=== PATIENT | male | born 1990 | race Caucasian/White ===

== ENCOUNTER 2020-10-14 08:51 | Outpatient (REF) | payer OTHER, SELFPAY ==
[2020-10-14 11:49] LABS: Alanine Aminotransferase 27 U/L (0-40); Albumin Level 4.7 g/dL (3.5-5.0); Alkaline Phosphatase 37 U/L (39-117); Aspartate Amino Transferase 39 U/L (5-37); Bilirubin Direct 0.2 mg/dL (0.0-0.5); Bilirubin Total 0.6 mg/dL (0.0-1.0); Cholesterol 249 mg/dL; HDL Cholesterol 57 mg/dL; LDL Cholesterol Calculated 175 mg/dl; Total Protein 7.8 g/dL (6.5-8.0); Triglycerides 88 mg/dL
== END 2020-10-14 08:52 | disposition home or self-care (01) ==
LOC: HO.HMGCLDS 08:51
PROVIDERS: PCP Internal Medicine; Visit Provider Internal Medicine
DX: E78.9 Disorder of lipoprotein metabolism, unspecified (principal)
CPT/HCPCS: 80061; 80076

== ENCOUNTER 2021-01-20 15:54 | Emergency (ER) | payer OTHER, SELFPAY ==
[2021-01-20 16:02] VITALS: BP 126/72; PULSE 108; RESP 18; TEMP 36.7; O2SAT 96; BMI 30.1
[2021-01-20 17:04] LABS: MANUAL DIFF FLAG NO
[2021-01-20 17:06] LABS: Basophils Percent Auto 0.4 % (0-2); Eosinophils Absolute Auto 0.1 X10*3/uL (0.0-0.4); Eosinophils Percent Auto 0.9 % (0-4); Hematocrit 39.2 % (42-52); Hemoglobin 13.7 g/dl (14.0-18.0); Imm Gran Abs Auto 0.01 X10*3/uL (0.00-0.03); Imm Gran Pct Auto 0.1 % (0.0-0.4); Lymphocytes Absolute Auto 2.2 X10*3/uL (1.2-4.9); Lymphocytes Percent Auto 31.8 % (20-40); Mean Corpuscular HGB Conc 34.9 g/dl (31.0-36.0); Mean Corpuscular Hemoglobin 28.8 pg (27.0-33.0); Mean Corpuscular Volume 82.4 fL (80-98); Mean Platelet Volume 9.1 fL (9.4-12.4); Monocytes Absolute Auto 0.5 X10*3/uL (0.1-1.2); Neutrophils Percent Auto 58.8 % (45-73); Platelet Count 266 X10*3/uL (160-400); Red Blood Count 4.76 X10*6/uL (4.60-5.80); Red Cell Distribution Width 12.2 % (11.0-16.0); White Blood Count 6.8 X10*3/uL (4.8-10.8)
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
[2021-01-20 17:33] LABS: Alanine Aminotransferase 23 U/L (0-40); Albumin Level 4.9 g/dL (3.5-5.0); Alkaline Phosphatase 41 U/L (39-117); Anion Gap 15 (12-20); Aspartate Amino Transferase 33 U/L (5-37); Bilirubin Direct < 0.2 mg/dL (0.0-0.5); Bilirubin Total 0.2 mg/dL (0.0-1.0); Blood Urea Nitrogen 24 mg/dL (9-16); Calcium 9.4 mg/dL (8.4-10.2); Carbon Dioxide 27 mmol/L (22-29); Chloride 101 mmol/L (96-108); Creatinine Clr Calc Pharmacy 96.9; Estimated Glomerular Filt Rate > 60; Glucose Random 94 mg/dL (60-115); Lipase 19 U/L (8-78); Sodium 139 mmol/L (135-145); Total Protein 7.9 g/dL (6.5-8.0)
[2021-01-20] MEDS: Post Exposure Medication Kit 1 KIT PO (17:39)
[2021-01-21 05:00] LABS: HBc Num1 0.05 S/CO (0.00-0.79); HIV AB/AG Nonreactive (Nonreactive); HIV Num 1 0.05 S/CO (0.00-0.99); Hepatitis B Core Antibody Nonreactive (Nonreactive)
[2021-01-21 05:07] LABS: HBS Num1 50.25 mIU/mL (0-7.99); ~Hepatitis B Surface Antibody REACTIVE (Nonreactive)
[2021-01-21 05:14] LABS: HBsAGNum1 0.13 S/CO (0.00-0.99); Hepatitis B Surface Antigen Negative (Negative); ~HepC Num1 0.11 S/CO (0.00-0.79); ~Hepatitis C Antibody Nonreactive (Nonreactive)
== END 2021-01-20 18:00 | disposition home or self-care (01) ==
PROVIDERS: Physician Assistant; Emergency Provider Emergency Medicine; PCP Internal Medicine
DX: Z04.2 Encounter for examination and observation following work accident (principal); Z77.21 Contact with and (suspected) exposure to potentially hazardous body fluids
CPT/HCPCS: 36415; 80048; 80076; 83690; 85025; 86704; 86706; 86803; 87340; 87389; 99283; 99284

== ENCOUNTER → 2021-01-21 08:09 | Outpatient (BNVA) | payer OTHER, SELFPAY | PROVIDERS: PCP Internal Medicine; Visit Provider Internal Medicine | DX: Z77.21 Contact with and (suspected) exposure to potentially hazardous body fluids (principal) | CPT/HCPCS: 99202 ==

== ENCOUNTER → 2021-03-04 13:26 | Outpatient (BNVA) | payer OTHER, SELFPAY | PROVIDERS: PCP Internal Medicine | DX: Z77.21 Contact with and (suspected) exposure to potentially hazardous body fluids (principal) | CPT/HCPCS: 36415; 84450; 84460; 87389; 99211 ==

== ENCOUNTER → 2021-04-30 08:19 | Outpatient (BNVA) | payer OTHER, SELFPAY | PROVIDERS: PCP Internal Medicine | DX: Z77.21 Contact with and (suspected) exposure to potentially hazardous body fluids (principal) | CPT/HCPCS: 36415; 84450; 84460; 86803; 87389; 99211 ==

== ENCOUNTER 2021-05-20 08:07 | Emergency (ER) | payer OTHER, SELFPAY ==
[2021-05-20 08:10] VITALS: BP 128/79; PULSE 71; RESP 16; TEMP 36.8; O2SAT 98; BMI 29.4
[2021-05-20 08:22] VITALS: BP 117/82; PULSE 71; RESP 13; TEMP 36.9; O2SAT 98
[2021-05-20] MEDS: methylPREDNISolone Sod Succ 125 MG/2 ML VIAL IVPUSH (08:28)
[2021-05-20] MEDS: diphenhydrAMINE HCL 50 MG/ML VIAL IVPUSH (08:28)
[2021-05-20] MEDS: Famotidine/PF 20 MG/2 ML VIAL IVPUSH (08:28)
[2021-05-20] MEDS: 0.9 % Sodium Chloride 1,000 ML 999 ML IVCONT (08:28)
--- NOTE | 2021-05-20 08:58 | PC.NURSE ---
pt upper lip swelling decreased, bottom lip remains the same. Hives on ILANA trunk improved. pt reports feeling drowsy. speech clear.
--- NOTE | 2021-05-20 09:21 | ED_ITS ---
HPI - Allergic Reaction General Chief complaint: Allergic Reaction Stated complaint: hives - allergic reaction Time Seen by Provider: 05/20/21 08:16 Source: patient Mode of arrival: ambulatory Limitations: no limitations History of Present Illness HPI narrative: 31-year-old male with a past medical history of hyperlipidemia presenting to the ED with complaints of rash, hives and upper and lower lip swelling that has been intermittent since yesterday. He reports mild throat tightness that started this morning. He was seen at an urgent care yesterday and was given Benadryl and IM steroids and reports his symptoms had resolved and then overnight day developed again and worsened this morning. He reports he has been taking Claritin around the clock and was providing some mild symptomatic relief. He reports he recently started a new medication call digestive enzymes in the past week and this could be contributing to his allergic reaction. He denies any other new medications / substances /inset bite/ plant contact or cleaning product exposures. He denies any other symptoms complaints or concerns at this time. MD complaint: allergic reaction, hives and other ( upper and lower lip swelling) Onset (ago): day(s) ( intermittent since yesterday) Exposure: medication ( possible digestive enzyme medications that he started approximately 1 week ago) Symptoms: rash, itching and lip swelling Severity: moderate Treatment prior to arrival: none ( cleared in prior to arrival) Previous Allergic Reaction History: other ( he reports he was seen at the urgent care yesterday and was given Benadryl, IM steroids) Related Data Previous Rx's Medication Instructions Recorded zolpidem 5 mg tablet 5 mg PO BEDTIME PRN 90 Days #45 tab 01/12/21 gemfibrozil 600 mg tablet 600 mg PO BID 90 Days #180 tab 05/19/21 diphenhydramine HCl [Benadryl 50 mg PO Q6H PRN #20 tab 05/20/21 Allergy] epinephrine 0.3 mg IM Q10M PRN #2 ea 05/20/21 famotidine [Pepcid] 20 mg PO BID #10 tab 05/20/21 prednisone 60 mg PO DAILY 5 Days #15 tab 05/20/21 Allergies Allergy/AdvReac Type Severity Reaction Status Date / Time acetaminophen [From Vicodin] Allergy Unknown nausea Verified 05/20/21 08:10 hydrocodone [From Vicodin] Allergy Unknown nausea Verified 05/20/21 08:10 Review of Systems Review of Systems: Constitutional : No Fever, No Chills , no body aches, no recent illness Head/Face: Positive upper and lower lip swelling, No other facial swelling, No facial redness ENT/Mouth : No oral/throat swelling, No Hoarseness, No Swallowing Difficulty Eyes: No Eye Pain, No Swelling, No Redness Cardiovascular : No Chest Pain, No SOB, No palpitations Respiratory : No Cough, No Sputum, No Wheezing, No Smoke Exposure, No Dyspnea Gastrointestinal : No Nausea, No Vomiting, No Diarrhea, No abdominal Pain Genitourinary : No Dysuria, No Urinary Frequency, No Hematuria Musculoskeletal : No joint pain, No Myalgias, No Joint Swelling Skin : Positive Rash, No Skin Lesions Neuro : No Weakness, No Numbness, No Headache, No dizziness, No tingling Psych : No Anxiety/Panic, No Depression Heme/Lymph: No Bruising, No Lymphadenopathy Endocrine : No Polyuria, No Polydipsia Denies changes in lotions or detergents. Denies new medications or any changes in medications. Denies drainage from rash. Denies any recent sick contacts or recent travel. Yes all other systems are reviewed and are negative [facility] Past Medical History Attestation statement: The following information was validated with the patient. Medical History Difficulty sleeping Lipid disorder Surgical History History of shoulder surgery Family History Family History Father No problems noted. Mother No problems noted. Social History Social History Alcohol intake: former Patient Tobacco Use Status: Never used Tobacco Use of substances other than those prescribed or required for medical reasons: No Advance Directives: Yes Advance Directives Information Provided: Yes Advance Directives on File: No Physical Exam Vital Signs: Vital Signs: Last Vital Signs Temp 98.5 F 05/20/21 08:22 Pulse 71 05/20/21 08:22 Resp 13 05/20/21 08:22 BP 117/82 05/20/21 08:22 Pulse Ox 98 05/20/21 08:22 Body Mass Index 29.4 vital signs have been reviewed as normal and appeared to be correct. Blood pressure normal. Heart rate normal. Respiration rate normal. Temperature normal. Oxygen saturation normal. Appearance: Alert. Oriented X3. No acute distress. Head: Normal external exam. Normocephalic. Atraumatic. No Jaramillo signs noted. No raccoon eyes noted Eyes: PERRLA. EOMI. Conjunctiva and sclera normal. Eyelids normal. ENT: patient has mild upper and lower lip swelling/angioedema. Pharynx normal. Uvula midline. Moist mucous membranes. No trismus noted. No drooling noted. No muffled voice noted. Neck: Normal inspection. Neck supple. FROM. No adenopathy. Thyroid Normal. No meningeal signs. No neck mass noted. CVS: Normal heart rate and rhythm. Heart sound normal. Pulses normal throughout. No murmurs/rales/gallops. Respiratory: No respiratory distress. Painless inspiration. Breath sounds normal. No wheezes/rales/rhonchi noted. Chest nontender. No accessory muscle usage noted or decreased air movement noted. Abdomen: Soft and nontender. Bowel sounds normal in all 4 quadrants. No distention noted. No organomegaly noted. No visible injury noted. Back: No CVA tenderness. Full range of motion noted. No rashes/lesion/induration/fluctuance or signs of infection noted. Skin: Throughout the patient's entire body he has raise pain -red and well- demarcated blanching lesions that are pruritic consistent with hives /Urticaria/allergic reaction. The rest of the Skin is warm and dry. Normal skin color. Normal skin turgor. No lesions/lacerations noted. Extremities: Extremities exhibit normal range of motion. Extremities no ntender. Neuro: Oriented X 3. No motor deficit. No sensory deficit. Reflexes normal. Normal steady gait. No focal neuro deficits noted. Vascular: + radial pulses/+ 2 distal pedal pulses/+2 dorsalis pedis b/l. Normal cap refill. No cyanosis noted to upper extremity nails and lower extremity toes nails. Course Course Course Narrative: 8:20am IMP/Plan: Allergic rxn with mild upper and lower lip angioedema. Not anaphylaxis. Not sepsis/ infectious etiology. Patient well appearing in no acute distress, breathing easily reports that he feels throat tightness although no tongue /uvula swelling noted on my exam. Speaking full sentences, and handling secretions without difficulty. There is no obvious threat to airway. Lungs are CTA in all connors. No signs of stridor, airway compromise, anaphylaxis or anaphylactic shock. Not c/w SSSS/ TEN/ Eryth multiforme/ Galeas Johnsons. Given HPI and PE - Will give 125 mg of Solu-Medrol, 50 mg of Benadryl, and 20 mg of IV Pepcid provide a L of IV fluids watch and observe. if symptoms improve will DC home with Benadryl / Pepcid and steroids along with an EpiPen if not patient will receive epi while here in the ER. Reevaluation(s) Reevaluation #1: - Patient's rash completely resolved. Mild residual lip swelling although moderately improved. Patient does not have any throat tightness sensation any longer. I offered an epi due to the lip swelling that is residual and he is refusing. We will DC home with Benadryl, Pepcid, steroids and an EpiPen and I instructed the patient if he utilizes the epi pen that he needs to come to the emergency department immediately for observation due to rebound effect and he understand this. Along with instructions follow-up with primary care provider for allergy testing. Patient understands agrees with this plan Time: 10:06 MDM - Allergic Reaction Medical Records Attestation: I reviewed the patient's medical records. Lab Data Attestation: I reviewed the patient's lab results. Critical Care Time Critical Care Time Critical Care Time: Yes Total Critical Care Time: 60 Attestation: I personally attest to this time spent taking care of the patient Discharge Plan Discharge Clinical Impression: Allergic reaction, Urticaria, Angioedema Patient Disposition: Home, Self-Care Instructions: Urticaria (ED), Anaphylaxis (ED), Allergies (ED), Angioedema (ED), Allergy Testing (ED) Additional Instructions: please do not take the digestive enzyme medications that you recently started this could be the cause of your allergic reaction. You need to follow-up with your primary care provider for allergy testing. I gave you an epi pen if you utilize this EpiPen you need to return to the emergency department immediately for observation for at least 2-4 hours. Return if any new or worsening symptoms follow-up with her primary care provider. Prescriptions: New famotidine [Pepcid] 20 mg tablet 20 mg PO BID Qty: 10 RF: 0 diphenhydramine HCl [Benadryl Allergy] 25 mg tablet 50 mg PO Q6H PRN (Reason: allergic reaction) Qty: 20 RF: 0 prednisone 20 mg tablet 60 mg PO DAILY 5 Days Qty: 15 RF: 0 epinephrine 0.3 mg/0.3 mL auto-injector 0.3 mg IM Q10M PRN (Reason: anaphylaxis) Qty: 2 RF: 0 No Action gemfibrozil 600 mg tablet 600 mg PO BID 90 Days Qty: 180 RF: 1 zolpidem [Ambien] 5 mg tablet 5 mg PO BEDTIME PRN (Reason: insomnia) 90 Days Qty: 45 RF: 0 Referrals: Zander Hugo MD [Primary Care Provider] - 1 day ( Patient needs allergy testing) Stand Alone Forms: Work/School Release Print Language: [place]ian
[2021-05-20 10:19] VITALS: BP 106/52; PULSE 72; RESP 18; O2SAT 99
== END 2021-05-20 10:22 | disposition home or self-care (01) ==
PROVIDERS: Emergency Provider Emergency Medicine; PCP Internal Medicine
DX: T78.3XXA Angioneurotic edema, initial encounter (principal)
CPT/HCPCS: 96361; 96374; 96375; 99284; 99291; J1200; J2930

== ENCOUNTER 2021-05-23 09:21 | Emergency (ER) | payer OTHER, SELFPAY ==
--- NOTE | ~2021-05-23 | XR_ITS ---
EXAMINATION: XR CHEST CLINICAL INFORMATION: Chest pain COMPARISON: None TECHNIQUE: 2 views of the chest were obtained. FINDINGS: No significant abnormality is noted involving the heart, lungs, mediastinum, bony thorax or soft tissues. XR/XR chest 2V IMPRESSION: Unremarkable examination.
[2021-05-23 09:26] VITALS: BP 139/68; PULSE 82; RESP 18; TEMP 36.7; O2SAT 96; BMI 29.4
--- NOTE | 2021-05-23 09:53 | ECG_ITS ---
Test Reason : ALLERGIC REACTION Blood Pressure : / mmHG Vent. Rate : 067 BPM Atrial Rate : 067 BPM P-R Int : 130 ms QRS Dur : 088 ms QT Int : 402 ms P-R-T Axes : 047 072 029 degrees QTc Int : 424 ms Normal sinus rhythm Normal ECG When compared with ECG of 21-JUN-2019 13:17, No significant change was found Referred By: David Roblero Electronically Signed By:KAYLI BAINS
--- NOTE | 2021-05-23 09:56 | ED_ITS ---
HPI - Allergic Reaction General Chief complaint: Allergic Reaction Stated complaint: ALLERGIC REACTION Time Seen by Provider: 05/23/21 09:32 Source: patient Mode of arrival: ambulatory Limitations: no limitations History of Present Illness HPI narrative: 31-year-old male came in for evaluation of rash and hives. Symptoms started 3-4 days ago patient was seen in the emergency department for same symptoms and was prescribed Benadryl, Pepcid, prednisone patient took his medication today, rashes and hives still persist and patient feels slight tightness in the throat and chest pressure since early this morning. Patient took digestive enzyme medication that the patient discontinued for the last 2-3 days also. Related Data Previous Rx's Medication Instructions Recorded gemfibrozil 600 mg tablet 600 mg PO BID 90 Days #180 tab 05/19/21 diphenhydramine HCl [Benadryl 50 mg PO Q6H PRN #20 tab 05/20/21 Allergy] epinephrine 0.3 mg IM Q10M PRN #2 ea 05/20/21 famotidine [Pepcid] 20 mg PO BID #10 tab 05/20/21 prednisone 60 mg PO DAILY 5 Days #15 tab 05/20/21 zolpidem 5 mg tablet 5 mg PO BEDTIME PRN 90 Days #45 tab 05/21/21 Allergies Allergy/AdvReac Type Severity Reaction Status Date / Time acetaminophen [From Vicodin] Allergy Unknown nausea Verified 05/21/21 09:31 hydrocodone [From Vicodin] Allergy Unknown nausea Verified 05/21/21 09:31 Review of Systems Review of Systems: All other systems are reviewed and are negative Constitutional: Reports as per HPI and Reports no additional constitutional complaints Eyes: Reports as per HPI and Reports no additional eye complaints Reports system reviewed and no additional complaints, except as documented Cardiovascular: Reports as per HPI and Reports no additional cardiovascular complaints Respiratory: Reports as per HPI and Reports no additional respiratory complaints Gastrointestinal: Reports as per HPI and Reports no additional gastrointestinal complaints Genitourinary: Reports no additional female genitourinary complaints Musculoskeletal: Reports no additional musculoskeletal complaints Skin/Breast: Reports system reviewed and no additional complaints, except as docu Psychiatric: Reports no additional psychiatric complaints Endocrine: Reports no additional endocrine complaints Hematologic/Lymphatic: Reports no additional hematologic/lymphatic complaints Allergic/Immunologic: Reports no additional allergic/immunologic complaints Reports system reviewed and no additional complaints, except as documented and Reports Abnormal speech present PMFSH Past Medical History Medical History Difficulty sleeping Lipid disorder Surgical History History of shoulder surgery Family History Family History Father No problems noted. Mother No problems noted. Social History Social History Housing: House Alcohol intake: former Patient Tobacco Use Status: Never used Tobacco Advance Directives: Yes Advance Directives Information Provided: Yes Advance Directives on File: No service: Yes Current occupational status: employed Physical Exam Vital Signs: Vital Signs: Last Vital Signs Temp 96.8 F 05/23/21 10:19 Pulse 73 05/23/21 10:19 Resp 18 05/23/21 10:19 BP 119/86 05/23/21 10:55 Pulse Ox 99 05/23/21 10:55 Body Mass Index 29.4 Vital signs have been reviewed as appeared to be correct. Blood pressure normal. Heart rate normal. Respiration rate normal. Temperature normal. Oxygen saturation normal. Appearance: Alert. Oriented X3. No acute distress. Head: Normal external exam. Normocephalic. Atraumatic. No Jaramillo signs noted. No raccoon eyes noted Eyes: PERRLA. EOMI. Conjunctiva and sclera normal. Eyelids normal. ENT: TM's Normal. Pharynx normal. Uvula midline. Moist mucous membranes. No trismus noted. No drooling noted. No muffled voice noted. Neck: Normal inspection. Neck supple. FROM. No adenopathy. Thyroid Normal. No meningeal signs. No neck mass noted. No stridor and patent airway CVS: Normal heart rate and rhythm. Heart sound normal. No murmurs noted. Pulses normal throughout. Respiratory: No respiratory distress. Painless inspiration. Breath sounds normal. No wheezes/rales/rhonchi noted. Chest nontender. No accessory muscle usage noted or decreased air movement noted. Abdomen: Soft and nontender. Bowel sounds normal in all 4 quadrants. No distention noted. No organomegaly noted. No visible injury noted. Back: No CVA tenderness. Full range of motion noted. Skin: Diffuse maculopapular rash on the face, torso, upper and lower extremities Extremities: No lower extremity edema. Extremities exhibit normal range of motion. Extremities nontender. Neuro: Oriented X 3. No motor deficit. No sensory deficit. Reflexes normal. Course Course Course Narrative: Assessment and plan. 31-year-old male came in with rash, hives, feeling throat swelling. Patient has been on Benadryl/Pepcid/prednisone several days at home with no improvement, patient in the emergency department received IV fluid/Solu-Medrol/Benadryl IV, physical exam show no acute respiratory distress or airway compromising, patient remained with unremarkable vital signs, normal labs, normal EKG, normal chest x- ray. Appeared anxious wasl given 1 dose of Ativan while he is here and continue hydration with close monitoring. MDM - Allergic Reaction Lab Data Attestation: I reviewed the patient's lab results. Result diagrams: 05/23/21 10:04 05/23/21 10:04 Labs: Lab Results 05/23/21 05/23/21 05/23/21 Range/Units 10:04 10:04 10:04 WBC 9.5 (4.8-10.8) X10*3/uL RBC 4.83 (4.60-5.80) X10*6/uL Hgb 13.7 L (14.0-18.0) g/dl Hct 40.9 L (42-52) % MCV 84.7 (80-98) fL MCH 28.4 (27.0-33.0) pg MCHC 33.5 (31.0-36.0) g/dl RDW 12.5 (11.0-16.0) % Plt Count 255 (160-400) X10*3/uL MPV 9.4 (9.4-12.4) fL Immature Gran % (Auto) 0.5 H (0.0-0.4) % Neut % (Auto) 77.2 H (45-73) % Lymph % (Auto) 16.7 L (20-40) % [place] % (Auto) 5.2 (2-11) % Eos % (Auto) 0.2 (0-4) % Baso % (Auto) 0.2 (0-2) % Lymph # (Auto) 1.6 (1.2-4.9) X10*3/uL [place] # (Auto) 0.5 (0.1-1.2) X10*3/uL Eos # (Auto) 0.0 (0.0-0.4) X10*3/uL Baso # (Auto) 0.0 (0.0-0.2) X10*3/uL Abs Immat Gran (auto) 0.05 H (0.00-0.03) X10*3/uL Absolute Neuts (auto) 7.3 (2.0-8.3) X10*3/uL Absolute Nucleated RBC 0.000 (0.0-0.012) X10*3/uL Nucleated RBC % (auto) 0.0 (0.0-0.2) /100WBC Sodium 139 (135-145) mmol/L Potassium 4.3 (3.3-5.1) mmol/L Chloride 102 (96-108) mmol/L Carbon Dioxide 29 (22-29) mmol/L Anion Gap 12 (12-20) BUN 18 H (9-16) mg/dL Creatinine 1.16 (0.5-1.4) mg/dL Estim Creat Clear Calc 105.7 Estimated GFR > 60 Random Glucose 96 (60-115) mg/dL Calcium 9.6 (8.4-10.2) mg/dL Troponin I High Sens 5.7 (<3.5-35.0) ng/L Imaging Data Chest x-ray: Radiologist's impression: Unremarkable examination ECG Data Interpretation: Normal sinus rhythm at 67 beats per minutes, normal axis deviation, normal intervals, no ST-T changes. Discharge Plan Discharge Clinical Impression: Allergic reaction Patient Disposition: Home, Self-Care Instructions: Anaphylaxis (ED) Prescriptions: No Action gemfibrozil 600 mg tablet 600 mg PO BID 90 Days Qty: 180 RF: 1 famotidine [Pepcid] 20 mg tablet 20 mg PO BID Qty: 10 RF: 0 diphenhydramine HCl [Benadryl Allergy] 25 mg tablet 50 mg PO Q6H PRN (Reason: allergic reaction) Qty: 20 RF: 0 prednisone 20 mg tablet 60 mg PO DAILY 5 Days Qty: 15 RF: 0 epinephrine 0.3 mg/0.3 mL auto-injector 0.3 mg IM Q10M PRN (Reason: anaphylaxis) Qty: 2 RF: 0 zolpidem [Ambien] 5 mg tablet 5 mg PO BEDTIME PRN (Reason: insomnia) 90 Days Qty: 45 RF: 0 Referrals: Zander Hugo MD [Primary Care Provider] - 2 days
[2021-05-23] MEDS: diphenhydrAMINE HCL 50 MG/ML VIAL 25 MG IVPUSH (10:12)
[2021-05-23] MEDS: Famotidine/PF 20 MG/2 ML VIAL IVPUSH (10:12)
[2021-05-23] MEDS: 0.9 % Sodium Chloride 1,000 ML 999 ML IVCONT ×2 (10:12→11:44)
[2021-05-23] MEDS: methylPREDNISolone Sod Succ 125 MG/2 ML VIAL IVPUSH (10:15)
[2021-05-23 10:19] VITALS: BP 117/73; PULSE 73; RESP 18; TEMP 36; O2SAT 97
[2021-05-23 10:22] LABS: MANUAL DIFF FLAG NO
[2021-05-23 10:26] LABS: Basophils Percent Auto 0.2 % (0-2); Eosinophils Percent Auto 0.2 % (0-4); Hematocrit 40.9 % (42-52); Hemoglobin 13.7 g/dl (14.0-18.0); Imm Gran Abs Auto 0.05 X10*3/uL (0.00-0.03); Imm Gran Pct Auto 0.5 % (0.0-0.4); Lymphocytes Absolute Auto 1.6 X10*3/uL (1.2-4.9); Lymphocytes Percent Auto 16.7 % (20-40); Mean Corpuscular HGB Conc 33.5 g/dl (31.0-36.0); Mean Corpuscular Hemoglobin 28.4 pg (27.0-33.0); Mean Corpuscular Volume 84.7 fL (80-98); Mean Platelet Volume 9.4 fL (9.4-12.4); Monocytes Absolute Auto 0.5 X10*3/uL (0.1-1.2); Monocytes Percent Auto 5.2 % (2-11); Neutrophils Absolute Auto 7.3 X10*3/uL (2.0-8.3); Neutrophils Percent Auto 77.2 % (45-73); Platelet Count 255 X10*3/uL (160-400); Red Blood Count 4.83 X10*6/uL (4.60-5.80); Red Cell Distribution Width 12.5 % (11.0-16.0); White Blood Count 9.5 X10*3/uL (4.8-10.8)
--- NOTE | 2021-05-23 10:47 | ECG_ITS ---
Test Reason : SHORTNESS OF BREATH Blood Pressure : / mmHG Vent. Rate : 066 BPM Atrial Rate : 066 BPM P-R Int : 128 ms QRS Dur : 092 ms QT Int : 410 ms P-R-T Axes : 047 071 027 degrees QTc Int : 429 ms Normal sinus rhythm Normal ECG When compared with ECG of 23-MAY-2021 10:12, No significant change was found Referred By: David Roblero Electronically Signed By:KAYLI BAINS
[2021-05-23 10:50] LABS: Anion Gap 12 (12-20); Blood Urea Nitrogen 18 mg/dL (9-16); Calcium 9.6 mg/dL (8.4-10.2); Carbon Dioxide 29 mmol/L (22-29); Chloride 102 mmol/L (96-108); Creatinine Clr Calc Pharmacy 105.7; Estimated Glomerular Filt Rate > 60; Glucose Random 96 mg/dL (60-115); Potassium 4.3 mmol/L (3.3-5.1); Sodium 139 mmol/L (135-145)
[2021-05-23 10:54] LABS: Troponin-I High Sensitivity 5.7 ng/L (<3.5-35.0)
--- NOTE | 2021-05-23 10:54 | PC.NURSE ---
patient started to complain of increased SOB and chest pain. new set of vital signs were obtained which were all wnl. ed provider made aware and repeat ekg and chest xray ordered. tech at bedside performing repeat ekg and patient informed of plan.
[2021-05-23 10:55] VITALS: BP 119/86; O2SAT 99
[2021-05-23] MEDS: LORazepam 1 MG TABLET PO (11:43)
== END 2021-05-23 12:55 | disposition home or self-care (01) ==
PROVIDERS: Emergency Provider Emergency Medicine; PCP Internal Medicine
DX: T78.40XA Allergy, unspecified, initial encounter (principal); X58.XXXA Exposure to other specified factors, initial encounter
CPT/HCPCS: 36415; 71046; 80048; 84484; 85025; 93005; 96361; 96374; 96375; 99284; J1200; J2930

== ENCOUNTER 2021-08-13 09:54 | Outpatient (REF) | payer OTHER, SELFPAY ==
[2021-08-13 12:27] LABS: MANUAL DIFF FLAG NO
[2021-08-13 12:36] LABS: Basophils Percent Auto 0.9 % (0-2); Eosinophils Absolute Auto 0.2 X10*3/uL (0.0-0.4); Eosinophils Percent Auto 4.1 % (0-4); Hemoglobin 13.9 g/dl (14.0-18.0); Imm Gran Abs Auto 0.01 X10*3/uL (0.00-0.03); Imm Gran Pct Auto 0.2 % (0.0-0.4); Lymphocytes Absolute Auto 2.4 X10*3/uL (1.2-4.9); Lymphocytes Percent Auto 51.5 % (20-40); Mean Corpuscular HGB Conc 33.1 g/dl (31.0-36.0); Mean Corpuscular Hemoglobin 28.2 pg (27.0-33.0); Mean Corpuscular Volume 85.2 fL (80-98); Mean Platelet Volume 9.7 fL (9.4-12.4); Monocytes Absolute Auto 0.4 X10*3/uL (0.1-1.2); Monocytes Percent Auto 8.4 % (2-11); Neutrophils Absolute Auto 1.6 X10*3/uL (2.0-8.3); Neutrophils Percent Auto 34.9 % (45-73); Platelet Count 236 X10*3/uL (160-400); Red Blood Count 4.93 X10*6/uL (4.60-5.80); White Blood Count 4.7 X10*3/uL (4.8-10.8)
[2021-08-13 13:20] LABS: Alanine Aminotransferase 22 U/L (0-40); Albumin Level 4.6 g/dL (3.5-5.0); Alkaline Phosphatase 43 U/L (39-117); Anion Gap 12 (12-20); Aspartate Amino Transferase 31 U/L (5-37); Bilirubin Direct < 0.2 mg/dL (0.0-0.5); Bilirubin Total 0.5 mg/dL (0.0-1.0); Blood Urea Nitrogen 15 mg/dL (9-16); Calcium 9.9 mg/dL (8.4-10.2); Carbon Dioxide 28 mmol/L (22-29); Chloride 105 mmol/L (96-108); Cholesterol 267 mg/dL; Estimated Glomerular Filt Rate > 60; Glucose Fasting 96 mg/dL (60-99); HDL Cholesterol 58 mg/dL; LDL Cholesterol Calculated 189 mg/dl; Potassium 4.9 mmol/L (3.3-5.1); Sodium 140 mmol/L (135-145); Total Protein 7.8 g/dL (6.5-8.0); Triglycerides 100 mg/dL
== END 2021-08-13 09:55 | disposition home or self-care (01) ==
LOC: HO.HMGCLDS 09:54
PROVIDERS: PCP Internal Medicine; Visit Provider Internal Medicine
DX: E78.9 Disorder of lipoprotein metabolism, unspecified (principal); G47.9 Sleep disorder, unspecified
CPT/HCPCS: 36415; 80048; 80061; 80076; 85025

== ENCOUNTER 2022-01-31 02:51 | Emergency (ER) | payer OTHER, SELFPAY ==
[2022-01-31 03:20] VITALS: BP 135/79; PULSE 89; RESP 16; TEMP 37; O2SAT 97; BMI 28.7
--- NOTE | 2022-01-31 04:28 | PC.NURSE ---
Pt is refusing blood work at this time.
[2022-01-31 06:06] VITALS: BP 117/67; PULSE 74; RESP 16; TEMP 36.7; O2SAT 97
--- NOTE | 2022-01-31 06:18 | PC.NURSE ---
Second attempt to collect labs. Pt is refusing at this time.
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
== END 2022-01-31 07:08 | disposition home or self-care (01) ==
PROVIDERS: Emergency Provider Emergency Medicine Emergency Medical Services
DX: Z04.1 Encounter for examination and observation following transport accident (principal)
CPT/HCPCS: 99282; 99283

== ENCOUNTER 2022-02-24 07:29 | Outpatient (REF) | payer OTHER, SELFPAY ==
[2022-02-24 11:44] LABS: Alanine Aminotransferase 20 U/L (0-40); Albumin Level 4.4 g/dL (3.5-5.0); Alkaline Phosphatase 39 U/L (39-117); Aspartate Amino Transferase 22 U/L (5-37); Bilirubin Direct < 0.2 mg/dL (0.0-0.5); Bilirubin Total 0.3 mg/dL (0.0-1.0); Cholesterol 174 mg/dL; HDL Cholesterol 37 mg/dL; LDL Cholesterol Calculated 120 mg/dl; Total Protein 7.2 g/dL (6.5-8.0); Triglycerides 86 mg/dL
== END 2022-02-24 07:30 | disposition home or self-care (01) ==
LOC: HO.HMGCLDS 07:29
PROVIDERS: Visit Provider Internal Medicine
DX: E78.9 Disorder of lipoprotein metabolism, unspecified (principal); G47.9 Sleep disorder, unspecified
CPT/HCPCS: 36415; 80061; 80076

== ENCOUNTER 2022-09-01 07:55 | Outpatient (REF) | payer OTHER, SELFPAY ==
[2022-09-01 12:01] LABS: Alanine Aminotransferase 32 U/L (0-40); Albumin Level 4.7 g/dL (3.5-5.0); Alkaline Phosphatase 45 U/L (39-117); Anion Gap 13 (12-20); Aspartate Amino Transferase 42 U/L (5-37); Bilirubin Total 0.4 mg/dL (0.0-1.0); Blood Urea Nitrogen 18 mg/dL (9-16); Calcium 9.7 mg/dL (8.4-10.2); Carbon Dioxide 30 mmol/L (22-29); Chloride 100 mmol/L (96-108); Cholesterol 261 mg/dL; Estimated Glomerular Filt Rate > 60; Glucose Fasting 87 mg/dL (60-99); HDL Cholesterol 43 mg/dL; LDL Cholesterol Calculated 195 mg/dl; Potassium 4.2 mmol/L (3.3-5.1); Sodium 139 mmol/L (135-145); Total Protein 7.9 g/dL (6.5-8.0); Triglycerides 116 mg/dL
== END 2022-09-01 07:56 | disposition home or self-care (01) ==
LOC: HO.HMGCLDS 07:55
PROVIDERS: PCP Internal Medicine; Visit Provider Internal Medicine
DX: E78.9 Disorder of lipoprotein metabolism, unspecified (principal)
CPT/HCPCS: 36415; 80053; 80061

== ENCOUNTER 2022-11-17 23:57 | Emergency (ER) | payer OTHER, SELFPAY ==
--- NOTE | ~2022-11-17 | XR_ITS ---
EXAMINATION: XR hand wrist RT CLINICAL INFORMATION: Reason for Exam injury COMPARISON: 07/14/2019 TECHNIQUE: PA, oblique and lateral views FINDINGS: No acute fracture or dislocation. Dorsal plate and screws is present this metacarpal diaphysis no evidence of hardware failure or complication. Soft tissues unremarkable XR/XR hand wrist RT IMPRESSION: No acute fracture or dislocation.
[2022-11-17 23:59] VITALS: BP 135/94; PULSE 92; RESP 18; TEMP 36.6; O2SAT 96; BMI 30.1
--- OUTSIDE RECORDS SUMMARY | 2022-11-18 02:03 | XMS_ITS | Encounter Summary ---
:1990 Author Organization Department [facility] rs Address [address] [place] [id number] Support Name Relationship Address Phone SRINIVAS WHEELER Unavailable [address] [facility] [place] [address] SRINIVAS WHEELER Unavailable Unavailable Insurance Providers: All historical and current Section Date Range: From patient's date of to the date document was created.This section includes the names of all active insurance providers for the patient. Insurance Type of Plan Start of End of Group Member Insurance Policy P atient's Provider Coverage Name Policy Policy Number ID Provider's Bello's Relationship Coverage Coverage Telephone Name to Policy Number Bello RESER Dec 11, [id number] [phone] ANVJOT WHEELER PATIENT [facility] 2019 IN [place] 2017 T Selected Encounter This section includes the information on record at [place] for the Encounter. Date/Time Encounter Type Encounter Description Reason Provider Source Sep 08, 2022 02:07 Outpatient Encounter PRIMARY CARE/MEDICINE PM [facility] Encounter Template Text not used by [place] Plan of Treatment: Future Appointments (+ 6 months) and Future Tests (+/- 45 days) The Plan of Treatment section includes future care activities for the [facility]. This section includes future appointments and future orders which are active, pending orscheduled.Active, Pending, and Scheduled Orders This section includes a listing of several types of active, pending, and scheduled orders, including clinic medications orders, diagnostic test orders, procedure orders and consult orders; where the start date of the order is 45 days before the date of the Encounter or 45 days after the date of the Encounter. The data comes from all [place] treatment facilities. Test Date/Time Test Type Test Details Facility Name Sep 01, 2022 12:00 AM Laboratory - Chemistry BASIC METABOLIC SIMON EL [facility] (fasting) BLOOD (SST-SERUM) Sep 01, 2022 12:00 AM Laboratory - Chemistry LIPID PANEL FASTING [facility] BLOOD (SST-SERUM) Sep 01, 2022 12:00 AM Laboratory - Chemistry LIVER FUNCTION BLOO D [place] Order (SST-SERUM) Sep 01, 2022 12:00 AM Laboratory - Chemistry CBC AND DIFF (AUTO) [facility] BLOOD (LAV-BLOOD) Sep 01, 2022 12:00 AM Laboratory - Chemistry HEMOGLOBIN A1C PANE L [facility] BLOOD (LAV-BLOOD) Sep 01, 2022 12:00 AM Laboratory - Chemistry TSH BLOOD (SST-SERU M) [facility] Sep 01, 2022 12:00 AM Laboratory - Chemistry URINALYSIS URINE [facility] Encounter Notes: All associated encounter notes This section contains the clinical notes associated to the Encounter. Date/Time Encounter Note(s) Provider Source Sep 08, 2022 02:07 PM ADMINISTRATIVE NOTE: GLADYS SIMS [facility] TITLE: ADMINISTRATIVE NOTE STANDARD TITLE: ADMINISTRATIVE NOTE DATE OF NOTE: SEP 08, 2022@14:07 ENTRY DATE: SEP 08, 2022@14:07:43 AUTHOR: GLADYS SIMS EXP COSIGNER: URGENCY: STATUS: COMPLETED TELEPHONE CALL Called PATIENT PHONE - PHONE NUMBER [CELLULAR] - Re: Electronics Technician Apprentice has called to remind them of thei r upcoming PCP appt with YOUNG HAMMOND and the need for bloodwork prior to upcoming belgica t. [ ] Spoke with [X] Left VM [ ] Unable to reach [X] Fasting blood work [ ] NON fasting blood work [ ] NO bloodwork needed Upcoming Appointments: 09/22/2022 09:30 CWM/SO/PACT 4 /es/ GLADYS SIMS CIVIL ENGINEERING PROJECT DESIGNER Signed: 09/08/2022 14:07
--- OUTSIDE RECORDS SUMMARY | 2022-11-18 02:03 | XMS_ITS | Continuity of Care Document ---
:1990 Author Organization [facility] Care Team Providers Name Role Phone [facility] Unavailable Unavailable Problems Combined list of problems from Department of Defense and Veterans Affairs facilities. It does not include entries that were removed or entered in error. Problem Status Onset Problem Date of Comments Source Date Type Resolution visit for: Inactive Condition DoD services physical 017 pre-deployment hemorrhoids external Inactive Condition DoD 017 unspecified muscle Inactive Condition D oD strain 016 ankle joint pain Inactive Condition DoD 016 joint pain, localized Active Condition DoD in the knee 016 Alcohol Abuse (SCT Active Condition Oct 06, [facility] [id number]) 2020 [facility] Entered [place] By: [facility] TREVOR TOMPKINS Comment: In binges GERD - Active Condition [place] Gastro-esophageal reflux disease Hypercholesterolemia Active Condition [facility] [facility] Pain of joint of knee Active Condition [place] PTSD - Post-traumatic Active Condition [place] stress disorder Diagnosis: ICD-10-CM Active Diagnosis [facility] M25.569 Pain in unspecified kneewith Provider Comments: Pain in unspecified Knee Diagnosis: ICD-10-CM Active Diagnosis [place] F43.10 Post-traumatic stress disorder, unspecifiedwith Provider Comments: PTSD - Post-traumatic stress disorder ([facility] [id number]) Diagnosis: ICD-10-CM Active Diagnosis [place] F43.10 Post-traumatic stress disorder, unspecifiedwith Provider Comments: Post-Traumatic Stress Disorder, unspecified Diagnosis: ICD-10-CM Active Diagnosis [place] M25.569 Pain in unspecified kneewith Provider Comments: Pain of joint of knee ([facility] [id number]) Diagnosis: ICD-10-CM Active Diagnosis [facility] Z02.89 Encounter for [facility]STRN other administrative [place] examinationswith [facility] Provider Comments: Encounter for other Administrative Examinations Diagnosis: ICD-10-CM Active Diagnosis [place] M25.569 Pain in unspecified kneewith Provider Comments: Pain of joint of knee ([facility] [id number]) Diagnosis: ICD-10-CM Active Diagnosis [facility] E78.00 Pure [facility]N hypercholesterolemia, [place] unspecifiedwith HCS Provider Comments: Hypercholesterolemia ([facility] [id number]) Diagnosis: ICD-10-CM Active Diagnosis [place] F10.20 Alcohol dependence, uncomplicatedwith Provider Comments: Alcohol Dependence, Uncomplicated Diagnosis: ICD-10-CM Active Diagnosis [facility] F43.12 Post-traumatic W[facility]N stress disorder, [place] chronicwith Provider HCS Comments: Post-Traumatic Stress Disorder, Chronic Diagnosis: ICD-10-CM Active Diagnosis [place] Z71.89 Other specified counselingwith Provider Comments: Other specified Counseling Medications Combined list of outpatient medications from Department of Defense and Veterans Affairs facilities. Medications provided include 1) outpatient medications from the last 15 months, and 2) patient-reported medications. Medication Details Route Status Patient Prescription Prescription Last Ordering Order Source Instructions Expires Number Dispense Provider Date Date busPIRone TAKE ONE Discont 09/23/2022 [id number] LEDA 10/17/ Cynthia (U/D) 5 MG TABLET inued 1 2020 pton ORAL TAB BY MOUTH [facility] TWICE DAILY NEEDED BUSPIRONE TAKE ONE ORAL DISCONT 09/23/2022 [id number] ZACK TOMPKINS DUDLEY HCL 5MG TAB TABLET INUED 2020 IELD BY MOUTH TWICE DAILY NEEDED COENZYME TAKE BY ORAL ACTIVE CAMILA HAMMOND 03/02/ SPR INGF Q10 CAP/TAB MOUTH [place] 2021 IELD ONCE DAILY Compounded TAKE ONE 08/06/2022 [id number] MANISH Cynthia Prilosec CAPSULE 1 2021 pton Capsule BY MOUTH [facility] Conventiona TWICE l 20 mg DAILY Oral DOXEPIN HCL TAKE ONE ORAL DISCONT 10/07/2022 [id number] ZACK BASILIO springF 10MG CAP CAPSULE INUED 1 2020 IELD BY MOUTH AT BEDTIME Doxepin TAKE ONE Discont 10/07/2022 [id number] LEDA Cynthia Hydrochlori CAPSULE inued 1 2021 pton de BY MOUTH [facility] ([place] AT Eq.) BEDTIME Capsule Conventiona l 10 mg Oral FLONASE-OTC INSTILL Active 03/03/2023 [id number] MANISH, Northam (BRAND) 50 2 SPRAYS 2 2021 pto n MCG RILEY INTO [facility] SPSN [9.9] EACH NOSTRIL ONCE DAILY FOR NASAL IRRITATI ON/INFLA MMATION FLUTICASONE INSTILL EACH ACTIVE 03/03/2023 [id number] MANISH,A NNM springF PROPIONATE 2 SPRAYS NOSTRI 2 2021 IELD 50MCG/SPRAY INTO L SOLN,NASAL, EACH 16GM NOSTRIL ONCE DAILY FOR NASAL IRRITATI ON/INFLA MMATION FLUVASTATIN TAKE 1 ORAL ACTIVE MANISH,ANNM 03/02/ S PRINGF NA 20MG CAP CAPSULE 2021 IELD BY MOUTH ONCE DAILY FLUVASTATIN TAKE 1 ORAL ACTIVE MANISH,ANNM S PRINGF NA 20MG CAP CAPSULE DAWOOD2021 IELD BY MOUTH ONCE DAILY FLUVASTATIN Active [id number] TONA, 11/18 / Pharmac SODIUM 2 2021 y Data (FLUVASTATI Transac N SODIUM), tion 20 MG, Service CAPSULE, Facilit ORAL, y MYLAN, 30 ea. BOTTLE FLUVASTATIN Active [id number] TONA, 06/07 / Pharmac SODIUM 2 2021 y Data (FLUVASTATI Transac N SODIUM), tion 20 MG, Service CAPSULE, Facilit ORAL, TEVA y [place], 30 ea. BOTTLE FLUVASTATIN Active [id number] TONA, 03/01 / Pharmac SODIUM 2 2021 y Data (FLUVASTATI Transac N SODIUM), tion 20 MG, Service CAPSULE, Facilit ORAL, TEVA y [place], 30 ea. BOTTLE hydrOXYzine TAKE ONE Discont 10/07/2022 [id number] RAULITO FELTON, Beckam pamoate CAPSULE inued 1 2021 pton (U/D) 25 MG BY MOUTH [facility] ORAL CAP TWICE DAILY NEEDED HYDROXYZINE TAKE ONE ORAL DISCONT 10/07/2022 [id number] S HARMA,NE springF PAMOATE CAPSULE INUED 1 ETA 2020 IELD 25MG CAP BY MOUTH TWICE DAILY NEEDED OMEPRAZOLE TAKE ONE ORAL 08/06/2022 [id number] CAMILA HAMMOND 20MG CAP,EC CAPSULE 1 DAWOOD 2020 IELD BY MOUTH TWICE DAILY ZOLPIDEM Active [id number] TONA, P harmac TARTRATE 2 2021 y Data (ZOLPIDEM Transac TARTRATE), tion 5MG, Service TABLET, Facilit ORAL, y [facility], 100 ea. BOTTLE ZOLPIDEM Active [id number] TONA, 02/28/ P harmac TARTRATE 2 2021 y Data (ZOLPIDEM Transac TARTRATE), tion 5MG, Service TABLET, Facilit ORAL, y [facility], 100 ea. BOTTLE ZOLPIDEM Active [id number] TONA, P harmac TARTRATE 2 2021 y Data (ZOLPIDEM Transac TARTRATE), tion 5MG, Service TABLET, Facilit ORAL, y [facility], 100 ea. BOTTLE Allergies, Adverse Reactions, Alerts Combined list of allergies from Department of Defense and Veterans Affairs facilities. It does not include entries that were removed or entered in error. Substance Category Reaction Severity Reaction Status Date Comments S ource type Reported BUSPIRONE Drug Drug active Randy mcclendon allergy allergy 1 [facility] (disorder) (disorder ) Immunizations Combined list of available immunizations from the Department of Defense and Veterans Affairs facilities. Immunization Series Date Administered Site Reaction Lot CVX Drug St atus Comments Source Given By Number Code Glass Cutter INFLUENZA, complet [facility] UNSPECIFIED 2020 ed CN TRL FORMULATION [place] [facility] COVID-19 2 complet [facility] (PFIZER), 2020 ed CNTR L MRNA, LNP-S, W STRN PF, 30 [place] MCG/0.3 ML SET S DOSE HCS COVID-19 1 complet [facility] (PFIZER), 2020 ed CNTR L MRNA, LNP-S, W STRN PF, 30 [place] MCG/0.3 ML SET S DOSE HCS influenza, 09/18/ DOMINIQUE, () Not i nfluenza DoD injectable, 2019 Given , quadrivalent, inject abl preservative e, free quadrival ent, preservat shanna free Results Combined list of recent chemistry, hematology and other laboratory results from Department of Defense and Veterans Affairs, ranging from 15 months to all on record, depending upon the facility. Order Results Value Reference Date Interpretation Specimen Commen ts Source Name Range COVID-19 SARS-COV-2 N 11/04 Specimen Typ e: NASOPHARYNX [place] (CEPHEID (COVID-19) /2020 Comment: Te st performed on [employer] at [facility]. This test is authorized for emergency use only. It is authorized for the duration of the declaration that circumstances exist just LD ) RNA ifying the autho rization for detection and/or diagnosis of COVID-19. Unless the authorization is terminated or revoked sooner. This test cannot rule out diseases caused by other bacterial or viral patho [PRESENCE] gens. False n egative results may occur if virus is present at levels below the analytical limit of detection. Negative results do not preclude SARS-CoV-2, influenza or RSV infection and should not be us IN ed as the sole b asis for treatment or other patient management decisions. Viral nucleic acid may persist in vivo, independent of virus viability. Detection of analyte target(s) does not imply that the c RESPIRATOR orresponding virus(es) are infectious or are the causative agents for clinical symptoms. Cepheid FLUVID: HCPs: https://www.fda.gov/media/950037/download Patients: https://www.fda.gov/media/253742/download Y SPECIMEN Ordering Pro vider: YOUNG HAMMOND BY ANEESH Report Released Date/Time: Nov 04, 2021 03:53 PM WITH PROBE Reporting La b: [facility] [facility] DETECTION [address] [facility] [address] Performing Lab: PR [employer] [employer]777TRN Study [employer] [facility] [address] [facility] [address] HEPATITI HEPATITIS NON-REAC 08/12 Specimen Typ e: SERUM [place] S C C VIRUS AB TIVE /2020 Comment: Hep C Ab: No HCV antibody detected. If recent infection is suspected or other evidence suggests HCV infection, consider HCV nucleic acid testing LD ANTIBODY [PRESENCE] Ordering Pr ovider: YOUNG HAMMOND (HCV)-AR IN SERUM Report Releas ed Date/Time: Aug 05, 2021 11:42 AM C Reporting Lab: [facility] [address] [facility] [address] Performing Lab: [facility] [address] [facility] [address] BASIC UREA 18 7 - 25 08/12 Specimen Type: S SARAH [place] METABOLI NITROGEN /2020 No comment ent ered. LD C PANEL [MASS/VOLU Ordering Pro vider: YOUNG HAMMOND (fasting ME] IN Report Release d Date/Time: Aug 05, 2021 11:42 AM ) SERUM OR Reporting Lab: [facility] PLASMA [address] [facility] [address] Performing Lab: [address] [address] BASIC GLUCOSE 94 65 - 100 08/12 Specimen Type: SERUM [place] METABOLI [MASS/VOLU /2020 No comment e ntered. LD C PANEL ME] IN Ordering Provid er: YOUNG HAMMOND (fasting SERUM OR Report Releas ed Date/Time: Aug 05, 2021 11:42 AM ) PLASMA Reporting Lab: [facility] [address] [facility] [address] Performing Lab: [facility] [address] [facility] [address] BASIC SODIUM 137 135 - 145 08/12 Specimen Type: SERUM [place] METABOLI [MOLES/VOL /2020 No comment e ntered. LD C PANEL UME] IN Ordering Provid er: YOUNG HAMMOND (fasting SERUM OR Report Releas ed Date/Time: Aug 05, 2021 11:42 AM ) PLASMA Reporting Lab: [facility] [address] [facility] [address] Performing Lab: [facility] [address] [facility] [address] BASIC POTASSIUM 4.5 3.5 - 5.0 08/12 Specimen Typ e: [facility] [place] METABOLI [MOLES/VOL /2020 No comment e ntered. LD C PANEL UME] IN Ordering Provid er: YOUNG HAMMOND (fasting SERUM OR Report Releas ed Date/Time: Aug 05, 2021 11:42 AM ) PLASMA Reporting Lab: [facility] [address] [facility] [address] Performing Lab: [facility] [address] [facility] [address] BASIC CHLORIDE 102 100 - 110 08/12 Specimen Type : SERUM [place] METABOLI [MOLES/VOL /2020 No comment e ntered. LD C PANEL UME] IN Ordering Provid er: YOUNG HAMMOND (fasting SERUM OR Report Releas ed Date/Time: Aug 05, 2021 11:42 AM ) PLASMA Reporting Lab: [address] [address] Performing Lab: [address] [address] BASIC CARBON 26 20 - 30 08/12 Specimen Type: S SARAH [place] METABOLI DIOXIDE, /2020 No comment ent ered. LD C PANEL TOTAL Ordering Provid er: YOUNG HAMMOND (fasting [MOLES/VOL Report Rele ased Date/Time: Aug 05, 2021 11:42 AM ) UME] IN Reporting Lab: [facility] SERUM OR [address] [facility] [address] PLASMA Performing Lab: [facility] [address] [facility] [address] BASIC CREATININE 1.00 0.50 - 08/12 Specimen Type : SERUM [place] METABOLI [MASS/VOLU 1.40 /2020 No comment e ntered. LD C PANEL ME] IN Ordering Provid er: YOUNG HAMMOND (fasting SERUM OR Report Releas ed Date/Time: Aug 05, 2021 11:42 AM ) PLASMA Reporting Lab: [address] [address] Performing Lab: [facility] [address] [facility] [address] BASIC GLOMERULAR 87 60 09/30 Specimen Type : SERUM [place] METABOLI FILTRATION /2020 No comment e ntered. LD C PANEL RATE/1.73 Ordering Prov ider: YOUNG HAMMOND (fasting SQ Report Release d Date/Time: Aug 05, 2021 11:42 AM ) AGUSTIN Reporting La b: [facility] [place] [facility] D [VOLUME [address] [facility] [address] RATE/AREA] Performing L ab: [facility] [place] [facility] IN SERUM [address] [facility] [address] OR PLASMA BY CREATININE -BASED FORMULA (MDRD) LIPID CHOLESTERO 278 0 - 199 09/30 H Specimen Type : SERUM [place] PANEL L /2020 No comment enter ed. LD FASTING [MASS/VOLU Ordering Pro vider: YOUNG HAMMOND ME] IN Report Released Date/Time: Aug 05, 2021 11:42 AM SERUM OR Reporting Lab: [facility] [place] [facility] PLASMA [address] [facility] [address] Performing Lab: [facility] [place] [facility] [address] [facility] [address] LIPID TRIGLYCERI 114 0 - 150 09/30 Specimen Type : SERUM [place] PANEL DE /2020 No comment enter ed. LD FASTING [MASS/VOLU Ordering Pro vider: YOUNG HAMMOND] IN Report Released Date/Time: Aug 05, 2021 11:42 AM SERUM OR Reporting Lab: [facility] [place] [facility] PLASMA [address] [facility] [address] Performing Lab: [facility] [place] [facility] [address] [facility] [address] LIPID CHOLESTERO 199 0 - 129 09/30 H Specimen Type : SERUM [place] PANEL L IN LDL /2020 No comment ente red. LD FASTING [MASS/VOLU Ordering Pro vider: YOUNG HAMMOND] IN Report Released Date/Time: Aug 05, 2021 11:42 AM SERUM OR Reporting Lab: [facility] [place] [facility] PLASMA BY [address] [facility] [address] CALCULATIO Performing L ab: [facility] [place] [facility] N [address] [facility] [address] LIPID CHOLESTERO 5.0 08/12 Specimen Type : [facility] [place] PANEL L.TOTAL/CH /2020 No comment en tered. LD FASTING OLESTEROL Ordering Prov ider: YOUNG HAMMOND IN HDL Report Released Date/Time: Aug 05, 2021 11:42 AM [MASS Reporting Lab: [facility] [place] [facility] RATIO] IN [address] [facility] [address] SERUM OR Performing Lab : PR [facility] [place] [place] [facility] PLASMA [address] [facility] [address] LIPID CHOLESTERO 56 40 - 60 08/12 Specimen Type : SERUM [place] PANEL L IN HDL /2020 No comment ente red. LD FASTING [MASS/VOLU Ordering Pro vider: YOUNG HAMMOND ME] IN Report Released Date/Time: Aug 05, 2021 11:42 AM SERUM OR Reporting Lab: [facility] [place] [place] [facility] PLASMA [address] [facility] [address] Performing Lab: PR [facility] [place] [facility] [address] [facility] [address] LIVER PROTEIN 7.6 6.0 - 8.3 08/12 Specimen Type: SERUM [place] FUNCTION [MASS/VOLU /2020 No comment e ntered. LD ME] IN Ordering Provid er: YOUNG HAMMOND SERUM OR Report Release d Date/Time: Aug 05, 2021 11:42 AM PLASMA Reporting Lab: [facility] [place] [facility] [address] [facility] [address] Performing Lab: [facility] [place] [facility] [address] [facility] [address] LIVER ALBUMIN 4.4 3.5 - 5.0 08/12 Specimen Type: SERUM [place] FUNCTION [MASS/VOLU /2020 No comment e ntered. LD ME] IN Ordering Provid er: YOUNG HAMMOND SERUM OR Report Release d Date/Time: Aug 05, 2021 11:42 AM PLASMA Reporting Lab: [facility] [place] [facility] [address] [facility] [address] Performing Lab: [facility] [place] [facility] [address] [facility] [address] LIVER ALKALINE 40 40 - 150 08/12 Specimen Type: [facility] [place] FUNCTION PHOSPHATAS /2020 No comment e ntered. LD E Ordering Provid er: YOUNG HAMMOND [ENZYMATIC Report Relea sed Date/Time: Aug 05, 2021 11:42 AM ACTIVITY/V Reporting La b: [facility] [place] [facility] OLUME] IN [address] [facility] [address] SERUM OR Performing Lab : [facility] [place] [facility] PLASMA [address] [facility] [address] LIVER ASPARTATE 30 5 - 34 08/12 Specimen Type: [facility] [place] FUNCTION AMINOTRANS /2020 No comment e ntered. LD FERASE Ordering Provid er: YOUNG HAMMOND [ENZYMATIC Report Relea sed Date/Time: Aug 05, 2021 11:42 AM ACTIVITY/V Reporting La b: [facility] [place] [facility] OLUME] [place] [address] [facility] [address] SERUM OR Performing Lab : [facility] [place] [facility] PLASMA [address] [facility] [address] LIVER ALANINE 24 0 - 55 08/12 Specimen Type: S SARAH [place] FUNCTION AMINOTRANS /2020 No comment e ntered. LD FERASE Ordering Provid er: YOUNG HAMMOND [ENZYMATIC Report Relea sed Date/Time: Aug 05, 2021 11:42 AM ACTIVITY/V Reporting La b: [facility] [place] [facility] OLUME] [place] [address] [facility] [address] SERUM OR Performing Lab : [facility] [place] [facility] PLASMA [address] [facility] [address] LIVER BILIRUBIN. 0.4 0.2 - 1.2 08/12 Specimen Ty pe: [facility] [place] FUNCTION TOTAL /2020 No comment ente red. LD [MASS/VOLU Ordering Pro vider: YOUNG HAMMOND ME] IN Report Released Date/Time: Aug 05, 2021 11:42 AM SERUM OR Reporting Lab: [facility] [place] [facility] PLASMA [address] [facility] [address] Performing Lab: [facility] [place] [facility] [address] [facility] [address] CBC AND LEUKOCYTES 4.85 4.50 - 08/12 Specimen Type : BLOOD [place] DIFF [#/VOLUME] 11.00 No comment en tered. LD (AUTO) IN BLOOD Ordering Provi yoandy: YOUNG HAMMOND BY Report Released Date/Time: Aug 05, 2021 11:42 AM AUTOMATED Reporting Lab : [facility] [place] [facility] COUNT [address] [facility] [address] Performing Lab: [facility] [place] [facility] [address] [facility] [address] CBC AND ERYTHROCYT 4.84 4.23 - 08/12 Specimen Type : BLOOD [place] DIFF ES 5.66 No comment enter ed. LD (AUTO) [#/VOLUME] Ordering Pro vider: YOUNG HAMMOND IN BLOOD Report Release d Date/Time: Aug 05, 2021 11:42 AM BY Reporting Lab: [facility] [place] [facility] AUTOMATED [address] [facility] [address] COUNT Performing Lab: [facility] [place] [facility] [address] [facility] [address] CBC AND HEMOGLOBIN 13.8 12.8 - 17 08/12 Specimen Ty pe: BLOOD [place] DIFF [MASS/VOLU /2020 No comment en tered. LD (AUTO) ME] IN Ordering Provid er: YOUNG HAMMOND BLOOD Report Released Date/Time: Aug 05, 2021 11:42 AM Reporting Lab: [facility] [place] [facility] [address] [facility] [address] Performing Lab: [facility] [place] [facility] [address] [facility] [address] CBC AND HEMATOCRIT 41.5 39.2 - 08/12 Specimen Type : BLOOD [place] DIFF [VOLUME 50.4 No comment enter ed. LD (AUTO) FRACTION] Ordering Prov ider: YOUNG HAMMOND OF BLOOD Report Release d Date/Time: Aug 05, 2021 11:42 AM BY Reporting Lab: [facility] [place] [facility] AUTOMATED [address] [facility] [address] COUNT Performing Lab: [facility] [place] [facility] [address] [facility] [address] CBC AND MCV 85.7 82 - 99 08/12 Specimen Type: B LOOD [place] DIFF [ENTITIC /2020 No comment ente red. LD (AUTO) VOLUME] BY Ordering Pro vider: YOUNG HAMMOND AUTOMATED Report Releas ed Date/Time: Aug 05, 2021 11:42 AM COUNT Reporting Lab: [facility] [place] [facility] [address] [facility] [address] Performing Lab: [facility] [place] [facility] [address] [facility] [address] CBC AND MCHC 33.3 30.8 - 08/12 Specimen Type: B LOOD [place] DIFF [MASS/VOLU 35.1 No comment en tered. LD (AUTO) ME] BY Ordering Provid er: YOUNG HAMMOND AUTOMATED Report Releas ed Date/Time: Aug 05, 2021 11:42 AM COUNT Reporting Lab: [facility] [place] [facility] [address] [facility] [address] Performing Lab: [facility] [place] [facility] [address] [facility] [address] CBC AND PLATELETS 228 140 - 360 08/12 Specimen Typ e: BLOOD [place] DIFF [#/VOLUME] /2020 No comment en tered. LD (AUTO) IN BLOOD Ordering Provi yoandy: YOUNG HAMMOND BY Report Released Date/Time: Aug 05, 2021 11:42 AM AUTOMATED Reporting Lab : [facility] [place] [facility] COUNT [address] [facility] [address] Performing Lab: [facility] [place] [facility] [address] [facility] [address] CBC AND ERYTHROCYT 13.0 12.0 - 08/12 Specimen Type : BLOOD [place] DIFF E 16.0 /2020 No comment enter ed. LD (AUTO) DISTRIBUTI Ordering Pro vider: YOUNG HAMMOND ON WIDTH Report Release d Date/Time: Aug 05, 2021 11:42 AM [RATIO] BY Reporting La b: [facility] [place] [facility] AUTOMATED [address] [facility] [address] COUNT Performing Lab: [facility] [place] [facility] [address] [facility] [address] CBC AND MONOCYTES 0.43 0.30 - 08/12 Specimen Type: BLOOD [place] DIFF [#/VOLUME] 1.10 No comment en tered. LD (AUTO) IN BLOOD Ordering Provi yoandy: YOUNG HAMMOND BY Report Released Date/Time: Aug 05, 2021 11:42 AM AUTOMATED Reporting Lab : [facility] [place] [facility] COUNT [address] [facility] [address] Performing Lab: [facility] [address] [facility] [address] CBC AND MCH 28.5 26.2 - 08/12 Specimen Type: B LOOD [place] DIFF [ENTITIC 32.6 No comment ente red. LD (AUTO) MASS] BY Ordering Provi yoandy: YOUNG HAMMOND AUTOMATED Report Releas ed Date/Time: Aug 05, 2021 11:42 AM COUNT Reporting Lab: [facility] [place] [facility] [address] [facility] [address] Performing Lab: [facility] [place] [facility] [address] [facility] [address] CBC AND NEUTROPHIL 36.3 08/12 Specimen Type : BLOOD [place] DIFF S/100 No comment enter ed. LD (AUTO) LEUKOCYTES Ordering Pro vider: YOUNG HAMMOND IN BLOOD Report Release d Date/Time: Aug 05, 2021 11:42 AM BY Reporting Lab: [facility] [place] [facility] AUTOMATED [address] [facility] [address] COUNT Performing Lab: [facility] [place] [facility] [address] [facility] [address] CBC AND LYMPHOCYTE 46.8 08/12 Specimen Type : BLOOD [place] DIFF S/ No comment enter ed. LD (AUTO) LEUKOCYTES Ordering Pro vider: YOUNG HAMMOND IN BLOOD Report Release d Date/Time: Aug 05, 2021 11:42 AM BY Reporting Lab: [facility] [place] [facility] AUTOMATED [address] [facility] [address] COUNT Performing Lab: [facility] [place] [facility] [address] [facility] [address] CBC AND MONOCYTES/ 8.9 08/12 Specimen Type : BLOOD [place] DIFF 100 No comment enter ed. LD (AUTO) LEUKOCYTES Ordering Pro vider: YOUNG HAMMOND IN BLOOD Report Release d Date/Time: Aug 05, 2021 11:42 AM BY Reporting Lab: [facility] [place] [facility] AUTOMATED [address] [facility] [address] COUNT Performing Lab: [facility] [place] [facility] [address] [facility] [address] CBC AND EOSINOPHIL 6.6 08/12 Specimen Type : BLOOD [place] DIFF S/100 No comment enter ed. LD (AUTO) LEUKOCYTES Ordering Pro vider: YOUNG HAMMOND IN BLOOD Report Release d Date/Time: Aug 05, 2021 11:42 AM BY Reporting Lab: [facility] [place] [facility] AUTOMATED [address] [facility] [address] COUNT [facility]forming [facility] [place] [facility] [address] [facility] [address] CBC AND BASOPHILS/ 1.2 08/12 Specimen Type : BLOOD [place] DIFF 100 No comment enter ed. LD (AUTO) LEUKOCYTES Ordering Pro vider: YOUNG HAMMOND IN BLOOD Report Release d Date/Time: Aug 05, 2021 11:42 AM BY Reporting Lab: [facility] [address] [facility] [address] COUNT Performing Lab: [facility] [place] [facility] [address] [facility] [address] CBC AND NEUTROPHIL 1.76 2.20 - 09 L Specimen Type : BLOOD [place] DIFF S 7.60 /2020 No comment enter ed. LD (AUTO) [#/VOLUME] Ordering Pro vider: YOUNG HAMMOND IN BLOOD Report Release d Date/Time: Aug 05, 2021 11:42 AM BY Reporting Lab: [facility] [place] [facility] AUTOMATED [address] [facility] [address] COUNT Performing Lab: [facility] [address] [facility] [address] CBC AND LYMPHOCYTE 2.27 1.00 - 08/12 Specimen Type : BLOOD [place] DIFF S 3.20 No comment enter ed. LD (AUTO) [#/VOLUME] Ordering Pro vider: YOUNG HAMMOND IN BLOOD Report Release d Date/Time: Aug 05, 2021 11:42 AM BY Reporting Lab: [facility] AUTOMATED [address] [facility] [address] COUNT Performing Lab: [facility] [address] [facility] [address] CBC AND EOSINOPHIL 0.32 0.03 - 08/12 Specimen Type : BLOOD [place] DIFF S 0.44 /2020 No comment enter ed. LD (AUTO) [#/VOLUME] Ordering Pro vider: YOUNG HAMMOND IN BLOOD Report Release d Date/Time: Aug 05, 2021 11:42 AM BY Reporting Lab: [facility] AUTOMATED [address] [facility] [address] COUNT Performing Lab: [facility] [address] [facility] [address] CBC AND BASOPHILS 0.06 0.01 - 08/12 Specimen Type: BLOOD [place] DIFF [#/VOLUME] 0.13 No comment en tered. LD (AUTO) IN BLOOD Ordering Provi yoandy: YOUNG HAMMOND BY Report Released Date/Time: Aug 05, 2021 11:42 AM AUTOMATED Reporting Lab : [facility] [place] [facility] COUNT [address] [facility] [address] Performing Lab: [facility] [address] [facility] [address] CBC AND IMMATURE 0.2 08/12 Specimen Type: BLOOD [place] DIFF GRANULOCYT /2020 No comment en tered. LD (AUTO) ES/100 Ordering Provid er: YOUNG HAMMOND LEUKOCYTES Report Relea sed Date/Time: Aug 05, 2021 11:42 AM IN BLOOD Reporting Lab: [facility] BY [address] [facility] [address] AUTOMATED Performing La b: [facility] COUNT [address] [facility] [address] CBC AND IMMATURE 0.01 0.00 - 08/12 Specimen Type: BLOOD [place] DIFF GRANULOCYT 0.06 No comment en tered. LD (AUTO) ES Ordering Provid er: YOUNG HAMMOND [#/VOLUME] Report Relea sed Date/Time: Aug 05, 2021 11:42 AM IN BLOOD Reporting Lab: [facility] [address] [facility] [address] Performing Lab: [facility] [address] [facility] [address] HEMOGLOB HEMOGLOBIN 5.1 4.0 - 5.6 08/12 Specimen T ype: BLOOD [place] IN A1C A1C/HEMOGL /2020 Comment: Barbara mccurdyg performed by NGSP certified Bowers Enzymatic with CV <2%. The Bowers HgA1C assay should not be used to diagnose or monitor diabetes in patients with altered red cell lifespan martinez LD PANEL OBIN.TOTAL ch as homozyg ous hemoglobin variants, Hb SC, HbF>5% and hemolytic anemia. Heterozygous variants do not affect this assay, HbAS, HbAC, HbAD, HbAE, AbA2 IN BLOOD Ordering Provi yoandy: YOUNG HAMMOND BY HPLC Report Released Date/Time: Aug 05, 2021 11:42 AM Reporting Lab: [facility] [address] [facility] [address] Performing Lab: [facility] [address] [facility] [address] TSH THYROTROPI 1.95 0.35 - 08/12 Specimen Type : SERUM [place] N 5.00 No comment enter ed. LD [UNITS/VOL Ordering Pro vider: YOUNG HAMMOND UME] IN Report Released Date/Time: Aug 05, 2021 11:42 AM SERUM OR Reporting Lab: [facility] PLASMA [address] [facility] [address] Performing Lab: [facility] [address] [facility] [address] URINALYS COLOR OF Yellow 08/12 Specimen Type: URINE [place] IS URINE No comment enter ed. LD Ordering Provid er: YOUNG HAMMOND Report Released Date/Time: Aug 05, 2021 11:42 AM Reporting Lab: [facility] [address] [facility] [address] Performing Lab: [facility]ENTERUSE[address] [address] URINALYS APPEARANCE Clear 08/12 Specimen Typ e: URINE [place] IS OF URINE No comment ente red. LD Ordering Provid er: YOUGN HAMMOND Report Released Date/Time: Aug 05, 2021 11:42 AM Reporting Lab: [facility] [address] [address] Performing Lab: [facility] [address] [address] URINALYS GLUCOSE Negative 08/12 Specimen Type: URINE [place] IS [MASS/VOLU No comment en tered. LD ME] IN Ordering Provid er: YOUNG HAMMOND URINE Report Released Date/Time: Aug 05, 2021 11:42 AM Reporting Lab: [facility]CIT[facility] BAPTISTTRN [facility] [address] [address] Performing Lab: [facility] [address] [address] URINALYS KETONES Negative 08/12 Specimen Type: URINE [place] IS [MASS/VOLU No comment en tered. LD ME] IN Ordering Provid er: YOUNG HAMMOND URINE BY Report Release d Date/Time: Aug 05, 2021 11:42 AM TEST STRIP Reporting La b: [facility] [address] [address] Performing Lab: [facility] [address] [address] URINALYS ERYTHROCYT Negative 08/12 Specimen Ty pe: URINE [place] IS ES No comment enter ed. LD [PRESENCE] Ordering Pro vider: YOUNG HAMMOND IN URINE Report Release d Date/Time: Aug 05, 2021 11:42 AM SEDIMENT Reporting Lab: [facility]ENTERUSEADIROND[facility] BY LIGHT [address] [place] [address] MICROSCOPY Performing L ab: [facility]ENTERN [address] [address] URINALYS PROTEIN Negative 08/12 Specimen Type: URINE [place] IS [MASS/VOLU /2020 No comment en tered. LD ME] IN Ordering Provid er: YOUNG HAMMOND URINE BY Report Release d Date/Time: Aug 05, 2021 11:42 AM TEST STRIP Reporting La b: [address] [address] Performing Lab: [address] [address] URINALYS NITRITE Negative 08/12 Specimen Type: URINE [place] IS [PRESENCE] /2020 No comment en tered. LD IN URINE Ordering Provi yoandy: YOUNG HAMMOND Report Released Date/Time: Aug 05, 2021 11:42 AM Reporting Lab: [address] [address] Performing Lab: [address] [address] URINALYS BILIRUBIN. Negative 08/12 Specimen Ty pe: URINE [place] IS TOTAL /2020 No comment enter ed. LD [PRESENCE] Ordering Pro vider: YOUNG HAMMOND IN URINE Report Release d Date/Time: Aug 05, 2021 11:42 AM Reporting Lab: [facility] [address] [address] Performing Lab: [facility] [address] [address] URINALYS SPECIFIC 1.014 1.016 - 08/12 L Specimen Type: URINE [place] IS GRAVITY OF 1.022 /2020 No comment en tered. LD URINE BY Ordering Provi yoandy: YOUNG HAMMOND REFRACTOME Report Relea sed Date/Time: Aug 05, 2021 11:42 AM TRY Reporting Lab: [facility] [place] [facility] [address] [facility] [address] Performing Lab: [facility]ENTERUSEADIRONDACK [facility] [address] [facility] [address] URINALYS PH OF 6.0 5.0 - 9.0 08/12 Specimen Type : URINE [place] IS URINE BY /2020 No comment ente red. LD TEST STRIP Ordering Pro vider: YOUNG HAMMOND Report Released Date/Time: Aug 05, 2021 11:42 AM Reporting Lab: [facility] [address] [facility] [address] Performing Lab: [facility] [address] [facility] [address] URINALYS UROBILINOG <2.0 <2.0 - 2.0 08/12 Specimen Type: URINE [place] IS EN /2020 No comment enter ed. LD [MASS/VOLU Ordering Pro vider: YOUNG HAMMOND] IN Report Released Date/Time: Aug 05, 2021 11:42 AM URINE BY Reporting Lab: [facility] TEST STRIP [address] [facility] [address] Performing Lab: [facility] BeatpackingUSEADIRONDACK REGIONAL HOSPITAL [address] [facility] [address] URINALYS LEUKOCYTE Negative 08/12 Specimen Typ e: URINE [place] IS ESTERASE No comment ente red. LD [PRESENCE] Ordering Pro vider: YOUNG HAMMOND IN URINE Report Release d Date/Time: Aug 05, 2021 11:42 AM BY TEST Reporting Lab: [facility] STRIP [address] [facility] [address] Performing Lab: [facility]ENTERUSEADIRONDACK [facility] [address] [facility] [address] VITAMIN 25-HYDROXY 28 20 - 50 08/12 Specimen Type : SERUM [place] D VITAMIN D3 /2020 No comment en tered. LD (25-[place]) [MASS/VOLU Ordering Pro vider: YOUNG HAMMOND] IN Report Released Date/Time: Aug 07, 2021 09:11 AM SERUM OR Reporting Lab: [facility] [place] [facility] PLASMA [address] [facility] [address] Performing Lab: [facility] [place] [facility] [address] [facility] [address] Encounters Combined list of: 1) Encounters from Department of Veterans Affairs facilities going back up to the last 18 months. 2) Encounters from the Department of Defense facilities going back up to 280 months. Location Location Encounter Encounter Reason Attending ADM DC Stat us Disposition Source Details Type Number For Provider Date Date Visit OUTPATIENT [id number] Theater 07/23 Released Theater Provider /2015 with Facilit Work/Duty y Limitations OUTPATIENT [id number] Theater 10/13 Released w/o Theater Provider /2015 Limitations Facil it y OUTPATIENT [id number] Theater 11/28 Released w/o Theater Provider /2016 Limitations Facil it y OUTPATIENT [id number] Theater 12/10 Released w/o Theater Provider /2016 Limitations Facil it y Outpatient 45872-1.63 05/27 [id number] [facility] [place] [place] [facility] Outpatient 95312-4.63 06/01 [facility] En[facility] [id number] /2021 [facility] [place] [facility] OFFICE O/P 10082-8.63 Diagnos CHANGCHAPMAN 06/21 [facility] EST [id number].[id number] is: GURU O IELD MINIMAL 31 ICD-10- PROB CM 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
[facility] Provide r Comment s: Post-Tr aumatic Stress Disorde r, Chronic Outpatient 54647-4.63 07/05 [facility] En[facility] [id number] /2021 [facility] [place] [facility] Outpatient 20783-4.63 07/14 [facility] En[facility] [id number] /2021 [facility] [place] [facility] PSYCH 81778-8.63 Diagnos KARYN JUAREZ 07/15 [facility] [id number].[id number] is: I IELD EVALUATION 59 ICD-10- CM F10.20 Alcohol depende nce, uncompl icated< br/>wit h Provide r Comment s: Alcohol Depende nce, Uncompl icated Outpatient 29675-3.63 Diagnos TRICEISHAAN 07/21 [facility] Encounter [id number] is: HENRIETTA MUELLER CN TRL ICD-10- WSTRN CM [place] 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
with Provide r Comment s: Hyperch olester olemia (SCT [id number] 9) OFFICE O/P Diagnos NYLA HAMMOND 08/05 [facility] NEW MOD [id number].[id number] is: LORAINE IELD 45-59 MIN 73 ICD-10- CM M25.569 Pain in unspeci fied knee
with Provide r Comment s: Pain of joint of knee (SNOMED CT 7106779 002) Outpatient 03323-908/05 [facility] [id number] [facility] [place] [facility] PSYTX W PT Diagnos VARSHA CHAPMAN 08/25 [facility] 45 MINUTES [id number].[id number] is: K IELD 83 ICD-10- CM F43.10 Post-tr aumatic stress disorde r, unspeci fied
with Provide r Comment s: PTSD - Post-tr aumatic stress disorde r (SCT [id number] 3) Outpatient Diagnos EM 09/08 [facility] Encounter [id number] is: DELTA RODRIGUEZ CNTRL ICD-10- A WSTRN CM [place] Z02.89 SETS Encount HCS er for other adminis trative examina tions<b r/>with Provide r Comment s: Encount er for other Adminis trative Examina tions OFFICE O/P Diagnos TREVOR TOMPKINS 09/22 [place] MOD 1BY.[id number] is: TA IELD 45-59 MIN 60 ICD-10- CM F43.10 Post-tr aumatic stress disorde r, unspeci fied
with Provide r Comment s: PTSD - Post-tr aumatic stress disorde r ([facility] [id number] 3) CASE Diagnos LILI,W 09/22 [facility] [id number].[id number] is: WALTER IELD 78 ICD-10- CM F43.10 Post-tr aumatic stress disorde r, unspeci fied
with Provide r Comment s: PTSD - Post-tr aumatic stress disorde r ([facility] [id number] 3) PSYTX W PT Diagnos JACQUI CHAPMANLEEN 09/22 [place] 45 MINUTES [id number].[id number] is: IELD 94 ICD-10- CM F43.10 Post-tr aumatic stress disorde r, unspeci fied
with Provide r Comment s: PTSD - Post-tr aumatic stress disorde r ([facility] [id number] 3) CASE Diagnos LILI,W 09/28 [facility] [id number].[id number] is: IELD 61 ICD-10- CM F43.10 Post-tr aumatic stress disorde r, unspeci fied
with Provide r Comment s: PTSD - Post-tr aumatic stress disorde r ([facility] [id number] 3) CASE Diagnos LILI,W 10/06 [facility] [id number].[id number] is: IELD 69 ICD-10- CM F43.10 Post-tr aumatic stress disorde r, unspeci fied
with Provide r Comment s: PTSD - Post-tr aumatic stress disorde r (SCT [id number] 3) OFFICE O/P Diagnos TOMPKINSTREVOR 10/06 [place] EST LOW [id number].[id number] is: IELD 20-29 MIN 07 ICD-10- CM F43.10 Post-tr aumatic stress disorde r, unspeci fied
with Provide r Comment s: PTSD - Post-tr aumatic stress disorde r ([facility] [id number] 3) [place] [address]-3. Diagnos JACQUI CHAPMANLEEN 10/20 [place] 45 MINUTES [id number].[id number] is: IELD 99 ICD-10- CM F43.10 Post-tr aumatic stress disorde r, unspeci fied
with Provide r Comment s: PTSD - Post-tr aumatic stress disorde r ([facility] [id number] 3) Outpatient 14239-2 FAITH CHAPMANEN 10/27 [place] Encounter [id number].[id number] I[place] 82 [place] [address]-3. Diagnos CHAPMAN,VARSHA 11/02 [place] 60 MINUTES [id number].[id number] is: IELD 23 ICD-10- CM F43.10 Post-tr aumatic stress disorde r, unspeci fied
with Provide r Comment s: PTSD - Post-tr aumatic stress disorde r ([facility] [id number] 3) Outpatient 42335-111/03 [facility] 1. [facility] [place] [facility] OFFICE O/P 41630-9 Diagnos NYLA HAMMOND 11/04 [place] EST LOW [id number].[id number] is: LORAINE IELD 20-29 MIN 10 ICD-10- CM M25.569 Pain in unspeci fied knee
with Provide r Comment s: Pain of joint of knee ([facility] [id number] 002) Outpatient 76955-011/04 [facility] En[place] 1. [place] [address]-9. Diagnos FAITH CHAPMANEN 11/18 [place] 60 MINUTES [id number].[id number] is: IELD 32 ICD-10- CM F43.10 Post-tr aumatic stress disorde r, unspeci fied
with Provide r Comment s: PTSD - Post-tr aumatic stress disorde r ([facility] [id number] 3) Outpatient 12165-411/22 [facility] Encounter [id number].[id number] /2022 [place] 28 [place] [address]-0 Diagnos CHAPMAN,VARSHA 11/25 [place] 60 MINUTES [id number].[id number] is: K IELD 55 ICD-10- CM F43.10 Post-tr aumatic stress disorde r, unspeci fied
with Provide r Comment s: Post-Tr aumatic Stress Disorde r, [place] [address]-8.63 Diagnos CHAPMAN,VARSHA 12/02 [place] 60 MINUTES [id number] is: K IELD 13 ICD-10- CM F43.10 Post-tr aumatic stress disorde r, unspeci fied
with Provide r Comment s: PTSD - Post-tr aumatic stress disorde r ([facility] [id number] 3) Outpatient 55668-4 CHAPMAN,VARSHA 12/09 [facility] En[facility] [id number] [facility] [place] [address]-8 Diagnos CHAPMAN,VARSHA 12/16 [place] 60 MINUTES [id number].[id number] is: K IELD 21 ICD-10- CM F43.10 Post-tr aumatic stress disorde r, unspeci fied
with Provide r Comment s: PTSD - Post-tr aumatic stress disorde r ([facility] [id number] 3) Outpatient 90322-1 CHAPMAN,VARSHA 12/23 [facility] Encounter [id number] [facility] [address]-8.63 Diagnos CHAPMAN,VARSHA 12/31 [place] 45 MINUTES [id number].[id number] is: IELD 84 ICD-10- CM F43.10 Post-tr aumatic stress disorde r, unspeci fied
with Provide r Comment s: PTSD - Post-tr aumatic stress disorde r ([facility] [id number] 3) Outpatient 36094-6 CHAPMAN,VARSHA 01/06 [facility] Encounter [id number] [facility] [place] [address]-4.63 Diagnos CHAPMAN,VARSHA 01/13 [place] 45 MINUTES [id number] is: IELD 16 ICD-10- CM F43.10 Post-tr aumatic stress disorde r, unspeci fied
with Provide r Comment s: PTSD - Post-tr aumatic stress disorde r (SCT [id number] 3) [place] [address]-4.63 Diagnos CHAPMAN,VARSHA 01/20 [place] 45 MINUTES [id number] is: IELD 00 ICD-10- CM F43.10 Post-tr aumatic stress disorde r, unspeci fied
with Provide r Comment s: PTSD - Post-tr aumatic stress disorde r (SCT [id number] 3) [place] [address]-3.63 Diagnos CHAPMAN,VARSHA 01/24 [place] 45 MINUTES [id number].[id number] is: IELD 66 ICD-10- CM F43.10 Post-tr aumatic stress disorde r, unspeci fied
with Provide r Comment s: PTSD - Post-tr aumatic stress disorde r (SCT [id number] 3) [place] [address]-8.63 Diagnos CHAPMAN,VARSHA 02/03 [place] 45 MINUTES [id number].[id number] is: IELD 79 ICD-10- CM F43.10 Post-tr aumatic stress disorde r, unspeci fied
with Provide r Comment s: PTSD - Post-tr aumatic stress disorde r (SCT [id number] 3) Outpatient CHAPMAN,VARSHA 02/08 [facility] En[facility] [id number] [facility] [address]-1.63 Diagnos CHAPMAN,VARSHA 02/08 [place] 45 MINUTES [id number] is: IELD 06 ICD-10- CM F43.10 Post-tr aumatic stress disorde r, unspeci fied
with Provide r Comment s: PTSD - Post-tr aumatic stress disorde r (SCT [id number] 3) Outpatient 99580-163 03/01 [facility] Encounter [id number] /2022 [facility] [place] [facility] OFFICE O/P 11284-6.63 Diagnos NYLA HAMMOND 03/02 [place] EST LOW [id number].[id number] is: LORAINE IELD 20-29 MIN 56 ICD-10- CM M25.569 Pain in unspeci fied knee
with Provide r Comment s: [place] [address]-3.63 Diagnos JACQUI CHAPMANLEEN 03/04 [place] 45 MINUTES [id number].[id number] is: IELD 81 ICD-10- CM F43.10 Post-tr aumatic stress disorde r, unspeci fied
with Provide r Comment s: PTSD - Post-tr aumatic stress disorde r ([facility] [id number] 3) Outpatient 71121-1.63 CHAPMANVARSHA 04/07 [facility] En[facility] [id number] [facility] [facility] SELF CARE 34588-0.63 Diagnos SENIA,OL 04/19 [facility] MNGMENT 1BY.[id number] is: IV IELD TRAINING 18 ICD-10- CM M25.569 Pain in unspeci fied knee
with Provide r Comment s: Pain in unspeci fied Knee THERAPEUTI 12772-1.63 Diagnos ADANJANINA,OL 04/26 [facility] C 1BY.[id number] is: IV IELD EXERCISES 25 ICD-10- CM M25.569 Pain in unspeci fied knee
with Provide r Comment s: Pain in unspeci fied Knee Outpatient 02147-6.63 VARSHA CHAPMAN 05/06 [facility] En[facility] [id number] [facility] [place] [facility] Outpatient 45325-9.63 CHAPMANVARSHA 06/02 [facility] Encounter [id number].[id number] IELD 42 Outpatient 17924-5.63 09/08 [facility] En[facility] [id number] [facility] [place] [facility] Outpatient 26782-9.63 09/19 [facility] Encounter [id number] /2022 [facility] [place] [facility] Procedures Combined list of: 1) Procedures from Department of Veterans Affairs facilities going back up to the last 18 months, not all VA non-surgical procedures are included; 2) All procedures from the Department of Defense facilities. Procedure Procedure Type Code Date Perfomer Comments Sourc e THERAPEUTIC, 08/12/2013 [facility] PROPHYLACTIC, OR DIAGNOSTIC INJECTION (SPECIFY SUBSTANCE OR DRUG); SUBCUTANEOUS OR INTRAMUSCULAR Social History Combined list of available smoking, tobacco, and other social history [facility]. Social History Type Response Date Comment Source Tobacco smoking status VA-TOBACCO FORMER USER 07/15/2021 [facility] History of tobacco use VA-TOBACCO QUIT < 1 YEAR 07/15/2021 [facility] This section is an empty [facility] social history section.
--- OUTSIDE RECORDS SUMMARY | 2022-11-18 02:03 | XMS_ITS | Encounter Summary ---
:1990 Author Organization [facility] Address [address] [place] [id number] Support Name Relationship Address Phone SRINIVAS WHEELER Unavailable [address] [place] [address] SRINIVAS WHEELER Unavailable Unavailable Insurance Providers: All [...] Coverage Telephone Name to Policy Number Bello [employer] RESER Dec 11, [id number] [phone] NAVJOT WHEELER PATIENT [facility] 2019 IN [facility] 2017 T Selected Encounter This section includes the information on record at [place] for the Encounter. Date/Time Encounter Type Encounter Reason Provider Source Description Jun 02, 2022 01:00 Outpatient [facility] YEISON CHAPMAN K PM Encounter - IND [facility] Encounter Template Text not used by VA Social History: Smoking Status (Most current) and Tobacco Use (All prior to encounter date) This section includes the most current, and the historical, smoking and tobacco-related health factors from the [place] facility where the Encounter took place.Current Smoking Status This section includes the most current smoking, or tobacco-related health factor, from the VA facility where the Encounter took place. Date/Time Current Smoking Status Comment Facility Jul 15, 2021 08:30 AM VA-TOBACCO FORMER USER [facility] Tobacco Use History This section includes a history of the smoking, or tobacco- related health factors, that were collected on or before the date of the Encounter. The data comes from the [place] facility where the Encounter took place. Date/Time Smoking Status/Tobacco Use Comment Lee adair Jul 15, 2021 08:30 AM VA-TOBACCO QUIT < 1 YEAR S [facility] Encounter Notes: All associated encounter notes This section contains the clinical notes associated to the Encounter. Date/Time Encounter Note(s) Provider Source Jun 02, 2022 01:25 PM CLERICAL NOTE: VARSHA CHAPMAN LOCAL TITLE: APPOINTMENT NO SHOW STANDARD TITLE: CLERICAL NOTE DATE OF NOTE: JUN 02, 2022@13:25 ENTRY DATE: JUN 02, 2022@13:25:48 AUTHOR: VARSHA CHAPMAN EXP COSIGNER: URGENCY: STATUS: COMPLETED APPOINTMENT NO SHOW Has ADDENDA Patient Name: MARY LOU WHEELER Patient SSN: [id number] Date and time of Appointment No show : 06/02/22 13:00 PATIENT PHONE - PHONE NUMBER [CELLULAR] - Patient's medical record was reviewed. Follow-up actions were determined and initiated: Please check/complete as applies: [X]Telephoned Directly [ ]Re-scheduled for next available appt [X]Sent a N0-show letter ( must call for appointment) [ ]Other (Emergent/Overbook, etc.): Additional Comments: Amorita did not attend the [facility] appointment. Camelia rsigned called and left a VM message for him. She provided her contact inform ation and requested a return call. Future Clinic Visits 09/22/2022 09:30 CWM/SO/PACT 4 /tasneem/ VARSHA CHAPMAN PSYD Clinical Psychologist Signed: 06/02/2022 13:26 07/12/2022 ADDENDUM STATUS: COMPLETED Undersigned called and left a VM message for him . She provided her contact information and requested a return call. /tasneem/ VARSHA CHAPMAN PSYD Clinical Psychologist Signed: 07/12/2022 11:43
--- OUTSIDE RECORDS SUMMARY | 2022-11-18 02:04 | XMS_ITS | Encounter Summary ---
:1990 Author Organization Department [facility] rs Address [address] [place] [address] Support Name Relationship Address Phone SRINIVAS WHEELER Unavailable [address] [facility] [place] [phone] SRINIVAS WHEELER Unavailable Unavailable Insurance Providers: All [...] to Policy Number Bello RESER Dec 11, [id number] NAVJOT WHEELER PATIENT [facility] 2019 IN [facility] 2017 T Selected Encounter This section includes the information on record at [facility] for the Encounter. Date/Time Encounter Type Encounter Reason Provider Source Description Feb 08, 2022 PSYTX W PT 45 MENTAL HEALTH ICD-10-CM F43.10 VARSHA CHAPMAN 02:00 PM MINUTES CLINIC - IND Post-traumatic stress disorder, unspecified with Provider Comments: PTSD - Post-traumatic stress disorder ([facility] [id number]) IHE Encounter Template Text not used by VA Assessments - Encounter Diagnoses This section includes the primary and secondary diagnoses documented for the Encounter. Date/Time Primary/Secondary Diagnosis Name Provider Source Diagnosis Feb 08, 2022 PRIMARY Post-traumatic VARSHA CHAPMAN JOANIE 02:50 PM stress disorder, unspecified Plan of Treatment: Future Appointments (+ 6 months) and Future Tests (+/- 45 days) The Plan of Treatment section includes future care activities for the patient from all VA treatmentfacilities. This section includes future appointments and future orders which are active, pending orscheduled.Future Appointments This section includes appointments that were scheduled to occur 6 months from the date of the Encounter, up to a maximum of 20 appointments. The data comes from all [place] treatment facilities. Appointment Date/Time Appointment Type Appointment Facili ty Name Mar 02, 2022 12:30 PM AMBULATORY - MEDICINE [place] Mar 04, 2022 11:00 AM AMBULATORY PSYCHIATRY [place] Apr 19, 2022 10:30 AM AMBULATORY REHAB MEDICINE [facility] Apr 26, 2022 09:30 AM AMBULATORY REH MEDICINE [facility] Jun 02, 2022 01:00 PM [facility] PSYCHIATRY [facility] Social History: Smoking Status (Most current) and Tobacco Use (All prior to encounter date) This section includes the most current, and the historical, smoking and tobacco-related health factors from the [place] facility where the Encounter took place.Current Smoking Status This section includes the most current smoking, or tobacco-related health factor, from the [place] facility where the Encounter took place. Date/Time Current Smoking Status Comment Facility Jul 15, 2021 08:30 AM VA-TOBACCO FORMER USER [facility] Tobacco Use History This section includes a history of the smoking, or tobacco- related health factors, that were collected on or before the date of the Encounter. The data comes from the [place] facility where the Encounter took place. Date/Time Smoking Status/Tobacco Use Comment [facility] Jul 15, 2021 08:30 AM [place]-TOBACCO QUIT < 1 YEAR S [facility] Encounter Notes: All associated encounter notes This section contains the clinical notes associated to the Encounter. Date/Time Encounter Note(s) Provider Source Feb 08, 2022 02:39 PM PSYCHOLOGY NOTE: VARSHA CHAPMAN LOCAL TITLE: PSYCHOLOGY NOTE STANDARD TITLE: PSYCHOLOGY NOTE DATE OF NOTE: FEB 08, 2022@14:39 ENTRY DATE: FEB 08, 2022@14:39:20 AUTHOR: VARSHA CHAPMAN EXP COSIGNER: URGENCY: STATUS: COMPLETED [facility] Connect (VVC) Standard Documentation VVC Clinician Resources Only: E911 (Emergency Call Relay Center): [phone] [facility] - ( [phone]-TALK) press #1. CW Suicide Coordinator [phone], Ext. [phone]; Back-up Ext. [phone] Prosthetic Lab Technician of the Day(AOD), Peterson BOND [phone], Ext. [phone] Introduction: Visit is being conducted by [place] Video Connect. [place] identified with 2 identifiers: [X] Full Name [X] Date of [ ] VA ID Card Emergency Plan: confirmed and/or provided the following information in case of emergency or technology failure. PATIENT PHONE - PHONE NUMBER [CELLULAR] - Is patient phone number correct, if not, enter b elow: 's phone number: MARY LOU DALE GOVE [address], [place], [address] [place]'s present location and address for appoi ntment: He stated that he was in his office at the [facility] 's emergency contact name and phone numbe r: see chart reported that location is private and sa fe: Yes Informed Consent: [place] informed of the risks and benefits of Te lehealth video care. has the right to refuse video services. If refuses video visit, a lfxt-hz-jcws visit will be scheduled. [place] verbalized consent for this video visit: Yes [place] provided consent for any other persons p resent for visit: N/A If yes, who and relationship to patient: Secure visit: Visit was locked for security and privacy:Yes Undersigned called him at the beginning of the a ppointment as he did not sign into the [facility] appointment. He then signed into [facility] appointment. She also called him towards the end of the appointment e to technology issues. Cognitive Processing Therapy: Final Session Time in session (in minutes): 40 SESSION NUMBER: 12 SESSION FORMAT Video Telehealth Session SESSION LOCATION Other location: was in his office at [facility]; Provider was in her office at [facility] DIAGNOSIS: Primary (focus of treatment): PTSD (ICD-10-CM F 43.10) ASSESSMENT: PCL-5 Weekly The score was 12. CHANGE IN SCORE (PCL or PHQ9) CHANGES IN ASSESSMENT SCORES FROM EARLIER ADMIN ISTRATIONS: PCL-5: 12; PCL-5 from last week: 16 RISK INFORMATION He is considered to be at low risk of harm to s elf/others at this time. He is aware of the availability of the Veterans Crisis Line if needed. He was encouraged to contact undersigned if needed. MENTAL STATUS/BEHAVIORAL OBSERVATIONS 1. Appearance (grooming, attire, apparent age) within normal limits: Yes 2. Thought content was organized and goal direc bhupinder: Yes 3. Speech was coherent and unimpaired: Yes 4. Affect was appropriate and unremarkable: Yes 5. Demeanor was calm, with no signs of agitatio n or restlessness: Yes 6. Sleep was largely unimpaired and restful: Yes 7. No evidence of psychosis (hallucinations or delusions): Yes; No evidence of psychosis 8. Mood was normal: Yes; Mood was euthymic Other Observations: He was oriented X3, alert, and cooperative. His short term memory and long-term memory appeared intact . Insight and judgment also appeared within normal limits. Attention and con centration were within normal limits. SESSION CONTENT: The completed the final session of Cogn itive Processing Therapy (CPT) for PTSD. The following therapy components were addressed: - stated that he did not complete any CB Ws but that he utilized the skills from the worksheets to challenge stuck po ints in his mind without writing them down. Therapist and reviewe d his stuck points and alternative beliefs. -Therapist and [place] discussed the Intimacy h andout. - read their new Impact Statement. -Therapist read the 's old Impact Statem ent. and therapist discussed the difference between the old and ne w Impact Statements, noting changes in the 's cognitions and feeling s. -[place] was encouraged to continue using newly -developed skills (e.g., what worked, how might use the skills in the future). MOTIVATIONAL ENHANCEMENT --Identified short-term goals in several areas of functioning. --Identified the consequences or impact of the target diagnosis/problem (or other symptoms). --Identified the benefits of reducing the sever ity of the target diagnosis/problem. --Assessed attitude toward therapy. COLLABORATION The degree of collaboration between the [place] and the therapist in the current session was high. Description of collaboration in this session: Allowing [place] to ask questions he may have REVIEW OF PROGRESS DURING TREATMENT The 's progress in relation to Cognitive Processing Therapy (CPT) treatment was: [place]'s PCL-5 score improved over time during CPT treatment. He also reported that he has noticed an improvement in his PTSD symptoms. He stated that he has been able to identify/challenge gracia ck points as well as notice an improvement in his mood. He also related that h is relationship with his has improved and that he plans to continue givi ng/receiving compliments. He indicated that he has been focusing on completi ng one nice thing for himself each day. The impact of therapy on patient's functioning was: [place]'s PCL-5 score improved over time during CPT treatment. He stated that he has been able to identify/challenge stuck po ints, which has improved his mood management skills. He also indicated that he has been able to improve his relationship with his and other indivi duals in his life. PLAN: TREATMENT COMPLETED DATE AND TIME OF NEXT SESSION: 03/04 at 11am. Brunilda freire stated that he would like to continue psychotherapy to focus on other treatment goals (e.g., processing his grief). /tasneem/ VARSHA CHAPMAN PSYD Clinical Psychologist Signed: 02/08/2022 14:51
--- OUTSIDE RECORDS SUMMARY | 2022-11-18 02:04 | XMS_ITS | Encounter Summary ---
:1990 Author Organization Department [facility] rs Address [address] [place] [address] Support Name Relationship Address Phone SRINIVAS WHEELER Unavailable [address] [facility] [place] [address] SRINIVAS WHEELER Unavailable Unavailable Insurance Providers: All [...] to Policy Number Bello RESER Dec 11, [id number] NAVJOT WHEELER [facility] 2020 10 5 IN [facility] 2017 T Selected Encounter This section includes the information on record at [place] for the Encounter. Date/Time Encounter Type Encounter Description Reason Provider Source Mar 01, 2022 03:59 Outpatient Encounter TELEPHONE PRIMARY CARE IHE Encounter Template Text not used by [place] Plan of Treatment: Future Appointments (+ 6 months) and Future Tests (+/- 45 days) The Plan of Treatment section includes future care activities for the patient from all [place] treatmentfacilities. This section includes future appointments and future orders which are active, pending orscheduled.Future Appointments This section includes appointments that were scheduled to occur 6 months from the date of the Encounter, up to a maximum of 20 appointments. The data comes from all [place] treatment facilities. Appointment Date/Time Appointment Type Appointment Facili ty Name Mar 02, 2022 12:30 PM AMBULATORY - MEDICINE [place] Mar 04, 2022 11:00 AM AMBULATORY - PSYCHIATRY [place] Apr 19, 2022 10:30 AM AMBULATORY - REHAB MEDICINE [facility] Apr 26, 2022 09:30 AM AMBULATORY - REHAB MEDICINE [facility] Jun 02, 2022 01:00 PM AMBULATORY - PS[place]CHIATRY [place] Encounter Notes: All associated encounter notes This section contains the clinical notes associated to the Encounter. Date/Time Encounter Note(s) Provider Source Mar 01, 2022 03:59 PM PREVENTIVE MEDICINE NURSING NOTE: MELVI SHARMA [place] LOCAL TITLE: CLINICAL REMINDERS/NURSING STANDARD TITLE: PREVENTIVE MEDICINE NURSING NOTE DATE OF NOTE: MAR 01, 2022@15:59 ENTRY DATE: MAR 01, 2022@15:59:59 AUTHOR: MELVI SHARMA EXP COSIGNER: URGENCY: STATUS: COMPLETED Reminder call to [place] for VVC tomorrow @12:30 P.M. #[phone]. Pneumococcal PPSV23 (Pneumovax): Virtual/Telehealth Visit - Patient educated on the need for receiving Pneumococcal 23-valent (PPSV23) immunization ei ther at VA or outside facility. COVID-19 Immunization: Virtual/Telehealth Visit - Patient educated on the need for receiving COVID-19 (SARS-CoV-2) immunization either at VA or outside facility. Comment: Declines further vaccine at this time. Tdap Immunization: Virtual/Telehealth Visit - Patient educated on the need for receiving Tdap immunization either at VA or outside facility. /tasneem/ MELVI SHARMA LPN LICENSED PRACTICAL NURSE Signed: 03/01/2022 16:02
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
--- OUTSIDE RECORDS SUMMARY | 2022-11-18 02:04 | XMS_ITS ---
:1990 Author Organization Department [facility] rs Address [address] [place] [address] Support Name Relationship Address Phone SRINIVAS WHEELER Unavailable [address] [facility] [address] SRINIVAS WHEELER Unavailable Unavailable Insurance Providers: All [...] to Policy Number Bello RESER Dec 11, [id number] NAVJOT WHEELER PATIENT [facility] 2019 IN [place] 2017 T Selected Encounter This section includes the information on record at [place] for the Encounter. Date/Time Encounter Type Encounter Reason Provider Source Description April 07, 2022 07:17 Outpatient [facility]ENTAL [facility] CLINIC YEISON MCKEON AM Encounter - IND E Encounter Template Text not used by [place] Plan of Treatment: Future Appointments (+ 6 [...] 20 appointments. The data comes from all [place] treatment facilities. Appointment Date/Time Appointment Type Appointment Facili ty Name Apr 19, 2022 10:30 AM AMBULATORY - REHAB MEDICINE [facility] Apr 26, 2022 09:30 AM AMBULATORY - REHAB MEDICINE [facility] Jun 02, 2022 01:00 PM AMBULATORY - PSYCHIATRY [place] Encounter Notes: All associated encounter notes This section contains the clinical notes associated to the Encounter. Date/Time Encounter Note(s) Provider Source April 07, 2022 07:17 AM MENTAL HEALTH SECURE MESSAGING: VARSHA MCKEON [facility] LOCAL TITLE: MENTAL HEALTH SECURE MESSAGING [facility] STANDARD TITLE: MENTAL HEALTH SECURE MESSAGING DATE OF NOTE: APRIL 07, 2022@07:17 ENTRY DATE: APRIL 07, 2022@08:17:23 AUTHOR: VARSHA MCKEON EXP COSIGNER: URGENCY: STATUS: COMPLETED ------Original Message Sent: 04/06/2022 11:27 PM ET From: MARY LOU WHEELER To: JABARI_ANN,Enma_ARI,Dave_HENRY,WILDER_SOPC% Subject: Appointment:04/07 I'm going to have both kids tomorrow I do n't think it would be productive. Can we reschedule please? Thank you ------Original Message Sent: 04/07/2022 08:17 AM ET From: VARSHA MCKEON To: MARY LOU WHEELER Subject: Appointment:04/07 Negrito Liao, I'll cancel today's appointment. The next appoin tment had been scheduled for 05/06 at 10am. I'll add another appointment today (for some time after 05/06). Sincerely, Varsha Mckeon PsyD /tasneem/ VARSHA MCKEON PSYD Clinical Psychologist Signed: 04/07/2022 08:17
--- OUTSIDE RECORDS SUMMARY | 2022-11-18 02:04 | XMS_ITS | Encounter Summary ---
:1990 Author Organization Department [facility] rs Address [address] [place] [address] Support Name Relationship Address Phone SRINIVAS WHEELER Unavailable [address] [place] [id number] SRINIVAS WHEELER Unavailable Unavailable Insurance Providers: All [...] to Policy Number Bello RESER Dec 11, [id number] NAVJOT WHEELER PATIENT [facility] 2019 IN [facility] 2017 T Selected Encounter This section includes the information on record at [facility] for the Encounter. Date/Time Encounter Type Encounter Reason Provider Source Description Mar 04, 2022 PSYTX W PT 45 MENTAL HEALTH ICD-10-CM F43.10 VARSHA CHAPMAN 11:00 AM MINUTES CLINIC - IND Post-traumatic stress disorder, unspecified with Provider Comments: PTSD - Post-traumatic stress disorder ([facility] [id number]) IHE Encounter Template Text not used by VA Assessments - Encounter Diagnoses This section includes the primary and secondary diagnoses documented for the Encounter. Date/Time Primary/Secondary Diagnosis Name Provider Source Diagnosis Mar 04, 2022 PRIMARY Post-traumatic VARSHA CHAPMAN 12:02 PM stress disorder, unspecified Plan of Treatment: [...] 20 appointments. The data comes from all [place] treatment facilities. Appointment Date/Time Appointment Type Appointment Facili ty Name Apr 19, 2022 10:30 AM AMBULATORY - REHAB MEDICINE [facility] D Apr 26, 2022 09:30 AM AMBULATORY - REHAB MEDICINE [facility] Jun 02, 2022 01:00 PM AMBULATORY - PSYCHIATRY [place] Social History: Smoking Status (Most current) and Tobacco Use (All prior to encounter date) This section includes the most current, and the historical, smoking and tobacco-related health factors from the [place] facility where the Encounter took place.Current Smoking Status This section includes the most current smoking, or tobacco-related health factor, from the [place] facility where the Encounter took place. Date/Time Current Smoking Status Comment Facility Jul 15, 2021 08:30 AM VA-TOBACCO FORMER USER [facility] Tobacco Use History This section includes a history of the smoking, or tobacco- related health factors, that were collected on or before the date of the Encounter. The data comes from the [place] facility where the Encounter took place. Date/Time Smoking Status/Tobacco Use Comment [facility] Jul 15, 2021 08:30 AM VA-TOBACCO QUIT < 1 YEAR S [facility] Encounter Notes: All associated encounter notes This section contains the clinical notes associated to the Encounter. Date/Time Encounter Note(s) Provider Source Mar 04, 2022 11:54 AM PSYCHOLOGY NOTE: VARSHA CHAPMAN LOCAL TITLE: PSYCHOLOGY NOTE STANDARD TITLE: PSYCHOLOGY NOTE DATE OF NOTE: MAR 04, 2022@11:54 ENTRY DATE: MAR 04, 2022@11:54:10 AUTHOR: VARSHA CHAPMAN EXP COSIGNER: URGENCY: STATUS: COMPLETED [facility] Video Connect (VVC) Standard Documentation VVC Clinician Resources Only: E911 (Emergency Call Relay Center): [phone] [place] [facility] Crisis Line - ( [phone]) press #1. RONDA Suicide Coordinator [phone], Ext. [phone]; Back-up Ext. [phone] Postdoctoral Scholar of the Day(AOD), Peterson BOND [phone], Ext. [phone] Introduction: Visit is being conducted by [facility] Video Connect. [place] identified with 2 identifiers: [X] Full Name [X] Date of [ ] VA ID Card Emergency Plan: [place] confirmed and/or provided the following information in case of emergency or technology failure. PATIENT PHONE - PHONE NUMBER [CELLULAR] - Is patient phone number correct, if not, enter b elow: [place]'s phone number: MARY LOU DALE GOVE [address], [place], [address] On[place]'s present location and address for appoi ntment: He stated that he was in his office at the [facility] [employer] On[place]'s emergency contact name and phone numbe r: see chart reported that location is private and fe: Yes Informed Consent: [place] informed of the risks and benefits of Te lehealth video care. has the right to refuse video services. If refuses video visit, a xdwn-xh-kegy visit will be scheduled. verbalized consent for this video visit: Yes provided consent for any other persons p resent for visit: N/A If yes, who and relationship to patient: Secure visit: Visit was locked for security and privacy:Yes Undersigned called and spoke to as he di d not attend the [facility] appointment. [place] stated that he thought the appointment was at 11:30am today. He then signed into the appointment. stated that he has reduced his alcohol u se in the past month. He reported that he drinks socially and has 2 or 3 beers per occasion. He related that he does not enjoy drinking alcohol as much as he did in the past. He also indicated that he noticed positive outcomes associated with sobriety. [place] reported that he has been chal lenging his automatic negative thoughts/stuck points at work more easi ly, which was encouraged. Conversation focused on his stressor associated with his relationship with his and ways to positively cope. He indicat ed that about two months ago, his went out to a bar with her friends. He stated that her ex-boyfriend hung out with her at the bar but she did not tel l . He reported that he has been experiencing trust issues with his w brenden since then. He and undersigned discussed his thoughts and feelings associated with the incident (e.g., anger; She doesn't care ; She's unhappy ). Discussion also explored his thoughts/feelings regarding his relationship s with his close family and friends. He indicated that he realized it would be helpful for he and his to improve their communication skills. As a result, Onawa related that he was interested in attending couples counselin g with his . He indicated that he plans to speak with his about their relationship and his interest in improving their marriage. VETERANS STATEMENT OF GOALS/CONCERNS: [place]'s treatment goals include: 1) processing his grief 2) communication skills INTERVENTIONS: Psychotherapeutic Interventions: Approaches use d include rapport building, life review, supportive therapy, and skills base d interventions. ASSESSMENT: BRIEF ASSESSMENT OF MENTAL STATUS: 1. Appearance (grooming, attire, apparent age) within [...] and con centration were within normal limits. RISK ASSESSMENT: He is considered to be at low risk of harm to s elf/others at this time. He is aware of the availability of the Veterans Crisis Line if needed. He was encouraged to contact undersigned if needed. DIAGNOSES: PTSD (ICD-10-CM F43.10) Duration of appointment: 45 minutes PLAN FOR FOLLOW-UP: Next session planned for: 04/07/22 at 10:00am, elvis brizuela patient is aware that he can contact undersigned at anytime prior to t he next appointment. /tasneem/ VARSHA CHAPMAN PSYD Clinical Psychologist Signed: 03/04/2022 11:56
--- OUTSIDE RECORDS SUMMARY | 2022-11-18 02:04 | XMS_ITS ---
:1990 Author Organization Department [facility] rs Address [address] [place] [address] Support Name Relationship Address Phone SRINIVAS WHEELER Unavailable [address] [facility] [place] [address] SRINIVAS WHEELER Unavailable Unavailable Insurance Providers: All [...] to Policy Number Bello RESER Dec 11, [id number] NAVJOT WHEELER PATIENT [facility] 2020 10 5 IN [facility] 2017 T Selected Encounter This section includes the information on record at [place] for the Encounter. Date/Time Encounter Type Encounter Reason Provider Source Description Feb 08, 2022 01:55 Outpatient [facility] CLINIC YEISON MCKEON K PM Encounter - IND E Encounter Template Text not used by CT Plan of Treatment: Future Appointments (+ 6 [...] 20 appointments. The data comes from all [place] treatment facilities. Appointment Date/Time Appointment Type Appointment Facili ty Name Mar 02, 2022 12:30 PM AMBULATORY - MEDICINE [place] Mar 04, 2022 11:00 AM AMBULATORY - PSYCHIATRY [place] Apr 19, 2022 10:30 AM AMBULATORY - REHAB MEDICINE [facility] Apr 26, 2022 09:30 AM AMBULATORY - REHAB MEDICINE [facility] Jun 02, 2022 01:00 PM AMBULATORY - PSYCHIATRY [place] Encounter Notes: All associated encounter notes This section contains the clinical notes associated to the Encounter. Date/Time Encounter Note(s) Provider Source Feb 08, 2022 01:55 PM MENTAL HEALTH SECURE MESSAGING: VARSHA MCKEON [facility] LOCAL TITLE: MENTAL HEALTH SECURE MESSAGING [place] [facility] STANDARD TITLE: MENTAL HEALTH SECURE MESSAGING DATE OF NOTE: FEB 08, 2022@13:55 ENTRY DATE: FEB 08, 2022@14:55:06 AUTHOR: VARSHA MCKEON EXP COSIGNER: URGENCY: STATUS: COMPLETED ------Original Message Sent: 02/08/2022 07:57 AM ET From: MARY LOU WHEELER To: JABARI_ANN,RUTH,Dave_HENRY,WILDER_[facility]avon% Subject: Appointment:Writings for week 1 & 12 Attachments: Week 12.docx (12.29 KB), Week 1.doc x (11.70 KB) Sorry Dr. Mckeon for the late sending of this but I have the week 1 and week 12 writings attached. /tasneem/ VARSHA MCKEON PSYD Clinical Psychologist Signed: 02/08/2022 14:55
--- OUTSIDE RECORDS SUMMARY | 2022-11-18 02:04 | XMS_ITS | Encounter Summary ---
:1990 Author Organization [facility] Address [address] [place] [address] Support Name Relationship Address Phone SRINIVAS WHEELER Unavailable [address] [facility] [place] [phone] SRINIVAS WHEELER Unavailable Unavailable Insurance Providers: All [...] to Policy Number Bello RESER Dec 11, [id number] NAVJOT WHEELER PATIENT [facility] 2020 10 5 IN [facility] 2017 T Selected Encounter This section includes the information on record at [place] for the Encounter. Date/Time Encounter Type Encounter Reason Provider Source Description Apr 26, 2022 THERAPEUTIC PHYSICAL THERAPY ICD-10-CM SENIAJEFFBev 09:30 AM EXERCISES M25.569 Pain in A unspecified knee with Provider Comments: Pain in unspecified Knee IHE Encounter Template Text not used by [place] Assessments - Encounter Diagnoses This section includes the primary and secondary diagnoses documented for the Encounter. Date/Time Primary/Secondary Diagnosis Name Provider Source Diagnosis Apr 26, 2022 PRIMARY Pain in [facility] 12:29 PM unspecified knee Apr 26, 2022 SECONDARY Pain in left knee [facility] 12:29 PM Plan of Treatment: Future Appointments (+ 6 [...] 20 appointments. The data comes from all [place] treatment facilities. Appointment Date/Time Appointment Type Appointment Facili ty Name Jun 02, 2022 01:00 PM AMBULATORY - PSYCHIATRY [place] Social History: Smoking Status (Most current) and Tobacco Use (All prior to encounter date) This section includes the most current, and the historical, smoking and tobacco-related health factors from the [place] facility where the Encounter took place.Current Smoking Status This section includes the most current smoking, or tobacco-related health factor, from the [place] facility where the Encounter took place. Date/Time Current Smoking Status Comment Facility Jul 15, 2021 08:30 AM [place]-TOBACCO FORMER USER [facility] Tobacco Use History This section includes a history of the smoking, or tobacco- related health factors, that were collected on or before the date of the Encounter. The data comes from the [place] facility where the Encounter took place. Date/Time Smoking Status/Tobacco Use Comment [facility] Jul 15, 2021 08:30 AM [place]-TOBACCO QUIT < 1 YEAR S [facility] Encounter Notes: All associated encounter notes This section contains the clinical notes associated to the Encounter. Date/Time Encounter Note(s) Provider Source Apr 26, 2022 07:14 AM PHYSICAL THERAPY NOTE: [facility] LOCAL TITLE: PHYSICAL THERAPY STANDARD TITLE: PHYSICAL THERAPY NOTE DATE OF NOTE: APR 26, 2022@07:14 ENTRY DATE: APR 26, 2022@07:14:33 AUTHOR: [facility] EXP COSIGNER: URGENCY: STATUS: COMPLETED Initial Evaluation date: 04/19/2022 Date of note: 04/26/2022 Re-evaluation date: Treatment #: 1 Treatment time: 30 min Diagnosis: Pain in unspecified Knee(ICD-10-CM M2 5.569) Secondary Diagnosis: Pain in left Knee (ICD-10-C M M25.562) Provider: YOUNG HAMMOND SUBJECTIVE The patient reports that he has been performing his HEP. he reports that he did a lot of standing at work, and he could feel sor eness through his ITB. OBJECTIVE (x) Girth of left knee 17 cm above patella - 53.5 cm 15 cm below patella - 40.5 (X) Ther ex - NuStep X 5 min - performed HEP refer to below HEP Access Code: [email or web address] URL: [email or web address] Date: 04/26/2022 Prepared by: [facility] Exercises Supine ITB Stretch with Strap - 1 x daily - 7 x weekly - 1 sets - 3 reps - 30 hold Standing Hamstring Stretch w ith Step - 1 x daily - 7 x weekly - 1 sets - 3 reps - 30 hold Bridge with Resistance - 1 x daily - 4 x weekly - 3 sets - 8-15 reps Clam with Resistance - 1 x daily - 4 x weekly - 3 sets - 8-15 reps ASSESSMENT The patient was ordered a knee brace to help wit h pain and tracking of his patella. Also proximal strengthening was initiat ed today. The patient did not have any complaints throughout the session. Pt was issued/ordered: GenuTrain P3 color black size 5 left [id number] (x) Pt is I and safe with use of equipment () Pt requires assistance: (x) Pt was educated to use, care, and safety of the equipment and demonstrated/verbalized understanding of same. (x) Pt was issued manual or written instructions . (x) Suggested pt call this therapist with any qu estions. (x) Goal of safe use of equi pment met. No further treatment needed at this time PLAN Continue per POC. PLAN OF CARE: Intervention to include, but is not limited to t he following: - knee bracing - stretching: emphasis on lateral leg structure s. ITB, HS, adductors, quads, gastroc - soft tissue mobilizations: through patient(se lf STM) and therapist (manual) - taping - gluteal strengthening in isolated and functio nal positions - eccentric HS strengthening for HS lengthening - modalities as needed Patient Education Education provided on the following topics: refe r to above Education provided to: P Response to Education: VU [place] Patient P Family F Significant Other SO Verbalizes Understanding VU Returns Demonstration RD Performs Independently PI Lacks Comprehension LC Refused Education RE Not Applicable NA /tasneem/ Chi Conn DPT PHYSICAL THERAPIST Signed: 04/26/2022 12:30
--- OUTSIDE RECORDS SUMMARY | 2022-11-18 02:04 | XMS_ITS | Encounter Summary ---
:1990 Author Organization Department [facility] rs Address [address] [place] [address] Support Name Relationship Address Phone SRINIVAS WHEELER Unavailable [address] [facility] [place] [phone] SRINIVAS WHEELER Unavailable Unavailable Insurance Providers: All [...] to Policy Number Bello RESER Dec 11, [id number] NAVJOT WHEELER PATIENT [facility] 2019 IN [facility] 2017 T Selected Encounter This section includes the information on record at [facility] for the Encounter. Date/Time Encounter Type Encounter Reason Provider Source Description Jan 13, 2022 PSYTX W PT 45 MENTAL HEALTH ICD-10-CM F43.10 VARSHA CHAPMAN 11:00 AM MINUTES CLINIC - IND Post-traumatic stress disorder, unspecified with Provider Comments: PTSD - Post-traumatic stress disorder ([facility] [id number]) IHE Encounter Template Text not used by VA Assessments - Encounter Diagnoses This section includes the primary and secondary diagnoses documented for the Encounter. Date/Time Primary/Secondary Diagnosis Name Provider Source Diagnosis Jan 13, 2022 PRIMARY Post-traumatic VARSHA CHAPMAN [facility] 11:50 AM stress disorder, unspecified Plan of Treatment: Future [...] 20 appointments. The data comes from all [place] treatment facilities. Appointment Date/Time Appointment Type Appointment Facili ty Name Jan 20, 2022 11:00 AM AMBULATORY PSYCHIATRY [place] Jan 24, 2022 08:00 AM [facility] Feb 03, 2022 11:00 AM [facility] Feb 08, 2022 02:00 PM AMBULATORY [facility] Mar 02, 2022 12:30 PM AMBULATORY MEDICINE [place] Mar 04, 2022 11:00 AM AMBULATORY [facility] Apr 19, 2022 10:30 AM AMBULATORY REHAB [facility] Apr 26, 2022 09:30 AM AMBULATORY REHAB [facility] Jun 02, 2022 01:00 PM [facility] Social History: Smoking Status (Most current) and Tobacco Use (All prior to encounter date) This section includes the most current, and the historical, smoking and tobacco-related health factors from the [place] facility where the Encounter took place.Current Smoking Status This section includes the most current smoking, or tobacco-related health factor, from the [place] facility where the Encounter took place. Date/Time Current Smoking Status Comment Facility Jul 15, 2021 08:30 AM VA-TOBACCO FORMER USER [facility] Tobacco Use History This section includes a history of the smoking, or tobacco- related health factors, that were collected on or before the date of the Encounter. The data comes from the [place] facility where the Encounter took place. Date/Time Smoking Status/Tobacco Use Comment [facility] Jul 15, 2021 08:30 AM [place]-TOBACCO QUIT < 1 YEAR S [facility] Encounter Notes: All associated encounter notes This section contains the clinical notes associated to the Encounter. Date/Time Encounter Note(s) Provider Source Jan 13, 2022 11:42 AM PSYCHOLOGY NOTE: VARSHA CHAPMAN LOCAL TITLE: PSYCHOLOGY NOTE STANDARD TITLE: PSYCHOLOGY NOTE DATE OF NOTE: JAN 13, 2022@11:42 ENTRY DATE: JAN 13, 2022@11:42:23 AUTHOR: VARSHA CHAPMAN EXP COSIGNER: URGENCY: STATUS: COMPLETED VA Video Connect (VVC) Standard Documentation VVC Clinician Resources Only: E911 (Emergency Call Relay Center): [phone] [facility] Crisis Line - ( [phone]) press #1. RONDA Suicide Coordinator [phone], Ext. [phone]; Back-up Ext. [phone] Rn Acute Dialysis of the Day(AOD), Peterson BOND laurie [phone], Ext. [phone] Introduction: Visit is being conducted by [place] [employer] [facility]. identified with 2 identifiers: [X] Full Name [X] Date of [ ] VA ID Card Emergency Plan: confirmed and/or provided the following information in case of emergency or technology failure. PATIENT PHONE - PHONE NUMBER [CELLULAR] - Is patient phone number correct, if not, enter b elow: 's phone number: MARY LOU DALE GOVDave [address], [place], [address] 's present location and address for appoi ntment: [address] [place] [address] [facility]'s emergency contact name and phone numbe r: see chart [facility] reported that location is private and fe: Yes Informed Consent: [facility] [place] informed of the risks and benefits of Te lehealth video care. has the right to refuse video services. If refuses video visit, a recd-kw-pwat visit will be scheduled. [facility] verbalized consent for this video visit: Yes provided consent for any other persons p resent for visit: Yes If yes, who and relationship to patient: He stated that his infant baby and young daughter were home with him today Secure visit: Visit was locked for security and privacy:Yes Cognitive Processing Therapy: Safety Session Time in session (in minutes): 40 SESSION NUMBER: 8 SESSION FORMAT Video Telehealth Session SESSION LOCATION Other location Specify: was at his home; Provider was at her home DIAGNOSIS: Primary (focus of treatment): PTSD (ICD-10-CM F 43.10) ASSESSMENT: PCL-5 Weekly The score was 24. CHANGE IN SCORE (PCL or PHQ9) CHANGES IN ASSESSMENT SCORES FROM EARLIER ADMIN ISTRATIONS: PCL-5: 24; PCL-5 from last week: 23 RISK INFORMATION He is considered to be at low risk of harm to s elf/others at this time. He is aware of the availability of the Veterans Cri sis Line if needed. He is aware that he can contact undersigned if needed. MENTAL STATUS/BEHAVIORAL OBSERVATIONS [...] normal limits. SESSION CONTENT: The completed the Safety Session of Cog nitive Processing Therapy (CPT) for PTSD. The following therapy component s were addressed: -Therapist and reviewed 's compl eted Challenging Beliefs Worksheets to challenge stuck points and genera te alternative beliefs. completed CBWs associated with Safety-r elated stuck points -Therapist and reviewed any Safety-rela bhupinder Challenging Beliefs Worksheets completed as a practice assignment. -Therapist assisted [facility] in challenging nydia efs generated by [facility] in session using the Challenging Beliefs Worksheet . -Therapist introduced the Trust Module. PRACTICE ASSIGNMENT: -Therapist asked the [facility] to review the Trus t handout before the next session. -[place] was asked to complete one Challenging Beliefs Worksheet each day, with at least one of these daily worksheets add ressing Trust. MOTIVATIONAL ENHANCEMENT --Identified short-term goals in several areas of functioning. --Identified the consequences or impact of the target diagnosis/problem (or other symptoms). --Identified the benefits of reducing the sever ity of the target diagnosis/problem. --Assessed attitude toward therapy. COLLABORATION The degree of collaboration between the and the therapist in the current session was high. Description of collaboration in this session: Allowing [facility] to ask questions he may have PLAN Next session planned for agreed upon date/time of: 01/20 at 11am /tasneem/ VARSHA CHAPMAN PSYD Clinical Psychologist Signed: 01/13/2022 11:54
--- OUTSIDE RECORDS SUMMARY | 2022-11-18 02:04 | XMS_ITS ---
:1990 Author Organization Department [facility] rs Address [address] [place] [address] Support Name Relationship Address Phone SRINIVAS WHEELER Unavailable [address] [facility] [place] [address] SRINIVAS WHEELER Unavailable Unavailable Insurance Providers: All [...] to Policy Number Bello RESER Dec 11, [id number] NAVJOT WHEELER PATIENT [facility] 2019 IN [facility]2017 T Selected Encounter This section includes the information on record at [place] for the Encounter. Date/Time Encounter Type Encounter Reason Provider Source Description Jan 06, 2022 07:48 Outpatient [facility] YEISON MCKEON AM Encounter - IND E Encounter Template Text not used by AL Plan of Treatment: Future Appointments (+ 6 months) and Future Tests (+/- 45 days) The Plan of Treatment section includes future care activities for the patient from all [place] treatmentfacilities. This section includes future appointments and future orders which are active, pending orscheduled.Future Appointments This section includes appointments that were scheduled to occur 6 months from the date of the Encounter, up to a maximum of 20 appointments. The data comes from all [place] treatment facilities. Appointment Date/Time Appointment Type Appointment Facili ty Name Jan 13, 2022 11:00 AM AMBULATORY - [facility]IAT[facility] [place] Jan 20, 2022 11:00 AM [facility]ORY [facility] [place] Jan 24, 2022 08:00 AM [facility] [place] Feb 03, 2022 11:00 AM [facility] [place] Feb 08, 2022 02:00 PM [facility] [place] Mar 02, 2022 12:30 PM AM[facility]ULATORY - MEDICINE [place] Mar 04, 2022 11:00 AM AM[facility]ORY [facility]IATRY [place] Apr 19, 2022 10:30 AM AMBULATORY - REHAB [facility] Apr 26, 2022 09:30 AM AMBULATORY - REHAB MEDICINE [facility] Jun 02, 2022 01:00 PM AMBULATORY - [facility]IATRY [place] Encounter Notes: All associated encounter notes This section contains the clinical notes associated to the Encounter. Date/Time Encounter Note(s) Provider Source Jan 06, 2022 07:48 AM MENTAL HEALTH SECURE MESSAGING: VARSHA MCKEON AL CNTRL WSTRN LOCAL TITLE: MENTAL HEALTH SECURE MESSAGING [facility] STANDARD TITLE: MENTAL HEALTH SECURE MESSAGING DATE OF NOTE: JAN 06, 2022@07:48:21 ENTRY DATE: JAN 06, 2022@07:48:22 AUTHOR: VARSHA MCKEON EXP COSIGNER: URGENCY: STATUS: COMPLETED ------Original Message Sent: 01/06/2022 07:04 AM From: MARY LOU WHEELER To: JABARI_Enma JUAREZ_ARI,Dave_HENRY,WILDER_SOPC% Subject: 01/06/22 Dr.Tam mahoney but once again I have to re schedule, I was held once again on the overnight and just got home. Sorry again for the inconvenience ------Original Message Sent: 01/06/2022 07:48 AM From: VARSHA MCKEON To: MARY LOU WHEELER Subject: 01/06/22 Negrito Liao, María for letting me know. I'll cancel today's appointment and schedule an additional appointment in January/February. Sincerely, Varsha Mckeon PsyD /tasneem/ VARSHA MCKEON PSYD Clinical Psychologist Signed: 01/06/2022 07:48
--- OUTSIDE RECORDS SUMMARY | 2022-11-18 02:04 | XMS_ITS | Encounter Summary ---
:1990 Author Organization Department [facility] rs Address [address] [place] [address] Support Name Relationship Address Phone SRINIVAS WHEELER Unavailable [address] [facility] [place] [address] SRINIVAS WHEELER Unavailable Unavailable Insurance Providers: All [...] to Policy Number Bello RESER Dec 11, [id number] [id number] NAVJOT WHEELER PATIENT [facility] 2020 10 5 IN [facility] 2017 T Selected Encounter This section includes the information on record at [facility] for the Encounter. Date/Time Encounter Type Encounter Reason Provider Source Description Jan 20, 2022 PSYTX W PT 45 MENTAL HEALTH ICD-10-CM F43.10 VARSHA CHAPMAN 11:00 AM MINUTES CLINIC - IND Post-traumatic stress disorder, unspecified with Provider Comments: PTSD - Post-traumatic stress disorder ([facility] [id number]) IHE Encounter Template Text not used by VA Assessments - Encounter Diagnoses This section includes the primary and secondary diagnoses documented for the Encounter. Date/Time Primary/Secondary Diagnosis Name Provider Source Diagnosis Jan 20, 2022 PRIMARY Post-traumatic VARSHA CHAPMAN 12:03 PM stress disorder, unspecified Plan of Treatment: [...] 20 appointments. The data comes from all [place] treatment facilities. Appointment Date/Time Appointment Type Appointment Facili ty Name Jan 24, 2022 08:00 AM AMBULATORY PS[facility]CHIATRY [place] Feb 03, 2022 11:00 AM [facility] PSYCHIATRY [place] Feb 08, 2022 02:00 PM AMBULATORY PS[facility]CHIATRY [place] Mar 02, 2022 12:30 PM AMBULATORY MEDICINE [place] Mar 04, 2022 11:00 AM AMBULATORY PS[facility]CHIATRY [place] Apr 19, 2022 10:30 AM AMBULATORY - REHAB MEDICINE [facility] Apr 26, 2022 09:30 AM AMBULATORY REHAB MEDICINE [facility] Jun 02, 2022 01:00 PM [facility] Social History: Smoking Status (Most current) and Tobacco Use (All prior to encounter date) This section includes the most current, and the historical, smoking and tobacco-related health factors from the [place] facility where the Encounter took place.Current Smoking Status This section includes the most current smoking, or tobacco-related health factor, from the [place] facility where the Encounter took place. Date/Time Current Smoking Status Comment Facility Jul 15, 2021 08:30 AM VA-TOBACCO FORMER USER [facility] Tobacco Use History This section includes a history of the smoking, or tobacco- related health factors, that were collected on or before the date of the Encounter. The data comes from the [place] facility where the Encounter took place. Date/Time Smoking Status/Tobacco Use Comment [facility] Jul 15, 2021 08:30 AM [place]-TOBACCO QUIT < 1 YEAR S [facility] Encounter Notes: All associated encounter notes This section contains the clinical notes associated to the Encounter. Date/Time Encounter Note(s) Provider Source Jan 20, 2022 11:52 AM PSYCHOLOGY NOTE: VARSHA CHAPMAN LOCAL TITLE: PSYCHOLOGY NOTE STANDARD TITLE: PSYCHOLOGY NOTE DATE OF NOTE: JAN 20, 2022@11:52 ENTRY DATE: JAN 20, 2022@11:52:48 AUTHOR: VARSHA CHAPMAN EXP COSIGNER: URGENCY: STATUS: COMPLETED [facility] Video Connect (VVC) Standard Documentation VVC Clinician Resources Only: E911 (Emergency Call Relay Center): [phone] [facility] - ( [phone]) press #1. RONDA Suicide Coordinator [phone], Ext. [phone]; Back-up Ext. [phone] Service Station Console Operator of the Day(AOD), Peterson BOND [phone], Ext. [phone] Introduction: Visit is being conducted by [place] [employer] [facility]. identified with 2 identifiers: [X] Full Name [X] Date of [ ] VA ID Card Emergency Plan: Kershaw confirmed and/or provided the following information in case of emergency or technology failure. PATIENT PHONE - PHONE NUMBER [CELLULAR] - Is patient phone number correct, if not, enter b elow: Kershaw's phone number: MARY LOU [address] [place], [place], [address] Kershaw's present location and address for appoi ntment: [address] [place] [address] 's emergency contact name and phone numbe r: see chart Kershaw reported that location is private and fe: Yes Informed Consent: Kershaw informed of the risks and benefits of Te lehealth video care. has the right to refuse video services. If refuses video visit, a ctez-lk-jqst visit will be scheduled. Kershaw verbalized consent for this video visit: Yes provided consent for any other persons p resent for visit: Yes If yes, who and relationship to patient: He stated that his baby and young daughter were home with him today Secure visit: Visit was locked for security and privacy:Yes Cognitive Processing Therapy: Trust Session Time in session (in minutes): 50 SESSION NUMBER: 9 SESSION FORMAT Video Telehealth Session SESSION LOCATION Other location: was at his home; Provid er was at her home DIAGNOSIS: Primary (focus of treatment): PTSD (ICD-10-CM F 43.10) ASSESSMENT: PCL-5 Weekly The score was 17. CHANGE IN SCORE (PCL or PHQ9) CHANGES IN ASSESSMENT SCORES FROM EARLIER ADMIN ISTRATIONS: PCL-5: 17; PCL-5 from last week: 24 RISK INFORMATION He is considered to be [...] normal limits. SESSION CONTENT: The completed the Trust session of Cognitive Processing Therapy (CPT) for PTSD. The following therapy components were addressed: -Therapist and Kershaw reviewed 's compl eted Challenging Beliefs Worksheets to challenge stuck points and genera te alternative beliefs. -Therapist and Kershaw reviewed any Trust-relat ed Challenging Beliefs Worksheets the Kershaw completed for their prac perry assignment. -Therapist assisted in challenging nydia efs generated by Kershaw in session using the Challenging Beliefs Worksheet . -Therapist introduced the Power/Control Module. PRACTICE ASSIGNMENT -Therapist asked the to review the Ewa r/Control handout before the next session. - was asked to complete one Challenging Beliefs worksheet each day, with at least one of these daily worksheets add ressing Power/Control. MOTIVATIONAL ENHANCEMENT --Identified short-term goals in several areas of functioning. --Identified the consequences or impact of the target diagnosis/problem (or other symptoms). --Assessed attitude toward therapy. COLLABORATION The degree of collaboration between the Kershaw and the therapist in the current session was high. Description of collaboration in this session: Allowing Kershaw to ask questions he may have PLAN Next session planned for agreed upon date/time of: 01/24 at 8am /tasneem/ VARSHA CHAPMAN PSYD Clinical Psychologist Signed: 01/20/2022 12:04
--- OUTSIDE RECORDS SUMMARY | 2022-11-18 02:04 | XMS_ITS | Encounter Summary ---
:1990 Author Organization Department [facility] rs Address [address] [place] [address] Support Name Relationship Address Phone SRINIVAS WHEELER Unavailable [address] [facility] [place] [address] SRINIVAS WHEELER Unavailable Unavailable Insurance Providers: All [...] to Policy Number Bello RESER Dec 11, [id number] [phone] NAVJOT WHEELER PATIENT [facility] 2019 IN [facility] 2017 T Selected Encounter This section includes the information on record at VA for the Encounter. Date/Time Encounter Type Encounter Reason Provider Source Description Jan 24, 2022 PSYTX W PT 45 MENTAL HEALTH ICD-10-CM F43.10 VARSHA CHAPMAN 08:00 AM MINUTES CLINIC - IND Post-traumatic stress disorder, unspecified with Provider Comments: PTSD - Post-traumatic stress disorder ([facility] [id number]) IHE Encounter Template Text not used by VA Assessments - Encounter Diagnoses This section includes the primary and secondary diagnoses documented for the Encounter. Date/Time Primary/Secondary Diagnosis Name Provider Source Diagnosis Jan 24, 2022 PRIMARY Post-traumatic VARSHA CHAPMAN JOANIE 08:52 AM stress disorder, unspecified Plan of Treatment: [...] 20 appointments. The data comes from all [place] treatment facilities. Appointment Date/Time Appointment Type Appointment Facili ty Name Feb 03, 2022 11:00 AM AMBULATORY [place] Feb 08, 2022 02:00 PM [facility] [place] Mar 02, 2022 12:30 PM AMBULATORY MEDICINE [place] Mar 04, 2022 11:00 AM AMBULATORY PS[facility]CHIATRY [place] Apr 19, 2022 10:30 AM AMBULATORY - REHAB MEDICINE [facility] Apr 26, 2022 09:30 AM AMBULATORY REHAB [facility] Jun 02, 2022 01:00 PM [facility] Social History: Smoking Status (Most current) and Tobacco Use (All prior to encounter date) This section includes the most current, and the historical, smoking and tobacco-related health factors from the [place] facility where the Encounter took place.Current Smoking Status This section includes the most current smoking, or tobacco-related health factor, from the [place] facility where the Encounter took place. Date/Time Current Smoking Status Comment Facility Jul 15, 2021 08:30 AM VA-TOBACCO FORMER USER [facility] Tobacco Use History This section includes a history of the smoking, or tobacco- related health factors, that were collected on or before the date of the Encounter. The data comes from the [place] facility where the Encounter took place. Date/Time Smoking Status/Tobacco Use Comment [facility] Jul 15, 2021 08:30 AM VA-TOBACCO QUIT < 1 YEAR S [facility] Encounter Notes: All associated encounter notes This section contains the clinical notes associated to the Encounter. Date/Time Encounter Note(s) Provider Source Jan 24, 2022 08:46 AM PSYCHOLOGY NOTE: VARSHA CHAPMAN LOCAL TITLE: PSYCHOLOGY NOTE STANDARD TITLE: PSYCHOLOGY NOTE DATE OF NOTE: JAN 24, 2022@08:46 ENTRY DATE: JAN 24, 2022@08:46:14 AUTHOR: VARSHA CHAPMAN EXP COSIGNER: URGENCY: STATUS: COMPLETED [facility] Video Connect (VVC) Standard Documentation VVC Clinician Resources Only: E911 (Emergency Call Relay Center): [phone] [facility] Crisis Line - ( [phone]) press #1. CW Suicide Coordinator [phone], Ext. [phone]; Back-up Ext. [phone] Weight Trainer of the Day(AOD), Peterson BOND [phone], Ext. [phone] Introduction: Visit is being conducted by [place] [employer] Connect. identified with 2 identifiers: [X] Full Name [X] Date of [ ] VA ID Card Emergency Plan: confirmed and/or provided the following information in case of emergency or technology failure. PATIENT PHONE - PHONE NUMBER [CELLULAR] - Is patient phone number correct, if not, enter b elow: 's phone number: MARY LOU [address]OVE [address] [place], [place], [address] Aurora's present location and address for appoi ntment: [address] [place] [address] 's emergency contact name and phone numbe r: see chart reported that location is private and fe: Yes Informed Consent: informed of the risks and benefits of Te lehealth video care. [place] has the right to refuse video services. If refuses video visit, a yjza-qj-demj visit will be scheduled. verbalized consent for this video visit: Yes provided consent for any other persons p resent for visit: Yes If yes, who and relationship to patient: He stated that his infant baby and young daughter were home with him today Secure visit: Visit was locked for security and privacy:Yes Cognitive Processing Therapy: Power/Control Sess ion Time in session (in minutes): 45 SESSION NUMBER: 10 SESSION FORMAT Video Telehealth Session SESSION LOCATION Other location Specify: Aurora was at his home; Provider was at her home DIAGNOSIS: Primary (focus of treatment): PTSD (ICD-10-CM F 43.10) ASSESSMENT: PCL-5 Weekly The score was 17. CHANGE IN SCORE (PCL or PHQ9) CHANGES IN ASSESSMENT SCORES FROM EARLIER ADMIN ISTRATIONS: PCL-5: 17; PCL-5 from last week: 17 RISK INFORMATION He is considered to be at low risk of harm to s elf/others at this time. He is aware of the availability of the Intacct payton Line if needed. He is aware that he can contact undersigned if needed . MENTAL STATUS/BEHAVIORAL OBSERVATIONS 1. Appearance (grooming, attire, [...] normal limits. SESSION CONTENT: The completed the Power/Control session of Cognitive Processing Therapy (CPT) for PTSD. The following therapy c omponents were addressed: -Therapist and reviewed 's compl eted Challenging Beliefs Worksheets to challenge stuck points and genera te alternative beliefs. -Therapist and reviewed any Pow er/Control-related Challenging Beliefs Worksheets the Aurora completed for their prac perry assignment. -Therapist introduced Ways of Giving and Receiv ing Power handout and asked the to discuss the ways they may do the se positively and negatively. He discussed ways in which he negatively gives power. -Therapist assisted Aurora in challenging nydia efs generated by in session using the Challenging Beliefs Worksheet . -Therapist and Aurora added additional stuck p oints to the Stuck Point Log -Therapist introduced the Esteem Module. PRACTICE ASSIGNMENT -Therapist asked the Aurora to review the Viki em handout before the next session. - was asked to complete one Challenging Beliefs Worksheet each day, with at least one of these daily worksheets add ressing Esteem. -Aurora was asked to practice doing nice thing s for himself/herself and to practice giving and receiving compliments each day. MOTIVATIONAL ENHANCEMENT --Identified short-term goals in several areas of functioning. --Identified the consequences or impact of the target diagnosis/problem (or other symptoms). --Identified the benefits of reducing the sever ity of the target diagnosis/problem. --Assessed attitude toward therapy. COLLABORATION The degree of collaboration between the Aurora and the therapist in the current session was high. Description of collaboration in this session: Allowing Aurora to ask questions he may have PLAN Next session planned for agreed upon date/time of: 02/03 at 11am /tasneem/ VARSHA CHAPMAN PSYD Clinical Psychologist Signed: 01/24/2022 08:54"
--- OUTSIDE RECORDS SUMMARY | 2022-11-18 02:04 | XMS_ITS | Encounter Summary ---
:1990 Author Organization Department [facility] rs Address [address] [place] [address] Support Name Relationship Address Phone SRINIVAS WHEELER Unavailable [address] [place] [address] SRINIVAS WHEELER Unavailable Unavailable Insurance Providers: All [...] to Policy Number Bello RESER Dec 11, [id number] NAVJOT WHEELER PATIENT [facility] [address] [facility] 2017 T Selected Encounter This section includes the information on record at VA for the Encounter. Date/Time Encounter Type Encounter Reason Provider Source Description Mar 02, 2022 OFFICE O/P EST PRIMARY ICD-10-CM M25.569 DEVIN HAMMOND 12:30 PM LOW 20-29 MIN CARE/MEDICINE Pain in unspecified knee with Provider Comments: Pain in unspecified Knee IHE Encounter Template Text not used by VA Assessments - Encounter Diagnoses This section includes the primary and secondary diagnoses documented for the Encounter. Date/Time Primary/Secondary Diagnosis Name Provider Source Diagnosis Mar 02, 2022 PRIMARY Pain in JADE HAMMOND 01:05 PM unspecified knee Mar 02, 2022 SECONDARY Post-traumatic JADE HAMMOND 01:05 PM stress disorder, unspecified Mar 02, 2022 SECONDARY Pure JADE HAMMOND JOANIE 01:05 PM hypercholesterolem ia, unspecified Plan of Treatment: Future Appointments (+ 6 months) and Future Tests (+/- 45 days) The Plan of Treatment section includes future care activities for the patient [facility] [place] [facility] This section includes future appointments and future orders which are active, pending orscheduled.Future Appointments This section includes appointments that were scheduled to occur 6 months from the date of the Encounter, up to a maximum of 20 appointments. The data comes from all [place] treatment facilities. Appointment Date/Time Appointment Type Appointment Facili ty Name Mar 04, 2022 11:00 AM AMBULATORY - PSYCHIATRY [place] Apr 19, 2022 10:30 AM AMBULATORY - REHAB MEDICINE [facility] Apr 26, 2022 09:30 AM AMBULATORY REHAB [facility] Jun 02, 2022 01:00 PM [facility] PSYCHIATRY [place] Social History: Smoking Status (Most current) and Tobacco Use (All prior to encounter date) This section includes the most current, and the historical, smoking and tobacco-related health factors from the [place] facility where the Encounter took place.Current Smoking Status This section includes the most current smoking, or tobacco-related health factor, from the [place] facility where the Encounter took place. Date/Time Current Smoking Status Comment Facility Jul 15, 2021 08:30 AM [place]-TOBACCO FORMER USER [facility] Tobacco Use History This section includes a history of the smoking, or tobacco- related health factors, that were collected on or before the date of the Encounter. The data comes from the [place] facility where the Encounter took place. Date/Time Smoking Status/Tobacco Use Comment [facility] Jul 15, 2021 08:30 AM [place]-TOBACCO QUIT < 1 YEAR S [facility] Encounter Notes: All associated encounter notes This section contains the clinical notes associated to the Encounter. Date/Time Encounter Note(s) Provider Source Mar 02, 2022 12:40 PM PHYSICIAN NOTE: JADE HAMMOND LOCAL TITLE: NOTE STANDARD TITLE: PHYSICIAN NOTE DATE OF NOTE: MAR 02, 2022@12:40 ENTRY DATE: MAR 02, 2022@12:40:19 AUTHOR: JADE HAMMOND EXP COSIGNER: URGENCY: STATUS: COMPLETED [facility] 08/2022 with fasting labs History: 1. nasal congestion -he notes several years of a nasal congestion -he also has allergic rhinitis -he hasn't used a nasal spray for his symptoms No COVID-19 symptoms or known contacts Active Outpatient Medications (including Supplie s): Active Outpatient Medications Status 1) DICLOFENAC NA 1% TOP GEL APPLY 2 GRAMS TOPICA LLY FOUR ACTIVE TIMES A DAY FOR OSTEOARTHRITIS - USE DOSING CAR D PROVIDED IN BOX 2) OMEPRAZOLE 20MG CAP,EC TAKE ONE CAPSULE BY [place] [facility] ACTIVE TWICE DAILY Active Non-VA Medications Status 1) Fluvastatin 20mg daily All labs, diagnostic tests, and medicati on changes were reviewed and discussed with patient. The patient verbalized understanding. A/P: 1. knee pain: likely residual from prior fall. possible patella tendinitis. x- ray negative -physical therapy ordered 2. gerd: omeprazole to 20mg bid prn is still eff ective 3. ptsd: he's happy w/what he learned in the rec ent program he completed. he' looking forward to working more on managing the ptsd. support provided -mental health f/u scheduled 4. dyslipidemia: will check fastin lipids since change to statin 5. ent: he thinks he may have a deviated nasal s eptum -trial of nasal fluticasone -ent exam at next visit Time spent non destructive testing inspector: 11 minutes /tasneem/ Jade Hammond M.D. STAFF PHYSICIAN Signed: 03/02/2022 13:05 Receipt Acknowledged By: 03/02/2022 13:13 /es/ GLADYS SIMS VP SOFTWARE ENGINEERING
--- OUTSIDE RECORDS SUMMARY | 2022-11-18 02:04 | XMS_ITS | Encounter Summary ---
:1990 Author Organization Department [facility] Address [address] [place] [address] Support Name Relationship Address Phone SRINIVAS WHEELER Unavailable [address] [facility] [place] [phone] SRINIVAS WHEELER Unavailable Unavailable Insurance Providers: All [...] to Policy Number Bello RESER Dec 11, [id number] NAVJOT WHEELER PATIENT [facility] 2019 IN [facility] 2017 T Selected Encounter This section includes the information on record at [facility] for the Encounter. Date/Time Encounter Type Encounter Reason Provider Source Description Dec 31, 2021 PSYTX W PT 45 MENTAL HEALTH ICD-10-CM F43.10 VARSHA CHAPMAN 11:00 AM MINUTES CLINIC - IND Post-traumatic stress disorder, unspecified with Provider Comments: PTSD - Post-traumatic stress disorder ([facility] [id number]) IHE Encounter Template Text not used by [facility] Assessments - Encounter Diagnoses This section includes the primary and secondary diagnoses documented for the Encounter. Date/Time Primary/Secondary Diagnosis Name Provider Source Diagnosis Dec 31, 2021 PRIMARY Post-traumatic VARSHA CHAPMAN JOAINE 11:51 AM stress disorder, unspecified Plan of Treatment: [...] 20 appointments. The data comes from all [place] treatment facilities. Appointment Date/Time Appointment Type Appointment Facili ty Name Jan 13, 2022 11:00 AM AMBULATORY [facility] [place] Jan 20, 2022 11:00 AM [facility] Jan 24, 2022 08:00 AM AMBULATORY [facility] Feb 03, 2022 11:00 AM [facility] Feb 08, 2022 02:00 PM [facility] Mar 02, 2022 12:30 PM AMBULATORY MEDICINE [place] Mar 04, 2022 11:00 AM AMBULATORY [facility] [place] Apr 19, 2022 10:30 AM AMBULATORY REHAB MEDICINE [facility] Apr 26, 2022 09:30 AM AMBULATORY REHAB [facility] Jun 02, 2022 01:00 PM [facility] Social History: Smoking Status (Most current) and Tobacco Use (All prior to encounter date) This section includes the most current, and the historical, smoking and tobacco-related health factors from the [place] facility where the Encounter took place.Current Smoking Status This section includes the most current smoking, or tobacco-related health factor, from the [place] facility where the Encounter took place. Date/Time Current Smoking Status Comment Facility Jul 15, 2021 08:30 AM [place]-TOBAC[place] FORMER USER [facility] Tobacco Use History This section includes a history of the smoking, or tobacco- related health factors, that were collected on or before the date of the Encounter. The data comes from the [place] facility where the Encounter took place. Date/Time Smoking Status/Tobacco Use Comment [facility] Jul 15, 2021 08:30 AM [place]-TOBAC[place] QUIT < 1 YEAR [facility] Encounter Notes: All associated encounter notes This section contains the clinical notes associated to the Encounter. Date/Time Encounter Note(s) Provider Source Dec 31, 2021 11:45 AM PSYCHOLOGY NOTE: VARSHA CHAPMAN LOCAL TITLE: PSYCHOLOGY NOTE STANDARD TITLE: PSYCHOLOGY NOTE DATE OF NOTE: DEC 31, 2021@11:45 ENTRY DATE: DEC 31, 2021@11:45:42 AUTHOR: VARSHA CHAPMAN EXP COSIGNER: URGENCY: STATUS: COMPLETED [facility] Video Connect (VVC) Standard Documentation VVC Clinician Resources Only: E911 (Emergency Call Relay Center): [phone] National Veterans Crisis Line - ( 3-068-944-ZOBB) press #1. RONDA Suicide Coordinator [phone], Ext. [phone]; Back-up Ext. [phone] Invoice Machine Operator of the Day(AOD), RONDAPeterson [phone], Ext. [phone] Introduction: Visit is being conducted by [place] [employer] [facility]. identified with 2 identifiers: [X] Full Name [X] Date of [ ] VA ID Card Emergency Plan: [place] confirmed and/or provided the following information in case of emergency or technology failure. PATIENT PHONE - PHONE NUMBER [CELLULAR] - Is patient phone number correct, if not, enter b elow: 's phone number: MARY LOU DALE GOVE [address], [place], [address] 's present location and address for appoi ntment: [address] [place] [address] [place]'s emergency contact name and phone numbe r: see chart reported that location is private and sa fe: Yes Informed Consent: [place] informed of the risks and benefits of Te health video care. [place] has the right to refuse video services. If refuses video visit, a anoh-wj-sojl visit will be scheduled. [place] verbalized consent for this video visit: Yes provided consent for any other persons p resent for visit: Yes If yes, who and relation ship to patient: He stated that his baby was with him Secure visit: Visit was locked for security and privacy:Yes Cognitive Processing Therapy: Problematic Thinki ng Session Time in session (in minutes): 45 SESSION NUMBER: 7 SESSION FORMAT Video Telehealth Session SESSION LOCATION Other location Specify: was at his home; Provider was at her home DIAGNOSIS: Primary (focus of treatment): PTSD (ICD-10-CM F 43.10) ASSESSMENT: PCL-5 Weekly The score was 23. CHANGE IN SCORE (PCL or PHQ9) CHANGES IN ASSESSMENT SCORES FROM EARLIER ADMIN ISTRATIONS: PCL-5: 23; PCL-5 from last week: 25 RISK INFORMATION He is considered to be at low risk of harm to s elf/others at this time. He is aware of the availability of the Veterans Crisis Line if needed. He is aware that [...] normal limits. SESSION CONTENT: The completed the Problematic Thinking Patterns Session of Cognitive Processing Therapy (CPT). The following therapy components were addressed: -Therapist and reviewed the CBWs he com pleted for homework -Therapist provided an overview of the five the mes/modules that they will discuss in the remaining CPT sessions -Therapist introduced the Safety Module. Corine barrow discussed his prior beliefs related to the theme of Safe ty and ways in which the index trauma influenced his beliefs about safety. PRACTICE ASSIGNMENT -The was asked to review the Safety Mod ule handout before the next session. -[place] was asked to complete one Challenging Beliefs Worksheet each day, with at least one of these daily worksheets add ressing Safety. MOTIVATIONAL ENHANCEMENT --Identified short-term goals in several areas of functioning. --Identified the consequences or impact of the target diagnosis/problem (or other symptoms). --Identified the benefits of reducing the sever ity of the target diagnosis/problem. --Assessed attitude toward therapy. COLLABORATION The degree of collaboration between the and the therapist in the current session was high. Description of collaboration in this session: Allowing [place] to ask questions he may have PLAN Next session planned for agreed upon date/time of: 01/06 at 11am /tasneem/ VARSHA CHAPMAN PSYD Clinical Psychologist Signed: 12/31/2021 11:57
--- OUTSIDE RECORDS SUMMARY | 2022-11-18 02:05 | XMS_ITS | Encounter Summary ---
:1990 Author Organization Department [facility] Address [address] [place] [address] Support Name Relationship Address Phone SRINIVAS WHEELER Unavailable [address] [facility] [place] [phone] SRINIVAS WHEELER Unavailable Unavailable Insurance Providers: All [...] to Policy Number Bello RESER Dec 11, [id number] NAVJOT WHEELER PATIENT [facility] 2019 IN [facility] 2017 T Selected Encounter This section includes the information on record at [facility] for the Encounter. Date/Time Encounter Type Encounter Reason Provider Source Description Dec 16, 2021 PSYTX W PT 60 MENTAL HEALTH ICD-10-CM F43.10 VARSHA CHAPMAN 09:00 AM [facility]UTES CLINIC - IND Post-traumatic stress disorder, unspecified with Provider Comments: PTSD - Post-traumatic stress disorder ([facility] [id number]) IHE Encounter Template Text not used by VA Assessments - Encounter Diagnoses This section includes the primary and secondary diagnoses documented for the Encounter. Date/Time Primary/Secondary Diagnosis Name Provider Source Diagnosis Dec 16, 2021 PRIMARY Post-traumatic VARSHA CHAPMAN 10:46 AM stress disorder, unspecified Plan of Treatment: [...] Date/Time Appointment Type Appointment Facili ty Name Dec 31, 2021 11:00 AM AMBULATORY [facility]CHI[facility]RY [place] Jan 13, 2022 11:00 AM AMBULATORY [facility] Jan 20, 2022 11:00 AM AMBULATORY [facility] Jan 24, 2022 08:00 AM AMBULATORY [facility] Feb 03, 2022 11:00 AM [facility] Feb 08, 2022 02:00 PM AMBULATORY [facility] Mar 02, 2022 12:30 PM AMBULATORY MEDICINE [place] Mar 04, 2022 11:00 AM AMBULATORY [facility] Apr 19, 2022 10:30 AM AMBULATORY REHAB [facility] Apr 26, 2022 09:30 AM AMBULATORY REHAB [facility] Jun 02, 2022 01:00 PM [facility] Social History: Smoking Status (Most current) and Tobacco Use (All prior to encounter date) This section includes the most current, and the historical, smoking and tobacco-related health factors from the [place] facility where the Encounter took place.Current Smoking Status This section includes the most current smoking, or tobacco-related health factor, from the [place] facility where the Encounter took place. Date/Time Current Smoking Status Comment Facility Jul 15, 2021 08:30 AM [place]-TOBACCO FORMER USER [facility] Tobacco Use History This section includes a history of the smoking, or tobacco- related health factors, that were collected on or before the date of the Encounter. The data comes from the [place] facility where the Encounter took place. Date/Time Smoking Status/Tobacco Use Comment [facility] Jul 15, 2021 08:30 AM [place]-TOBACCO QUIT < 1 YEAR S [facility] Encounter Notes: All associated encounter notes This section contains the clinical notes associated to the Encounter. Date/Time Encounter Note(s) Provider Source Dec 16, 2021 10:37 AM PSYCHOLOGY NOTE: VARSHA CHAPMAN LOCAL TITLE: PSYCHOLOGY NOTE STANDARD TITLE: PSYCHOLOGY NOTE DATE OF NOTE: DEC 16, 2021@10:37 ENTRY DATE: DEC 16, 2021@10:37:06 AUTHOR: VARSHA CHAPMAN EXP COSIGNER: URGENCY: STATUS: COMPLETED [facility] Video Connect (VVC) Standard Documentation VVC Clinician Resources Only: E911 (Emergency Call Relay Center): [phone] National Veterans Crisis Line - ( 1-651-997-NOKL) press #1. RONDA Suicide Coordinator [phone], Ext. [phone]; Back-up Ext. [phone] [employer] Certified Network Associate of the Day(AOD), Peterson BOND [phone], Ext. [phone] Introduction: Visit is being conducted by [place] [employer] [facility]. [place] identified with 2 identifiers: [X] Full Name [X] Date of [ ] VA ID Card Emergency Plan: confirmed and/or provided the following information in case of emergency or technology failure. PATIENT PHONE - PHONE NUMBER [CELLULAR] - Is patient phone number correct, if not, enter b elow: [place]'s phone number: MARY LOU DALE GOVDave [address], [place], [address] [place]'s present location and address for appoi ntment: [address] [place] [address] [place]'s emergency contact name and phone numbe r: see chart [place] reported that location is private and fe: Yes Informed Consent: [place] informed of the risks and benefits of Te health video care. has the right to refuse video services. If refuses video visit, a ljjh-jz-cfge visit will be scheduled. verbalized consent for this video visit: Yes provided consent for any other persons p resent for visit: N/A If yes, who and relationship to patient: Secure visit: Visit was locked for security and privacy:Yes Cognitive Processing Therapy: Challenging Questi ons Session Time in session (in minutes): 60 SESSION NUMBER: 6 SESSION FORMAT Video Telehealth Session SESSION LOCATION Other location Specify: was at his home; Provider was at her home DIAGNOSIS: Primary (focus of treatment): PTSD (ICD-10-CM F 43.10) ASSESSMENT: PCL-5 Weekly The score was 25. CHANGE IN SCORE (PCL or PHQ9) CHANGES IN ASSESSMENT SCORES FROM EARLIER ADMIN ISTRATIONS: PCL-5: 25; PCL-5 from last week: 25 RISK INFORMATION [...] normal limits. SESSION CONTENT: The completed the Challenging Questions Session of Cognitive Processing Therapy (CPT). The following therapy components were addressed: -Therapist and reviewed his homework (co mpleting the Patterns of Problematic Thinking Worksheets). [place] discus sed different stuck points that he identified which were added to the Stuck Point Log. He also indicated that he noticed he tends to engage in jumping t o conclusions and Exaggerating or minimizing a situation often. -Therapist reviewed the Challenging Beliefs Work sheet with . They completed the worksheet with one of 's st uck points. PRACTICE ASSIGNMENT - was asked to complete one CBW per day MOTIVATIONAL ENHANCEMENT --Identified short-term goals in several areas of functioning. --Identified the consequences or impact of the target diagnosis/problem (or other symptoms). --Identified the benefits of reducing the sever ity of the target diagnosis/problem. --Assessed attitude toward therapy. COLLABORATION The degree of collaboration between the [place] and the therapist in the current session was high. Description of collaboration in this session: Allowing to ask questions he may have PLAN Next session planned for agreed upon date/time of: 12/23 at 11am /tasneem/ VARSHA CHAPMAN PSYD Clinical Psychologist Signed: 12/16/2021 10:47
--- OUTSIDE RECORDS SUMMARY | 2022-11-18 02:05 | XMS_ITS ---
:1990 Author Organization Department [facility] Address [address] [place] [address] Support Name Relationship Address Phone SRINIVAS WHEELER Unavailable [address] [facility] [place] [address] SRINIVAS WHEELER Unavailable Unavailable Insurance Providers: All [...] to Policy Number Bello RESER Dec 11, [id number] NAVJOT WHEELER PATIENT [facility] 2019 5 [place] [facility] 2017 T Selected Encounter This section includes the information on record at [place] for the Encounter. Date/Time Encounter Type Encounter Reason Provider Source Description Dec 23, 2021 07:32 Outpatient MENTAL HEALTH CLINIC YEISON MCKEON AM Encounter - [place] E Encounter Template Text not used by [place] Plan of Treatment: Future Appointments (+ 6 [...] 20 appointments. The data comes from all [place] treatment facilities. Appointment Date/Time Appointment Type Appointment Facili ty Name Dec 31, 2021 11:00 AM AMBULATORY - [facility]CHIATRY [place] Jan 13, 2022 11:00 AM AMBULATORY - [place]CHIATRY [place] Jan 20, 2022 11:00 AM AMBULATORY - [facility]CHIAT[facility] [place] Jan 24, 2022 08:00 AM AMBULATORY - [facility]CHIATRY [place] Feb 03, 2022 11:00 AM AMBULATORY - [facility]CHIATRY [place] Feb 08, 2022 02:00 PM AMBULATORY - [facility]CHIATRY [place] Mar 02, 2022 12:30 PM AMBULATORY - MEDICINE [place] Mar 04, 2022 11:00 AM AMBULATORY - [facility]CHIATRY [place] Apr 19, 2022 10:30 AM AMBULATORY - REHAB [facility]IC[facility] Apr 26, 2022 09:30 AM AMBULATORY - REHAB MEDICINE [facility] Jun 02, 2022 01:00 PM AMBULATORY - PS[place]CHIATRY [place] Encounter Notes: All associated encounter notes This section contains the clinical notes associated to the Encounter. Date/Time Encounter Note(s) Provider Source Dec 23, 2021 07:32 AM MENTAL HEALTH SECURE MESSAGING: VARSHA MCKEON [place] [facility] LOCAL TITLE: MENTAL HEALTH SECURE MESSAGING [facility] STANDARD TITLE: MENTAL HEALTH SECURE MESSAGING DATE OF NOTE: DEC 23, 2021@07:32:47 ENTRY DATE: DEC 23, 2021@07:32:48 AUTHOR: VARSHA MCKEON EXP COSIGNER: URGENCY: STATUS: COMPLETED ------Original Message Sent: 12/22/2021 08:58 PM From: MARY LOU WHEELER To: JABARI_ANN,Enma_ARI,E_HENRY,WILDER_SOPC% Subject: 12/23/21 Dr. Mckeon I am getting held on the over night son ght and have to be back in tomorrow for my regular shift. Sorry I have to r e schedule again. Thank You, Mary Lou ------Original Message Sent: 12/23/2021 07:32 AM From: VARSHA MCKEON To: MARY LOU WHEELER Subject: 12/23/21 Negrito Liao, María for letting me know. I'll cancel today's appointment and schedule an additional appointment in January. Sincerely, Varsha Mckeon PsyD /tasneem/ VARSHA MCKEON PSYD Clinical Psychologist Signed: 12/23/2021 07:32
--- OUTSIDE RECORDS SUMMARY | 2022-11-18 02:05 | XMS_ITS | Encounter Summary ---
:1990 Author Organization Department [facility] Address [address] [place] [address] Support Name Relationship Address Phone SRINIVAS WHEELER Unavailable [address] [facility] [place] [phone] SRINIVAS WHEELER Unavailable Unavailable Insurance Providers: All [...] Telephone Name to Policy Number Bello [facility]MA JOYNERARE RESER Dec 11, [id number] NAVJOT WHEELER PATIENT [facility] 2020 10 5 IN [facility] 2017 T Selected Encounter This section includes the information on record at [place] for the Encounter. Date/Time Encounter Type Encounter Description Reason Provider Source Nov 22, 2021 01:30 Outpatient Encounter MENTAL HEALTH CLINIC - [place] E Encounter Template Text not used by [place] Plan of Treatment: Future Appointments (+ 6 months) and Future Tests (+/- 45 days) The Plan of Treatment section includes future care activities for the patient from all [place] treatmentfacilities. This section includes future appointments and future orders which are active, pending orscheduled.Future Appointments This section includes appointments that were scheduled to occur 6 months from the date of the Encounter, up to a maximum of 20 appointments. The data comes from all [place] treatment facilities. Appointment Date/Time Appointment Type Appointment Facili ty Name Nov 25, 2021 11:00 AM AMBULATORY - [facility] [place] Dec 02, 2021 11:00 AM [facility] Dec 16, 2021 09:00 AM [facility] [place] Dec 31, 2021 11:00 AM [facility] [place] Jan 13, 2022 11:00 AM [facility]ORY [facility] [place] Jan 20, 2022 11:00 AM [facility] Jan 24, 2022 08:00 AM AMBULATORY [facility] [place] Feb 03, 2022 11:00 AM AMB[facility]ORY [facility] [place] Feb 08, 2022 02:00 PM AMBULATORY - [facility]IATRY [place] Mar 02, 2022 12:30 PM [facility]ORY - MEDICINE [facility] [place] Mar 04, 2022 11:[address] [facility] [place] Apr 19, 2022 10:[address] [facility] - REH[facility] Apr 26, 2022 09:30 AM [facility] Lab Results: +/- 30 days of the encounter This section includes the Chemistry and Hematology Lab Results on record with [place] for the patient. Radiology Reports and Pathology Reports are provided separately, in subsequent sections.Lab Results This section contains the Chemistry/Hematology Results that were resulted 30 days before or 30 daysafter the date of the Encounter. Date/Time Source Result Type Result - Unit Interpretation Reference Range Comment Nov 04 [facility] COVID-19 Specimen Type: NASOPHARYNX 2020 02:09 (WellID) Comment: Test p erformed on [employer] [facility] at [facility]. This test is authorized for emergency use only. It is authorized for the duration of the declaration that circumstances exist just PM ifying the autho rization for detection and/or diagnosis of COVID-19. Unless the authorization is terminated or revoked sooner. This test cannot rule out diseases caused by other bacterial or viral patho gens. False nega tive results may occur if virus is present at levels below the analytical limit of detection. Negative results do not preclude SARS-CoV-2, influenza or RSV infection and should not be us ed as the sole b asis for treatment or other patient management decisions. Viral nucleic acid may persist in vivo, independent of virus viability. Detection of analyte target(s) does not imply that the c orresponding vir us(es) are infectious or are the causative agents for clinical symptoms. Cepheid FLUVID: HCPs: https://www.fda.gov/media/083547/download Patients: https://www.fda.gov/media/200731/download Ordering Provid er: YOUNG HAMMOND Report Released Date/Time: Nov 04, 2021 03:53 PM Reporting Lab: [facility] [address] [facility] [address] Performing Lab: [facility] [address] [facility] [address] COVID-19 (CEPHEID) N NEGATIVE Social History: Smoking Status (Most current) and Tobacco Use (All prior to encounter date) This section includes the most current, and the historical, smoking and tobacco-related health factors from the [place] facility where the Encounter took place.Current Smoking Status This section includes the most current smoking, or tobacco-related health factor, from the [place] facility where the Encounter took place. Date/Time Current Smoking Status Comment Facility Jul 15, 2021 08:30 AM [place]-TOBACCO FORMER USER [facility] Tobacco Use History This section includes a history of the smoking, or tobacco- related health factors, that were collected on or before the date of the Encounter. The data comes from the [place] facility where the Encounter took place. Date/Time Smoking Status/Tobacco Use Comment [facility] Jul 15, 2021 08:30 AM [place]-TOBACCO QUIT < 1 YEAR S [facility] Encounter Notes: All associated encounter notes This section contains the clinical notes associated to the Encounter. Date/Time Encounter Note(s) Provider Source Dec 03, 2021 08:08 AM CLERICAL NOTE: DOMINGO TOMPKINS [facility] TITLE: APPOINTMENT NO SHOW STANDARD TITLE: CLERICAL NOTE DATE OF NOTE: DEC 03, 2021@08:08 ENTRY DATE: DEC 03, 2021@08:09:07 AUTHOR: DOMINGO TOMPKINS EXP COSIGNER: URGENCY: STATUS: COMPLETED APPOINTMENT NO SHOW Has ADDENDA Patient Name: MARY LOU WHEELER Patient SSN: [id number] Date and time of Appointment No show : 11/22/21 13:30 PATIENT PHONE - PHONE NUMBER [CELLULAR] - Patient's medical record was reviewed. Follow-up actions were determined and initiated: Please check/complete as applies: [X]Telephoned Directly [ ]Re-scheduled for next available appt [ ]Sent a N0-show letter ( must call for appointment) [ ]Other (Emergent/Overbook, etc.): Additional Comments: left a vm Future Clinic Visits 12/09/2021 11:00 CWM/SO/TH/VVC/MHC/CHAPMAN 12/16/2021 09:00 CWM/SO/TH/VVC/MHC/CHAPMAN 12/23/2021 11:00 CWM/SO/TH/VVC/MHC/CHAPMAN 12/31/2021 11:00 CWM/SO/TH/VVC/MHC/CHAPMAN 01/06/2022 11:00 CWM/SO/TH/VVC/MHC/CHAPMAN 01/13/2022 11:00 CWM/SO/TH/VVC/MHC/CHAPMAN 01/20/2022 11:00 CWM/SO/TH/VVC/MHC/CHAPMAN 03/02/2022 12:30 CWM/SO/TH/VVC/PACT 4 /es/ DOMINGO TOMPKINS MD Psychiatrist Signed: 12/03/2021 08:09 Receipt Acknowledged By: 12/03/2021 08:29 /tasneem/ Maggi Raygoza ADVANCED BEAM RACKER 12/03/2021 14:34 /tasneem/ YUMI Campbell WOOD MACHINIST APPRENTICE 12/03/2021 ADDENDUM STATUS: COMPLETED NO SHOW LETTER SENT /tasneem/ Maggi Raygoza ADVANCED BEAM RACKER Signed: 12/03/2021 08:29 12/03/2021 ADDENDUM STATUS: COMPLETED VM left regarding recent ns, he was asked to con tact the clinic to r/s. /tasneem/ YUMI Campbell WOOD MACHINIST APPRENTICE Signed: 12/03/2021 14:37 12/06/2021 ADDENDUM STATUS: COMPLETED Balancer spoke with , [place] stat ed he does not need to RS at this time as he is not on any medication but will keep thi s in mind if needed in the future /johanna Raygoza ADVANCED BEAM RACKER Signed: 12/06/2021 09:01
--- OUTSIDE RECORDS SUMMARY | 2022-11-18 02:05 | XMS_ITS | Encounter Summary ---
:1990 Author Organization Department [facility] rs Address [address] [place] [id number] Support Name Relationship Address Phone SRINIVAS WHEELER Unavailable [address] [facility] [place] [address] SRINIVAS WHEELER Unavailable Unavailable Insurance Providers: All [...] to Policy Number Bello RESER Dec 11, [id number] NAVJOT WHEELER PATIENT [facility] 2019 IN [facility] 2017 T Selected Encounter This section includes the information on record at [facility] for [facility]counter. Date/Time Encounter Type Encounter Reason Provider Source Description Nov 18, 2021 PSYTX W PT 60 MENTAL HEALTH ICD-10-CM F43.10 VARSHA CHAPMAN 09:00 AM [facility]UTES CLINIC - IND Post-traumatic stress disorder, unspecified with Provider Comments: PTSD - Post-traumatic stress disorder ([facility] [id number]) IHE Encounter Template Text not used by [facility] Assessments - Encounter Diagnoses This section includes the primary and secondary diagnoses documented for the Encounter. Date/Time Primary/Secondary Diagnosis Name Provider Source Diagnosis Nov 18, 2021 PRIMARY Post-traumatic VARSHA CHAPMAN JOANIE 11:57 AM stress disorder, unspecified Plan of Treatment: [...] Appointment Type Appointment Facili ty Name Nov 22, 2021 01:30 PM AMBULATORY - [facility]RY [place] Nov 25, 2021 11:00 AM [facility] Dec 02, 2021 11:00 AM [facility]ORY [facility] Dec 16, 2021 09:00 AM [facility]ORY [facility] Dec 31, 2021 11:00 AM [facility]ORY [facility] Jan 13, 2022 11:00 AM [facility]ORY [facility] Jan 20, 2022 11:00 AM [facility]ORY [facility] Jan 24, 2022 08:00 AM [facility]ORY [facility] Feb 03, 2022 11:00 AM [facility]ORY [facility] Feb 08, 2022 02:00 PM [facility]ORY [facility] Mar 02, 2022 12:30 PM [facility]ORY [facility] [place] Mar 04, 2022 11:00 AM [facility] Apr 19, 2022 10:30 AM [facility] Apr 26, 2022 09:30 AM [facility] Lab Results: +/- 30 days of the [...] Unit Interpretation Reference Range Comment Nov 04 [place] COVID-19 Specimen Type: NASOPHARYNX 2020 02:09 (CEPHippflowID) Comment: Test p erformed on CepBRANDiD - Shop. Like a Man.id Genexpert at [facility]. This test is authorized for emergency [...] agents for clinical symptoms. Cepheid FLUVID: HCPs: https://www.fda.gov/media/575713/download Patients: https://www.fda.gov/media/194332/download Ordering Provid er: YOUNG HAMMOND Report Released Date/Time: Nov 04, 2021 03:53 PM Reporting Lab: [address] [address] Performing Lab: [address] [address] COVID-19 (CEPHEID) N NEGATIVE Social History: Smoking [...] 15, 2021 08:30 AM [place]-TOBACCO FORMER USER [facility] Tobacco Use History This section includes a history of the smoking, or tobacco- related health factors, that were collected on or before the date of the Encounter. The data comes from the [place] facility where the Encounter took place. Date/Time Smoking Status/Tobacco Use Comment [facility] Jul 15, 2021 08:30 AM [place]-TOBACCO QUIT < 1 YEAR S [facility] Encounter Notes: All associated encounter notes This section contains the clinical notes associated to the Encounter. Date/Time Encounter Note(s) Provider Source Nov 18, 2021 11:47 AM PSYCHOLOGY NOTE: VARSHA CHAPMAN LOCAL TITLE: PSYCHOLOGY NOTE STANDARD TITLE: PSYCHOLOGY NOTE DATE OF NOTE: NOV 18, 2021@11:47 ENTRY DATE: NOV 18, 2021@11:47:48 AUTHOR: VARSHA CHAPMAN EXP COSIGNER: URGENCY: STATUS: COMPLETED [facility] Connect (VVC) Standard Documentation VVC Clinician Resources Only: E911 (Emergency Call Relay Center): [phone] National Veterans Crisis Line - ( [phone]-JPOX) press #1. RONDA Suicide Coordinator [phone], Ext. [phone]; Back-up Ext. [phone] Car Seat Coverer of the Day(AOD), Peterson BOND [phone], Ext. [phone] Introduction: Visit is being conducted by [place] [facility]. Johnson identified with 2 identifiers: [X] Full Name [X] Date of [ ] [facility] ID Card Emergency Plan: confirmed and/or provided the following information in case of emergency or technology failure. PATIENT PHONE - PHONE NUMBER [CELLULAR] - Is patient phone number correct, if not, enter b elow: Johnson's phone number: MARY LOU WHEELER [address], [place], [address] Johnson's present location and address for appoi ntment: [address] [place] [address] Johnson's emergency contact name and phone numbe r: see chart Johnson reported that location is private and sa fe: Yes Informed Consent: informed of the risks and benefits of Te lehealth video care. has the right to refuse video services. If refuses video visit, a [id number]-[id number] visit will be scheduled. verbalized consent for this video visit: Yes provided consent for any other persons p resent for visit: Yes If yes, who and relation ship to patient: He stated that his infant baby was with him Secure visit: Visit was locked for security and privacy:Yes Cognitive Processing Therapy: A-B-C Worksheet Se ssion Time in session (in minutes): 55 SESSION NUMBER: 3 SESSION FORMAT Video Telehealth Session SESSION LOCATION Other location Specify: was at his home; Provider was at her home DIAGNOSIS: Primary (focus of treatment): PTSD (ICD-10-CM F 43.10) ASSESSMENT: PCL-5 Weekly The score was 19. Interpretive Statement: PCL-5 weekly has a total score range of 0-80, w ith higher scores indicating greater PTSD symptom severity. 0-10: no or minimal symptoms reported 11-20: mild symptoms reported 21-40: moderate symptoms reported 41-60: severe symptoms reported 61-80: very severe symptoms reported 1. Repeated, disturbing, and unwanted memories of the stressful experience? A little bit 2. Repeated, disturbing dreams of the stressful experience? A little bit 3. Suddenly feeling or acting as if the stressf ul experience were actually happening again (as if you were actually back t here reliving it)? A little bit 4. Feeling very upset when something reminded y ou of the stressful experience? Not at all 5. Having strong physical reactions when someth ing reminded you of the stressful experience (for example, heart poundi ng, trouble breathing, sweating)? A little bit 6. Avoiding memories, thoughts, or feelings rel ated to the stressful experience? Moderately 7. Avoiding external reminders of the stressful experience (for example, people, places, conversations, activities, obje cts, or situations)? Moderately 8. Trouble remembering important parts of the s tressful experience? Not at all 9. Having strong negative beliefs about yoursel f, other people, or the world (for example, having thoughts such as: I am bad, there is something seriously wrong with me, no one can be trusted, the world is completely dangerous)? Not at all 10. Blaming yourself or someone else for the st ressful experience or what happened after it? Not at all 11. Having strong negative feelings such as fea r, horror, anger, guilt, or shame? Not at all 12. Loss of interest in activities that you use d to enjoy? Not at all 13. Feeling distant or cut off from other peopl e? A little bit 14. Trouble experiencing positive feelings (for example, being unable to feel happiness or have loving feelings for peop le close to you)? Not at all 15. Irritable behavior, angry outbursts, or act ing aggressively? A little bit 16. Taking too many risks or doing things that could cause you harm? A little bit 17. Being super alert or watchful or on guard ? Extremely 18. Feeling jumpy or easily startled? Moderately 19. Having difficulty concentrating? Not at all 20. Trouble falling or staying asleep? Moderately CHANGE IN SCORE (PCL or PHQ9) CHANGES IN ASSESSMENT SCORES FROM EARLIER ADMIN ISTRATIONS: PCL-5: 19; PCL-5 from last week: 22 RISK INFORMATION He is considered to be at low risk of harm to s elf/others at this time. He is aware of the availability of the Veterans Cri sis Line if needed. He was encouraged to [...] normal limits. SESSION CONTENT: The completed the Thoughts and Feelings Session of the Cognitive Processing Therapy (CPT) for PTSD. The followin g therapy components were addressed: -Therapist reviewed homework (A-B-C Worksheets) with Johnson, and helped further differentiate between thoughts and feel ings. -Therapist helped identify stuck points and add them to the Stuck Point Log: ( I should be over it by now ; I or someone I love could be tomorrow ) PRACTICE ASSIGNMENT -Therapist asked Johnson to continue using the A-B-C Worksheets, completing one each day pertaining to the trauma. MOTIVATIONAL ENHANCEMENT --Identified short-term goals in several areas of functioning. --Identified the consequences or impact of the target diagnosis/problem (or other symptoms). --Identified the benefits of reducing the sever ity of the target diagnosis/problem. --Assessed attitude toward therapy. COLLABORATION The degree of collaboration between the and the therapist in the current session was high. Description of collaboration in this session: Allowing Johnson to ask questions he may have PLAN Next session planned for agreed upon date/time of: 11/25 at 11am /tasneem/ VARSHA CHAPMAN PSYD Clinical Psychologist Signed: 11/18/2021 11:58
--- OUTSIDE RECORDS SUMMARY | 2022-11-18 02:05 | XMS_ITS | Encounter Summary ---
:1990 Author Organization Department [facility] rs Address [address] [place] [address] Support Name Relationship Address Phone SRINIVAS WHEELER Unavailable [address] [facility] [place] [address] SRINIVAS WHEELER Unavailable Unavailable Insurance Providers: All [...] to Policy Number Bello RESER Dec 11, [id number] NAVJOT WHEELER PATIENT [facility] 2019 5 [place] [facility] 2017 T Selected Encounter This section includes the information on record at [facility] for the Encounter. Date/Time Encounter Type Encounter Reason Provider Source Description Dec 02, 2021 PSYTX W PT 60 MENTAL HEALTH ICD-10-CM F43.10 VARSHA CHAPMAN 11:00 AM MINUTES CLINIC - IND Post-traumatic stress disorder, unspecified with Provider Comments: PTSD - Post-traumatic stress disorder ([facility] [id number]) IHE Encounter Template Text not used by VA Assessments - Encounter Diagnoses This section includes the primary and secondary diagnoses documented for the Encounter. Date/Time Primary/Secondary Diagnosis Name Provider Source Diagnosis Dec 02, 2021 PRIMARY Post-traumatic VARSHA CHAPMAN JOANIE 12:43 PM stress disorder, unspecified Plan of Treatment: [...] 20 appointments. The data comes from all [place] treatment facilities. Appointment Date/Time Appointment Type Appointment Facili ty Name Dec 16, 2021 09:00 AM AMBULATORY - PSYCHIATRY [place] Dec 31, 2021 11:00 AM AMBULATORY - PS[facility]CHIATRY [place] Jan 13, 2022 11:00 AM AMBULATORY - PSYCHIATRY [place] Jan 20, 2022 11:00 AM AMBULATORY [facility] [place] Jan 24, 2022 08:00 AM AMBULATORY [facility] [place] Feb 03, 2022 11:00 AM AMBULATORY [facility] [place] Feb 08, 2022 02:00 PM AMBULATORY - PSYCHIATRY [place] Mar 02, 2022 12:30 PM AMBULATORY MEDICINE [place] Mar 04, 2022 11:00 AM AMBULATORY PSYCHIATRY [place] Apr 19, 2022 10:30 AM [facility] Apr 26, 2022 09:30 AM [facility] Lab Results: +/- 30 days of the encounter This section includes the Chemistry and Hematology Lab Results on record with [place] for the patient. Radiology Reports and Pathology Reports are provided separately, in subsequent sections.Lab Results This section contains the Chemistry/Hematology Results that were resulted 30 days before or 30 daysafter the date of the Encounter. Date/Time Source Result Type Result - Unit Interpretation Reference Range Comment Nov 04, [place] COVID-19 Specimen Type: NASOPHARYNX 2020 02:09 (CEPHEID) Comment: Test p erformed on Cepoohiloveid Genexpert at [facility]. This test is authorized for emergency [...] agents for clinical symptoms. Cepheid FLUVID: HCPs: https://www.fda.gov/media/391451/download Patients: https://www.fda.gov/media/146375/download Ordering Provid er: YOUNG HAMMOND Report Released Date/Time: Nov 04, 2021 03:53 PM Reporting Lab: [address] [address] Performing Lab: [address] [address] COVID-19 (CEPHEID) N NEGATIVE Social History: Smoking Status (Most current) and Tobacco Use (All prior to encounter date) This section includes the most current, and the historical, smoking and tobacco-related health factors from the [place] facility where the Encounter took place.Current Smoking Status This section includes the most current smoking, or tobacco-related health factor, from the [place] facility where the Encounter took place. Date/Time Current Smoking Status Comment Facility Jul 15, 2021 08:30 AM [place]-TOBACCO FORMER USER [facility] Tobacco Use History This section includes a history of the smoking, or tobacco- related health factors, that were collected on or before the date of the Encounter. The data comes from the [place] facility where the Encounter took place. Date/Time Smoking Status/Tobacco Use Comment [facility] Jul 15, 2021 08:30 AM [place]-TOBACCO QUIT < 1 YEAR S [facility] Encounter Notes: All associated encounter notes This section contains the clinical notes associated to the Encounter. Date/Time Encounter Note(s) Provider Source Dec 02, 2021 11:57 AM PSYCHOLOGY NOTE: VARSHA CHAPMAN LOCAL TITLE: PSYCHOLOGY NOTE STANDARD TITLE: PSYCHOLOGY NOTE DATE OF NOTE: DEC 02, 2021@11:57 ENTRY DATE: DEC 02, 2021@11:57:06 AUTHOR: VARSHA CHAPMAN EXP COSIGNER: URGENCY: STATUS: COMPLETED [facility] Video Connect (VVC) Standard Documentation VVC Clinician Resources Only: E911 (Emergency Call Relay Center): [phone] [facility] Crisis Line - ( [phone]-TALK) press #1. CW Suicide Coordinator [phone], Ext. [phone]; Back-up Ext. [phone] Financial Specialist of the Day(AOD), Peterson BOND [phone], Ext. [phone] Introduction: Visit is being conducted by [place] [employer] [facility]. identified with 2 identifiers: [X] Full Name [X] Date of [ ] VA ID Card Emergency Plan: confirmed and/or provided the following information in case of emergency or technology failure. PATIENT PHONE - PHONE NUMBER [CELLULAR] - Is patient phone number correct, if not, enter b elow: Colwell's phone number: MARY LOU DALE GOVE [address], [place], [address] Colwell's present location and address for appoi ntment: [address] [place] [address] Colwell's emergency contact name and phone numbe r: see chart Colwell reported that location is private and sa fe: Yes Informed Consent: Colwell informed of the risks and benefits of Te health video care. has the right to refuse video services. If refuses video visit, a [id number]-[id number] visit will be scheduled. Colwell verbalized consent for this video visit: Yes provided consent for any other persons p resent for visit: Yes If yes, who and relation ship to patient: He stated that his infant baby was with him Secure visit: Visit was locked for security and privacy:Yes Cognitive Processing Therapy: Re-write Event Ses aretha Time in session (in minutes): 55 SESSION NUMBER: 5 SESSION FORMAT Video Telehealth Session SESSION LOCATION Other location Specify: Colwell was at his home; Provider was at her home DIAGNOSIS: Primary (focus of treatment): PTSD (ICD-10-CM F 43.10) ASSESSMENT: PCL-5 Weekly The score was 25. Interpretive Statement: PCL-5 weekly has a total [...] reminded y ou of the stressful experience? A little bit 5. Having strong physical reactions when someth [...] be trusted, the world is completely dangerous)? Extremely 10. Blaming yourself or someone else for [...] feelings for peop le close to you)? A little bit 15. Irritable behavior, angry outbursts, or act [...] ISTRATIONS: PCL-5: 25; PCL-5 from last week: 27 RISK INFORMATION He is considered to be at low risk of h arm to self/others at this time. He is aware of [...] were within normal limits. SESSION CONTENT: The Colwell completed the rewrite of Trauma Angeline nt session of Cognitive Processing Therapy (CPT) for PTSD. The followin g therapy components were addressed: -Colwell stated that he onl y completed 2 CBWs because he got sick from an upper respiratory infection. He acknowledged that he i s mindful of the potential avoidance behaviors associat ed with PTSD treatment and is motivated to continue completing the upcoming homework assignments. -He and undersigned reviewed the homework he com pleted. -Additional stuck points were added to the Stuck Point Log -Undersigned reviewed the Problematic Thinking W orksheet with Colwell. PRACTICE ASSIGNMENT -He was asked to complete a Problematic Thinking Worksheet daily. MOTIVATIONAL ENHANCEMENT --Identified short-term goals in several areas of functioning. --Identified the consequences or impact of the target diagnosis/problem (or other symptoms). --Assessed attitude toward therapy. COLLABORATION The degree of collaboration between the and the therapist in the current session was high. Description of collaboration in this session: Allowing Colwell to ask questions he may have PLAN Next session planned for agreed upon date/time of: 12/09 at 11am /tasneem/ VARSHA CHAPMAN PSYD Clinical Psychologist Signed: 12/02/2021 12:45
--- OUTSIDE RECORDS SUMMARY | 2022-11-18 02:05 | XMS_ITS | Encounter Summary ---
:1990 Author Organization [facility] Address [address] [place] [id number] Support Name Relationship Address Phone SRINIVAS WHEELER Unavailable [address] [place] [phone] SRINIVAS WHEELER Unavailable Unavailable Insurance Providers: All [...] Number Bello [facility] JOYNERARE RESER Dec 11, [id number] [phone] NAVJOT WHEELER PATIENT [facility] 2020 10 5 IN [facility] 2017 T Selected Encounter This section includes the information on [facility] at [facility] for [facility]counter. Date/Time Encounter Type Encounter Reason Provider Source Description Nov 25, 2021 PSYTX W PT 60 MENTAL HEALTH ICD-10-CM F43.10 VARSHA CHAPMAN 11:00 AM [facility] - [facility] Post-traumatic stress disorder, unspecified with Provider Comments: Post-Traumatic Stress Disorder, unspecified IHE Encounter Template Text not used by [facility] Assessments - Encounter Diagnoses This section includes the primary and secondary diagnoses documented for the Encounter. Date/Time Primary/Secondary Diagnosis Name Provider Source Diagnosis Nov 25, 2021 PRIMARY Post-traumatic VARSHA CHAPMAN JOANIE 12:06 PM stress disorder, unspecified Plan of Treatment: [...] Appointment Type Appointment Facili ty Name Dec 02, 2021 11:00 AM [facility] [place] Dec 16, 2021 09:00 AM [facility] [place] Dec 31, 2021 11:00 AM [facility] Jan 13, 2022 11:00 AM [facility] [place] Jan 20, 2022 11:00 AM [facility] [place] Jan 24, 2022 08:00 AM [facility] [place] Feb 03, 2022 11:00 AM [facility] Feb 08, 2022 02:00 PM [facility] [place] Mar 02, 2022 12:30 PM [facility] - [facility] [place] Mar 04, 2022 11:00 AM [facility] Apr 19, 2022 10:30 AM [facility] Apr 26, 2022 09:30 AM [facility] Lab Results: +/- 30 days of the encounter This section includes the Chemistry and Hematology Lab Results on record with [place] for the patient. Radiology Reports and Pathology Reports are provided separately, in subsequent sections.Lab Results This section contains the Chemistry/Hematology Results that were resulted 30 days before or 30 daysafter the date of the Encounter. Date/Time Source Result Type Result - Unit Interpretation Reference Range Comment Nov 04, [place] COVID-19 Specimen Type: NASOPHARYNX 2020 02:09 (CEPHEID) Comment: Test p erformed on Revokomid Genexpert at [facility]. This test is authorized for emergency use [...] agents for clinical symptoms. Cepheid FLUVID: HCPs: https://www.fda.gov/media/540415/download Patients: https://www.fda.gov/media/392424/download Ordering Provid er: YOUNG HAMMOND Report Released Date/Time: Nov 04, 2021 03:53 PM Reporting Lab: [facility] [address] [facility] [id number] Performing Lab: [facility] [address] [facility] [id number] COVID-19 (CEPHEID) N NEGATIVE Social History: Smoking [...] 15, 2021 08:30 AM [place]-TOBACCO FORMER USER [facility] Tobacco Use History This section includes a history of the smoking, or tobacco- related health factors, that were collected on or before the date of the Encounter. The data comes from the [place] facility where the Encounter took place. Date/Time Smoking Status/Tobacco Use Comment [facility] Jul 15, 2021 08:30 AM [place]-TO[place]AC[place] QUIT < 1 YEAR S [facility] Encounter Notes: All associated encounter notes This section contains the clinical notes associated to the Encounter. Date/Time Encounter Note(s) Provider Source Nov 25, 2021 11:56 AM PSYCHOLOGY NOTE: VARSHA CHAPMAN LOCAL TITLE: PSYCHOLOGY NOTE STANDARD TITLE: PSYCHOLOGY NOTE DATE OF NOTE: NOV 25, 2021@11:56 ENTRY DATE: NOV 25, 2021@11:56:46 AUTHOR: VARSHA CHAPMAN EXP COSIGNER: URGENCY: STATUS: COMPLETED [facility] ([facility]VC) Standard Documentation VVC Clinician Resources Only: E911 (Emergency Call Relay Center): [phone] [facility] Crisis Line - ( [phone]) press #1. [facility] Suicide Coordinator [phone], Ext. [phone]; Back-up Ext. [phone] Emd Teacher of the Day(AOD), Peterson BOND [phone], Ext. [phone] Introduction: Visit is being conducted by [place] [facility]. identified with 2 identifiers: [X] Full Name [X] Date of [ ] [facility] ID Card Emergency Plan: Bovey confirmed and/or provided the following information in case of emergency or technology failure. PATIENT PHONE - PHONE NUMBER [CELLULAR] - Is patient phone number correct, if not, enter b elow: Bovey's phone number: MARY LOU DALE GOVE [address], [place], [address] 's present location and address for appoi ntment: [address] [place] [address] 's emergency contact name and phone numbe r: see chart reported that location is private and fe: Yes Informed Consent: informed of the risks and benefits of Te lehealth video care. has the right to refuse video services. If refuses video visit, a jyus-jc-[id number] visit will be scheduled. verbalized consent for this video visit: Yes Bovey provided consent for any other persons p resent for visit: Yes If yes, who and relation ship to patient: He stated that his baby was with him Secure visit: Visit was locked for security and privacy:Yes Cognitive Processing Therapy: Trauma Event Sessi on Time in session (in minutes): 55 SESSION NUMBER: 4 SESSION FORMAT Video Telehealth Session SESSION LOCATION Other location Specify: Bovey was at his home; Provider was at her home DIAGNOSIS: Primary (focus of treatment): PTSD (ICD-10-CM F 43.10) ASSESSMENT: PCL-5 Weekly The score was 27. Interpretive Statement: PCL-5 weekly has a total [...] all 20. Trouble falling or staying asleep? Extremely CHANGE IN SCORE (PCL or PHQ9) CHANGES IN ASSESSMENT SCORES FROM EARLIER ADMIN ISTRATIONS: PCL-5: 27; PCL-5 from last week: 19 RISK INFORMATION He is considered to be [...] 6. Sleep was largely unimpaired and restful: No; He stated that he has been sleeping about 4 hours per night as his work schedule changed 7. No evidence of psychosis (hallucinations or delusions): Yes; No evidence of psychosis 8. Mood was normal: Yes; Mood was euthymic Other Observations: He was oriented X3, alert, and cooperative. His short term memory and long-term memory appeared intact . Insight and judgment also appeared within normal limits. Attention and con centration were within normal limits. SESSION CONTENT: The Bovey completed the Trauma Event session of Cognitive Processing Therapy (CPT) for PTSD. The following therapy c omponents were addressed: -Therapist reviewed the completed A-B-C Workshe ets with Bovey. -Therapist helped Bovey connect feelings to t houghts. -Therapist reviewed the Levels of Responsibilit y handout with -Therapist reviewed the Kriss llenging Questions Worksheet; Therapist and Bovey completed a worksheet using one of his stuck points ( if I trust people, they'll stab me in the back ) PRACTICE ASSIGNMENT was asked to complete one CQW per day MOTIVATIONAL ENHANCEMENT --Identified short-term goals in several areas of functioning. --Assessed attitude toward therapy. COLLABORATION The degree of collaboration between the and the therapist in the current session was high. Description of collaboration in this session: Allowing Bovey to ask questions he may have PLAN Next session planned for agreed upon date/time of: 12/02 at 11am via AILYN /tasneem/ VARSHA CHAPMAN PSYD Clinical Psychologist Signed: 11/25/2021 12:08
--- NOTE | 2022-11-18 02:06 | ED.EXTPRO ---
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 comes as he noticed pain after trying to make an arrest with slight swelling and tenderness at the site of surgery Related Data Previous Rx's Medication Instructions Recorded epinephrine 0.3 mg/0.3 mL 0.3 mg (0.3 mL) IM Q10M PRN 05/20/21 injection, auto-injector anaphylaxis #2 ea coQ10 (ubiquinol) 100 mg capsule 100 mg PO DAILY 90 days #90 caps 11/16/21 fluvastatin 20 mg capsule 20 mg PO BEDTIME 90 days #90 caps 09/02/22 escitalopram oxalate 5 mg tablet 5 mg PO DAILY 90 days #90 tabs 09/09/22 zolpidem 5 mg tablet (Ambien) 5 mg PO BEDTIME PRN insomnia 90 09/09/22 days #45 tabs ibuprofen 800 mg tablet 800 mg PO TID #30 tabs 11/18/22 Allergies Allergy/AdvReac Type Severity Reaction Status Date / Time acetaminophen [From Vicodin] Allergy Unknown nausea Verified 09/09/22 12:56 hydrocodone [From Vicodin] Allergy Unknown nausea Verified 09/09/22 12:56 Review of Systems Review of Systems: Yes all other systems are reviewed and are negative PMFSH Past Medical History Medical History Difficulty sleeping Lipid disorder Surgical History History of shoulder surgery Family History Family History Father No problems noted. Mother No problems noted. Social History Social History Housing: House Alcohol intake: former Patient Tobacco Use Status: Never used Tobacco e-Cigarette/Vaping Use: Never Used service: Yes Current occupational status: employed Cognitive needs: No Hearing needs: No Vision needs: No Physical Exam Vital Signs: Vital Signs: Last Vital Signs Temp 98 F 11/17/22 23:59 Pulse 92 11/17/22 23:59 Resp 18 11/17/22 23:59 BP 135/94 H 11/17/22 23:59 Pulse Ox 96 11/17/22 23:59 O2 Del Method 11/17/22 23:59 BMI result Body Mass Index 30.1 Const: General: cooperative and healthy appearing Extrem: Hand/finger images: 1. Slight tender with swelling no obvious deformity Medical Decision Making Medical Decision Making MDM Narrative: X-ray negative for any acute fracture hardware intact discharge patient home likely had contusion at the site of the previous surgery Discharge Plan Discharge Clinical Impression: Contusion of hand, right Patient Disposition: Home, Self-Care Instructions: Contusion in Adults (ED) Additional Instructions: Apply ice, take ibuprofen for pain Prescriptions: No Action fluvastatin 20 mg capsule 20 mg PO BEDTIME 90 Days Qty: 90 0RF epinephrine 0.3 mg/0.3 mL auto-injector 0.3 mg IM Q10M PRN (Reason: anaphylaxis) Qty: 2 0RF Rx Instructions: for 2 doses coQ10 (ubiquinol) 100 mg capsule 100 mg PO DAILY 90 Days Qty: 90 0RF zolpidem [Ambien] 5 mg tablet 5 mg PO BEDTIME PRN (Reason: insomnia) 90 Days Qty: 45 0RF escitalopram oxalate 5 mg tablet 5 mg PO DAILY 90 Days Qty: 90 0RF ibuprofen 800 mg tablet 800 mg PO TID Qty: 30 0RF Stand Alone Forms: Work/School Release Interventions: ED Discharge Assessment Last Done: 11/18/22 02:29 Discharge Date/Time: 11/18/22 02:30
== END 2022-11-18 02:30 | disposition home or self-care (01) ==
PROVIDERS: Emergency Provider Internal Medicine; PCP Internal Medicine
DX: S60.221A Contusion of right hand, initial encounter (principal); M79.641 Pain in right hand; Y33.XXXA Other specified events, undetermined intent, initial encounter; Y93.9 Activity, unspecified; Y92.9 Unspecified place or not applicable; Y99.0 Civilian activity done for income or pay
CPT/HCPCS: 73110; 73130; 99282; 99283

== ENCOUNTER → 2022-11-18 08:19 | Outpatient (BNVA) | payer OTHER, SELFPAY | PROVIDERS: PCP Internal Medicine; Visit Provider Internal Medicine | DX: S60.221A Contusion of right hand, initial encounter (principal); W22.8XXA Striking against or struck by other objects, initial encounter | CPT/HCPCS: 99203 ==

== ENCOUNTER 2022-12-07 08:05 | Outpatient (REF) | payer OTHER, SELFPAY ==
[2022-12-07 12:26] LABS: Alanine Aminotransferase 25 U/L (0-40); Albumin Level 4.5 g/dL (3.5-5.0); Alkaline Phosphatase 46 U/L (39-117); Aspartate Amino Transferase 28 U/L (5-37); Bilirubin Direct 0.2 mg/dL (0.0-0.5); Bilirubin Total 0.6 mg/dL (0.0-1.0); Cholesterol 240 mg/dL; HDL Cholesterol 50 mg/dL; LDL Cholesterol Calculated 159 mg/dl; Total Protein 7.4 g/dL (6.5-8.0); Triglycerides 156 mg/dL
== END 2022-12-07 08:06 | disposition home or self-care (01) ==
LOC: HO.HMGCLDS 08:05
PROVIDERS: PCP Internal Medicine; Visit Provider Internal Medicine
DX: E78.9 Disorder of lipoprotein metabolism, unspecified (principal)
CPT/HCPCS: 36415; 80061; 80076

== ENCOUNTER → 2023-04-26 09:08 | Outpatient (BNVA) | payer OTHER, SELFPAY | PROVIDERS: PCP Internal Medicine; Visit Provider Physician Assistant Medical | DX: Z02.79 Encounter for issue of other medical certificate (principal); Z47.2 Encounter for removal of internal fixation device | CPT/HCPCS: 99213 ==

== ENCOUNTER 2023-05-29 09:21 | Outpatient (REF) | payer OTHER, SELFPAY ==
[2023-05-29 11:38] LABS: MANUAL DIFF FLAG NO
[2023-05-29 12:07] LABS: Basophils Absolute Auto 0.1 X10*3/uL (0.0-0.2); Basophils Percent Auto 1.2 % (0-2); Eosinophils Absolute Auto 0.1 X10*3/uL (0.0-0.4); Eosinophils Percent Auto 2.4 % (0-4); Hematocrit 42.9 % (42.0-52.0); Hemoglobin 14.5 g/dl (14.0-18.0); Imm Gran Abs Auto 0.03 X10*3/uL (0.00-0.03); Imm Gran Pct Auto 0.6 % (0.0-0.4); Lymphocytes Absolute Auto 2.7 X10*3/uL (1.2-4.9); Lymphocytes Percent Auto 52.8 % (20-40); Mean Corpuscular HGB Conc 33.8 g/dl (31.0-36.0); Mean Corpuscular Hemoglobin 27.8 pg (27.0-33.0); Mean Corpuscular Volume 82.3 fL (80.0-98.0); Mean Platelet Volume 9.8 fL (9.4-12.4); Monocytes Absolute Auto 0.5 X10*3/uL (0.1-1.2); Monocytes Percent Auto 10.2 % (2-11); Neutrophils Absolute Auto 1.7 x10*3/uL (2.0-8.3); Neutrophils Percent Auto 32.8 % (45-73); Platelet Count 252 X10*3/uL (160-400); Red Blood Count 5.21 X10*6/uL (4.60-5.80); Red Cell Distribution Width 12.4 % (11.0-16.0)
[2023-05-29 13:12] LABS: Alanine Aminotransferase 23 U/L (0-40); Albumin Level 4.5 g/dL (3.5-5.0); Alkaline Phosphatase 43 U/L (39-117); Anion Gap 14 (12-20); Aspartate Amino Transferase 28 U/L (5-37); Bilirubin Direct 0.1 mg/dL (0.0-0.5); Bilirubin Total 0.4 mg/dL (0.0-1.0); Blood Urea Nitrogen 17 mg/dL (9-16); Calcium 9.8 mg/dL (8.4-10.2); Carbon Dioxide 27 mmol/L (22-29); Chloride 103 mmol/L (96-108); Cholesterol 248 mg/dL; Estimated Glomerular Filt Rate > 60; Glucose Fasting 80 mg/dL (60-99); HDL Cholesterol 47 mg/dL; LDL Cholesterol Calculated 171 mg/dl; Potassium 4.3 mmol/L (3.3-5.1); Sodium 140 mmol/L (135-145); Total Protein 7.8 g/dL (6.5-8.0); Triglycerides 153 mg/dL
== END 2023-05-29 09:22 | disposition home or self-care (01) ==
LOC: HO.HMGCLDS 09:21
PROVIDERS: PCP Internal Medicine; Visit Provider Internal Medicine
DX: E78.9 Disorder of lipoprotein metabolism, unspecified (principal); R35.0 Frequency of micturition; G47.9 Sleep disorder, unspecified
CPT/HCPCS: 36415; 80053; 80061; 80076; 82248; 85025

== ENCOUNTER 2023-05-31 08:42 | Outpatient (AMB) | payer OTHER, SELFPAY ==
[2023-05-31 08:46] VITALS: BP 118/88; PULSE 72; O2SAT 97; BMI 31.9
--- NOTE | 2023-05-31 08:46 | MHC.PC.OV ---
Vital Signs 05/31/23 08:46 Height 5 ft 10 in Weight 222 lb 2 oz BMI 31.9 BP 118/88 Blood Pressure Location Rt brachial Position Sitting Pulse 72 Pulse Source Pulse Oximeter Pulse Oximetry (%) 97 Oxygen Delivery Method Room Air Intake Visit Reasons: 3 month follow up Allergies acetaminophen [From Vicodin] Allergy (Unknown, Verified 05/31/23 08:50) nausea hydrocodone [From Vicodin] Allergy (Unknown, Verified 05/31/23 08:50) nausea Medication List - Last Reconciled 05/31/23 by Zander Hugo MD epinephrine 0.3 mg (0.3 mL) IM Q10M PRN fluvastatin 40 mg PO BEDTIME 90 days zolpidem (Ambien) 5 mg PO BEDTIME PRN 90 days Tobacco use date assessed: 05/31/23 Dental Screening Dental Screen Date: 05/31/23 Did you have a dental visit in the last 12 months?: Yes Did you have a dental problem in the last 6 months where you did not have access to dental care?: No Was dental information given to patient?: No HPI 3 month follow up HPI Details Patient came in today for his regular 3 month follow-up appointment for medication refill he has seen Urology, everything was fine as per patient and he is going in for vesectomy soon he has 2 children and one is on its way Patient continued to have difficulty sleeping at night and is taking Ambien 5 mg. He is complying with the treatment plan prescription sent for next 3 month. 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 Lipid disorder: Patient is on fluvastatin 40 mg his LDL has gotton worse than before, we talked about the diet control which is very impt Labs to be repeated fasting before his visit order is in Follow-up 3 months [facility] Medical History Difficulty sleeping Lipid disorder Surgical History History of shoulder surgery Family History Father No problems noted. Mother No problems noted. Social History Housing: House Alcohol intake: former Patient Tobacco Use Status: Never used Tobacco e-Cigarette/Vaping Use: Never Used service: Yes Current occupational status: employed Cognitive needs: No Hearing needs: No Vision needs: No Questionnaire Thrive Questionnaire Date Thrive assessed: 12/07/22 AUDIT C Alcohol Use Questionnaire (AUDIT-C) 1. How often do you have a drink containing alcohol?: Monthly or less 2. How many drinks containing alcohol do you have on a typical day when you are drinking?: 1 or 2 3. How often do you have six or more drinks on one occasion?: Never Total Score: 1 Score Reviewed/Action Taken: Yes YANDEL-7 AMB Questionnaire YANDEL-7 Date YANDEL - 7 assessed: 12/07/22 Source: Developed by Drs. Yayo Garner, Jo Dickinson, Parmjit Ryan and colleagues, with an educational halley from [id number]. Review of Systems Const Denies chills and Denies fever(s) ENT Denies epistaxis and Denies nasal discharge Card Denies chest pain Resp Denies chest congestion, Denies cough and Denies hemoptysis GI Denies diarrhea and Denies nausea Skin/Breast Denies rash Neuro Reports no additional complaints Psych Reports no additional complaints Endo Reports no additional complaints Physical exam (Primary Care) Vital Signs: Last Vital Signs Pulse 72 05/31/23 08:46 BP 118/88 05/31/23 08:46 Pulse Ox 97 05/31/23 08:46 Oxygen Delivery Method Room Air 05/31/23 08:46 BMI result Body Mass Index 31.9 Tobacco/Smoking Status: Tobacco use Status Tobacco use date assessed 05/31/23 05/31/23 08:50 Patient Tobacco Use Status Never used Tobacco 05/31/23 08:50 e-Cigarette/Vaping Use Never Used 05/31/23 08:50 Thrive Assessment: Date of Thrive Assessment Date Thrive assessed 12/07/22 05/31/23 08:50 Const General: cooperative, comfortable and no acute distress Orientation/consciousness: patient oriented x3 HENMT Head: Yes normocephalic Eyes General: appearance normal, both eyes and all related structures Neck Neck: Yes supple Resp Effort & Inspection: normal respiratory effort, no cough and no stridor Cardio Rhythm: regular rhythm Heart sounds: S1 normal heart sound present and S2 normal heart sound present Skin General skin exam: turgor normal Neuro General: patient oriented x3, tone normal and moves all extremities Extrem Right lower extremity: no edema Left lower extremity: no edema Assessment and Plan Assessment & Plan (1) Difficulty sleeping: Code(s): G47.9 - Sleep disorder, unspecified (2) Lipid disorder: Code(s): E78.9 - Disorder of lipoprotein metabolism, unspecified (3) Anxiety, generalized: Code(s): F41.1 - Generalized anxiety disorder (4) PTSD (post-traumatic stress disorder): Code(s): F43.10 - Post-traumatic stress disorder, unspecified Plan Patient came in today for his regular 3 month follow-up appointment for medication refill he has seen Urology, everything was fine as per patient and he is going in for vesectomy soon he has 2 children and one is on its way Patient continued to have difficulty sleeping at night and is taking Ambien 5 mg. He is complying with the treatment plan prescription sent for next 3 month. 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 Lipid disorder: Patient is on fluvastatin 40 mg his LDL has gotton worse than before, we talked about the diet control which is very impt Labs to be repeated fasting before his visit order is in Follow-up 3 months Orders: Orders Comprehensive Met. Panel 2 Months E78.9 - Disorder of lipoprotein metabolism, unspecified Lipid Panel 2 Months E78.9 - Disorder of lipoprotein metabolism, unspecified Medications: Refilled zolpidem (Ambien) 5 mg PO BEDTIME PRN 45 tabs 0RF insomnia 90 days G47.9 - Sleep disorder, unspecified Coding Level of Care Code Est Pt Level 3 (07117) Diagnoses Difficulty sleeping G47.9 Lipid disorder E78.9 Anxiety, generalized F41.1 PTSD (post-traumatic stress disorder) F43.10
== END 2023-05-31 09:29 | disposition home or self-care (01) ==
PROVIDERS: Visit Provider Internal Medicine
DX: G47.9 Sleep disorder, unspecified (principal); E78.9 Disorder of lipoprotein metabolism, unspecified; F41.1 Generalized anxiety disorder; F43.10 Post-traumatic stress disorder, unspecified
CPT/HCPCS: 99213

== ENCOUNTER 2023-09-01 07:55 | Outpatient (REF) | payer OTHER, SELFPAY ==
[2023-09-01 11:57] LABS: Alanine Aminotransferase 25 U/L (0-40); Albumin Level 4.6 g/dL (3.5-5.0); Alkaline Phosphatase 48 U/L (39-117); Anion Gap 13 (12-20); Aspartate Amino Transferase 29 U/L (5-37); Bilirubin Total 0.6 mg/dL (0.0-1.0); Blood Urea Nitrogen 13 mg/dL (9-16); Calcium 9.8 mg/dL (8.4-10.2); Carbon Dioxide 26 mmol/L (22-29); Chloride 102 mmol/L (96-108); Cholesterol 261 mg/dL (<200); Estimated Glomerular Filt Rate > 60; Glucose Random 89 mg/dL (60-115); HDL Cholesterol 50 mg/dL (>40); LDL Cholesterol Calculated 176 mg/dL (<100); Potassium 4.3 mmol/L (3.3-5.1); Sodium 137 mmol/L (135-145); Total Protein 7.9 g/dL (6.5-8.0); Triglycerides 177 mg/dL (<150)
== END 2023-09-01 07:56 | disposition home or self-care (01) ==
LOC: HO.HMGCLDS 07:55
PROVIDERS: PCP Internal Medicine; Visit Provider Internal Medicine
DX: E78.9 Disorder of lipoprotein metabolism, unspecified (principal)
CPT/HCPCS: 36415; 80053; 80061

== ENCOUNTER 2023-09-01 09:47 | Outpatient (AMB) | payer OTHER, SELFPAY ==
[2023-09-01 09:52] VITALS: BP 130/68; PULSE 91; O2SAT 98; BMI 31.7
--- NOTE | 2023-09-01 09:52 | A.OFFPC_ITS ---
Vital Signs 09/01/23 09:52 Height 5 ft 10 in Weight 221 lb 2 oz BMI 31.7 BP 130/68 Blood Pressure Location Rt brachial Position Sitting Pulse 91 Pulse Source Pulse Oximeter Pulse Oximetry (%) 98 Oxygen Delivery Method Room Air Intake Visit Reasons: 3m follow up Allergies acetaminophen [From Vicodin] Allergy (Unknown, Verified 05/31/23 08:50) nausea hydrocodone [From Vicodin] Allergy (Unknown, Verified 05/31/23 08:50) nausea Medication List - Last Reconciled 09/01/23 by Zander Hugo MD epinephrine 0.3 mg (0.3 mL) IM Q10M PRN fluvastatin 40 mg PO BEDTIME 90 days zolpidem (Ambien) 5 mg PO BEDTIME PRN 90 days Tobacco use date assessed: 09/01/23 Dental Screening Dental Screen Date: 09/01/23 Did you have a dental visit in the last 12 months?: Yes Did you have a dental problem in the last 6 months where you did not have access to dental care?: No Was dental information given to patient?: Patient has dentist HPI 3m follow up HPI Details Patient came in today for his regular 3 month follow-up appointment for medication refill Patient had vasectomy, he is doing fine after He is complaining of headaches, patient have history of migraine and feels as if they are getting worse. His blood pressure is 130/68 patient is prehypertensive, I would recommend that he start monitoring his blood pressure at home He also have IBS, constipation alternating with diarrhea And has developed hemorrhoids, we talked about the food and IBS, I would recommend that he start keeping a food diary and see which foods are causing diarrhea and constipation. Patient continued to have difficulty sleeping at night and is taking Ambien 5 mg. He is complying with the treatment plan prescription sent for next 3 month. 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 Lipid disorder: Patient is on fluvastatin 40 mg , he had labs done this morning report some not available yet Follow-up 3 months [facility] Medical History Lipid disorder Difficulty sleeping Surgical History History of shoulder surgery Family History Father No problems noted. Mother No problems noted. Social History Housing: House Alcohol intake: former Patient Tobacco Use Status: Never used Tobacco e-Cigarette/Vaping Use: Never Used service: Yes Current occupational status: employed Cognitive needs: No Hearing needs: No Vision needs: No Questionnaire PHQ-9 Over the last 2 weeks, how often have you been bothered by any of the following problems? 1. Little interest or pleasure in doing things: not at all 2. Feeling down, depressed, or hopeless: not at all 3. Trouble falling or staying asleep, or sleeping too much: more than half the days 4. Feeling tired or having little energy: several days 5. Poor appetite or overeating: not at all 6. Feeling bad about yourself - or that you are a failure or have let yourself or your family down: not at all 7. Trouble concentrating on things, such as reading the newspaper or watching television: not at all 8. Moving or speaking so slowly that other people could have noticed. Or the opposite - being so fidgety or restless that you have been moving around a lot more than usual: not at all 9. Thoughts that you would be better off or of hurting yourself in some way: not at all Total score: 3 Depression Screening Interpretation: Negative Depression Screening Done: Yes 50913 - PHQ-9 Billing: Yes Source: Developed by Drs. Yayo Garner, Parmjit Michaels and colleagues, with an educational halley from [employer]. Thrive Questionnaire Date Thrive assessed: 12/07/22 AUDIT C Alcohol Use Questionnaire (AUDIT-C) 1. How often do you have a drink containing alcohol?: Monthly or less 2. How many drinks containing alcohol do you have on a typical day when you are drinking?: 1 or 2 3. How often do you have six or more drinks on one occasion?: Never Total Score: 1 Score Reviewed/Action Taken: Yes YANDEL-7 AMB Questionnaire YANDEL-7 Date YANDEL - 7 assessed: 12/07/22 Source: Developed by Drs. Yayo LJo Brandt, Parmjit Ryan and colleagues, with an educational halley from [employer]. Review of Systems Const Denies chills and Denies fever(s) ENT Denies epistaxis and Denies nasal discharge Card Denies chest pain Resp Denies chest congestion, Denies cough and Denies hemoptysis GI Denies diarrhea and Denies nausea Skin/Breast Denies rash Neuro Reports no additional complaints Psych Reports no additional complaints Endo Reports no additional complaints Physical exam (Primary Care) Vital Signs: Last Vital Signs Pulse 91 09/01/23 09:52 BP 130/68 09/01/23 09:52 Pulse Ox 98 09/01/23 09:52 Oxygen Delivery Method Room Air 09/01/23 09:52 BMI result Body Mass Index 31.7 Tobacco/Smoking Status: Tobacco use Status Tobacco use date assessed 09/01/23 09/01/23 09:55 Patient Tobacco Use Status Never used Tobacco 09/01/23 09:55 e-Cigarette/Vaping Use Never Used 09/01/23 09:55 PHQ-9: PHQ-9 Score PHQ-9: Total score 3 09/01/23 10:24 Depression Screening Interpretation: Negative Thrive Assessment: Date of Thrive Assessment Date Thrive assessed 12/07/22 09/01/23 09:55 Const General: cooperative, comfortable and no acute distress Orientation/consciousness: patient oriented x3 HENMT Head: Yes normocephalic Eyes General: appearance normal, both eyes and all related structures Neck Neck: Yes supple Resp Effort & Inspection: normal respiratory effort, no cough and no stridor Cardio Rhythm: regular rhythm Heart sounds: S1 normal heart sound present and S2 normal heart sound present Skin General skin exam: turgor normal Neuro General: patient oriented x3, tone normal and moves all extremities Extrem Right lower extremity: no edema Left lower extremity: no edema Assessment and Plan Assessment & Plan (1) Difficulty sleeping: Code(s): G47.9 - Sleep disorder, unspecified (2) Lipid disorder: Code(s): E78.9 - Disorder of lipoprotein metabolism, unspecified (3) Anxiety, generalized: Code(s): F41.1 - Generalized anxiety disorder (4) PTSD (post-traumatic stress disorder): Code(s): F43.10 - Post-traumatic stress disorder, unspecified (5) Irritable bowel syndrome with alternating bowel habits: Code(s): K58.2 - Mixed irritable bowel syndrome (6) External hemorrhoids without complication: Code(s): K64.4 - Residual hemorrhoidal skin tags (7) Pre-hypertension: Code(s): R03.0 - Elevated blood-pressure reading, without diagnosis of hypertension Plan Patient came in today for his regular 3 month follow-up appointment for medication refill Patient had vasectomy, he is doing fine after He is complaining of headaches, patient have history of migraine and feels as if they are getting worse. His blood pressure is 130/68 patient is prehypertensive, I would recommend that he start monitoring his blood pressure at home He also have IBS, constipation alternating with diarrhea And has developed hemorrhoids, we talked about the food and IBS, I would recommend that he start keeping a food diary and see which foods are causing diarrhea and constipation. Patient continued to have difficulty sleeping at night and is taking Ambien 5 mg. He is complying with the treatment plan prescription sent for next 3 month. 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 Lipid disorder: Patient is on fluvastatin 40 mg , he had labs done this morning report some not available yet Follow-up 3 months Medications: Refilled zolpidem (Ambien) 5 mg PO BEDTIME 90 days PRN 45 tabs 0RF insomnia G47.9 - Sleep disorder, unspecified fluvastatin 40 mg PO BEDTIME 90 days 90 caps 1RF Coding Level of Care Code Est Pt Level 4 (51773) Diagnoses Difficulty sleeping G47.9 Lipid disorder E78.9 Anxiety, generalized F41.1 PTSD (post-traumatic stress disorder) F43.10 Irritable bowel syndrome with alternating bowel habits K58.2 External hemorrhoids without complication K64.4 Pre-hypertension R03.0
== END 2023-09-01 11:31 | disposition home or self-care (01) ==
PROVIDERS: PCP Internal Medicine; Visit Provider Internal Medicine
DX: G47.9 Sleep disorder, unspecified (principal); E78.9 Disorder of lipoprotein metabolism, unspecified; F41.1 Generalized anxiety disorder; F43.10 Post-traumatic stress disorder, unspecified; K58.2 Mixed irritable bowel syndrome; K64.4 Residual hemorrhoidal skin tags; R03.0 Elevated blood-pressure reading, without diagnosis of hypertension
CPT/HCPCS: 99214

== ENCOUNTER 2023-11-29 08:12 | Outpatient (AMB) | payer OTHER, SELFPAY ==
[2023-11-29 08:19] VITALS: BP 100/68; PULSE 70; O2SAT 99; BMI 31.6
--- NOTE | 2023-11-29 08:19 | A.OFFPC_ITS ---
Vital Signs 11/29/23 08:19 Height 5 ft 10 in Weight 220 lb 4 oz BMI 31.6 BP 100/68 Blood Pressure Location Rt brachial Position Sitting Pulse 70 Pulse Source Pulse Oximeter Pulse Oximetry (%) 99 Oxygen Delivery Method Room Air Intake Visit Reasons: PE Intake Note: Pt is here for his Annual PE Allergies acetaminophen [From Vicodin] Allergy (Unknown, Verified 11/29/23 08:21) nausea hydrocodone [From Vicodin] Allergy (Unknown, Verified 11/29/23 08:21) nausea Medication List - Last Reconciled 11/29/23 by Zander Hugo MD epinephrine 0.3 mg (0.3 mL) IM Q10M PRN fluvastatin 40 mg PO BEDTIME 90 days zolpidem (Ambien) 5 mg PO BEDTIME PRN 90 days Tobacco use date assessed: 11/29/23 Dental Screening Dental Screen Date: 11/29/23 Did you have a dental visit in the last 12 months?: Yes Did you have a dental problem in the last 6 months where you did not have access to dental care?: No Was dental information given to patient?: Patient has dentist HPI PE HPI Details Patient is a 33-year-old gentleman came in today for physical exam Patient continued to have difficulty sleeping at night, he has served in [employer] 2016, since then patient has been having health issues He has developed tinnitus both ears which causes difficulty sleeping along with PTSD. Night see is not able to sleep well he also suffers from headaches Patient has gone through [facility] PTSD program after returning from service in [employer] He is still seeing therapist once a month He is taking sleeping aid most of the nights. Patient gets 45 tablets for 3 months Lipid disorder: Continue statin he is due for labs we will evaluate the status He does not want to increase the medication regardless. BMI is elevated need to lose weight One year physical exam, three-month follow-up appointment needed [facility] Medical History Lipid disorder Difficulty sleeping Surgical History History of shoulder surgery Family History Father No problems noted. Mother No problems noted. Social History Housing: House Alcohol intake: former Patient Tobacco Use Status: Never used Tobacco e-Cigarette/Vaping Use: Never Used service: Yes Current occupational status: employed Cognitive needs: No Hearing needs: No Vision needs: No Questionnaire PHQ-9 Over the last 2 weeks, how often have you been bothered by any of the following problems? 1. Little interest or pleasure in doing things: not at all 2. Feeling down, depressed, or hopeless: not at all 3. Trouble falling or staying asleep, or sleeping too much: more than half the days 4. Feeling tired or having little energy: not at all 5. Poor appetite or overeating: not at all 6. Feeling bad about yourself - or that you are a failure or have let yourself or your family down: not at all 7. Trouble concentrating on things, such as reading the newspaper or watching television: not at all 8. Moving or speaking so slowly that other people could have noticed. Or the opposite - being so fidgety or restless that you have been moving around a lot more than usual: not at all 9. Thoughts that you would be better off or of hurting yourself in some way: not at all Total score: 2 Depression Screening Interpretation: Negative Depression Screening Done: Yes 51226 - PHQ-9 Billing: Yes Source: Developed by Drs. Yayo Garner, Jo Dickinson, Parmjit Ryan and colleagues, with an educational halley from [employer]. Thrive Questionnaire Date Thrive assessed: 11/29/23 I am a: Patient What is your living situation today?: I have a steady place to live Within the past 12 months, did the food you bought not last and you didn't have the money to get more?: Never true Within the past 12 months, did you worry whether your food would run out before you got money to buy more?: Never true Do you have trouble paying for medicines?: No Do you have trouble getting transportation to medical appointments?: No Do you have trouble paying your heating and electricity bill?: No Do you have trouble taking care of your child, family member or friend?: No Do you have trouble with day-to-day activities such as bathing, preparing meals, shopping, managing finances, etc.?: No Are you currently unemployed and looking for a job?: No Are you interested in more education?: No Please select the resources that you would like help with: None Currently or been in a relationship where the following occur: no concerns reported AUDIT C Alcohol Use Questionnaire (AUDIT-C) 1. How often do you have a drink containing alcohol?: Monthly or less 2. How many drinks containing alcohol do you have on a typical day when you are drinking?: 1 or 2 3. How often do you have six or more drinks on one occasion?: Never Total Score: 1 Score Reviewed/Action Taken: No YANDEL-7 AMB Questionnaire YANDEL-7 Date YANDEL - 7 assessed: 11/29/23 Feeling nervous, anxious, or on edge: 1 = Several days Not being able to stop or control worryin = Not at all Worrying too much about different things: 0 = Not at all Trouble relaxin = Several days Being so restless that it is hard to sit still: 0 = Not at all Becoming easily annoyed or irritable: 1 = Several days Feeling afraid as if something awful might happen: 0 = Not at all Total YANDEL-7 score (0-4 normal; 5-9 mild; 10-14 moderate; 15-21 severe): 3 Source: Developed by Drs. Yayo Garner, Jo Dickinson, Parmjit Ryan and colleagues, with an educational halley from [employer]. YANDEL-7 Assessment Billing YANDEL-7 Assessment Tool: YANDEL-7 Assessment 69098 Review of Systems Const Denies chills and Denies fever(s) Eyes Denies blurry vision ENT Denies nasal discharge, Denies nasal obstruction, Denies odynophagia and Denies sinus pain Card Denies chest pain at rest and Denies chest pain with activity Resp Denies hemoptysis GI Denies diarrhea, Denies odynophagia, Denies vomiting and Denies hematemesis Reports as per HPI Musc Denies abnormal gait Skin/Breast Reports as per HPI Neuro Denies Neuro-related abnormal movements, Denies Abnormal speech present, Denies abnormal gait and Denies Sensory deficit (Neuro) Psych Denies mood swings and Denies paranoia Endo Reports as per HPI Tha/Lymph Reports as per HPI Aller/Immun Reports as per HPI Physical exam (Primary Care) Vital Signs: Last Vital Signs Pulse 70 01/17/24 08:19 BP 100/68 11/29/23 08:19 Pulse Ox 99 11/29/23 08:19 Oxygen Delivery Method Room Air 11/29/23 08:19 BMI result Body Mass Index 31.6 Tobacco/Smoking Status: Tobacco use Status Tobacco use date assessed 11/29/23 11/29/23 08:24 Patient Tobacco Use Status Never used Tobacco 11/29/23 08:24 e-Cigarette/Vaping Use Never Used 11/29/23 08:24 PHQ-9: PHQ-9 Score PHQ-9: Total score 2 11/29/23 09:29 Depression Screening Interpretation: Negative Thrive Assessment: Date of Thrive Assessment Date Thrive assessed 11/29/23 11/29/23 09:29 Currently or been in a relationship where the following occur: no concerns reported Const General: cooperative, comfortable and no acute distress Orientation/consciousness: patient oriented x3 HENMT Head: Yes normocephalic and Yes atraumatic Eyes General: appearance normal, both eyes and all related structures Pupils: Equal, round and reactive pupils present EOM: EOMs intact bilaterally Neck Neck: Yes supple and No lymphadenopathy Thyroid: Thyroid normal Lymphatic: no lymphadenopathy noted Resp Effort & Inspection: normal respiratory effort and able to speak in complete sentences Auscultation: clear to auscultation bilaterally Cardio Heart sounds: S1 normal heart sound present and S2 normal heart sound present GI Palpation (GI): Soft to palpation and nontender Auscultation: normal bowel sounds General: Yes no CVA tenderness Back/Spine/Pelvis Back: no CVA tenderness Skin General skin exam: elasticity normal and turgor normal Neuro General: patient oriented x3 and gait normal Cranial nerves: Yes Equal, round and reactive pupils present Speech: No Abnormal speech present Sensory Exam: No Sensory deficit (Neuro) Coordination: tandem gait normal and Romberg test negative Extrem General: Yes normal exam except as noted and No edema Assessment and Plan Assessment & Plan (1) Encounter for general adult medical examination with abnormal findings: Code(s): Z00.01 - Encounter for general adult medical examination with abnormal findings (2) Lipid disorder: Code(s): E78.9 - Disorder of lipoprotein metabolism, unspecified (3) Difficulty sleeping: Code(s): G47.9 - Sleep disorder, unspecified (4) Obesity due to excess calories: Code(s): E66.09 - Other obesity due to excess calories Qualifiers: Body mass index: BMI 31.0-31.9 Obesity classification: adult class 1 (BMI 30 - 34.9) Serious obesity comorbidity presence: without serious c omorbidity Qualified Code(s): E66.09 - Other obesity due to excess calories; Z68.31 - Body mass index [BMI] 31.0-31.9, adult (5) Anxiety, generalized: Code(s): F41.1 - Generalized anxiety disorder (6) PTSD (post-traumatic stress disorder): Code(s): F43.10 - Post-traumatic stress disorder, unspecified (7) External hemorrhoids without complication: Code(s): K64.4 - Residual hemorrhoidal skin tags (8) Irritable bowel syndrome with alternating bowel habits: Code(s): K58.2 - Mixed irritable bowel syndrome Plan Patient is a 33-year-old gentleman came in today for physical exam Patient continued to have difficulty sleeping at night, he has served in [employer] [place], since then patient has been having health issues He has developed tinnitus both ears which causes difficulty sleeping along with PTSD. Night see is not able to sleep well he also suffers from headaches Patient has gone through [facility] program after returning from service in [employer] He is still seeing therapist once a month He is taking sleeping aid most of the nights. Patient gets 45 tablets for 3 months Lipid disorder: Continue statin he is due for labs we will evaluate the status He does not want to increase the medication regardless. BMI is elevated need to lose weight One year physical exam, three-month follow-up appointment needed Orders: Orders Lipid Panel Today E78.9 - Disorder of lipoprotein metabolism, unspecified Comprehensive Met. Panel Today E78.9 - Disorder of lipoprotein metabolism, unspecified Medications: Refilled zolpidem (Ambien) 5 mg PO BEDTIME PRN 45 tabs 0RF insomnia 90 days G47.9 - Sleep disorder, unspecified fluvastatin 40 mg PO BEDTIME 90 caps 1RF 90 days Coding Level of Care Code Est Pt Prev Care 18-39y(83009) Diagnoses Encounter for general adult medical examination with abnormal findings Z00.01 Lipid disorder E78.9 Difficulty sleeping G47.9 Class 1 obesity due to excess calories without serious comorbidity with body mass index (BMI) of 31.0 to 31.9 in adult E66.09; Z68.31 Body mass index: BMI 31.0-31.9 Obesity classification: adult class 1 (BMI 30 - 34.9) Serious obesity comorbidity presence: without serious comorbidity Anxiety, generalized F41.1 PTSD (post-traumatic stress disorder) F43.10 External hemorrhoids without complication K64.4 Irritable bowel syndrome with alternating bowel habits K58.2 Additional Codes YANDEL-7 Assessment Billing - YANDEL-7 Assessment Tool: YANDEL-7 Assessment [id number] ([id number])
== END 2023-11-29 08:42 | disposition home or self-care (01) ==
PROVIDERS: PCP Internal Medicine; Visit Provider Internal Medicine
DX: Z00.00 Encounter for general adult medical examination without abnormal findings (principal); E78.9 Disorder of lipoprotein metabolism, unspecified; Z68.31 Body mass index [BMI] 31.0-31.9, adult; E66.09 Other obesity due to excess calories; G47.9 Sleep disorder, unspecified; F41.1 Generalized anxiety disorder; F43.10 Post-traumatic stress disorder, unspecified; K64.4 Residual hemorrhoidal skin tags; K58.2 Mixed irritable bowel syndrome
CPT/HCPCS: 99395

== ENCOUNTER 2023-11-29 08:43 | Outpatient (REF) | payer OTHER, SELFPAY ==
[2023-11-29 11:53] LABS: Alanine Aminotransferase 24 U/L (0-40); Albumin Level 4.5 g/dL (3.5-5.0); Alkaline Phosphatase 45 U/L (39-117); Anion Gap 10 (12-20); Aspartate Amino Transferase 27 U/L (5-37); Bilirubin Total 0.3 mg/dL (0.0-1.0); Blood Urea Nitrogen 16 mg/dL (9-16); Calcium 9.9 mg/dL (8.4-10.2); Carbon Dioxide 30 mmol/L (22-29); Chloride 101 mmol/L (96-108); Cholesterol 201 mg/dL (<200); Estimated Glomerular Filt Rate > 60; Glucose Random 90 mg/dL (60-115); HDL Cholesterol 45 mg/dL (>40); LDL Cholesterol Calculated 141 mg/dL (<100); Potassium 4.4 mmol/L (3.3-5.1); Sodium 137 mmol/L (135-145); Total Protein 7.9 g/dL (6.5-8.0); Triglycerides 77 mg/dL (<150)
== END 2023-11-29 08:44 | disposition home or self-care (01) ==
LOC: HO.HMGCLDS 08:43
PROVIDERS: PCP Internal Medicine; Visit Provider Internal Medicine
DX: E78.9 Disorder of lipoprotein metabolism, unspecified (principal)
CPT/HCPCS: 36415; 80053; 80061

== ENCOUNTER 2024-03-08 23:53 | Inpatient (IN) | payer OTHER, SELFPAY ==
--- NOTE | ~2024-03-08 | XR_ITS ---
EXAMINATION: XR CHEST CLINICAL INFORMATION: Cough COMPARISON: 05/23/2021 TECHNIQUE: Frontal view of the chest was obtained. FINDINGS: Lungs are clear. No consolidation, pneumothorax, or pleural effusion. Cardiac and mediastinal contours are normal. Pulmonary vasculature is unremarkable. Trachea is midline. Osseous structures are unremarkable. XR/XR chest 1V IMPRESSION: Normal chest radiograph.
--- NOTE | ~2024-03-08 | CT_ITS ---
EXAMINATION: CT CHEST, ABDOMEN AND PELVIS WITH CONTRAST CLINICAL INFORMATION: Fever and cough. COMPARISON: None available. TECHNIQUE: Multidetector volumetric CT imaging of the chest abdomen and pelvis was obtained after the administration of 85 mL of Omnipaque 350 intravenous contrast without immediate adverse reactions. Axial MIP volume rendering provided. Sagittal and coronal reformatted images were obtained. This CT examination was performed using dose optimization techniques as appropriate, variously including the following: *Automated exposure control *Adjustment of mA and/or kV according to patient size (this includes techniques or standardized protocols for targeted exams where dose is matched to indication/reason for exam; i.e. extremities or head) *Use of iterative reconstruction technique DLP: 389 mGy-cm FINDINGS: MARBLE AND GRANITE POLISHER: Unremarkable LUNGS: There is inferior right middle lobe infiltrate. There is mild atelectatic change at both lung bases. Lungs are otherwise clear. MEDIASTINUM: The mediastinum is normal. PLEURA: There is no pleural effusion. No pleural mass or thickening. AXILLA: No lymphadenopathy. LIVER, GALLBLADDER, AND BILIARY TREE: The liver is normal in size, shape, and attenuation. No focal hepatic lesion or biliary ductal dilatation is present. The gallbladder is normal in appearance. PANCREAS: Unremarkable. SPLEEN: Unremarkable. ADRENAL GLANDS: Unremarkable. KIDNEYS AND URETERS: The kidneys are normal in size, shape, and attenuation. No hydronephrosis, hydroureter, or calculi seen. No perinephric stranding. BLADDER: Unremarkable. GASTROINTESTINAL TRACT: The large and small bowel are unremarkable. The appendix is visualized and is within normal limits. ABDOMINAL WALL: No significant hernia is appreciated. LYMPH NODES: Normal. VASCULAR: Unremarkable. PELVIC VISCERA: Unremarkable. OSSEOUS STRUCTURES: Unremarkable. CT/CT chest w IV con IMPRESSION: 1. Right middle lobe infiltrate consistent with pneumonia. 2. No acute findings in the abdomen or pelvis. Fleischner guidelines were followed.
--- NOTE | ~2024-03-08 | CT_ITS ---
EXAMINATION: CT CHEST, ABDOMEN AND PELVIS WITH CONTRAST CLINICAL INFORMATION: Fever and cough. COMPARISON: None available. TECHNIQUE: Multidetector volumetric CT imaging of the chest abdomen and pelvis was obtained after the administration of 85 mL of Omnipaque 350 intravenous contrast without immediate adverse reactions. Axial MIP volume rendering provided. Sagittal and coronal reformatted images were obtained. This CT examination was performed using dose optimization techniques as appropriate, variously including the following: *Automated exposure control *Adjustment of mA and/or kV according to patient size (this includes techniques or standardized protocols for targeted exams where dose is matched to indication/reason for exam; i.e. extremities or head) *Use of iterative reconstruction technique DLP: 389 mGy-cm FINDINGS: FUEL E[employer]IENT [employer] DES[employer]ER: Unremarkable LUNGS: There is inferior right middle lobe infiltrate. There is mild atelectatic change at both lung bases. Lungs are otherwise clear. MEDIASTINUM: The mediastinum is normal. PLEURA: There is no pleural effusion. No pleural mass or thickening. AXILLA: No lymphadenopathy. LIVER, GALLBLADDER, AND BILIARY TREE: The liver is normal in size, shape, and attenuation. No focal hepatic lesion or biliary ductal dilatation is present. The gallbladder is normal in appearance. PANCREAS: Unremarkable. SPLEEN: Unremarkable. ADRENAL GLANDS: Unremarkable. KIDNEYS AND URETERS: The kidneys are normal in size, shape, and attenuation. No hydronephrosis, hydroureter, or calculi seen. No perinephric stranding. BLADDER: Unremarkable. GASTROINTESTINAL TRACT: The large and small bowel are unremarkable. The appendix is visualized and is within normal limits. ABDOMINAL WALL: No significant hernia is appreciated. LYMPH NODES: Normal. VASCULAR: Unremarkable. PELVIC VISCERA: Unremarkable. OSSEOUS STRUCTURES: Unremarkable. CT/CT abdomen pelvis w IV con IMPRESSION: 1. Right middle lobe infiltrate consistent with pneumonia. 2. No acute findings in the abdomen or pelvis. Fleischner guidelines were followed.
[2024-03-08 23:56] VITALS: BP 108/59; PULSE 130; RESP 18; TEMP 38; O2SAT 96; BMI 30.1
[2024-03-09] VITALS (18 sets, daily range): BP systolic 85–112; BP diastolic 38–69; PULSE 69–107; RESP 12–18; TEMP 36.9–38.3; O2SAT 94–99
--- NOTE | 2024-03-09 | ECG_ITS ---
Test Reason : CHEST PAIN Blood Pressure : / mmHG Vent. Rate : 090 BPM Atrial Rate : 090 BPM P-R Int : 134 ms QRS Dur : 086 ms QT Int : 390 ms P-R-T Axes : -03 -17 032 degrees QTc Int : 477 ms Normal sinus rhythm Normal ECG When compared with ECG of 09-MAR-2024 00:02, No significant change was found Referred By: Greta Valdez Electronically Signed By:PHI WHITE MD
--- NOTE | 2024-03-09 | ECG_ITS ---
Test Reason : chest pain Blood Pressure : / mmHG Vent. Rate : 113 BPM Atrial Rate : 113 BPM P-R Int : 120 ms QRS Dur : 078 ms QT Int : 310 ms P-R-T Axes : 054 061 025 degrees QTc Int : 425 ms Sinus tachycardia Possible Left atrial enlargement Borderline ECG When compared with ECG of 23-MAY-2021 10:52, Vent. rate has increased BY 47 BPM Referred By: Greta Valdez Electronically Signed By:PHI WHITE MD
[2024-03-09 00:55] LABS: Influenza A PCR NEGATIVE (Negative); Influenza B PCR NEGATIVE (Negative); Resp Syncy Virus RNA Qual PCR NEGATIVE (Negative); SARS COV2 PCR INHOUSE NEGATIVE (Negative)
--- NOTE | 2024-03-09 03:37 | PC.NURSE ---
Dr. Valdez aware of vitals.
--- NOTE | 2024-03-09 03:42 | PC.NURSE ---
verbal orders entered per Dr. Valdez. pt reports he takes tylenol without reaction; allergy listed d/t tylenol presence in percocet.
[2024-03-09] MEDS: Acetaminophen 325 MG TABLET 975 MG PO (04:09)
[2024-03-09] MEDS: 0.9 % Sodium Chloride 1,000 ML 999 ML IV (04:10)
--- NOTE | 2024-03-09 04:26 | PC.NURSE ---
pt is axox4 resp even and unlabored. pt has intermittent non productive cough; lung sounds cta. pt febrile; slightly hypotensive Dr. Francisco aware. pt medicated per mar ivf infusing. labs pending. pt reports SEXTON/body aches/n. pt reports he felt burning with urination. UA sent to lab. Dr. francisco aware of pt meeting sepsis criteria. call hogue within reach.
[2024-03-09 04:30] LABS: Lactic Acid 0.9 mmol/L (0.5-2.0)
[2024-03-09 04:31] LABS: Basophils Absolute Auto 0.1 X10*3/uL (0.0-0.2); Basophils Percent Auto 0.3 % (0-2); Eosinophils Percent Auto 0.1 % (0-4); Hematocrit 36.8 % (42.0-52.0); Imm Gran Abs Auto 0.09 X10*3/uL (0.00-0.03); Imm Gran Pct Auto 0.5 % (0.0-0.4); Lymphocytes Absolute Auto 2.2 X10*3/uL (1.2-4.9); Lymphocytes Percent Auto 11.9 % (20-40); MANUAL DIFF FLAG NO; Mean Corpuscular HGB Conc 35.3 g/dl (31.0-36.0); Mean Corpuscular Hemoglobin 28.4 pg (27.0-33.0); Mean Corpuscular Volume 80.3 fL (80.0-98.0); Monocytes Absolute Auto 1.3 X10*3/uL (0.1-1.2); Monocytes Percent Auto 7.1 % (2-11); Neutrophils Absolute Auto 14.6 x10*3/uL (2.0-8.3); Neutrophils Percent Auto 80.1 % (45-73); Platelet Count 222 X10*3/uL (160-400); Red Blood Count 4.58 X10*6/uL (4.60-5.80); White Blood Count 18.2 X10*3/uL (4.8-10.8)
[2024-03-09 04:32] LABS: Appearance Urine Clear; Color Urine Yellow; Glucose Urine UA Negative (Negative); Leukocyte Esterase Urine Negative (Negative); Nitrite Urine Negative (Negative); PH 6.5 (5.0-9.0); Urine Blood Negative (Negative); Urine Ketones Negative (Negative); Urine Protein Negative (Neg-Trace)
[2024-03-09] MEDS: ondansetron HCL 4 MG/2 ML VIAL IVPUSH ×3 (04:32→20:46)
[2024-03-09 04:37] LABS: Bacteria Urine None Seen (None Seen); Hyaline Casts Urine 0-2 /LPF (0-2); RBC Urine 0-2 /HPF (0-2); Squamous Epithelial Cell Urine 0-2 /HPF (0-2); WBC Urine 0-5 /HPF (0-5)
--- NOTE | 2024-03-09 04:47 | ED_ITS ---
HPI - General Adult General Chief complaint: Upper Respiratory Symptoms Stated complaint: Fever/Nausea/Cough Time Seen by Provider: 03/09/24 04:36 Source: patient Mode of arrival: ambulatory Limitations: no limitations History of Present Illness HPI narrative: Patient comes in the emergency room complaining of productive cough, diffuse abdominal aches, nausea and fever. Patient states that earlier today he started having diffuse body aches as well, took his temperature in oral temp was 102 degrees F. Patient took Tylenol at 18:00 with no relief. Patient reports no known exposures to sick contacts. Patient denies vomiting or diarrhea. Related Data Previous Rx's ?Medication ?Instructions ?Recorded epinephrine 0.3 mg/0.3 mL 0.3 mg (0.3 mL) IM Q10M PRN 05/20/21 injection, auto-injector anaphylaxis #2 ea fluvastatin 40 mg capsule 40 mg PO BEDTIME 90 days #90 caps 11/29/23 zolpidem 5 mg tablet (Ambien) 5 mg PO BEDTIME PRN insomnia 90 11/29/23 days #45 tabs Allergies Allergy/AdvReac Type Severity Reaction Status Date / Time acetaminophen [From Vicodin] Allergy Unknown nausea Verified 03/09/24 00:01 hydrocodone [From Vicodin] Allergy Unknown nausea Verified 03/09/24 00:01 Review of Systems 2 Review of Systems: Constitutional : No Weight loss, patient complaining of fever and chills, fatigue and generalized malaise ENT/Mouth : No Hearing loss, No Ear Pain, No Nasal Congestion, No Sinus Pain, No Hoarseness, No sore throat, No Rhinorrhea, No Swallowing Difficulty Eyes: No Eye Pain, No Swelling, No Redness, No Foreign Body, No Discharge, No Vision Changes Cardiovascular : No Chest Pain, No SOB, No Dyspnea on Exertion, No Orthopnea, No Edema, No Palpitations Respiratory : Patient complaining of cough with sputum production Gastrointestinal : Complaining of Nausea, No Vomiting, No Diarrhea, No Constipation, complaining of upper abdominal pain bilateral, Jesus, no vomiting or diarrhea Genitourinary : no irregular bleeding, No Dysuria, No Urinary Frequency, No Hematuria, No Urinary Incontinence, No Urgency, No Flank Pain, No Urinary Flow Changes, No Hesitancy Musculoskeletal : No joint pain, complaining of diffuse Myalgias, No Joint Swelling Skin : No Skin Lesions, No rash Neuro : No Weakness, No Numbness, No Paresthesias, No Loss of Consciousness, No Dizziness, complaining of Headache Psych : No Anxiety/Panic, No Depression, No SI/HI/AH/VH, No Social Issues, Heme/Lymph: No Bruising, No Bleeding,No Lymphadenopathy Endocrine : No Polyuria, No Polydipsia, No Temperature Intolerance PMF Past Medical History Medical History Lipid disorder Difficulty sleeping Surgical History History of shoulder surgery Family History Family History Father No problems noted. Mother No problems noted. Social History Social History Housing: House Alcohol intake: former Patient Tobacco Use Status: Never used Tobacco Smoked in Last 30 Days: No e-Cigarette/Vaping Use: Never Used Use of substances other than those prescribed or required for medical reasons: No Advance Directives: No Advance Directives Information Provided: Yes service: Yes Current occupational status: employed Cognitive needs: No Hearing needs: No Vision needs: No Physical Exam ED Vital Signs: Vital Signs - 24 hr 03/08/24 23:56 03/09/24 03:23 03/09/24 03:40 Temperature 100.4 F 101.0 F H Pulse Rate 130 H 107 H Pulse Rate [Monitor] 90 Respiratory Rate 18 18 Blood Pressure 108/59 L 109/59 L Pulse Oximetry 96 98 Oxygen Delivery Method Room Air Room Air 03/09/24 03:40 03/09/24 04:19 03/09/24 04:23 Temperature Pulse Rate 96 99 Pulse Rate [Monitor] Respiratory Rate 15 16 Blood Pressure 92/56 L 105/59 L Pulse Oximetry 97 96 Oxygen Delivery Method Room Air Room Air Room Air 03/09/24 04:53 03/09/24 05:23 03/09/24 05:56 Temperature 99.2 F Pulse Rate 93 90 85 Pulse Rate [Monitor] Respiratory Rate 14 16 16 Blood Pressure 95/47 L 93/38 L 109/52 L Pulse Oximetry 97 96 97 Oxygen Delivery Method Room Air Room Air Room Air 03/09/24 06:23 03/09/24 06:29 03/09/24 06:42 Temperature 98.4 F Pulse Rate 105 H 92 85 Pulse Rate [Monitor] Respiratory Rate 17 16 16 Blood Pressure 85/46 L 97/46 L 101/55 L Pulse Oximetry 96 96 95 Oxygen Delivery Method Room Air Room Air Room Air BMI result Body Mass Index 30.1 Const Other: Appearance: Alert. Oriented X3. No acute distress. Eyes: Pupils equal, round and reactive to light. ENT: Pharynx normal. Neck: Normal inspection. Neck supple. No lymph nodes noted. No crepitus CVS: Normal heart rate and rhythm. Pulses normal. Normal S1 and S2 Respiratory: No respiratory distress. Breath sounds normal. No Wheezing. No rales Abdomen: Soft and nontender. No rigidity. No distention. Skin: Skin warm and clammy. Normal skin color. Normal skin turgor. Extremities: No lower extremity edema. No Lacerations. No Rash Neuro: Oriented X 3. No motor deficit. No sensory deficit. Moving all extremities. No slurred speech. CN 2 through 12 grossly intact Psych: calm, cooperative, normal affect Medications Administered Discontinued Medications Generic Name Dose Route Start Last Admin Trade Name Freq PRN Reason Stop Dose Admin Acetaminophen 975 mg 03/09/24 03:41 03/09/24 04:09 Acetaminophen 325 Mg Tablet PO 03/09/24 03:42 975 mg ONCE ONE Administration Sodium Chloride 1,000 mls @ 999 mls/hr 03/09/24 03:45 03/09/24 05:11 Ns IV 03/09/24 04:45 Infused .Q1H1M ISMAEL Infusion Sodium Chloride 2,000 mls @ 999 mls/hr 03/09/24 04:44 03/09/24 06:20 Ns IVCONT 03/09/24 06:44 Infused .Q2H1M ONE Infusion Levofloxacin 750 mg in 150 mls @ 100 mls/hr 03/09/24 04:44 03/09/24 05:01 Levaquin IV 03/09/24 06:13 100 mls/hr ONCE ONE Administration Ibuprofen 600 mg 03/09/24 04:47 03/09/24 04:57 Ibuprofen 600 Mg Tablet PO 03/09/24 04:48 600 mg ONCE ONE Administration Iohexol 85 ml 03/09/24 05:14 03/09/24 05:19 Iohexol 350 Mg/Ml 100 Ml Infus..Btl IV 03/09/24 05:15 85 ml ONCE ONE Administration Ondansetron HCl 4 mg 03/09/24 04:26 03/09/24 04:32 Ondansetron Hcl 4 Mg/2 Ml Vial IVPUSH 03/09/24 04:27 4 mg ONCE ONE Administration Medical Decision Making Medical Decision Making [facility] Narrative: -at 04:45 I evaluated the patient, patient is mildly tachycardic, heart rate 90- 100, fever of 101. No episodes of hypotension. -my interpretation of labs: patient's white blood cell count 18.2, lactic acid within normal limits. Sepsis is not suspected. Serology negative for COVID , influenza, RSV, patient has no sore throat. -my interpretation of chest x-ray: No pneumonia. -the source of infection remains unclear, although I suspect the patient may have pneumonia. Patient empirically receiving 3 L of normal saline and levofloxacin. Patient mentioned that earlier today he had 1 episode of dysuria. However, urinalysis negative for UTI. -CT scans of the abdomen and pelvis and chest pending. Patient received a dose of Tylenol and ibuprofen to help with the fever. -my interpretation of CT scan: Seems that there is an infiltrate in the right lower lobe, no obvious abnormality in the abdomen. -I discussed with our hospitalist Dr. Goel that the patient has pneumonia. Patient received 3 L of normal saline due to soft blood pressure including 1 episode of hypotension. Current blood pressure 101/55, patient received levofloxacin. Patient is on room air saturating 95 and above. Before IV hydration, patient looked sick and his starting to feel better. Differential Diagnosis Differential Diagnoses: The differential diagnosis associated with the presentation includes (Pneumonia, UTI, URI, influenza, COVID) Admission/Observation Consideration of admission/observation: Escalation of care including admission/observation considered Consult Healthcare Provider Management of the patient was discussed with: Hospitalist Lab Data [facility] Lab Attestation statement: I reviewed the patient's lab results. 03/09/24 04:25 03/09/24 04:25 Labs: Lab Results 03/09/24 03/09/24 03/09/24 Range/Units 00:07 04:06 04:24 WBC (4.8-10.8) X10*3/uL RBC (4.60-5.80) X10*6/uL Hgb (14.0-18.0) g/dl Hct (42.0-52.0) % MCV (80.0-98.0) fL MCH (27.0-33.0) pg MCHC (31.0-36.0) g/dl RDW (11.0-16.0) % Plt Count (160-400) X10*3/uL MPV (9.4-12.4) fL Immature Gran % (Auto) (0.0-0.4) % Neut % (Auto) (45-73) % Lymph % (Auto) (20-40) % [place] % (Auto) (2-11) % Eos % (Auto) (0-4) % Baso % (Auto) (0-2) % Lymph # (Auto) (1.2-4.9) X10*3/uL [place] # (Auto) (0.1-1.2) X10*3/uL Eos # (Auto) (0.0-0.4) X10*3/uL Baso # (Auto) (0.0-0.2) X10*3/uL Abs Immat Gran (auto) (0.00-0.03) X10*3/uL Absolute Neuts (auto) (2.0-8.3) x10*3/uL Absolute Nucleated RBC (0.0-0.012) X10*3/uL Nucleated RBC % (auto) (0.0-0.2) /100WBC D-Dimer High Sensitivty NG/ML Sodium (135-145) mmol/L Potassium (3.3-5.1) mmol/L Chloride (96-108) mmol/L Carbon Dioxide (22-29) mmol/L Anion Gap (12-20) BUN (9-16) mg/dL Creatinine (0.5-1.4) mg/dL Estim Creat Clear Calc Estimated GFR Random Glucose (60-115) mg/dL Lactic Acid 0.9 (0.5-2.0) mmol/L Calcium (8.4-10.2) mg/dL Total Bilirubin (0.0-1.0) mg/dL AST (5-37) U/L ALT (0-40) U/L Alkaline Phosphatase (39-117) U/L Troponin I High Sens (<3.5-35.0) ng/L Total Protein (6.5-8.0) g/dL Albumin (3.5-5.0) g/dL Urine Color Yellow Urine Appearance Clear Urine pH 6.5 (5.0-9.0) Ur Specific [place] 1.010 (1.005-1.025) Urine Protein Negative (Neg-Trace) mg/dL Urine Glucose (UA) Negative (Negative) mg/dL Urine Ketones Negative (Negative) mg/dL Urine Blood Negative (Negative) Urine Nitrite Negative (Negative) Ur Leukocyte Esterase Negative (Negative) Urine RBC 0-2 (0-2) /HPF Urine WBC 0-5 (0-5) /HPF Ur Squamous Epith Cells 0-2 (0-2) /HPF Urine Bacteria None Seen (None Seen) Hyaline Casts 0-2 (0-2) /LPF Urine Opiates Screen Not Detected (Not Detect) Ur Buprenorphine Scrn Not Detected (Not Detect) ng/mL Ur Oxycodone Screen Not Detected (Not Detect) ng/mL Urine Methadone Screen Not Detected (Not Detect) ng/mL Urine Fentanyl Screen Not Detected (Not Detect) Ur Barbiturates Screen Not Detected (Not Detect) Ur Phencyclidine Scrn Not Detected (Not Detect) Ur Amphetamines Screen Not Detected (Not Detect) U Benzodiazepines Scrn Not Detected (Not Detect) Urine Cocaine Screen Not Detected (Not Detect) U Marijuana (THC) Screen Not Detected (Not Detect) Influenza Type A (PCR) NEGATIVE (Negative) Influenza Type B (PCR) NEGATIVE (Negative) RSV RNA Qual (PCR) NEGATIVE (Negative) SARS-CoV-2 RNA (RT-PCR) NEGATIVE (Negative) 03/09/24 03/09/24 Range/Units 04:25 06:26 WBC 18.2 H (4.8-10.8) X10*3/uL RBC 4.58 L (4.60-5.80) X10*6/uL Hgb 13.0 L (14.0-18.0) g/dl Hct 36.8 L (42.0-52.0) % MCV 80.3 (80.0-98.0) fL MCH 28.4 (27.0-33.0) pg MCHC 35.3 (31.0-36.0) g/dl RDW 12.0 (11.0-16.0) % Plt Count 222 (160-400) X10*3/uL MPV 9.0 L (9.4-12.4) fL Immature Gran % (Auto) 0.5 H (0.0-0.4) % Neut % (Auto) 80.1 H (45-73) % Lymph % (Auto) 11.9 L (20-40) % [place] % (Auto) 7.1 (2-11) % Eos % (Auto) 0.1 (0-4) % Baso % (Auto) 0.3 (0-2) % Lymph # (Auto) 2.2 (1.2-4.9) X10*3/uL [place] # (Auto) 1.3 H (0.1-1.2) X10*3/uL Eos # (Auto) 0.0 (0.0-0.4) X10*3/uL Baso # (Auto) 0.1 (0.0-0.2) X10*3/uL Abs Immat Gran (auto) 0.09 H (0.00-0.03) X10*3/uL Absolute Neuts (auto) 14.6 H (2.0-8.3) x10*3/uL Absolute Nucleated RBC 0.000 (0.0-0.012) X10*3/uL Nucleated RBC % (auto) 0.0 (0.0-0.2) /100WBC D-Dimer High Sensitivty < 150 NG/ML Sodium 136 (135-145) mmol/L Potassium 3.9 (3.3-5.1) mmol/L Chloride 103 (96-108) mmol/L Carbon Dioxide 22 (22-29) mmol/L Anion Gap 15 (12-20) BUN 19 H (9-16) mg/dL Creatinine 1.19 (0.5-1.4) mg/dL Estim Creat Clear Calc 102.2 Estimated GFR > 60 Random Glucose 114 (60-115) mg/dL Lactic Acid (0.5-2.0) mmol/L Calcium 8.8 D (8.4-10.2) mg/dL Total Bilirubin 0.6 (0.0-1.0) mg/dL AST 19 (5-37) U/L ALT 17 (0-40) U/L Alkaline Phosphatase 44 (39-117) U/L Troponin I High Sens < 2.7 (<3.5-35.0) ng/L Total Protein 7.4 (6.5-8.0) g/dL Albumin 4.1 (3.5-5.0) g/dL Urine Color Urine Appearance Urine pH (5.0-9.0) Ur Specific [place] (1.005-1.025) Urine Protein (Neg-Trace) mg/dL Urine Glucose (UA) (Negative) mg/dL Urine Ketones (Negative) mg/dL Urine Blood (Negative) Urine Nitrite (Negative) Ur Leukocyte Esterase (Negative) Urine RBC (0-2) /HPF Urine WBC (0-5) /HPF Ur Squamous Epith Cells (0-2) /HPF Urine Bacteria (None Seen) Hyaline Casts (0-2) /LPF Urine Opiates Screen (Not Detect) Ur Buprenorphine Scrn (Not Detect) ng/mL Ur Oxycodone Screen (Not Detect) ng/mL Urine Methadone Screen (Not Detect) ng/mL Urine Fentanyl Screen (Not Detect) Ur Barbiturates Screen (Not Detect) Ur Phencyclidine Scrn (Not Detect) Ur Amphetamines Screen (Not Detect) U Benzodiazepines Scrn (Not Detect) Urine Cocaine Screen (Not Detect) U Marijuana (THC) Screen (Not Detect) Influenza Type A (PCR) (Negative) Influenza Type B (PCR) (Negative) RSV RNA Qual (PCR) (Negative) SARS-CoV-2 RNA (RT-PCR) (Negative) Independent Interpretation I performed an independent interpretation of an: CT Scan Radiology Impression Discussion of test interpretation with radiology: I have reviewed the radiologist's reading. Radiologist Impression: FINDINGS: QUALITY CONTROL REPRESENTATIVE: Unremarkable LUNGS: There is inferior right middle lobe infiltrate. There is mild atelectatic change at both lung bases. Lungs are otherwise clear. MEDIASTINUM: The mediastinum is normal. PLEURA: There is no pleural effusion. No pleural mass or thickening. AXILLA: No lymphadenopathy. LIVER, GALLBLADDER, AND BILIARY TREE: The liver is normal in size, shape, and attenuation. No focal hepatic lesion or biliary ductal dilatation is present. The gallbladder is normal in appearance. PANCREAS: Unremarkable. SPLEEN: Unremarkable. ADRENAL GLANDS: Unremarkable. KIDNEYS AND URETERS: The kidneys are normal in size, shape, and attenuation. No hydronephrosis, hydroureter, or calculi seen. No perinephric stranding. BLADDER: Unremarkable. GASTROINTESTINAL TRACT: The large and small bowel are unremarkable. The appendix is visualized and is within normal limits. ABDOMINAL WALL: No significant hernia is appreciated. LYMPH NODES: Normal. VASCULAR: Unremarkable. PELVIC VISCERA: Unremarkable. OSSEOUS STRUCTURES: Unremarkable. CT/CT chest w IV con IMPRESSION: 1. Right middle lobe infiltrate consistent with pneumonia. 2. No acute findings in the abdomen or pelvis. Fleischner guidelines were followed. Critical Care Time Critical Care Time Critical Care Time: Yes Total Critical Care Time: 75 Attestation: I have personally provided critical care time. Time includes review of lab data, radiology results, discussion with consultants, and monitoring for potential decompensation. Intervention performed as documented. Discharge Plan Discharge Clinical Impression: Pneumonia, Dehydration Patient Disposition: Admitted As Inpatient Prescriptions: No Action epinephrine 0.3 mg/0.3 mL auto-injector 0.3 mg IM Q10M PRN (Reason: anaphylaxis) Qty: 2 0RF Rx Instructions: for 2 doses zolpidem [Ambien] 5 mg tablet 5 mg PO BEDTIME PRN (Reason: insomnia) 90 Days Qty: 45 0RF fluvastatin 40 mg capsule 40 mg PO BEDTIME 90 Days Qty: 90 1RF Print Language: Malian
[2024-03-09 04:53] LABS: Alanine Aminotransferase 17 U/L (0-40); Albumin Level 4.1 g/dL (3.5-5.0); Anion Gap 15 (12-20); Aspartate Amino Transferase 19 U/L (5-37); Bilirubin Total 0.6 mg/dL (0.0-1.0); Blood Urea Nitrogen 19 mg/dL (9-16); Calcium 8.8 mg/dL (8.4-10.2); Carbon Dioxide 22 mmol/L (22-29); Chloride 103 mmol/L (96-108); Creatinine Clr Calc Pharmacy 102.2; Estimated Glomerular Filt Rate > 60; Glucose Random 114 mg/dL (60-115); Potassium 3.9 mmol/L (3.3-5.1); Sodium 136 mmol/L (135-145); Total Protein 7.4 g/dL (6.5-8.0); Troponin-I High Sensitivity < 2.7 ng/L (<3.5-35.0)
[2024-03-09] MEDS: 0.9 % Sodium Chloride 2,000 ML 999 ML IVCONT (04:55)
[2024-03-09] MEDS: Ibuprofen 600 MG TABLET PO (04:57)
[2024-03-09 05:01] LABS: Alkaline Phosphatase 44 U/L (39-117)
[2024-03-09] MEDS: levoFLOXacin/D5W 750 MG/150 ML PIGGYBACK 100 MG IV (05:01)
[2024-03-09 05:05] LABS: Amphetamine Screen Urine Not Detected (Not Detect); Barbiturates, Urine Not Detected (Not Detect); Benzodiazepines Screen Urine Not Detected (Not Detect); Buprenorphine Scr Not Detected (Not Detect); Cannabinoid Screen Urine Not Detected (Not Detect); Cocaine Screen Urine Not Detected (Not Detect); Fentanyl, urine Not Detected (Not Detect); Methadone Screen, Urine Not Detected (Not Detect); Opiate Screen Urine Not Detected (Not Detect); Oxycodone Screen Urine Not Detected (Not Detect); Phencyclidine Screen Urine Not Detected (Not Detect)
[2024-03-09] MEDS: iohexoL 350 MG/ML 100 ML INFUS..BTL 85 ML IV (05:19)
--- NOTE | 2024-03-09 06:24 | PC.NURSE ---
Dr. Francisco aware of bp. pt reporting R. sided cp; ekg and ddimer ordered per dr. francisco verbal.
[2024-03-09 06:43] LABS: D Dimer High Sensitivity < 150 NG/ML
[2024-03-09 07:22] LABS: Troponin-I High Sensitivity < 2.7 ng/L (<3.5-35.0)
--- NOTE | 2024-03-09 07:51 | P.HPHOSP_ITS ---
History of Present Illness Date of Service: 03/09/24 Chief Complaint: chills, fever 33M PMH hld presented with 1 day of fever and chills. Patient states that he and his family had symptoms head cold for several days, but overall was not feeling too bad. Then on day of presentation started to feel significantly worse, right-sided pleuritic chest pain, productive cough with yellow sputum, fevers, myalgias, chills, rigors. In ED found to be febrile, right middle lobe opacity on CT, leukocytosis, borderline hypotension that responded to saline bolus. Review of Systems 2 Review of Systems: Yes all other systems are reviewed and are negative [facility] Medical History Lipid disorder Difficulty sleeping Family History Father No problems noted. Mother No problems noted. Surgical History History of shoulder surgery Social History Housing: House Alcohol intake: former Patient Tobacco Use Status: Never used Tobacco Smoked in Last 30 Days: No e-Cigarette/Vaping Use: Never Used Use of substances other than those prescribed or required for medical reasons: No Advance Directives: No Advance Directives Information Provided: Yes service: Yes Current occupational status: employed Cognitive needs: No Hearing needs: No Vision needs: No Meds Allergies Allergy/AdvReac Type Severity Reaction Status Date / Time acetaminophen [From Vicodin] Allergy Unknown nausea Verified 03/09/24 00:01 hydrocodone [From Vicodin] Allergy Unknown nausea Verified 03/09/24 00:01 Active Medications: Current Medications Azithromycin (Azithromycin 500 Mg Tablet) 500 mg PO Q24H ISMAEL Ceftriaxone Sodium 1 gm/ (Sodium Chloride) 50 mls @ 100 mls/hr IV Q24H [facility] Physical Exam 2 Vital Signs and Narrative: Vital Signs: Last Vital Signs Temp 98.4 F 03/09/24 06:42 Pulse 85 03/09/24 06:42 Resp 16 03/09/24 06:42 BP 101/55 L 03/09/24 06:42 Pulse Ox 95 03/09/24 06:42 O2 Del Method Room Air 03/09/24 06:42 BMI result Body Mass Index 30.1 General: AO X 3, no acute distress Resp: CTA bilateral, no accessory muscles used CVS: S1,S2,RRR GI: soft, non tender, non distended Neuro: motor grossly intact, alert Psych: appropriate affect, appropriate insight Results Labs 03/09/24 04:25 03/09/24 04:25 Labs: Laboratory Results - last 24 hr 03/09/24 03/09/24 03/09/24 00:07 04:06 04:24 MCV MCH MCHC RDW Plt Count MPV Immature Gran % (Auto) Neut % (Auto) Lymph % (Auto) [place] % (Auto) Eos % (Auto) Baso % (Auto) Lymph # (Auto) [place] # (Auto) Eos # (Auto) Baso # (Auto) Abs Immat Gran (auto) Absolute Neuts (auto) Absolute Nucleated RBC Nucleated RBC % (auto) D-Dimer High Sensitivty Anion Gap Estim Creat Clear Calc Estimated GFR Random Glucose Lactic Acid 0.9 Calcium Total Bilirubin AST ALT Alkaline Phosphatase Troponin I High Sens Total Protein Albumin Urine Color Yellow Urine Appearance Clear Urine pH 6.5 Ur Specific [place] 1.010 Urine Protein Negative Urine Glucose (UA) Negative Urine Ketones Negative Urine Blood Negative Urine Nitrite Negative Ur Leukocyte Esterase Negative Urine RBC 0-2 Urine WBC 0-5 Ur Squamous Epith Cells 0-2 Urine Bacteria None Seen Hyaline Casts 0-2 Urine Opiates Screen Not Detected Ur Buprenorphine Scrn Not Detected Ur Oxycodone Screen Not Detected Urine Methadone Screen Not Detected Urine Fentanyl Screen Not Detected Ur Barbiturates Screen Not Detected Ur Phencyclidine Scrn Not Detected Ur Amphetamines Screen Not Detected U Benzodiazepines Scrn Not Detected Urine Cocaine Screen Not Detected U Marijuana (THC) Screen Not Detected Influenza Type A (PCR) NEGATIVE Influenza Type B (PCR) NEGATIVE RSV RNA Qual (PCR) NEGATIVE SARS-CoV-2 RNA (RT-PCR) NEGATIVE 03/09/24 03/09/24 03/09/24 04:25 06:26 06:50 MCV 80.3 MCH 28.4 MCHC 35.3 RDW 12.0 Plt Count 222 MPV 9.0 L Immature Gran % (Auto) 0.5 H Neut % (Auto) 80.1 H Lymph % (Auto) 11.9 L [place] % (Auto) 7.1 Eos % (Auto) 0.1 Baso % (Auto) 0.3 Lymph # (Auto) 2.2 [place] # (Auto) 1.3 H Eos # (Auto) 0.0 Baso # (Auto) 0.1 Abs Immat Gran (auto) 0.09 H Absolute Neuts (auto) 14.6 H Absolute Nucleated RBC 0.000 Nucleated RBC % (auto) 0.0 D-Dimer High Sensitivty < 150 Anion Gap 15 Estim Creat Clear Calc 102.2 Estimated GFR > 60 Random Glucose 114 Lactic Acid Calcium 8.8 D Total Bilirubin 0.6 AST 19 ALT 17 Alkaline Phosphatase 44 Troponin I High Sens < 2.7 < 2.7 Total Protein 7.4 Albumin 4.1 Urine Color Urine Appearance Urine pH Ur Specific [place] Urine Protein Urine Glucose (UA) Urine Ketones Urine Blood Urine Nitrite Ur Leukocyte Esterase Urine RBC Urine WBC Ur Squamous Epith Cells Urine Bacteria Hyaline Casts Urine Opiates Screen Ur Buprenorphine Scrn Ur Oxycodone Screen Urine Methadone Screen Urine Fentanyl Screen Ur Barbiturates Screen Ur Phencyclidine Scrn Ur Amphetamines Screen U Benzodiazepines Scrn Urine Cocaine Screen U Marijuana (THC) Screen Influenza Type A (PCR) Influenza Type B (PCR) RSV RNA Qual (PCR) SARS-CoV-2 RNA (RT-PCR) Imaging Radiologist's Impressions: Impressions Chest X-Ray 03/09/24 00:19 IMPRESSION: Normal chest radiograph. Abdomen/Pelvis CT 03/09/24 05:37 IMPRESSION: 1. Right middle lobe infiltrate consistent with pneumonia. 2. No acute findings in the abdomen or pelvis. Fleischner guidelines were followed. Chest CT 03/09/24 05:37 IMPRESSION: 1. Right middle lobe infiltrate consistent with pneumonia. 2. No acute findings in the abdomen or pelvis. Fleischner guidelines were followed. Assessment and Plan (1) Pneumonia: Status: Acute Plan 33M PMH hld presented with fever and chills Sepsis due to right middle lobe pneumonia, likely post viral superimposed bacterial infection The ceftriaxone, azithromycin, follow-up cultures, PCR Hyperlipidemia Continue statin Low risk for DVT Full code Patient with severe sepsis, will require at least 2 midnights inpatient to monitor cultures and defervescence Quality Stroke Does the patient have a stroke diagnosis?: No VTE Prior VTE?: No VTE Risk Level:: Medical - low VTE Device Contraindication: Treatment Not Indicated VTE Drug Contraindication: Treatment Not Indicated
[2024-03-09] MEDS: Azithromycin 500 MG TABLET PO (08:39)
[2024-03-09] MEDS: cefTRIAXone sodium 1 GM in 0.9 % Sodium Chloride 50 ML IV (08:39)
[2024-03-09] MEDS: LORazepam 0.5 MG TABLET PO ×2 (09:26→20:49)
[2024-03-09] MEDS: Ketorolac Tromethamine 15 MG/ML VIAL IVPUSH (09:27)
[2024-03-09] MEDS: Morphine Sulfate 2 MG/ML CARTRIDGE IVPUSH ×3 (10:44→20:46)
[2024-03-09] MEDS: 0.9 % Sodium Chloride 1,000 ML 80 ML IVCONT ×2 (10:45→23:34)
[2024-03-09 10:49] LABS: Adenovirus PCR Not Detected (Not Detect.); Bordetella parapertussis PCR Not Detected (Not Detect.); Bordetella pertussis PCR Not Detected (Not Detect.); Chlamydia pneumoniae PCR Not Detected (Not Detect.); Coronavirus 229E PCR Not Detected (Not Detect.); Coronavirus HKU1 PCR Not Detected (Not Detect.); Coronavirus NL63 PCR Not Detected (Not Detect.); Coronavirus OC43 PCR Not Detected (Not Detect.); Human metapneumovirus PCR Not Detected (Not Detect.); Influenza A PCR Not Detected (Not Detect.); Influenza B PCR Not Detected (Not Detect.); Mycoplasma pneumoniae PCR Not Detected (Not Detect.); Parainfluenza 1 PCR Not Detected (Not Detect.); Parainfluenza 2 PCR Not Detected (Not Detect.); Parainfluenza 3 PCR Not Detected (Not Detect.); Parainfluenza 4 PCR Not Detected (Not Detect.); RSV PCR Not Detected (Not Detect.); Rhino/Enterovirus PCR Not Detected (Not Detect.)
--- NOTE | 2024-03-09 10:59 | PHA.MEDREC ---
Pharmacy Consult ? Medication Reconciliation Pharmacy has completed the medication reconciliation. Spoke with patient to confirm medications. He reports that he ran out of the zolpidem prn about 2 weeks ago
[2024-03-09 12:38] LABS: SARS-CoV-2 PCR Not Detected (Not Detect.)
[2024-03-09] MEDS: LORazepam 2 MG/ML VIAL 1 MG IVPUSH (15:17)
--- NOTE | 2024-03-09 15:25 | PC.NURSE ---
late entry: assumed care of pt at 0700. pt a&o x4, pleasant, calm, and cooperative. pt reporting 6/10 right chest pain and 9/10 head pain. pt also reporting nausea and stomach in knots . Dr. Cuello aware of pt complaints and pt medicated per mar. pt on bedside monitor HR in 70s and BPs have elevated within normal limits. rr even/unlabored. call hogue within reach. plan of care ongoing. awaiting inpatient bed assignment.
--- NOTE | 2024-03-09 18:51 | PC.NURSE ---
this rn assumed care of pt, pt resting in stretcher, eyes closed, respirations even and unlabored, no acute distress noted. pt sating 78-80bpm. call hogue within reach.
[2024-03-09] MEDS: Atorvastatin Calcium 10 MG TABLET PO (20:48)
--- NOTE | 2024-03-09 20:52 | PC.NURSE ---
pt reporting 8/10 pain as well as nausea; pt medicated per mar. pt reports i feel like im crawling out of my skin, pt medicated for anxiety.
[2024-03-10] VITALS (8 sets, daily range): BP systolic 106–134; BP diastolic 59–70; PULSE 65–74; RESP 14–20; TEMP 36.8–37.2; O2SAT 94–98
[2024-03-10] MEDS: Morphine Sulfate 2 MG/ML CARTRIDGE IVPUSH ×4 (00:54→17:47)
[2024-03-10] MEDS: hydrOXYzine HCL 50 MG TABLET PO (02:31)
[2024-03-10] MEDS: Ketorolac Tromethamine 30 MG/ML VIAL IVPUSH (03:34)
[2024-03-10 05:36] LABS: Hematocrit 35.6 % (42.0-52.0); Hemoglobin 12.1 g/dl (14.0-18.0); Mean Corpuscular Hemoglobin 29.1 pg (27.0-33.0); Mean Corpuscular Volume 85.6 fL (80.0-98.0); Mean Platelet Volume 9.3 fL (9.4-12.4); Platelet Count 216 X10*3/uL (160-400); Red Blood Count 4.16 X10*6/uL (4.60-5.80); Red Cell Distribution Width 12.6 % (11.0-16.0); White Blood Count 9.8 X10*3/uL (4.8-10.8)
[2024-03-10 05:54] LABS: Anion Gap 11 (12-20); Blood Urea Nitrogen 10 mg/dL (9-16); Calcium 8.6 mg/dL (8.4-10.2); Carbon Dioxide 26 mmol/L (22-29); Chloride 105 mmol/L (96-108); Creatinine Clr Calc Pharmacy 96.5; Estimated Glomerular Filt Rate > 60; Glucose Fasting 90 mg/dL (60-99); Potassium 4.1 mmol/L (3.3-5.1); Sodium 138 mmol/L (135-145)
[2024-03-10] MEDS: 0.9 % Sodium Chloride Flush 3 ML SYRINGE IVFLUSH ×2 (07:47→15:32)
[2024-03-10] MEDS: Azithromycin 500 MG TABLET PO (07:47)
[2024-03-10] MEDS: cefTRIAXone sodium 1 GM in 0.9 % Sodium Chloride 50 ML IV (07:47)
--- NOTE | 2024-03-10 09:52 | P.PNIM_ITS ---
Subjective Subjective Date of Service: 03/10/24 Interval History: much improved Physical Exam 2 Vital Signs: Vital Signs: Last Vital Signs Temp 98.3 F 03/10/24 07:25 Pulse 65 03/10/24 07:25 Resp 16 03/10/24 07:25 BP 106/63 03/10/24 07:25 Pulse Ox 97 03/10/24 07:25 O2 Del Method Room Air 03/10/24 07:25 BMI result Body Mass Index 30.1 General: AO X 3, no acute distress Resp: CTA bilateral, no accessory muscles used CVS: S1,S2,RRR GI: soft, non tender, non distended Neuro: motor grossly intact, alert Psych: appropriate affect, appropriate insight Objective Data Active Medications Atorvastatin Calcium (Atorvastatin Calcium 10 Mg Tablet) 10 mg PO BEDTIME [facility] Last Admin: 03/09/24 20:48 Dose: 10 mg Documented By: LINDA Azithromycin (Azithromycin 500 Mg Tablet) 500 mg PO Q24H [facility] Last Admin: 03/10/24 07:47 Dose: 500 mg Documented By: PATSY Hydroxyzine HCl (Hydroxyzine Hcl 50 Mg Tablet) 50 mg PO Q6H PRN PRN Reason: Anxiety Last Admin: 03/10/24 02:31 Dose: 50 mg Documented By: GABRIELA Ceftriaxone Sodium 1 gm/ (Sodium Chloride) 50 mls @ 100 mls/hr IV Q24H [facility] Last Infusion: 03/10/24 09:11 Dose: Infused Documented By: PATSY Sodium Chloride (Ns) 1,000 mls @ 80 mls/hr IVCONT .[id number] [facility] Last Admin: 03/09/24 23:34 Dose: 80 mls/hr Documented By: LINDA Ibuprofen (Ibuprofen 400 Mg Tablet) 400 mg PO Q4H PRN PRN Reason: Pain, Severe (Pain Scale 7-10) Lorazepam (Lorazepam 0.5 Mg Tablet) 0.5 mg PO Q8H PRN PRN Reason: Anxiety Last Admin: 03/09/24 20:49 Dose: 0.5 mg Documented By: LINDA Morphine Sulfate (Morphine Sulfate 2 Mg/Ml Cartridge) 2 mg IVPUSH Q4H PRN; Protocol PRN Reason: sob, pain Last Admin: 03/10/24 07:46 Dose: 2 mg Documented By: PATSY Ondansetron HCl (Ondansetron Hcl 4 Mg/2 Ml Vial) 4 mg IVPUSH Q8H PRN PRN Reason: Nausea and Vomiting Last Admin: 03/09/24 20:46 Dose: 4 mg Documented By: LINDA Prochlorperazine Edisylate (Prochlorperazine Edisylate 10 Mg/2 Ml Vial) 5 mg IVPUSH Q4H PRN PRN Reason: Nausea and Vomiting Sodium Chloride (0.9 % Sodium Chloride Flush 3 Ml Syringe) [facility] Admin: 03/10/24 07:47 Dose: 3 ml Documented By: PATSY Zolpidem Tartrate (Zolpidem Tartrate 5 Mg Tablet) 5 mg PO BEDTIME PRN PRN Reason: Insomnia Labs 03/10/24 05:15 03/10/24 05:15 Labs: Laboratory Results - last 24 hr 03/09/24 03/10/24 09:40 05:15 MCV 85.6 D MCH 29.1 MCHC 34.0 RDW 12.6 Plt Count 216 MPV 9.3 L Absolute Nucleated RBC 0.000 Nucleated RBC % (auto) 0.0 Anion Gap 11 L Estim Creat Clear Calc 96.5 Estimated GFR > 60 Fasting Glucose 90 Calcium 8.6 Respiratory Panel [place] See Note Adenovirus (Rapid PCR) Not Detected B.pert (TEM-PCR) Not Detected B.parapertussis DNA PCR Not Detected C. pneumoniae DNA (PCR) Not Detected Coronavirus OC43 (PCR) Not Detected Coronavirus HKU1 (PCR) Not Detected Coronavirus 229E (PCR) Not Detected Coronavirus NL63 (PCR) Not Detected Human Metapneumovir PCR Not Detected Influenza A (RT-PCR) Not Detected Influenza B (RT-PCR) Not Detected M. pneumoniae (PCR) Not Detected Parainfluenza 1 (PCR) Not Detected Parainfluenza 2 (PCR) Not Detected Parainfluenza 3 (PCR) Not Detected Parainfluenza 4 (PCR) Not Detected RSV (PCR) Not Detected Entero/Rhino (PCR) Not Detected SARS-CoV-2 RNA (RT-PCR) Not Detected Microbiology Microbiology Results: Microbiology 03/09/24 04:06 Blood Culture - Preliminary Blood - Venous No growth after 24 hours. 03/09/24 04:06 Blood Culture - Preliminary Blood - Venous No growth after 24 hours. 03/09/24 09:32 Gram Stain - Final Sputum - Expectorated Assessment and Plan (1) Pneumonia: Status: Acute Plan 33M PMH hld presented with fever and chills Sepsis due to right middle lobe pneumonia, likely post viral superimposed bacterial infection ceftriaxone, azithromycin, cultures and pcr negative so far Hyperlipidemia Continue statin Low risk for DVT Full code reason for continued hospitalization: monitoring for defervesence Quality Stroke Does the patient have a stroke diagnosis?: No VTE Prior VTE?: No VTE Risk Level:: Medical - low VTE Device Contraindication: Treatment Not Indicated VTE Drug Contraindication: Treatment Not Indicated
[2024-03-10] MEDS: 0.9 % Sodium Chloride 1,000 ML 80 ML IVCONT (11:02)
--- NOTE | 2024-03-10 11:08 | MHC.CM.PN ---
Pt lives with his , is independent, no home health services. [facility] HCP form will be completed and added to chart. DC plan will be home self care, CM will follow and assist as needed.
[2024-03-10] MEDS: LORazepam 0.5 MG TABLET PO (13:44)
[2024-03-10] MEDS: Ibuprofen 400 MG TABLET PO (15:31)
--- NOTE | 2024-03-10 16:21 | PM.DS ---
DS: Providers Provider Date of Service: 03/10/24 Date of admission: 03/09/24 07:49 Primary care physician: Zander Hugo MD DS: Diagnosis Discharge Diagnosis (1) Pneumonia: Status: Acute DS: Summary Hospital Course Hospital Course: from initial hpi: 33M PMH jose g presented with 1 day of fever and chills. Patient states that he and his family had symptoms head cold for several days, but overall was not feeling too bad. Then on day of presentation started to feel significantly worse, right-sided pleuritic chest pain, productive cough with yellow sputum, fevers, myalgias, chills, rigors. In ED found to be febrile, right middle lobe opacity on CT, leukocytosis, borderline hypotension that responded to saline bolus. hospital course: patient was admitted for sepsis due to right middle lobe pneumonia. he was treated with iv fluids, ceftriaxone and azithromycin. cultures and pcr came back negative. sepsis resolved. symptoms improved. patient will be discharged home on 5 more days of ceftin and azithro. he should have repeat chest imaging in about 4 weeks. for hyperlipidemia he was continued on statin. Time Attestation Discharge Coordination Time (in mins): 35 Quality: Safe Use of Opioids Does Pt have an Active Cancer Diagnosis on the Problem List?: No Quality: Stroke Does the patient have a stroke diagnosis?: No Physical Exam Vital Signs: Vital Signs: Last Vital Signs Temp 98.5 F 03/10/24 15:41 Pulse 65 03/10/24 15:41 Resp 16 03/10/24 15:41 BP 134/60 03/10/24 15:41 Pulse Ox 96 03/10/24 15:41 O2 Del Method Room Air 03/10/24 15:41 BMI result Body Mass Index 30.1 General: AO X 3, no acute distress Resp: CTA bilateral, no accessory muscles used CVS: S1,S2,RRR GI: soft, non tender, non distended Neuro: motor grossly intact, alert Psych: appropriate affect, appropriate insight DS: Data Data Completed and Pending Labs on day of discharge: Laboratory Results - last 24 hr 03/10/24 05:15 WBC 9.8 RBC 4.16 L Hgb 12.1 L Hct 35.6 L MCV 85.6 D MCH 29.1 MCHC 34.0 RDW 12.6 Plt Count 216 MPV 9.3 L Absolute Nucleated RBC 0.000 Nucleated RBC % (auto) 0.0 Sodium 138 Potassium 4.1 Chloride 105 Carbon Dioxide 26 Anion Gap 11 L BUN 10 Creatinine 1.26 Estim Creat Clear Calc 96.5 Estimated GFR > 60 Fasting Glucose 90 Calcium 8.6 Preliminary micro results at discharge 03/09/24 09:32 Sputum Culture - Preliminary Sputum - Expectorated Culture in progress. 03/09/24 04:06 Blood Culture - Preliminary Blood - Venous No growth after 24 hours. 03/09/24 04:06 Blood Culture - Preliminary Blood - Venous No growth after 24 hours. Discharge Plan Discharge Anticipated Discharge Date/Time: 03/10/24 16:19 Patient Disposition: Home, Self-Care Discharge Diagnosis: sepsis, pneumonia Referrals: Zander Hugo MD [Primary Care Provider] - 1 Week Discharge Medications: New azithromycin 500 mg Tablet 500 mg PO Q24H Qty: 5 0RF cefuroxime axetil 500 mg tablet 500 mg PO BID Qty: 10 0RF Continued zolpidem [Ambien] 5 mg tablet 5 mg PO BEDTIME PRN (Reason: insomnia) 90 Days Qty: 45 0RF fluvastatin 40 mg capsule 40 mg PO BEDTIME 90 Days Qty: 90 1RF Discharge Orders: Discharge Order (Routine); Ordered 03/10/24 Ordered By: Lobito Cuello Diet: Advance to usual diet Activity on Discharge: As tolerated Stand Alone Forms: Patient Portal Discharge page Print Language: Portuguese Care Plan Goals: recovery Health Concerns: pneumonia Plan of Treatment: 5 more days of ceftin and azithromycin would repeat chest imaging in about 4 weeks Assessment: see above
[2024-03-12 21:23] LABS: Strep Pneumo Ag urine Not Detected (Not Detected)
[2024-03-14 03:39] LABS: Legionella Ag Urine Not Detected (Not Detected)
== END 2024-03-10 19:20 | disposition home or self-care (01) | DRG 871 ==
LOC: HO.ED 03-09 06:58 → HO.EDOVER 03-09 07:53 → HO.IMC 03-10 00:19
PROVIDERS: Admitting Provider Internal Medicine; Emergency Provider Emergency Medicine; PCP Internal Medicine; Visit Provider Internal Medicine
DX: A41.9 Sepsis, unspecified organism (principal); J15.9 Unspecified bacterial pneumonia; E86.0 Dehydration; E78.5 Hyperlipidemia, unspecified; Z20.822 Contact with and (suspected) exposure to COVID-19; Z79.899 Other long term (current) drug therapy
CPT/HCPCS: 0241U; 36415; 71045; 71260; 74177; 80048; 80053; 80307; 81001; 83605; 84484; 85025; 85027; 85379; 87040; 87070; 87205; 87449; 87633; 87899; 93005; 99285; J0696; J1885; J1956; J2060; J2270; J2405; Q9967

== ENCOUNTER → 2024-03-09 06:30 | Outpatient (BNV) | payer OTHER, SELFPAY | PROVIDERS: Admitting Provider Internal Medicine; Emergency Provider Emergency Medicine; PCP Internal Medicine; Visit Provider Internal Medicine Cardiovascular Disease | DX: R07.9 Chest pain, unspecified (principal) | CPT/HCPCS: 93010 ==

== ENCOUNTER → 2024-03-09 07:49 | Outpatient (BNV) | payer OTHER, SELFPAY | PROVIDERS: Admitting Provider Internal Medicine; Emergency Provider Emergency Medicine; PCP Internal Medicine; Visit Provider Internal Medicine | DX: J18.9 Pneumonia, unspecified organism (principal) | CPT/HCPCS: 99223; 99239 ==

== ENCOUNTER 2024-03-15 15:07 | Outpatient (AMB) | payer OTHER, SELFPAY ==
--- NOTE | 2024-03-15 15:09 | MHC.PC.OV ---
Vital Signs 03/15/24 15:12 Height 5 ft 10 in Weight 218 lb 6 oz BMI 31.3 BP 120/74 Blood Pressure Location Rt brachial Position Sitting Pulse 65 Pulse Source Pulse Oximeter Pulse Oximetry (%) 97 Oxygen Delivery Method Room Air Intake Visit Reasons: Med Refill Allergies acetaminophen [From Vicodin] Allergy (Unknown, Verified 03/15/24 15:17) nausea hydrocodone [From Vicodin] Allergy (Unknown, Verified 03/15/24 15:17) nausea Medication List - Last Reconciled 03/15/24 by Zander Hugo MD fluvastatin 40 mg PO BEDTIME 90 days zolpidem (Ambien) 5 mg PO BEDTIME PRN 90 days Tobacco use date assessed: 03/15/24 Dental Screening Dental Screen Date: 03/15/24 Did you have a dental visit in the last 12 months?: Yes Did you have a dental problem in the last 6 months where you did not have access to dental care?: No Was dental information given to patient?: Patient has dentist HPI Med Refill HPI Details Patient is 33-year-old gentleman who was in hospital 03/10/2024 with a chief complaint of fever and chills, verbalized to having head cold for several days in not feeling well. At the day of presentation he was feeling worse with right-sided pleuritic chest pain productive cough of yellow sputum fever and myalgias. In emergency room patient found to be febrile with right middle lobe opacity on CT scan and leukocytosis, borderline hypotension He was given saline bolus He was admitted for sepsis due to right middle lobe pneumonia Patient was treated with ceftriaxone and azithromycin Cultures and PCR came back negative Patient symptoms improved sepsis improved he was discharged home on 5 more days of Ceftin and azithromycin. Patient need to repeat a chest x-ray end of this month, order placed Patient is feeling better still have mild cough but no chest pain Patient have external hemorrhoids and he is always slightly anemic His hemoglobin ranged between 12 and 13 Talked about adding iron to his diet, I would recommend to eat liver at least once a week and add more fiber to his diet in form of green leafy vegetables Lipid disorder: Patient is on medication He will follow-up in 3 months and labs are needed before visit fasting His regular medication zolpidem 5 mg sent 45 tablets for 3 months [facility] Medical History Lipid disorder Difficulty sleeping Surgical History History of shoulder surgery Family History Father No problems noted. Mother No problems noted. Social History Household Members: None Housing: House Alcohol intake: former Patient Tobacco Use Status: Never used Tobacco e-Cigarette/Vaping Use: Never Used service: No Current occupational status: employed Cognitive needs: No Hearing needs: No Vision needs: No Questionnaire Thrive Questionnaire Date Thrive assessed: 03/10/24 AUDIT C Alcohol Use Questionnaire (AUDIT-C) 1. How often do you have a drink containing alcohol?: Monthly or less 2. How many drinks containing alcohol do you have on a typical day when you are drinking?: 1 or 2 3. How often do you have six or more drinks on one occasion?: Never Total Score: 1 Score Reviewed/Action Taken: Yes YANDEL-7 AMB Questionnaire YANDEL-7 Date YANDEL - 7 assessed: 11/29/23 Source: Developed by Drs. Yayo Garner, Jo Dickinson, Parmjit Ryan and colleagues, with an educational halley from [employer]. Review of Systems Const Denies chills and Denies fever(s) ENT Denies epistaxis and Denies nasal discharge Card Denies chest pain Resp Denies hemoptysis GI Denies diarrhea and Denies nausea Skin/Breast Denies rash Neuro Reports no additional complaints Psych Reports no additional complaints Endo Reports no additional complaints Physical exam (Primary Care) Vital Signs: Last Vital Signs Pulse 65 03/15/24 15:12 BP 120/74 03/15/24 15:12 Pulse Ox 97 03/15/24 15:12 Oxygen Delivery Method Room Air 03/15/24 15:12 BMI result Body Mass Index 31.3 Tobacco/Smoking Status: Tobacco use Status Tobacco use date assessed 03/15/24 03/15/24 15:14 Patient Tobacco Use Status Never used Tobacco 03/15/24 15:11 e-Cigarette/Vaping Use Never Used 03/15/24 15:11 Thrive Assessment: Date of Thrive Assessment Date Thrive assessed 03/10/24 03/15/24 15:11 Const General: cooperative, comfortable and no acute distress Orientation/consciousness: patient oriented x3 HENMT Head: Yes normocephalic Eyes General: appearance normal, both eyes and all related structures Neck Neck: Yes supple Resp Effort & Inspection: normal respiratory effort, no cough and no stridor Cardio Rhythm: regular rhythm Heart sounds: S1 normal heart sound present and S2 normal heart sound present Skin General skin exam: turgor normal Neuro General: patient oriented x3, tone normal and moves all extremities Extrem Right lower extremity: no edema Left lower extremity: no edema Assessment and Plan Assessment & Plan (1) Right middle lobe pneumonia: Code(s): J18.9 - Pneumonia, unspecified organism Qualifiers: Pneumonia type: due to unspecified organism (2) Hospital discharge follow-up: Code(s): Z09 - Encounter for follow-up examination after completed treatment for conditions other than malignant neoplasm (3) Difficulty sleeping: Code(s): G47.9 - Sleep disorder, unspecified (4) Lipid disorder: Code(s): E78.9 - Disorder of lipoprotein metabolism, unspecified (5) Anxiety, generalized: Code(s): F41.1 - Generalized anxiety disorder (6) PTSD (post-traumatic stress disorder): Code(s): F43.10 - Post-traumatic stress disorder, unspecified (7) External hemorrhoids without complication: Code(s): K64.4 - Residual hemorrhoidal skin tags (8) Anemia due to chronic blood loss: Code(s): D50.0 - Iron deficiency anemia secondary to blood loss (chronic) Plan Patient is 33-year-old gentleman who was in hospital 03/10/2024 with a chief complaint of fever and chills, verbalized to having head cold for several days in not feeling well. At the day of presentation he was feeling worse with right-sided pleuritic chest pain productive cough of yellow sputum fever and myalgias. In emergency room patient found to be febrile with right middle lobe opacity on CT scan and leukocytosis, borderline hypotension He was given saline bolus He was admitted for sepsis due to right middle lobe pneumonia Patient was treated with ceftriaxone and azithromycin Cultures and PCR came back negative Patient symptoms improved sepsis improved he was discharged home on 5 more days of Ceftin and azithromycin. Patient need to repeat a chest x-ray end of this month, order placed Patient is feeling better still have mild cough but no chest pain Patient have external hemorrhoids and he is always slightly anemic His hemoglobin ranged between 12 and 13 Talked about adding iron to his diet, I would recommend to eat liver at least once a week and add more fiber to his diet in form of green leafy vegetables Lipid disorder: Patient is on medication He will follow-up in 3 months and labs are needed before visit fasting His regular medication zolpidem 5 mg sent 45 tablets for 3 months 46 minutes spent in care of this patient Reviewing hospital notes, labs, [id number] with the patient, ordering more labs, sending medication Charting Orders: Orders XR chest 2V 3 Weeks J18.9 - Pneumonia, unspecified organism Complete Blood Count Auto Diff Today D50.0 - Iron deficiency anemia secondary to blood loss (chronic), E78.9 - Disorder of lipoprotein metabolism, unspecified, F41.1 - Generalized anxiety disorder, F43.10 - Post-traumatic stress disorder, unspecified, G47.9 - Sleep disorder, unspecified, K64.4 - Residual hemorrhoidal skin tags, Z09 - Encounter for follow-up examination after completed treatment for conditions other than malignant neoplasm Comprehensive [place]. Panel Fast Today D50.0 - Iron deficiency anemia secondary to blood loss (chronic), E78.9 - Disorder of lipoprotein metabolism, unspecified, F41.1 - Generalized anxiety disorder, F43.10 - Post-traumatic stress disorder, unspecified, G47.9 - Sleep disorder, unspecified, K64.4 - Residual hemorrhoidal skin tags, Z09 - Encounter for follow-up examination after completed treatment for conditions other than malignant neoplasm Lipid Panel Today D50.0 - Iron deficiency anemia secondary to blood loss (chronic), E78.9 - Disorder of lipoprotein metabolism, unspecified, F41.1 - Generalized anxiety disorder, F43.10 - Post-traumatic stress disorder, unspecified, G47.9 - Sleep disorder, unspecified, K64.4 - Residual hemorrhoidal skin tags, Z09 - Encounter for follow-up examination after completed treatment for conditions other than malignant neoplasm Medications: Refilled zolpidem (Ambien) 5 mg PO BEDTIME PRN 45 tabs 0RF insomnia 90 days G47.9 - Sleep disorder, unspecified Coding Level of Care Code Est Pt Level 5 (02657) Diagnoses Right middle lobe pneumonia J18.9 Pneumonia type: due to unspecified organism Hospital discharge follow-up Z09 Difficulty sleeping G47.9 Lipid disorder E78.9 Anxiety, generalized F41.1 PTSD (post-traumatic stress disorder) F43.10 External hemorrhoids without complication K64.4 Anemia due to chronic blood loss D50.0
[2024-03-15 15:12] VITALS: BP 120/74; PULSE 65; O2SAT 97; BMI 31.3
== END 2024-03-15 15:27 | disposition home or self-care (01) ==
PROVIDERS: PCP Internal Medicine; Visit Provider Internal Medicine
DX: J18.9 Pneumonia, unspecified organism (principal); Z09 Encounter for follow-up examination after completed treatment for conditions other than malignant neoplasm; G47.9 Sleep disorder, unspecified; E78.9 Disorder of lipoprotein metabolism, unspecified; F41.1 Generalized anxiety disorder; F43.10 Post-traumatic stress disorder, unspecified; K64.4 Residual hemorrhoidal skin tags; D50.0 Iron deficiency anemia secondary to blood loss (chronic)
CPT/HCPCS: 99215

== ENCOUNTER 2024-04-16 09:32 | Outpatient (REF) | payer OTHER, SELFPAY ==
--- NOTE | ~2024-04-16 | XR_ITS ---
EXAMINATION: XR CHEST CLINICAL INFORMATION: Pneumonia COMPARISON: CT chest from 03/09/2024, chest radiograph from 03/09/2024 TECHNIQUE: 2 views of the chest were obtained. FINDINGS: Focal consolidation. No pneumothorax. Trachea is midline. Cardiac mediastinal silhouette is not enlarged. No large pleural effusion. Osseous structures are intact. Soft tissues are unremarkable. XR/XR chest 2V IMPRESSION: No acute cardiopulmonary process.
[2024-04-16 16:00] LABS: MANUAL DIFF FLAG NO
[2024-04-16 16:13] LABS: Eosinophils Absolute Auto 0.2 X10*3/uL (0.0-0.4); Eosinophils Percent Auto 4.1 % (0-4); Hematocrit 41.9 % (42.0-52.0); Hemoglobin 14.2 g/dl (14.0-18.0); Imm Gran Abs Auto 0.01 X10*3/uL (0.00-0.03); Imm Gran Pct Auto 0.2 % (0.0-0.4); Lymphocytes Absolute Auto 1.4 X10*3/uL (1.2-4.9); Lymphocytes Percent Auto 33.3 % (20-40); Mean Corpuscular HGB Conc 33.9 g/dl (31.0-36.0); Mean Corpuscular Hemoglobin 28.6 pg (27.0-33.0); Mean Corpuscular Volume 84.5 fL (80.0-98.0); Mean Platelet Volume 9.8 fL (9.4-12.4); Monocytes Absolute Auto 0.5 X10*3/uL (0.1-1.2); Monocytes Percent Auto 12.9 % (2-11); Neutrophils Percent Auto 48.5 % (45-73); Platelet Count 239 X10*3/uL (160-400); Red Blood Count 4.96 X10*6/uL (4.60-5.80); Red Cell Distribution Width 12.8 % (11.0-16.0); White Blood Count 4.2 X10*3/uL (4.8-10.8)
[2024-04-16 16:49] LABS: Alanine Aminotransferase 23 U/L (0-40); Albumin Level 4.6 g/dL (3.5-5.0); Alkaline Phosphatase 47 U/L (39-117); Anion Gap 11 (12-20); Aspartate Amino Transferase 26 U/L (5-37); Bilirubin Total 0.5 mg/dL (0.0-1.0); Blood Urea Nitrogen 16 mg/dL (9-16); Calcium 10.1 mg/dL (8.4-10.2); Carbon Dioxide 29 mmol/L (22-29); Chloride 103 mmol/L (96-108); Estimated Glomerular Filt Rate > 60; Glucose Random 81 mg/dL (60-115); Potassium 3.8 mmol/L (3.3-5.1); Sodium 139 mmol/L (135-145); Total Protein 8.1 g/dL (6.5-8.0)
[2024-04-16 16:59] LABS: Folate 8.6 ng/mL (> or = 4.0); Vitamin B12 489 pg/mL (200-900)
[2024-04-16 17:03] LABS: Ferritin 161 ng/mL (20-250)
== END 2024-04-16 09:33 | disposition home or self-care (01) ==
LOC: HO.HMGCX 09:32
PROVIDERS: PCP Internal Medicine; Visit Provider Internal Medicine
DX: J18.9 Pneumonia, unspecified organism (principal); R07.9 Chest pain, unspecified; D64.9 Anemia, unspecified
CPT/HCPCS: 36415; 71046; 80053; 82607; 82728; 82746; 85025

== ENCOUNTER 2024-04-16 14:29 | Outpatient (AMB) | payer OTHER, SELFPAY ==
[2024-04-16 14:31] VITALS: BP 140/86; PULSE 81; O2SAT 99; BMI 31.4
--- NOTE | 2024-04-16 14:31 | A.OFFPC_ITS ---
Vital Signs 04/16/24 14:31 Height 5 ft 10 in Weight 218 lb 9 oz BMI 31.4 BP 140/86 H Blood Pressure Location Rt brachial Position Sitting Pulse 81 Pulse Source Pulse Oximeter Pulse Oximetry (%) 99 Oxygen Delivery Method Room Air Intake Visit Reasons: Chest pain, fatigue post pneumonia Allergies acetaminophen [From Vicodin] Allergy (Unknown, Verified 04/16/24 14:36) nausea hydrocodone [From Vicodin] Allergy (Unknown, Verified 04/16/24 14:36) nausea Medication List - Last Reconciled 04/16/24 by Zander Hugo MD fluvastatin 40 mg PO BEDTIME 90 days zolpidem (Ambien) 5 mg PO BEDTIME PRN 90 days Tobacco use date assessed: 04/16/24 Dental Screening Dental Screen Date: 04/16/24 Did you have a dental visit in the last 12 months?: Yes Did you have a dental problem in the last 6 months where you did not have access to dental care?: No Was dental information given to patient?: Patient has dentist HPI Chest pain, fatigue post pneumonia HPI Details Patient is a 33-year-old gentleman who had right middle lobe pneumonia we weeks ago He was seen in emergency room and had chest x-ray which did not show the pneumonia, until he had a CT scan done He was treated with antibiotics Patient continued to have pain right middle lobe He says that when he was on antibiotic seat belt better but then the pain started again He is also feeling tired and have mild cough I will be repeating CT scan again He was also anemic with a hemoglobin of around 12 in February when he had a pneumonia Labs need to be repeated again. [facility] Medical History Lipid disorder Difficulty sleeping Surgical History History of shoulder surgery Family History Father No problems noted. Mother No problems noted. Social History Household Members: None Housing: House Alcohol intake: former Patient Tobacco Use Status: Never used Tobacco e-Cigarette/Vaping Use: Never Used service: No Current occupational status: employed Cognitive needs: No Hearing needs: No Vision needs: No Questionnaire Thrive Questionnaire Date Thrive assessed: 03/10/24 AUDIT C Alcohol Use Questionnaire (AUDIT-C) 1. How often do you have a drink containing alcohol?: Monthly or less 2. How many drinks containing alcohol do you have on a typical day when you are drinking?: 1 or 2 3. How often do you have six or more drinks on one occasion?: Never Total Score: 1 Score Reviewed/Action Taken: Yes YANDEL-7 AMB Questionnaire YANDEL-7 Date YANDEL - 7 assessed: 11/29/23 Source: Developed by Drs. Yayo Garner, Jo Dickinson, Parmjit Ryan and colleagues, with an educational halley from [employer]. Review of Systems Const Denies chills and Denies fever(s) ENT Denies epistaxis and Denies nasal discharge Resp Denies hemoptysis GI Denies diarrhea and Denies nausea Skin/Breast Denies rash Neuro Reports no additional complaints Psych Reports no additional complaints Endo Reports no additional complaints Physical exam (Primary Care) Vital Signs: Last Vital Signs Pulse 81 04/16/24 14:31 BP 140/86 H 04/16/24 14:31 Pulse Ox 99 04/16/24 14:31 Oxygen Delivery Method Room Air 04/16/24 14:31 BMI result Body Mass Index 31.4 Tobacco/Smoking Status: Tobacco use Status Tobacco use date assessed 04/16/24 04/16/24 14:36 Patient Tobacco Use Status Never used Tobacco 04/16/24 14:33 e-Cigarette/Vaping Use Never Used 04/16/24 14:33 Thrive Assessment: Date of Thrive Assessment Date Thrive assessed 03/10/24 04/16/24 14:33 Const General: cooperative, comfortable and no acute distress Orientation/consciousness: patient oriented x3 [facility] Head: Yes normocephalic Eyes General: appearance normal, both eyes and all related structures Neck Neck: Yes supple Chest Other: No pain with palpation, no pain with deep breath Resp Effort & Inspection: normal respiratory effort, no cough and no stridor Cardio Rhythm: regular rhythm Heart sounds: S1 normal heart sound present and S2 normal heart sound present Skin General skin exam: turgor normal Neuro General: patient oriented x3, tone normal and moves all extremities Extrem Right lower extremity: no edema Left lower extremity: no edema Assessment and Plan Assessment & Plan (1) Right middle lobe pneumonia: Code(s): J18.9 - Pneumonia, unspecified organism Qualifiers: Pneumonia type: due to unspecified organism Qualified Code(s): J18.9 - Pneumonia, unspecified organism (2) Right-sided chest pain: Code(s): R07.9 - Chest pain, unspecified (3) Anemia: Code(s): D64.9 - Anemia, unspecified Qualifiers: Anemia type: other cause Other causes of anemia: chronic disease, other Qualified Code(s): D63.8 - Anemia in other chronic diseases classified elsewhere Plan Patient is a 33-year-old gentleman who had right middle lobe pneumonia we weeks ago He was seen in emergency room and had chest x-ray which did not show the pneumonia, until he had a CT scan done He was treated with antibiotics Patient continued to have pain right middle lobe He says that when he was on antibiotic seat belt better but then the pain started again He is also feeling tired and have mild cough I will be repeating CT scan again He was also anemic with a hemoglobin of around 12 in February when he had a pneumonia Labs need to be repeated again. Orders: Orders Comprehensive Met. Panel Today D64.9 - Anemia, unspecified Ferritin Today D64.9 - Anemia, unspecified Folate Today D64.9 - Anemia, unspecified Vitamin B12 Today D64.9 - Anemia, unspecified Complete Blood Count Auto Diff Today D64.9 - Anemia, unspecified CT chest w IV con Today J18.9 - Pneumonia, unspecified organism, R07.9 - Chest pain, unspecified Coding Level of Care Code Est Pt Level 4 (72260) Diagnoses Pneumonia of right middle lobe due to infectious organism J18.9 Pneumonia type: due to unspecified organism Right-sided chest pain R07.9 Anemia in other chronic diseases classified elsewhere D63.8 Anemia type: other cause Other causes of anemia: chronic disease, other
== END 2024-04-16 15:08 | disposition home or self-care (01) ==
PROVIDERS: PCP Internal Medicine; Visit Provider Internal Medicine
DX: J18.9 Pneumonia, unspecified organism (principal); R07.9 Chest pain, unspecified; D63.8 Anemia in other chronic diseases classified elsewhere
CPT/HCPCS: 99214

== ENCOUNTER 2024-07-13 04:07 | Emergency (ER) | payer OTHER, SELFPAY ==
--- NOTE | ~2024-07-13 | CT_ITS ---
EXAMINATION: CT CHEST WITHOUT CONTRAST CLINICAL INFORMATION: Cough and fever. COMPARISON: Chest x-ray 07/13/2024 TECHNIQUE: Multidetector volumetric CT imaging of the chest was done. Axial MIP volume rendering provided. Sagittal and coronal reformatted images were obtained. This CT examination was performed using dose optimization techniques as appropriate, variously including the following: *Automated exposure control *Adjustment of mA and/or kV according to patient size (this includes techniques or standardized protocols for targeted exams where dose is matched to indication/reason for exam; i.e. 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 There is bandlike atelectasis right lung base. There is dependent bibasilar compressive atelectasis. Rest of lungs are clear.. MEDIASTINUM: The thyroid lobes are symmetrical and normal. The central trachea and bronchi are widely patent. The heart size and the great vessels are normal caliber. There is no pericardial effusion. No abnormal size mediastinal or hilar lymphadenopathy seen. CORONARY ARTERY CALCIFICATION: None visualized on this study. PLEURA: There is no pleural effusion. No pleural mass or thickening. AXILLA: No lymphadenopathy. UPPER ABDOMEN: Visualized liver, spleen, pancreas and bilateral adrenal glands are unremarkable. OSSEOUS STRUCTURES: Unremarkable. CT/CT chest wo IV con IMPRESSION: 1. Right middle lobe infiltrate. 2. Bibasilar dependent atelectasis. 3. No abnormal mediastinal or axillary lymphadenopathy. Fleischner guidelines were followed. Electronically signed by: Samuel Bowser MD 07/13/2024 07:38 AM EDT
--- NOTE | ~2024-07-13 | XR_ITS ---
EXAMINATION: XR CHEST CLINICAL INFORMATION: Chest pain. COMPARISON: April 16, 2024 TECHNIQUE: 2 views of the chest were obtained. FINDINGS: No significant abnormality is noted involving the heart, lungs, mediastinum, bony thorax or soft tissues. XR/XR chest 2V IMPRESSION: Unremarkable examination. Electronically signed by: Clem Lawson MD 07/13/2024 05:08 AM EDT
[2024-07-13 04:12] VITALS: BP 123/91; PULSE 104; RESP 18; TEMP 38.2; O2SAT 96; BMI 28.7
--- NOTE | 2024-07-13 04:32 | ED_ITS ---
HPI - URI/Sore Throat General Chief Complaint: Upper Respiratory Symptoms Stated Complaint: URI Time Seen by Provider: 07/13/24 04:18 Source: patient Mode of arrival: ambulatory Limitations: no limitations History of Present Illness ED Provider: Dr. Greta Valdez HPI Narrative: Patient comes to the emergency room complaining of nasal congestion, generalized malaise, sore throat. Patient states that 3 days ago he went to urgent care for sore throat, was diagnosed with strep and was prescribed Augmentin. Patient states that he keeps spiking fevers, coughing more than usual. Patient denies nausea vomiting or diarrhea. Related Data Previous Rx's ?Medication ?Instructions ?Recorded fluvastatin 40 mg capsule 40 mg PO BEDTIME 90 days #90 caps 11/29/23 zolpidem 5 mg tablet (Ambien) 5 mg PO BEDTIME PRN insomnia 90 03/15/24 days #45 tabs Allergies Allergy/AdvReac Type Severity Reaction Status Date / Time acetaminophen [From Vicodin] Allergy Unknown nausea Verified 07/13/24 04:15 hydrocodone [From Vicodin] Allergy Unknown nausea Verified 07/13/24 04:15 Review of Systems 2 Review of Systems: Constitutional : No Weight loss, complaining of fever, chills, fatigue and generalized malaise ENT/Mouth : No Hearing loss, No Ear Pain, complaining of nasal congestion, hoarseness, mild sore throat Eyes: No Eye Pain, No Swelling, No Redness, No Foreign Body, No Discharge, No Vision Changes Cardiovascular : No Chest Pain, No SOB, No Dyspnea on Exertion, No Orthopnea, No Edema, No Palpitations Respiratory : Complaining of productive cough, No Wheezing, No Smoke Exposure, No Dyspnea Gastrointestinal : No Nausea, No Vomiting, No Diarrhea, No Constipation, No abdominal Pain, No Hematochezia, No Melena Genitourinary : no irregular bleeding, No Dysuria, No Urinary Frequency, No Hematuria, No Urinary Incontinence, No Urgency, No Flank Pain, No Urinary Flow Changes, No Hesitancy Musculoskeletal : No joint pain, No Myalgias, No Joint Swelling Skin : No Skin Lesions, No rash Neuro : No Weakness, No Numbness, No Paresthesias, No Loss of Consciousness, No Dizziness, No Headache Psych : No Anxiety/Panic, No Depression, No SI/HI/AH/VH, No Social Issues, Heme/Lymph: No Bruising, No Bleeding,No Lymphadenopathy Endocrine : No Polyuria, No Polydipsia, No Temperature Intolerance [facility] Past Medical History Medical History Lipid disorder Difficulty sleeping Surgical History History of shoulder surgery Family History Family History Father No problems noted. Mother No problems noted. Social History Social History Household Members: None Housing: House Alcohol intake: former Patient Tobacco Use Status: Never used Tobacco e-Cigarette/Vaping Use: Never Used Advance Directives: No Advance Directives Information Provided: Yes Do you have a plan to hurt others: No Plan service: No Current occupational status: employed Cognitive needs: No Hearing needs: No Vision needs: No Physical Exam 2 Vital Signs: Vital Signs: Last Vital Signs Temp 99.8 F 07/13/24 06:27 Pulse 89 07/13/24 06:27 Resp 20 07/13/24 06:27 BP 110/58 L 07/13/24 06:27 Pulse Ox 96 07/13/24 06:27 O2 Del Method Room Air 07/13/24 06:27 BMI result Body Mass Index 28.7 Const: Other: Appearance: Alert. Oriented X3. No acute distress. Eyes: Pupils equal, round and reactive to light. ENT: Pharynx normal. Neck: Normal inspection. Neck supple. No lymph nodes noted. No crepitus CVS: Normal heart rate and rhythm. Pulses normal. Normal S1 and S2 Respiratory: No respiratory distress. Breath sounds normal. No Wheezing. No rales Abdomen: Soft and nontender. No rigidity. No distention. Skin: Skin warm and dry. Normal skin color. Normal skin turgor. Extremities: No lower extremity edema. No Lacerations. No Rash Neuro: Oriented X 3. No motor deficit. No sensory deficit. Moving all extremities. No slurred speech. CN 2 through 12 grossly intact Psych: calm, cooperative, normal affect Course Course Course Narrative: -all of patient's labs and imaging pending. -patient provided with normal saline, patient a bit tachycardic secondary to fever, given ibuprofen. Medications Administered Discontinued Medications Generic Name Dose Route Start Last Admin Trade Name Dale PRN Reason Stop Dose Admin Dexamethasone Sodium Phosphate 6 mg 07/13/24 04:50 07/13/24 04:57 Dexamethasone Sod Phosphate 4 Mg/Ml Vial IVPUSH 07/13/24 04:51 6 mg ONCE ONE Administration Sodium Chloride 1,000 mls @ 999 mls/hr 07/13/24 04:28 07/13/24 06:28 Ns IVCONT 07/13/24 05:28 Infused .Q1H1M ONE Infusion Ibuprofen 600 mg 07/13/24 04:31 07/13/24 04:50 Ibuprofen 600 Mg Tablet PO 07/13/24 04:32 600 mg ONCE ONE Administration Lidocaine HCl 15 ml 07/13/24 04:50 07/13/24 04:57 Lidocaine Hcl Viscous 2 % 15 Ml Solution MUCOUS MEM 07/13/24 04:51 15 ml ONCE ONE Administration Medical Decision Making Medical Decision Making [facility] Narrative: My interpretation of labs: Normal hematology, normal chemistry, serology negative for influenza, COVID, and strep -chest x-ray: Unremarkable -my interpretation of CT scan, no obvious infiltrate. Radiology report pending. -patient feeling very anxious, requesting Ativan -so far there is no clear source of infection. Patient likely improving with his current antibiotics, Augmentin which were prescribed few days ago -CT scan of the chest radiology report pending -ambulating pulse oximetry pending -patient's vitals stable, blood pressure 110/58, heart rate 89, respirations 20, temperature 99.8 degrees, oxygen saturation 96% on room air - sign-out given to my colleague Dr. Lee Differential Diagnosis Differential Diagnoses: The differential diagnosis associated with the presentation includes (Pneumonia, COVID, influenza) Admission/Observation Consideration of admission/observation: Escalation of care including admission/observation considered (Given patient's recurrent symptoms, observation/admission considered.) Lab Data [facility] Lab Attestation statement: I reviewed the patient's lab results. 07/13/24 04:44 07/13/24 04:45 Labs: Lab Results 07/13/24 07/13/24 07/13/24 Range/Units 04:36 04:44 04:45 WBC 5.8 (4.8-10.8) X10*3/uL RBC 5.18 (4.60-5.80) X10*6/uL Hgb 14.9 (14.0-18.0) g/dl Hct 42.2 (42.0-52.0) % MCV 81.5 (80.0-98.0) fL MCH 28.8 (27.0-33.0) pg MCHC 35.3 (31.0-36.0) g/dl RDW 12.3 (11.0-16.0) % Plt Count 209 (160-400) X10*3/uL MPV 8.9 L (9.4-12.4) fL Immature Gran % (Auto) 0.2 (0.0-0.4) % Neut % (Auto) 62.9 (45-73) % Lymph % (Auto) 23.1 (20-40) % Warren % (Auto) 10.3 (2-11) % Eos % (Auto) 2.6 (0-4) % Baso % (Auto) 0.9 (0-2) % Lymph # (Auto) 1.3 (1.2-4.9) X10*3/uL Warren # (Auto) 0.6 (0.1-1.2) X10*3/uL Eos # (Auto) 0.2 (0.0-0.4) X10*3/uL Baso # (Auto) 0.1 (0.0-0.2) X10*3/uL Abs Immat Gran (auto) 0.01 (0.00-0.03) X10*3/uL Absolute Neuts (auto) 3.7 (2.0-8.3) x10*3/uL Absolute Nucleated RBC 0.000 (0.0-0.012) X10*3/uL Nucleated RBC % (auto) 0.0 (0.0-0.2) /100WBC Sodium 138 (135-145) mmol/L Potassium 4.0 (3.3-5.1) mmol/L Chloride 103 (96-108) mmol/L Carbon Dioxide 25 (22-29) mmol/L Anion Gap 14 (12-20) BUN 15 (9-16) mg/dL Creatinine 1.18 (0.5-1.4) mg/dL Estim Creat Clear Calc 99.9 Estimated GFR > 60 Random Glucose 107 (60-115) mg/dL Lactic Acid 1.1 (0.5-2.0) mmol/L Calcium 10.1 (8.4-10.2) mg/dL Total Bilirubin 0.4 (0.0-1.0) mg/dL Direct Bilirubin 0.2 (0.0-0.5) mg/dL AST 32 (5-37) U/L ALT 34 (0-40) U/L Alkaline Phosphatase 46 (39-117) U/L Total Protein 8.1 H (6.5-8.0) g/dL Albumin 4.7 (3.5-5.0) g/dL COVID-19 (ANEESH) Negative (Negative) COVID-19 Clin Com See Note Influenza Type A (SAMANTHA) Negative (Negative) Influenza Type B (SAMANTHA) Negative (Negative) Influenza A & B Note See Note S. pyogenes GrpA SAMANTHA Negative (Negative) Critical Care Time Critical Care Time Critical Care Time: Yes Total Critical Care Time: 60 Attestation: I have personally provided critical care time. Time includes review of lab data, radiology results, discussion with consultants, and monitoring for potential decompensation. Intervention performed as documented. Discharge Plan Discharge Clinical Impression: URI (upper respiratory infection) Patient Disposition: Still a Patient Prescriptions: No Action fluvastatin 40 mg capsule 40 mg PO BEDTIME 90 Days Qty: 90 1RF zolpidem [Ambien] 5 mg tablet 5 mg PO BEDTIME PRN (Reason: insomnia) 90 Days Qty: 45 0RF Print Language: Bengali
[2024-07-13] MEDS: 0.9 % Sodium Chloride 1,000 ML 999 ML IVCONT (04:47)
[2024-07-13] MEDS: Ibuprofen 600 MG TABLET PO (04:50)
[2024-07-13 04:51] LABS: IDNOW Serial# 6674DD1D; Strep A Nucleic Acid Negative (Negative)
[2024-07-13 04:52] LABS: MANUAL DIFF FLAG NO
[2024-07-13 04:53] VITALS: O2SAT 98
[2024-07-13 04:53] LABS: Basophils Absolute Auto 0.1 X10*3/uL (0.0-0.2); Basophils Percent Auto 0.9 % (0-2); Eosinophils Absolute Auto 0.2 X10*3/uL (0.0-0.4); Eosinophils Percent Auto 2.6 % (0-4); Hematocrit 42.2 % (42.0-52.0); Hemoglobin 14.9 g/dl (14.0-18.0); Imm Gran Abs Auto 0.01 X10*3/uL (0.00-0.03); Imm Gran Pct Auto 0.2 % (0.0-0.4); Lymphocytes Absolute Auto 1.3 X10*3/uL (1.2-4.9); Lymphocytes Percent Auto 23.1 % (20-40); Mean Corpuscular HGB Conc 35.3 g/dl (31.0-36.0); Mean Corpuscular Hemoglobin 28.8 pg (27.0-33.0); Mean Corpuscular Volume 81.5 fL (80.0-98.0); Mean Platelet Volume 8.9 fL (9.4-12.4); Monocytes Absolute Auto 0.6 X10*3/uL (0.1-1.2); Monocytes Percent Auto 10.3 % (2-11); Neutrophils Absolute Auto 3.7 x10*3/uL (2.0-8.3); Neutrophils Percent Auto 62.9 % (45-73); Platelet Count 209 X10*3/uL (160-400); Red Blood Count 5.18 X10*6/uL (4.60-5.80); Red Cell Distribution Width 12.3 % (11.0-16.0); White Blood Count 5.8 X10*3/uL (4.8-10.8)
[2024-07-13 04:55] LABS: COVID-19 Test Negative (Negative); IDNOW Serial# 152EDE1D
[2024-07-13] MEDS: Lidocaine HCl Viscous 2 % 15 ML SOLUTION MUCOUS MEM (04:57)
[2024-07-13] MEDS: dexAMETHasone sod phosphate 4 MG/ML VIAL 6 MG IVPUSH (04:57)
[2024-07-13 04:58] LABS: IDNOW Serial# 08D9AD1C; Influenza A Negative (Negative); Influenza B2 Negative (Negative)
[2024-07-13 05:05] LABS: Lactic Acid 1.1 mmol/L (0.5-2.0)
[2024-07-13 05:10] LABS: Alanine Aminotransferase 34 U/L (0-40); Albumin Level 4.7 g/dL (3.5-5.0); Alkaline Phosphatase 46 U/L (39-117); Anion Gap 14 (12-20); Aspartate Amino Transferase 32 U/L (5-37); Bilirubin Direct 0.2 mg/dL (0.0-0.5); Bilirubin Total 0.4 mg/dL (0.0-1.0); Blood Urea Nitrogen 15 mg/dL (9-16); Calcium 10.1 mg/dL (8.4-10.2); Carbon Dioxide 25 mmol/L (22-29); Chloride 103 mmol/L (96-108); Creatinine Clr Calc Pharmacy 99.9; Estimated Glomerular Filt Rate > 60; Glucose Random 107 mg/dL (60-115); Sodium 138 mmol/L (135-145); Total Protein 8.1 g/dL (6.5-8.0)
[2024-07-13 06:27] VITALS: BP 110/58; PULSE 89; RESP 20; TEMP 37.7; O2SAT 96
--- NOTE | 2024-07-13 06:30 | PC.NURSE ---
pt reporting feeling worse since arriving in ED, would like something for anxiety. MD graham
[2024-07-13] MEDS: LORazepam 1 MG TABLET PO (07:00)
[2024-07-13 07:12] VITALS: O2SAT 97
--- NOTE | 2024-07-13 07:13 | PC.NURSE ---
report recieved from previous RN, patient ambulated to bathroom with steady gait, no complaints of shortness of breath or chest pain, maintained O2 sat of 97% or greater. patient back in bed and placed back on office services specialist. awaiting CT results at this time, urine sample sent to lab. all safety maintained
[2024-07-13 07:16] LABS: Appearance Urine Clear; Color Urine Yellow; Glucose Urine UA Negative (Negative); Leukocyte Esterase Urine Negative (Negative); Nitrite Urine Negative (Negative); PH 8.5 (5.0-9.0); Specific Gravity - Urine 1.015 (1.005-1.025); Urine Blood Negative (Negative); Urine Ketones Negative (Negative); Urine Protein Negative (Neg-Trace)
[2024-07-13 08:44] VITALS: BP 122/76; PULSE 83; RESP 20; TEMP 37.3; O2SAT 97
[2024-07-13 08:46] VITALS: BP 122/76; PULSE 83; RESP 20; TEMP 37.3; O2SAT 97
== END 2024-07-13 08:48 | disposition home or self-care (01) ==
PROVIDERS: Emergency Medicine; Emergency Provider Emergency Medicine; PCP Internal Medicine
DX: J18.9 Pneumonia, unspecified organism (principal); J06.9 Acute upper respiratory infection, unspecified; R00.0 Tachycardia, unspecified; Z03.818 Encounter for observation for suspected exposure to other biological agents ruled out; E78.5 Hyperlipidemia, unspecified; Z79.02 Long term (current) use of antithrombotics/antiplatelets
CPT/HCPCS: 36415; 71046; 71250; 80048; 80076; 81003; 83605; 85025; 87040; 87502; 87635; 87651; 96361; 96374; 99284; 99285; J1100

== ENCOUNTER 2024-07-31 12:15 | Outpatient (AMB) | payer OTHER, SELFPAY ==
[2024-07-31 12:18] VITALS: BP 124/80; PULSE 71; O2SAT 96; BMI 32.6
--- NOTE | 2024-07-31 12:18 | MHC.PC.OV ---
Vital Signs 07/31/24 12:18 Height 5 ft 10 in Weight 227 lb 2 oz BMI 32.6 BP 124/80 Blood Pressure Location Lt brachial Position Sitting Pulse 71 Pulse Source Pulse Oximeter Pulse Oximetry (%) 96 Oxygen Delivery Method Room Air Intake Visit Reasons: Medication F/U Allergies acetaminophen [From Vicodin] Allergy (Unknown, Verified 07/13/24 04:15) nausea hydrocodone [From Vicodin] Allergy (Unknown, Verified 07/13/24 04:15) nausea Medication List - Last Reconciled 07/31/24 by Zander Hugo MD doxycycline monohydrate (Monodox) 100 mg PO BID fluvastatin 40 mg PO BEDTIME 90 days zolpidem (Ambien) 5 mg PO BEDTIME PRN 90 days Tobacco use date assessed: 04/16/24 Dental Screening Dental Screen Date: 04/16/24 HPI Medication F/U HPI Details Patient is a 34-year-old male who was in emergency room 07/13/2024 with a chief complaint of generalized malaise nasal congestion and sore throat Evaluation process showed right middle lobe pneumonia on CT scan He was nontoxic and oxygen saturation was good He was discharged with a script of doxycycline as patient was already on Augmentin His other medications are fluvastatin 40 mg for cholesterol control and zolpidem 5 mg as sleep aid Patient gets 45 tablets every 3 months He is still getting pleuritic right-sided pain with deep breath I have ordered CT scan to be done in 3 weeks There is no shortness a breath there is no fever no chills no nausea no vomiting Patient have a follow-up appointment in November for that reason I have sent more than 45 tablets for the patient of zolpidem So he will have enough until he see me in 4 months [facility] Medical History Lipid disorder Difficulty sleeping Surgical History History of shoulder surgery Family History Father No problems noted. Mother No problems noted. Social History Household Members: None Housing: House Alcohol intake: former Patient Tobacco Use Status: Never used Tobacco e-Cigarette/Vaping Use: Never Used service: No Current occupational status: employed Cognitive needs: No Hearing needs: No Vision needs: No Questionnaire PHQ-9 Over the last 2 weeks, how often have you been bothered by any of the following problems? 1. Little interest or pleasure in doing things: not at all 2. Feeling down, depressed, or hopeless: not at all 3. Trouble falling or staying asleep, or sleeping too much: more than half the days 4. Feeling tired or having little energy: not at all 5. Poor appetite or overeating: not at all 6. Feeling bad about yourself - or that you are a failure or have let yourself or your family down: not at all 7. Trouble concentrating on things, such as reading the newspaper or watching television: not at all 8. Moving or speaking so slowly that other people could have noticed. Or the opposite - being so fidgety or restless that you have been moving around a lot more than usual: not at all 9. Thoughts that you would be better off or of hurting yourself in some way: not at all Total score: 2 Depression Screening Interpretation: Negative Depression Screening Done: Yes 44420 - PHQ-9 Billing: Yes Source: Developed by Drs. aYyo Garner, Jo Dickisnon, Parmjit Ryan and colleagues, with an educational halley from [employer]. Thrive Questionnaire Date Thrive assessed: 03/10/24 I am a: Patient What is your living situation today?: I have a steady place to live Within the past 12 months, did the food you bought not last and you didn't have the money to get more?: Never true Within the past 12 months, did you worry whether your food would run out before you got money to buy more?: Never true Do you have trouble paying for medicines?: No Do you have trouble getting transportation to medical appointments?: No Do you have trouble paying your heating and electricity bill?: No Do you have trouble taking care of your child, family member or friend?: No Do you have trouble with day-to-day activities such as bathing, preparing meals, shopping, managing finances, etc.?: No Are you interested in more education?: No Please select the resources that you would like help with: None Currently or been in a relationship where the following occur: No concerns reported THRIVE Score: 0 AUDIT C Alcohol Use Questionnaire (AUDIT-C) 1. How often do you have a drink containing alcohol?: Monthly or less 2. How many drinks containing alcohol do you have on a typical day when you are drinking?: 1 or 2 3. How often do you have six or more drinks on one occasion?: Never Total Score: 1 YANDEL-7 AMB Questionnaire YANDEL-7 Date YANDEL - 7 assessed: 11/29/23 Feeling nervous, anxious, or on edge: 0 = Not at all Not being able to stop or control worryin = Not at all Worrying too much about different things: 0 = Not at all Trouble relaxin = Not at all Being so restless that it is hard to sit still: 0 = Not at all Becoming easily annoyed or irritable: 0 = Not at all Feeling afraid as if something awful might happen: 0 = Not at all Total YANDEL-7 score (0-4 normal; 5-9 mild; 10-14 moderate; 15-21 severe): 0 Source: Developed by Drs. Yayo Garner, Jo Dickinson, Parmjit Ryan and colleagues, with an educational halley from [employer]. Review of Systems Const Denies chills and Denies fever(s) ENT Denies epistaxis and Denies nasal discharge Resp Denies chest congestion, Denies cough and Denies hemoptysis GI Denies diarrhea and Denies nausea Skin/Breast Denies rash Neuro Reports no additional complaints Psych Reports no additional complaints Endo Reports no additional complaints Physical exam (Primary Care) Vital Signs: Last Vital Signs Pulse 71 07/31/24 12:18 BP 124/80 07/31/24 12:18 Pulse Ox 96 07/31/24 12:18 Oxygen Delivery Method Room Air 07/31/24 12:18 BMI result Body Mass Index 32.6 Tobacco/Smoking Status: Tobacco use Status Tobacco use date assessed 04/16/24 07/31/24 12:20 Patient Tobacco Use Status Never used Tobacco 07/31/24 12:20 e-Cigarette/Vaping Use Never Used 07/31/24 12:20 PHQ-9: PHQ-9 Score PHQ-9: Total score 2 07/31/24 12:20 Depression Screening Interpretation: Negative Thrive Assessment: Date of Thrive Assessment Date Thrive assessed 03/10/24 07/31/24 12:20 Currently or been in a relationship where the following occur: No concerns reported Const General: cooperative, comfortable and no acute distress Orientation/consciousness: patient oriented x3 HENMT Head: Yes normocephalic Eyes General: appearance normal, both eyes and all related structures Neck Neck: Yes supple Resp Effort & Inspection: normal respiratory effort, no cough and no stridor Cardio Rhythm: regular rhythm Heart sounds: S1 normal heart sound present and S2 normal heart sound present Skin General skin exam: turgor normal Neuro General: patient oriented x3, tone normal and moves all extremities Extrem Right lower extremity: no edema Left lower extremity: no edema Assessment and Plan Assessment & Plan (1) Right middle lobe pneumonia: Code(s): J18.9 - Pneumonia, unspecified organism Qualifiers: Pneumonia type: due to unspecified organism Qualified Code(s): J18.9 - Pneumonia, unspecified organism (2) Right-sided chest pain: Code(s): R07.9 - Chest pain, unspecified (3) Difficulty sleeping: Code(s): G47.9 - Sleep disorder, unspecified (4) Lipid disorder: Code(s): E78.9 - Disorder of lipoprotein metabolism, unspecified (5) Anxiety, generalized: Code(s): F41.1 - Generalized anxiety disorder (6) PTSD (post-traumatic stress disorder): Code(s): F43.10 - Post-traumatic stress disorder, unspecified Plan Patient is a 34-year-old male who was in emergency room 07/13/2024 with a chief complaint of generalized malaise nasal congestion and sore throat Evaluation process showed right middle lobe pneumonia on CT scan He was nontoxic and oxygen saturation was good He was discharged with a script of doxycycline as patient was already on Augmentin His other medications are fluvastatin 40 mg for cholesterol control and zolpidem 5 mg as sleep aid Patient gets 45 tablets every 3 months He is still getting pleuritic right-sided pain with deep breath I have ordered CT scan to be done in 3 weeks There is no shortness a breath there is no fever no chills no nausea no vomiting Patient have a follow-up appointment in November for that reason I have sent more than 45 tablets for the patient of zolpidem So he will have enough until he see me in 4 months Orders: Orders CT chest w IV con 3 Weeks J18.9 - Pneumonia, unspecified organism Basic Metabolic Panel Today R07.9 - Chest pain, unspecified Medications: Refilled zolpidem (Ambien) 5 mg PO BEDTIME 90 days PRN 55 tabs 0RF insomnia G47.9 - Sleep disorder, unspecified Coding Level of Care Code Est Pt Level 4 (13752) Diagnoses Pneumonia of right middle lobe due to infectious organism J18.9 Pneumonia type: due to unspecified organism Right-sided chest pain R07.9 Difficulty sleeping G47.9 Lipid disorder E78.9 Anxiety, generalized F41.1 PTSD (post-traumatic stress disorder) F43.10
== END 2024-07-31 12:46 | disposition home or self-care (01) ==
PROVIDERS: PCP Internal Medicine; Visit Provider Internal Medicine
DX: J18.9 Pneumonia, unspecified organism (principal); R07.9 Chest pain, unspecified; G47.9 Sleep disorder, unspecified; E78.9 Disorder of lipoprotein metabolism, unspecified; F41.1 Generalized anxiety disorder; F43.10 Post-traumatic stress disorder, unspecified

== ENCOUNTER → 2024-07-31 12:15 | Outpatient (BNVA) | payer OTHER, SELFPAY | PROVIDERS: PCP Internal Medicine; Visit Provider Internal Medicine | DX: G47.9 Sleep disorder, unspecified (principal); Z79.899 Other long term (current) drug therapy | CPT/HCPCS: 99212 ==

== ENCOUNTER 2024-09-25 07:52 | Outpatient (REF) | payer OTHER, SELFPAY ==
--- NOTE | ~2024-09-25 | CT_ITS ---
EXAMINATION: CT CHEST WITH CONTRAST CLINICAL INFORMATION: Pneumonia follow-up COMPARISON: 07/13/2024 TECHNIQUE: Multidetector volumetric CT imaging of the chest was obtained after the administration of 50 mL of Omnipaque 350 intravenous contrast without immediate adverse reactions. Axial MIP volume rendering provided. Sagittal and coronal reformatted images were obtained. This CT examination was performed using dose optimization techniques as appropriate, variously including the following: *Automated exposure control *Adjustment of mA and/or kV according to patient size (this includes techniques or standardized protocols for targeted exams where dose is matched to indication/reason for exam; i.e. 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 Mild bilateral lower lobe atelectasis. Right middle lobe pneumonia seen on 03/09/2024 has totally resolved. No suspicious lesions, consolidations or groundglass opacities. MEDIASTINUM: The mediastinum is normal. Unremarkable thyroid. No pathologic lymphadenopathy. Heart size within normal limits. No pericardial effusion. Degree of coronary calcifications: Absent. PLEURA: There is no pleural effusion. No pleural mass or thickening. AXILLA: Nonspecific lymph nodes. No pathologic lymphadenopathy. UPPER ABDOMEN: Low-density liver. 5 mm left upper quadrant enhancing focus, seen previously, question splenule. OSSEOUS STRUCTURES: Unremarkable. CT/CT chest w IV con IMPRESSION: 1. Resolution right middle lobe pneumonia. 2. Hepatic steatosis. Fleischner guidelines were followed. Electronically signed by: Claudette Coronado MD 10/01/2024 08:36 AM [facility]
[2024-09-25] MEDS: iohexoL 350 MG/ML 75 ML INFUS..BTL 65 ML IV (08:58)
== END 2024-09-25 07:53 | disposition home or self-care (01) ==
LOC: HO.CT 07:52
PROVIDERS: PCP Internal Medicine; Visit Provider Internal Medicine
DX: J18.9 Pneumonia, unspecified organism (principal)
CPT/HCPCS: 71260; Q9967

== ENCOUNTER 2024-12-06 09:39 | Outpatient (REF) | payer OTHER, SELFPAY ==
--- OUTSIDE RECORDS SUMMARY | 2024-12-06 10:26 | XMS_ITS | Continuity of Care Document ---
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 It does not include entries that were removed or entered in error. Problem Status Onset Date Problem Type Date of Resolution Comments Source visit for: services physical pre-deployment Inactive 017 Condition [facility] hemorrhoids external Inactive 017 Condition [facility] unspecified muscle strain Inactive 016 Condition [facility] ankle joint pain Inactive 016 Condition [facility] joint pain, localized in the knee Active Condition [facility] Alcohol Abuse ([facility] [id number]) Active Condition Oct 06, 2021 Entered By: TREVOR TOMPKINS Comment: In [facility] GERD - Gastro-esophageal reflux disease Active Condition [facility] D Hypercholesterolemia Active Condition V A [facility] Pain of joint of knee Active Condition [facility] PTSD - Post-traumatic stress disorder Active Condition [facility] LD Medications Combined list of outpatient medications from Department of Defense and Veterans Affairs facilities.Medications provided include 1) outpatient medications from the last 15 months, and 2) patient-reported medications. Medication Details Route Status Patient Instructions Prescription Expires Prescription Number Last Dispense Date Ordering Provider Order Date Order Qty Source AZITHROMYCI N (azithromyc in), 500 MG, TABLET, ORAL, AUROBINDO PHARM, 30 ea. BOTTLE Active [id number] 4 2023 5 Pharmac y Data Transac tion Service Facilit y CEFUROXIME (CEFUROXIME AXETIL), 500 MG, TABLET, ORAL, AUROBINDO PHARM, 20 ea. BOTTLE Active [id number] 4 2023 10 Pharmac y Data Transac tion Service Facilit y COENZYME Q10 CAP/TAB TAKE BY MOUTH ONCE DAILY ORAL ACTIVE CAMILA HAMMOND 2021 [place] FLUVASTATIN NA 20MG CAP TAKE 1 CAPSULE BY MOUTH ONCE DAILY ORAL ACTIVE CAMILA HAMMOND 2021 [place] FLUVASTATIN NA 20MG CAP TAKE 1 CAPSULE BY MOUTH ONCE DAILY ORAL ACTIVE CAMILA HAMMOND 2021 [place] FLUVASTATIN SODIUM (FLUVASTATI N SODIUM), 40 MG, CAPSULE, ORAL, MYLAN, 30 ea. BOTTLE Cancele d [id number] : 2023 0 Pharmac y Data Transac tion Service Facilit y FLUVASTATIN SODIUM (FLUVASTATI N SODIUM), 40 MG, CAPSULE, ORAL, MYLAN, 30 ea. BOTTLE Cancele d [id number] : 2023 0 Pharmac y Data Transac tion Service Facilit y ZOLPIDEM TARTRATE (ZOLPIDEM TARTRATE), 5MG, TABLET, ORAL, AUROBINDO PHARM, 100 ea. BOTTLE Active [id number] 4 2023 45 Pharmac y Data Transac tion Service Facilit y ZOLPIDEM TARTRATE (ZOLPIDEM TARTRATE), 5MG, TABLET, ORAL, AUROBINDO PHARM, 100 ea. BOTTLE Active [id number] 4 2023 45 Pharmac y Data Transac tion Service Facilit y ZOLPIDEM TARTRATE (ZOLPIDEM TARTRATE), 5MG, TABLET, ORAL, AUROBINDO PHARM, 100 ea. BOTTLE Active [id number] 4 2023 45 Pharmac y Data Transac tion Service Facilit y Allergies, Adverse Reactions, Alerts Combined list of allergies from Department of Defense and Veterans Affairs facilities. It does not include entries that were removed or entered in error. Substance Category Reaction Severity Reaction type Status Date Reported Comments Source BUSPIRONE Drug allergy (disorder) active 1 [facility] busPIRone Propensity to adverse reactions to drug Active 1 [place] [facility] [place] Ambulatory Pharmacy Immunizations Combined list of available immunizations from the Department of Defense and Veterans Affairs facilities. Immunization Series Date Given Administered By Site Reaction Lot Number CVX Code Drug Powder Monkey Status Comments Source influenza, injectable, quadrivalent- pf 2021 [id number] GlaxoSmithKli ne complet ed influenza , injectabl e, quadrival ent-pf 09/18/22 Given Ambulat ory Pharmac y influenza, injectable, quadrivalent 2020 [id number] GlaxoSmithKli ne complet ed influenza , injectabl e, quadrival ent 07/29/21 Given Ambulat ory Pharmac y INFLUENZA, UNSPECIFIED FORMULATION 2020 88 complet ed [facility] COVID Vaccine Pfizer 2020 [id number] complet ed COVID Vaccine Pfizer 01/16/21 Given Ambulat ory Pharmac y COVID-19 (PFIZER), MRNA, LNP-S, PF, 30 MCG/0.3 ML DOSE 2 2020 208 complet ed [facility] COVID Vaccine Pfizer 2020 TRANSCR [id number] 208 complet ed COVID Vaccine Pfizer 12/26/20 Given Ambulat ory Pharmac y COVID-19 (PFIZER), MRNA, LNP-S, PF, 30 MCG/0.3 ML DOSE 1 2020 208 complet ed [facility] influenza, injectable, quadrivalent- pf 2019 [id number] 150 Seqirus complet ed influenza , injectabl e, quadrival ent-pf 09/20/20 Given Ambulat ory Pharmac y influenza, injectable, quadrivalent, preservative free 2018 DOMINIQUE, () Not Given influenza , injectabl e, quadrival ent, preservat shanna free DoD tetanus, diphtheria, acellular pertu is 2018 115 complet ed tetanus, diphtheri a, acellular pertussis 05/14/19 Given Ambulat ory Pharmac y influenza, injectable, quadrivalent 2017 [id number] complet ed influenza , injectabl e, quadrival ent 08/25/18 Given Ambulat ory Pharmac y influenza, injectable, quadrivalent- pf 2017 150 sanofi pasteur complet ed influenza , injectabl e, quadrival ent-pf 08/25/18 Given Ambulat ory Pharmac y influenza, injectable, quadrivalent 2016 [id number] [employer] comple t ed influenza , injectabl e, quadrival ent 10/15/17 Given Ambulat ory Pharmac y tuberculin purified protein derivative 2016 [id number] sanofi pasteur complet ed tuberculi n purified protein derivativ e 04/15/17 Given Ambulat ory Pharmac y influenza, seasonal, injectable 2015 [id number] 141 Seqirus complet ed influenza , seasonal, injectabl e 09/23/16 Given Ambulat ory Pharmac y anthrax vaccine 2015 [id number] Emergent [employer] complet ed anthrax vaccine 09/23/16 Given Ambulat ory Pharmac y anthrax vaccine 2015 [id number] [employer] complet ed anthrax vaccine 03/25/16 Given Ambulat ory Pharmac y typhoid Vi capsular polysaccharid e vac 2015 [id number] sanofi pasteur complet ed typhoid Vi capsular polysacch aride vac 02/18/16 Given Ambulat ory Pharmac y anthrax vaccine 2015 [id number] [employer] complet ed anthrax vaccine 02/18/16 Given Ambulat ory Pharmac y influenza, seasonal, injectable-pf 2014 [id number] CSL Behring complet ed influenza , seasonal, injectabl e-pf 08/09/15 Given Ambulat ory Pharmac y Influenza, injectable, MDCK-pf 2013 [id number] Novartis Pharmaceutica ls complet ed Influenza , injectabl e, MDCK-pf 08/17/14 Given Ambulat ory Pharmac y hepatitis A adult vaccine 2013 [id number] GlaxoSmithKli ne complet ed hepatitis A adult vaccine 03/16/14 Given Ambulat ory Pharmac y influenza, seasonal, injectable-pf 2012 [id number] 140 Novartis Pharmaceutica ls complet ed influenza , seasonal, injectabl e-pf 09/24/13 Given Ambulat ory Pharmac y hepatitis A adult vaccine 2012 [id number] GlaxoSmithKli ne complet ed hepatitis A adult vaccine 08/07/13 Given Ambulat ory Pharmac y poliovirus vaccine, inactivated 2012 [id number] sanofi pasteur complet ed polioviru s vaccine, inactivat ed 08/01/13 Given Ambulat ory Pharmac y adenovirus vaccine, live 2012 [id number] 143 Teva Pharmaceutica complet ed adenoviru s vaccine, live 08/01/13 Given Ambulat ory Pharmac y tuberculin purified protein derivative 2012 [id number] 96 [facility] complet ed tuberculi n purified protein derivativ e 08/01/13 Given Ambulat ory Pharmac y tetanus, diphtheria, acellular pertu is 2012 [id number] 115 FMP [employer] ne complet ed tetanus, diphtheri a, acellular pertussis 08/01/13 Given Ambulat ory Pharmac y meningococcal A,C,Y,W-135 (MCV4P) 2012 [id number] sanofi pasteur complet ed meningoco ccal A,C,Y,W-1 35 (MCV4P) 08/01/13 Given Ambulat ory Pharmac y Results Combined list of recent chemistry, hematology and other laboratory results from Department of Defense and Veterans Affairs, ranging from 15 months to all on record, depending upon the facility. Order Name Results Value Reference Range Date Interpretation Specimen Comments Source Infectio us Disease HIV-1/O/2 Non-Reac tive 1 (04/17/23 10:27 AM) 04/17 N Interpretiv e Data: INTERPRETAT ION: This method is a screening procedure for the detection of HIV p24 Antigen and Antibodies to HIV-1, including Group O, and/or HIV-2. NON-REACTIV E: HIV-1 antigen and HIV-1 / HIV-2 antibodies were not detected. No laboratory evidence of HIV infection. A negative test result does not exclude the possibility of exposure to or infection with HIV. HIV antibodies and/or p24 antigen may be undetectabl e in some stages of the infection and in some clinical conditions. If acute HIV infection is suspected, consider submitting another specimen to a reference laboratory for HIV-1 RNA. SCREEN REACTIVE - CONFIRMATIO N TO FOLLOW: Possible presence of HIV-1antibo dies, HIV-2 antibodies and/or HIV-1 p24 antigen. Specimen will reflex to the confirmatio n testing that fulfills the Center for Disease Control and Prevention' s HIV diagnostic algorithm. Refer to [facility] Lab Guide for additional information : [email or web address] x Testing performed by Karlene luciano. [facility] Pharm[facility] Nancy zapien Sendouts Repository Sample Received (04/17/23 10:27 AM) 04/17 N Ambulator y Pharmacy Vital Signs Combined list of inpatient and outpatient Vital Signs from Department of Defense and Veterans Affairs, ranging from 12 months to all on record, depending upon the facility. Vital Sign Value Date Comments Source No data available for this section Ambulatory Pharmacy Encounters Combined list of: 1) Encounters from Department of Veterans Affairs facilities going back up to thelast 18 months. 2) Encounters from the Department of [facility] facilities going back up to 280 months. Location Location Details Encounter Type Encounter Number Reason For Visit Attending Provider ADM Date DC Date Status Disposition Source Theater Facility OUTPATIENT [id number] Theater Provider 07/23 Released with Work/Duty Limitations Theater Facilit y Theater Facility OUTPATIENT [id number] Theater Provider 10/13 Released w/o Limitations Theater Facilit y [facility] OUTPATIENT [id number] Theater Provider 11/28 Released w/o Limitations Theater Facilit y [facility] Facility OUTPATIENT [id number] Theater Provider 12/10 Released w/o Limitations Theater Facilit y [facility] Outpatient Encounter [id number] 03/09 [facility] Encounter [id number] 03/12 [facility] Outpatient Encounter [id number] 03/12 [facility] Procedures Combined list of: 1) Procedures from Department of [facility] facilities [facility], not all [place] non-surgical procedures are included; 2) All procedures from the Department of [facility] facilities. Procedure Procedure Type Code Date Perfomer Comments Sourc e No data available for this section Ambulato ry Pharmacy THERAPEUTIC, PROPHYLACTIC, OR DIAGNOSTIC INJECTION (SPECIFY SUBSTANCE OR DRUG); SUBCUTANEOUS OR INTRAMUSCULAR 08/12/2013 DoD Social History Combined list of available smoking, tobacco, and other social history from Department of Defense and Veterans Affairs facilities. Social History Type Response Date Comment Sour e Tobacco smoking status NHIS VA-TOBACCO FORMER USER 021 [facility] History of tobacco use VA-TOBACCO QUIT < 1 YEAR 07/15/2021 [facility] This section is an empty social history section. DoD Assessment and Plan Combined list of future care activities from Department of Defense and Veterans Affairs facilities (e.g., assessment and plan notes, appointments, orders, and referrals). Additional future care activities may be listed in the Plan of Care section. Result Assessment and Plan Date Source Assessment and Plan No data available for this section 12/06/2024 Ambulatory Pharmacy Functional Status Combined list of recent functional and cognitive assessments recorded at Department of Defense and Veterans Affairs ([place] Functional [place] Measurement (FIM) Scale: 1 = Total Assistance (Subject = 0% +), 2 = Maximal Assistance (Subject = 25% +), 3 = Moderate Assistance (Subject = 50% +), 4 = Minimal Assistance (Subject = 75% +), 5 = Supervision, 6 = Modified [place] (Device), 7 = Complete [place] (Timely, Safely). Assessment Date/Time Source Assessment Type Assessment Skill Assessment Score Assessment Details No data available for this section
[2024-12-06 15:48] LABS: Alanine Aminotransferase 28 U/L (0-40); Albumin Level 4.4 g/dL (3.5-5.0); Alkaline Phosphatase 43 U/L (39-117); Anion Gap 11 (12-20); Aspartate Amino Transferase 32 U/L (5-37); Bilirubin Total 0.4 mg/dL (0.0-1.0); Blood Urea Nitrogen 16 mg/dL (9-16); Calcium 9.5 mg/dL (8.4-10.2); Carbon Dioxide 29 mmol/L (22-29); Chloride 105 mmol/L (96-108); Cholesterol 181 mg/dL (<200); Estimated Glomerular Filt Rate > 60; Glucose Fasting 85 mg/dL (60-99); HDL Cholesterol 36 mg/dL (>40); LDL Cholesterol Calculated 123 mg/dL (<100); Potassium 4.3 mmol/L (3.3-5.1); Sodium 141 mmol/L (135-145); Total Protein 7.9 g/dL (6.5-8.0); Triglycerides 112 mg/dL (<150)
== END 2024-12-06 09:40 | disposition home or self-care (01) ==
LOC: HO.HMGCLDS 09:39
PROVIDERS: PCP Internal Medicine; Visit Provider Internal Medicine
DX: Z00.01 Encounter for general adult medical examination with abnormal findings (principal); E78.5 Hyperlipidemia, unspecified; G47.9 Sleep disorder, unspecified; B07.0 Plantar wart; K76.0 Fatty (change of) liver, not elsewhere classified
CPT/HCPCS: 36415; 80053; 80061; 96127; 99212

== ENCOUNTER 2024-12-06 09:59 | Outpatient (AMB) | payer OTHER, SELFPAY ==
[2024-12-06 10:03] VITALS: BP 118/76; PULSE 80; O2SAT 98; BMI 32.6
--- NOTE | 2024-12-06 10:03 | MHC.PC.OV ---
Vital Signs 12/06/24 10:03 Height 5 ft 10 in Weight 227 lb 4 oz BMI 32.6 BP 118/76 Blood Pressure Location Rt brachial Position Sitting Pulse 80 Pulse Source Pulse Oximeter Pulse Oximetry (%) 98 Oxygen Delivery Method Room Air Intake Visit Reasons: Annual PE Allergies acetaminophen [From Vicodin] Allergy (Unknown, Verified 12/06/24 10:08) nausea hydrocodone [From Vicodin] Allergy (Unknown, Verified 12/06/24 10:08) nausea Medication List - Last Reconciled 12/06/24 by Zander Hugo MD fluvastatin 40 mg PO BEDTIME 90 days zolpidem (Ambien) 5 mg PO BEDTIME PRN 90 days Tobacco use date assessed: 12/06/24 Dental Screening Dental Screen Date: 12/06/24 Did you have a dental visit in the last 12 months?: Yes Did you have a dental problem in the last 6 months where you did not have access to dental care?: No Was dental information given to patient?: Patient has dentist HPI Annual PE HPI Details Physical exam appointment - The patient is a 34-year-old male presenting for a physical exam and management follow-up. - Notable dermatological concern includes warts on the thumb and foot causing discomfort. - History of non-alcoholic fatty liver disease being managed through weight reduction; discussions included BMI and potential impact on liver function. - Past medical history significant for pneumonia, which is resolved. - Currently prescribed Fluvastatin for hyperlipidemia and Zolpidem for insomnia. - Reports no acute complaints or new symptoms outside of dermatological and chronic concerns. Health Maintenance - Ongoing weight management and lifestyle modifications advised for the management of non-alcoholic fatty liver disease. - Discussed BMI and the need for weight reduction to target ideal body weight. Medications - Fluvastatin for hyperlipidemia - Zolpidem for insomnia Diagnostic results - Imaging: CT chest results were normal, indicating resolution of previous pneumonia. - BMI calculation discussed, currently at 32.6. Patient Instructions - Advise the patient to use [id number] treatments for warts to manage skin. While waiting to see the Dermatology, referral placed - Encouraged to continue weight loss efforts to improve liver health. - Advised to complete prescribed lab work promptly. Review of Systems - Dermatological: Reports warts on thumb and foot causing discomfort during walking. - Gastrointestinal: Denies abdominal pain. - General: Reports resolution of previous pneumonia; denies current acute symptoms. - Neurological: No headaches no dizziness - Ear nose throat: No sore throat no hearing difficulty no ear pain - Cardiovascular: No syncope, no chest pain, no palpitations - Endocrine: No polyuria polydipsia no heat intolerance - Genitourinary: No dysuria Physical Exam General: Cooperative, healthy appearing, comfortable, no acute distress Orientation: Patient oriented x3 Limitations: None Head: Normal to inspection Ears: Within normal limit visually Nose: Normal external nose present Face and sinus: Normal facial exam Eyes: Appearance normal, extraocular movement intact pupils reactive Neck: Normal visual inspection and supple Respiratory: Normal respiratory effort and able to speak in complete sentences. Clear to auscultation, no stridor Cardiovascular: S1 and S2 GI: Normal to inspection. Soft to palpation and nontender Skin: Turgor normal, no acute findings. Presence of warts on thumb left hand palmar aspect and each foot causing discomfort when standing without a barrier. Neuro: Patient oriented x3, motor sensory intact, balance intact, tandem pass Extremities: Normal to inspection [facility] Medical History Lipid disorder Difficulty sleeping Surgical History History of shoulder surgery Family History Father No problems noted. Mother No problems noted. Social History Household Members: None Housing: House Alcohol intake: former Patient Tobacco Use Status: Never used Tobacco e-Cigarette/Vaping Use: Never Used service: No Current occupational status: employed Cognitive needs: No Hearing needs: No Vision needs: No Questionnaire PHQ-9 Over the last 2 weeks, how often have you been bothered by any of the following problems? 1. Little interest or pleasure in doing things: not at all 2. Feeling down, depressed, or hopeless: not at all 3. Trouble falling or staying asleep, or sleeping too much: several days 4. Feeling tired or having little energy: not at all 5. Poor appetite or overeating: not at all 6. Feeling bad about yourself - or that you are a failure or have let yourself or your family down: not at all 7. Trouble concentrating on things, such as reading the newspaper or watching television: not at all 8. Moving or speaking so slowly that other people could have noticed. Or the opposite - being so fidgety or restless that you have been moving around a lot more than usual: not at all 9. Thoughts that you would be better off or of hurting yourself in some way: not at all Total score: 1 Depression Screening Interpretation: Negative Depression Screening Done: Yes 46049 - PHQ-9 Billing: Yes Source: Developed by Drs. Yayo Garner, Jo Dickinson, Parmjit Ryan and colleagues, with an educational halley from [employer]. Thrive Questionnaire Date Thrive assessed: 12/06/24 I am a: Patient What is your living situation today?: I have a steady place to live Within the past 12 months, did the food you bought not last and you didn't have the money to get more?: Never true Within the past 12 months, did you worry whether your food would run out before you got money to buy more?: Never true Do you have trouble paying for medicines?: No Do you have trouble getting transportation to medical appointments?: No Do you have trouble paying your heating and electricity bill?: No Do you have trouble taking care of your child, family member or friend?: No Do you have trouble with day-to-day activities such as bathing, preparing meals, shopping, managing finances, etc.?: No Are you currently unemployed and looking for a job?: No Are you interested in more education?: No Please select the resources that you would like help with: None Currently or been in a relationship where the following occur: No concerns reported THRIVE Score: 0 AUDIT C Alcohol Use Questionnaire (AUDIT-C) 1. How often do you have a drink containing alcohol?: Monthly or less 2. How many drinks containing alcohol do you have on a typical day when you are drinking?: 1 or 2 3. How often do you have six or more drinks on one occasion?: Never Total Score: 1 Score Reviewed/Action Taken: Yes YANDEL-7 AMB Questionnaire YANDEL-7 Date YANDEL - 7 assessed: 12/06/24 Feeling nervous, anxious, or on edge: 0 = Not at all Not being able to stop or control worryin = Not at all Worrying too much about different things: 0 = Not at all Trouble relaxin = Not at all Being so restless that it is hard to sit still: 0 = Not at all Becoming easily annoyed or irritable: 0 = Not at all Feeling afraid as if something awful might happen: 0 = Not at all Total YANDEL-7 score (0-4 normal; 5-9 mild; 10-14 moderate; 15-21 severe): 0 Source: Developed by Drs. Yayo Garner, Jo Dickinson, Parmjit Ryan and colleagues, with an educational halley from [employer]. YANDEL-7 Assessment Billing YANDEL-7 Assessment Tool: YANDEL-7 Assessment 39294 Physical exam (Primary Care) Vital Signs: Last Vital Signs Pulse 80 12/06/24 10:03 BP 118/76 12/06/24 10:03 Pulse Ox 98 12/06/24 10:03 Oxygen Delivery Method Room Air 12/06/24 10:03 BMI result Body Mass Index 32.6 Tobacco/Smoking Status: Tobacco use Status Tobacco use date assessed 12/06/24 12/06/24 10:09 Patient Tobacco Use Status Never used Tobacco 12/06/24 10:05 e-Cigarette/Vaping Use Never Used 12/06/24 10:05 PHQ-9: PHQ-9 Score PHQ-9: Total score 1 12/06/24 10:25 Depression Screening Interpretation: Negative Thrive Assessment: Date of Thrive Assessment Date Thrive assessed 12/06/24 12/06/24 10:09 Currently or been in a relationship where the following occur: No concerns reported Coding Level of Care Code Est Pt Level 3 (24706) Est Pt Prev Care 18-39y(32275) Diagnoses Encounter for general adult medical examination with abnormal findings Z00.01 Lipid disorder E78.9 Difficulty sleeping G47.9 Plantar wart of both feet B07.0 Fatty liver K76.0 Additional Codes YANDEL-7 Assessment Billing - YANDEL-7 Assessment Tool: YANDEL-7 Assessment 25662 ([id number]) PHQ-9 - 56282 - PHQ-9 Billing: Yes ([id number]) Assessment & Plan Assessment & Plan (1) Encounter for general adult medical examination with abnormal findings: Code(s): Z00.01 - Encounter for general adult medical examination with abnormal findings Category: Medical (2) Lipid disorder: Code(s): E78.9 - Disorder of lipoprotein metabolism, unspecified Category: Medical (3) Difficulty sleeping: Code(s): G47.9 - Sleep disorder, unspecified Category: Medical (4) Plantar wart of both feet: Code(s): B07.0 - Plantar wart Category: Medical (5) Fatty liver: Code(s): K76.0 - Fatty (change of) liver, not elsewhere classified Category: Medical Plan Physical exam appointment - The patient is a 34-year-old male presenting for a physical exam and management follow-up. - Notable dermatological concern includes warts on the thumb and foot causing discomfort. - History of non-alcoholic fatty liver disease being managed through weight reduction; discussions included BMI and potential impact on liver function. - Past medical history significant for pneumonia, which is resolved. - Currently prescribed Fluvastatin for hyperlipidemia and Zolpidem for insomnia. - Reports no acute complaints or new symptoms outside of dermatological and chronic concerns. Health Maintenance - Ongoing weight management and lifestyle modifications advised for the management of non-alcoholic fatty liver disease. - Discussed BMI and the need for weight reduction to target ideal body weight. Medications - Fluvastatin for hyperlipidemia - Zolpidem for insomnia Diagnostic results - Imaging: CT chest results were normal, indicating resolution of previous pneumonia. - BMI calculation discussed, currently at 32.6. Patient Instructions - Advise the patient to use uhiv-fvv-rmxjxwo treatments for warts to manage skin. While waiting to see the Dermatology, referral placed - Encouraged to continue weight loss efforts to improve liver health. - Advised to complete prescribed lab work promptly. Orders: Orders Comprehensive [place]. Panel Fast Today E78.9 - Disorder of lipoprotein metabolism, unspecified, G47.9 - Sleep disorder, unspecified, Z00.01 - Encounter for general adult medical examination with abnormal findings Lipid Panel Today E78.9 - Disorder of lipoprotein metabolism, unspecified, G47.9 - Sleep disorder, unspecified, Z00.01 - Encounter for general adult medical examination with abnormal findings Referrals Dermatology Referral B07.0 - Plantar wart Medications: Refilled fluvastatin 40 mg PO BEDTIME 90 days 90 caps 1RF zolpidem (Ambien) 5 mg PO BEDTIME 90 days PRN 55 tabs 0RF insomnia G47.9 - Sleep disorder, unspecified
--- OUTSIDE RECORDS SUMMARY | 2024-12-06 11:01 | XMS_ITS | Clinical Summary ---
Author Organization [facility] Address [address] [place] [address] Phone Care Team Providers Care Baggage Porter Name Role Phone Kristy Lilly MD Primary Care Provider [phone] Immunizations Name Administration Dates Next Due DTaP 5 04/20/1995, 2,1990,09/11,1990 Hep B, ped/adol 10/26/2001,06/22/2001,04/26/2001 Hib (PRP-T) 08/13/1991, 1,02/21/1991,11/20 IPV 11/20/1991 MMR 05/10/1995,08/13/1991 Meningococcal Conj (Menactra) MCV4P 05/26/2006 OPV 05/10/1995, 1,1990,07/10 Td (adult) (MBL), 2 Lf tetan us toxoid, PF, adsorbed 04/26/2001 Tdap 01/24/2008 Varicella 02/11/1996 Family History Relation Name Status Comments Father Alive Father: Alive a nd well Maternal Grandfather Materna l grandfather: cardiac, Mother Alive Mother: Alive a nd well Paternal Grandfather Paterna l grandfather: emphysema, Paternal Grandmother Paterna l grandmother: cardiac, Social History Tobacco Use Types Packs/Day Years Used Date Smoking Tobacco: Never Assessed Sex and Gender Information Value Date Recorded Sex Assigned at Not on file Legal Sex Male 4:26 PM EDT Gender Identity Not on file Sexual Orientation Not on file Plan of Treatment Health Maintenance Due Date Last Done Comments Varicella Vaccines (2 of 2 - 2-dose childhood series) 05/05/1996 02/11/1996 DTaP,Tdap,and Td Vaccines (7 - Td or Tdap) 01/23/2018 01/24/2008, 04/26/2001, 04/20/1995, Additional history exists Influenza Vaccines (#1) 2024 COVID-19 Vaccine (1 - season) 2024 HIB Vaccines Completed 08/13/1991, 04/14, 02/21/1991, Additional history exists IPV Vaccines Completed 05/10/1995, 06/1992, 1990, Additional history exists MMR Vaccines Completed 05/10/1995, 08/13/1991 Hepatitis B Vaccines Completed 10/26/2001, 06/22/2001, 04/26/2001 Meningococcal Vaccine Completed 05/26/2006 HPV Vaccines Aged Out No longer eligi ble based on patient's age to complete this topic Hepatitis A Vaccines Aged Out No long er eligible based on patient's age to complete this topic Men B Vaccine Aged Out No longer elig ible based on patient's age to complete this topic Pneumococcal Vaccine Aged Out No long er eligible based on patient's age to complete this topic Care Teams Baggage Porter Relationship Specialty Start Date End Date Kristy Lilly MD [address] [facility] [place] [address] PCP - General 06/23/17
--- OUTSIDE RECORDS SUMMARY | 2024-12-06 11:02 | XMS_ITS | Continuity of Care Document ---
Author Name [facility] Organization [facility] Care Team Providers Care Plate Washer Name Role Phone [facility] Unavailable Unavailable Problems Combined list of problems from Department of Defense and Veterans Affairs facilities. It does not include entries that were removed or entered in error. Problem Status Onset Date Problem Type Date of Resolution Comments Source visit for: services physical pre-deployment Inactive 017 Condition [facility] hemorrhoids external Inactive 017 Condition [facility] unspecified muscle strain Inactive 016 Condition [facility] ankle joint pain Inactive 016 Condition [facility] joint pain, localized in the knee Active Condition [facility] Alcohol Abuse ([facility] [id number]) Active Condition Oct 06, 2021 Entered By: TREVOR TOMPKINS Comment: In [facility] GERD - Gastro-esophageal reflux disease Active Condition [facility] D Hypercholesterolemia Active Condition V A [facility] Pain of joint of knee Active Condition [place] PTSD - Post-traumatic stress disorder Active Condition [facility] LD Medications Combined list of outpatient [...] ORAL, AUROBINDO PHARM, 30 ea. BOTTLE Active [id number] 4 2023 5 Pharmac y Data Transac tion Service Facilit y CEFUROXIME (CEFUROXIME AXETIL), 500 MG, TABLET, ORAL, AUROBINDO PHARM, 20 ea. BOTTLE Active [id number] 4 2023 10 Pharmac y Data Transac [...] ORAL, MYLAN, 30 ea. BOTTLE Cancele d [id number] : 2023 0 Pharmac y Data Transac tion Service Facilit y FLUVASTATIN SODIUM (FLUVASTATI N SODIUM), 40 MG, CAPSULE, ORAL, MYLAN, 30 ea. BOTTLE Cancele d [id number] : 2023 0 Pharmac y Data Transac tion Service Facilit y ZOLPIDEM TARTRATE (ZOLPIDEM TARTRATE), 5MG, TABLET, ORAL, AUROBINDO PHARM, 100 ea. BOTTLE Active [id number] 4 2023 45 Pharmac y Data Transac tion Service Facilit y ZOLPIDEM TARTRATE (ZOLPIDEM TARTRATE), 5MG, TABLET, ORAL, AUROBINDO PHARM, 100 ea. BOTTLE Active [id number] 4 2023 45 Pharmac y Data Transac tion Service Facilit y ZOLPIDEM TARTRATE (ZOLPIDEM TARTRATE), 5MG, TABLET, ORAL, AUROBINDO PHARM, 100 ea. BOTTLE Active [id number] 4 2023 45 Pharmac y Data Transac tion Service Facilit y Allergies, Adverse Reactions, Alerts Combined list of allergies from Department of Defense and Veterans Affairs facilities. It does not include entries that were removed or entered in error. Substance Category Reaction Severity Reaction type Status Date Reported Comments Source BUSPIRONE Drug allergy (disorder) active 1 [facility] busPIRone Propensity to adverse reactions to drug Active 1 [place] [facility] [place] [place] Ambulatory Pharmacy Immunizations Combined list of available immunizations from the Department of Defense and Veterans Affairs facilities. Immunization Series Date Given Administered By Site Reaction Lot Number CVX Code Drug Director Product Status Comments Source influenza, injectable, quadrivalent- pf [...] [facility] COVID Vaccine Pfizer 2020 [id number] complet ed COVID Vaccine Pfizer 01/16/21 [...] [facility] influenza, injectable, quadrivalent- pf 2019 [id number] 150 Seqirus complet ed influenza , injectabl e, quadrival ent-pf 09/20/20 Given Ambulat ory Pharmac y influenza, injectable, quadrivalent, preservative free 2018 DOMINIQUE, () Not Given influenza , injectabl e, quadrival ent, preservat shanna free DoD tetanus, diphtheria, acellular pertu is 2018 115 complet ed tetanus, diphtheri a, acellular pertussis 05/14/19 Given Ambulat ory Pharmac y influenza, injectable, quadrivalent 2017 [id number] complet ed influenza , injectabl e, quadrival ent 08/25/18 Given Ambulat ory Pharmac y influenza, injectable, quadrivalent- pf 2017 150 sanofi pasteur complet ed influenza , injectabl e, quadrival ent-pf 08/25/18 Given Ambulat ory Pharmac y influenza, injectable, quadrivalent 2016 [id number] ID Biomedical comple t ed influenza , injectabl e, quadrival ent 10/15/17 Given Ambulat ory Pharmac y tuberculin purified protein derivative 2016 [id number] sanofi pasteur complet ed tuberculi n purified protein derivativ e 04/15/17 Given Ambulat ory Pharmac y influenza, seasonal, injectable 2015 [id number] 141 Seqirus complet ed influenza , seasonal, injectabl e 09/23/16 Given Ambulat ory Pharmac y anthrax vaccine 2015 [id number] Emergent Biosolutions complet ed anthrax vaccine 09/23/16 Given Ambulat ory Pharmac y anthrax vaccine 2015 [id number] [employer] complet ed anthrax vaccine 03/25/16 Given Ambulat ory Pharmac y typhoid Vi capsular polysaccharid e vac 2015 [id number] sanofi pasteur complet ed typhoid Vi capsular polysacch aride vac 02/18/16 Given Ambulat ory Pharmac y anthrax vaccine 2015 [id number] [employer] complet ed anthrax vaccine 02/18/16 Given Ambulat ory Pharmac y influenza, seasonal, injectable-pf 2014 [id number] 140 CSL Behring complet ed influenza , seasonal, injectabl e-pf 08/09/15 Given Ambulat ory Pharmac y Influenza, injectable, MDCK-pf 2013 [id number] Novartis Pharmaceutica ls complet ed Influenza [...] ory Pharmac y adenovirus vaccine, live 2012 [id number] 143 Teva Pharm[employer]ica complet ed adenoviru s vaccine, live 08/01/13 Given Ambulat ory Pharmac y tuberculin purified protein derivative 2012 [id number] 96 [facility] complet ed tuberculi n purified protein derivativ e 08/01/13 Given Ambulat ory Pharmac y tetanus, diphtheria, acellular pertu is 2012 [id number] 115 REM ENTERPRISEKli ne complet ed tetanus, diphtheri a, acellular pertussis 08/01/13 Given Ambulat ory Pharmac y meningococcal A,C,Y,W-135 (MCV4P) 2012 [id number] 114 sanofi pasteur complet ed meningoco ccal [...] Prevention' s HIV diagnostic algorithm. Refer to [facility] Lab Guide for additional information : [email or web address] x Testing performed by [...] months. 2) Encounters from the Department of [facility] facilities going back up to 280 months. Location Location Details Encounter Type Encounter Number Reason For Visit Attending Provider ADM Date DC Date Status Disposition Source Theater Facility OUTPATIENT [id number] Theater Provider 07/23 Released with Work/Duty Limitations Theater Facilit y Theater Facility OUTPATIENT [id number] Theater Provider 10/13 Released w/o Limitations Theater Facilit y Theater Facility OUTPATIENT [id number] Theater Provider 11/28 Released w/o Limitations Theater Facilit y Theater Facility OUTPATIENT [id number] Theater Provider 12/10 Released w/o Limitations Theater Facilit y [facility] Outpatient [facility]counter [id number] 03/09 [facility] En[facility] [id number] 03/12 [facility] Outpatient Encounter [id number] 03/12 [facility] Procedures Combined list of: 1) Procedures from Department of Veterans Affairs facilities [facility], not all [place] non-surgical procedures are included; 2) All procedures from the Department of [facility] facilities. Procedure Procedure Type Code Date Perfomer Comments Sourc e THERAPEUTIC, PROPHYLACTIC, OR DIAGNOSTIC INJECTION (SPECIFY SUBSTANCE OR DRUG); SUBCUTANEOUS OR INTRAMUSCULAR 08/12/2013 [facility] No data available for this section Ambulato ry Pharmacy Social History Combined list of available smoking, tobacco, and other social history from Department of Defense and Veterans Affairs facilities. Social History Type Response Date Comment Sour e Tobacco smoking status NHIS VA-TOBACCO FORMER USER 021 [place] History of tobacco use VA-TOBACCO QUIT < 1 YEAR 07/15/2021 [place] This section is an empty social history [...] at Department of Defense and Veterans Affairs ([place]VA Functional [place]cock Measurement (FIM) Scale: 1 = Total Assistance (Subject = 0% +), 2 = Maximal Assistance (Subject = 25% +), 3 = Moderate Assistance (Subject = 50% +), 4 = Minimal Assistance (Subject = 75% +), 5 = Supervision, 6 = Modified Glasscock (Device), 7 = Complete Glasscock (Timely, Safely). Assessment Date/Time Source Assessment Type Assessment Skill Assessment Score Assessment Details No data available for this section
--- OUTSIDE RECORDS SUMMARY | 2024-12-06 11:02 | XMS_ITS | Encounter Summary ---
Author Organization [facility] Address [address] [place] [address] Phone Care Team Providers Care Kitchen Runner Name Role Phone Kristy Lilly MD Primary Care Provider [phone] Encounter Details Date Type Department Care Team (Late st Contact Info) Description 06/29/2017 Conversion Encounter [facility] [address] [place] [address] Social History Tobacco Use Types Packs/Day Years Used Date Smoking Tobacco: Never Assessed Sex and Gender Information Value Date Recorded Sex Assigned at Not on file Legal Sex Male 4:26 PM EDT Gender Identity Not on file Sexual Orientation Not on file documented as of this encounter Plan of Treatment Not on file documented as of this encounter Visit Diagnoses Not on filedocumented in this encounter Care Teams Kitchen Runner Relationship Specialty Start Date End Date Kristy Lilly MD [address] [place] [address] PCP - General 06/23/17 documented as of this encounter
== END 2024-12-06 10:22 | disposition home or self-care (01) ==
PROVIDERS: PCP Internal Medicine; Visit Provider Internal Medicine
DX: Z00.00 Encounter for general adult medical examination without abnormal findings (principal); E78.9 Disorder of lipoprotein metabolism, unspecified; G47.9 Sleep disorder, unspecified; B07.0 Plantar wart; K76.0 Fatty (change of) liver, not elsewhere classified

== ENCOUNTER 2025-02-18 09:02 | Outpatient (AMB) | payer OTHER, SELFPAY ==
--- NOTE | 2025-02-18 09:08 | A.OFFPC_ITS ---
Vital Signs 02/18/25 09:09 Height 5 ft 10 in Weight 231 lb BMI 33.1 BP 100/70 Blood Pressure Location Rt brachial Position Sitting Respiration 18 Pulse 77 Pulse Source Pulse Oximeter Temp 98.0 F Temp Source Oral Pulse Oximetry (%) 99 Oxygen Delivery Method Room Air Intake Visit Reasons: 11 weeks f/u Allergies acetaminophen [From Vicodin] Allergy (Unknown, Verified 02/18/25 09:10) nausea hydrocodone [From Vicodin] Allergy (Unknown, Verified 02/18/25 09:10) nausea Medication List - Last Reconciled 02/18/25 by Zander Hugo MD fluvastatin 40 mg PO BEDTIME 90 days zolpidem (Ambien) 5 mg PO BEDTIME PRN 90 days Tobacco use date assessed: 02/18/25 Dental Screening Dental Screen Date: 02/18/25 Did you have a dental visit in the last 12 months?: Yes Did you have a dental problem in the last 6 months where you did not have access to dental care?: No Was dental information given to patient?: Patient has dentist HPI 11 weeks f/u HPI Details History The patient is a 34-year-old male presenting for follow-up three-month appointment for medication refill - History of skin warts treated with cry otherapy by a support director; next follow-up is scheduled for further evaluation and treatment. - Recent labs indicate controlled hyperl ipidemia with LDL improved to 123 mg/dL on Fluvastatin 40 mg. - Hemorrhoids are stable with occasional bleeding. - IBS noted with episodes of diarrhea an d constipation, patient reports stability in symptoms. - Psychiatric disorders, including anxie ty, depression, and PTSD, are controlled by the patient's report. - Migraine headaches occur sporadically in association with stress; patient declines medicinal therapy for prevention. Problem List - Skin Warts on Both Feet and Thumb - Hyperlipidemia - Hemorrhoids - Irritable Bowel Syndrome (IBS) - Anxiety - Depression - Post-Traumatic Stress Disorder (PTSD) - Migraine Headaches Patient Instructions - Ensure to have lab work done before e next visit in three months. - Continue taking Fluvastatin 40 mg as p rescribed. - Maintain dietary modifications to assi st in managing cholesterol levels. - Monitor hemorrhoidal symptoms; contact care provider if there is significant bleeding. - Attend scheduled follow-up appointment with the support director for treatment of skin warts. - Manage IBS symptoms with adequate hydr ation and diet modifications. - Address stress management for control of migraines, anxiety, depression, and PTSD. Review of Systems - General: No fever no chills - Neurological: no dizziness - Ear nose throat: No sore throat no hearing difficulty no ear pain - Cardiovascular: No syncope, no chest pain, no palpitations - Gastrointestinal: No nausea vomiting or diarrhea - Endocrine: No polyuria polydipsia no heat intolerance - Genitourinary: No dysuria , no blood in urine Physical Exam General: No acute distress HEENT: No acute findings Neck: Supple Respiratory system: Able to talk in full sentences, no audible wheeze Cardiovascular: S1-S2 regular in rate and rhythm Gastrointestinal: Diarrhea and constipation present Extremities: Warts on both feet and thumb CREATIVE WRITING TEACHER: Alert awake oriented x3 motor sensory intact Skin: Normal turgor PFSH Medical History Lipid disorder Difficulty sleeping Surgical History History of shoulder surgery Family History Father No problems noted. Mother No problems noted. Social History Household Members: None Housing: House Alcohol intake: former Patient Tobacco Use Status: Never used Tobacco e-Cigarette/Vaping Use: Never Used service: No Current occupational status: employed Cognitive needs: No Hearing needs: No Vision needs: No Questionnaire Thrive Questionnaire Date Thrive assessed: 12/06/24 YANDEL-7 AMB Questionnaire YANDEL-7 Date YANDEL - 7 assessed: 12/06/24 Source: Developed by Drs. Yayo Garner, Jo Dickinson, Parmjit Ryan and colleagues, with an educational halley from [employer]. Physical exam (Primary Care) Vital Signs: Last Vital Signs Temp 98.0 F 02/18/25 09:09 Pulse 77 02/18/25 09:09 Resp 18 02/18/25 09:09 BP 100/70 02/18/25 09:09 Pulse Ox 99 02/18/25 09:09 Oxygen Delivery Method Room Air 02/18/25 09:09 BMI result Body Mass Index 33.1 Tobacco/Smoking Status: Tobacco use Status Tobacco use date assessed 02/18/25 02/18/25 09:12 Patient Tobacco Use Status Never used Tobacco 02/18/25 09:09 e-Cigarette/Vaping Use Never Used 02/18/25 09:09 Thrive Assessment: Date of Thrive Assessment Date Thrive assessed 12/06/24 02/18/25 09:09 Coding Level of Care Code Est Pt Level 4 (04737) Diagnoses Lipid disorder E78.9 Difficulty sleeping G47.9 Anxiety, generalized F41.1 PTSD (post-traumatic stress disorder) F43.10 Irritable bowel syndrome with alternating bowel habits K58.2 External hemorrhoids without complication K64.4 Fatty liver K76.0 Plantar wart of both feet B07.0 Assessment & Plan Assessment & Plan (1) Lipid disorder: Code(s): E78.9 - Disorder of lipoprotein metabolism, unspecified Category: Medical (2) Difficulty sleeping: Code(s): G47.9 - Sleep disorder, unspecified Category: Medical (3) Anxiety, generalized: Code(s): F41.1 - Generalized anxiety disorder Category: Medical (4) PTSD (post-traumatic stress disorder): Code(s): F43.10 - Post-traumatic stress disorder, unspecified Category: Medical (5) Irritable bowel syndrome with alternating bowel habits: Code(s): K58.2 - Mixed irritable bowel syndrome Category: Medical (6) External hemorrhoids without complication: Code(s): K64.4 - Residual hemorrhoidal skin tags Category: Medical (7) Fatty liver: Code(s): K76.0 - Fatty (change of) liver, not elsewhere classified Category: Medical (8) Plantar wart of both feet: Code(s): B07.0 - Plantar wart Category: Medical Plan History The patient is a 34-year-old male presenting for follow-up three-month appointment for medication refill [Ambien] - History of skin warts treated with cryotherapy by a support director; next follow-up is scheduled for further evaluation and treatment. - Recent labs indicate controlled hyperlipidemia with LDL improved to 123 mg/dL on Fluvastatin 40 mg. - Hemorrhoids are stable with occasional bleeding. - IBS noted with episodes of diarrhea and constipation, patient reports stability in symptoms. - Psychiatric disorders, including anxiety, depression, and PTSD, are controlled by the patient's report. - Migraine headaches occur sporadically in association with stress; patient declines medicinal therapy for prevention. Problem List - Skin Warts on Both Feet and Thumb - Hyperlipidemia - Hemorrhoids - Irritable Bowel Syndrome (IBS) - Anxiety - Depression - Post-Traumatic Stress Disorder (PTSD) - Migraine Headaches - difficulty sleeping Patient Instructions - Ensure to have lab work done before the next visit in three months. - Continue taking Fluvastatin 40 mg as prescribed. - Maintain dietary modifications to assist in managing cholesterol levels. - Monitor hemorrhoidal symptoms; contact care provider if there is significant bleeding. - Attend scheduled follow-up appointment with the support director for treatment of skin warts. - Manage IBS symptoms with adequate hydration and diet modifications. - Address stress management for control of migraines, anxiety, depression, and PTSD. Orders: Orders Complete Blood Count Auto Diff 2 Months E78.9 - Disorder of lipoprotein metabolism, unspecified, F41.1 - Generalized anxiety disorder, F43.10 - Post- traumatic stress disorder, unspecified, G47.9 - Sleep disorder, unspecified, K58.2 - Mixed irritable bowel syndrome, K64.4 - Residual hemorrhoidal skin tags, K76.0 - Fatty (change of) liver, not elsewhere classified Lipid Panel 2 Months E78.9 - Disorder of lipoprotein metabolism, unspecified, F41.1 - Generalized anxiety disorder, F43.10 - Post-traumatic stress disorder, unspecified, G47.9 - Sleep disorder, unspecified, K58.2 - Mixed irritable bowel syndrome, K64.4 - Residual hemorrhoidal skin tags, K76.0 - Fatty (change of) liver, not elsewhere classified Comprehensive [place]. Panel Fast 2 Months E78.9 - Disorder of lipoprotein metabolism, unspecified, F41.1 - Generalized anxiety disorder, F43.10 - Post- traumatic stress disorder, unspecified, G47.9 - Sleep disorder, unspecified, K58.2 - Mixed irritable bowel syndrome, K64.4 - Residual hemorrhoidal skin tags, K76.0 - Fatty (change of) liver, not elsewhere classified Medications: Refilled zolpidem (Ambien) 5 mg PO BEDTIME 90 days PRN 45 tabs 0RF insomnia G47.9 - Sleep disorder, unspecified
[2025-02-18 09:09] VITALS: BP 100/70; PULSE 77; RESP 18; TEMP 36.7; O2SAT 99; BMI 33.1
--- OUTSIDE RECORDS SUMMARY | 2025-02-18 09:52 | XMS_ITS | Clinical Summary ---
Author Organization [facility] Address [address] [place] [address] Phone Care Team Providers Care Rock Dust Sprayer Name Role Phone Kristy Lilly MD Primary Care Provider [phone] Immunizations Immunization Administration Dates Next Due DTaP 5 04/20/1995, [...] age to complete this topic Care Teams Rock Dust Sprayer Relationship Specialty Start Date End Date Kristy Lilly MD [address] [facility] [place] [address] PCP - General 06/23/17
--- OUTSIDE RECORDS SUMMARY | 2025-02-18 09:52 | XMS_ITS | Encounter Summary ---
Author Organization [facility] Address [address] [place] [address] Phone Care Team Providers Care Resource Efficiency Manager Name Role Phone Kristy Lilly MD Primary Care Provider [phone] Encounter Details Date Type Department Care Team (Late st Contact Info) Description 06/29/2017 Conversion Encounter [facility] [place] [address] [place] [address] Social History Tobacco Use Types Packs/Day Years [...] on filedocumented in this encounter Care Teams Resource Efficiency Manager Relationship Specialty Start Date End Date Kristy Lilly MD [address] [place] [address] PCP - General 06/23/17 documented as of this encounter
== END 2025-02-18 09:26 | disposition home or self-care (01) ==
LOC: HO.HMCC 09:02
PROVIDERS: PCP Internal Medicine; Visit Provider Internal Medicine
DX: E78.9 Disorder of lipoprotein metabolism, unspecified (principal); G47.9 Sleep disorder, unspecified; F41.1 Generalized anxiety disorder; F43.10 Post-traumatic stress disorder, unspecified; K58.2 Mixed irritable bowel syndrome; K64.4 Residual hemorrhoidal skin tags; K76.0 Fatty (change of) liver, not elsewhere classified; B07.0 Plantar wart

== ENCOUNTER → 2025-02-18 09:02 | Outpatient (BNVA) | payer OTHER, SELFPAY | PROVIDERS: PCP Internal Medicine; Visit Provider Internal Medicine | DX: E78.5 Hyperlipidemia, unspecified (principal); G43.909 Migraine, unspecified, not intractable, without status migrainosus; E78.9 Disorder of lipoprotein metabolism, unspecified; G47.9 Sleep disorder, unspecified; F41.1 Generalized anxiety disorder; F43.10 Post-traumatic stress disorder, unspecified; K58.2 Mixed irritable bowel syndrome; K64.4 Residual hemorrhoidal skin tags; K76.0 Fatty (change of) liver, not elsewhere classified; B07.0 Plantar wart | CPT/HCPCS: 99212 ==

== ENCOUNTER 2025-05-21 08:44 | Outpatient (AMB) | payer OTHER, SELFPAY ==
[2025-05-21 08:48] VITALS: BP 122/80; PULSE 80; TEMP 36.3; O2SAT 97; BMI 18.5
--- NOTE | 2025-05-21 08:48 | A.OFFPC_ITS ---
Vital Signs 05/21/25 08:48 Height 5 ft 10 in Weight 129 lb 4 oz BMI 18.5 BP 122/80 Blood Pressure Location Rt brachial Position Sitting Pulse 80 Pulse Source Pulse Oximeter Temp 97.4 F Temp Source Oral Pulse Oximetry (%) 97 Intake Visit Reasons: 3m follow up Allergies acetaminophen (From Vicodin) Allergy (Unknown, Verified 05/21/25 08:53) nausea hydrocodone (From Vicodin) Allergy (Unknown, Verified 05/21/25 08:53) nausea Medication List - Last Reconciled 05/21/25 by Zander Hugo MD fluvastatin 40 mg PO BEDTIME 90 days zolpidem (Ambien) 5 mg PO BEDTIME PRN 90 days Tobacco use date assessed: 05/21/25 Dental Screening Dental Screen Date: 05/21/25 Did you have a dental visit in the last 12 months?: Yes Did you have a dental problem in the last 6 months where you did not have access to dental care?: No Was dental information given to patient?: Patient has dentist HPI 3m follow up HPI Details History - The patient is a 35-year-old male pres enting for a medication refill of Zolpidem and Fluvastatin. - The last comprehensive blood work, inc luding CBC, was performed in June of the previous year. - A metabolic profile was conducted in [facility], which reportedly yielded favorable results. - patient was supposed to have labs done before this visit but he forgot, he promised me that he will have it done this week. - he offers no new complaints today Medications: - Zolpidem, requested for refill (indica tion not specified in conversation). - Fluvastatin, requested for refill (ind ication not specified in conversation). 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 - The patient's older children are atten ding a camp, while the youngest is not, necessitating alternate childcare arrangements with the patient's spouse. - The patient's spouse and he manage wor k schedules and childcare by alternating responsibilities and adjusting work meetings. Patient Instructions - continue medications as prescribed - Book a follow-up appointment for three months. - complete blood test fasting Review of Systems - General: No fever no chills - Neurological: No headaches no dizziness - Ear nose throat: No sore throat no hearing difficulty no ear pain - Cardiovascular: No syncope, no chest pain, no palpitations - Gastrointestinal: No nausea vomiting or diarrhea - Endocrine: No polyuria polydipsia no heat intolerance - Genitourinary: No dysuria , no blood in urine Physical Exam - General: No acute distress - HEENT: No acute findings - Neck: Supple - Respiratory system: Able to talk in f ull sentences, no audible wheeze - Cardiovascular: S1-S2 regular in rate and rhythm - Gastrointestinal: No pain - Extremities: No new findings - INVOICE CLASSIFICATION CLERK: Alert awake oriented x3 motor se nsory intact - Skin: Normal turgor PFSH Medical History Lipid disorder Difficulty sleeping Surgical History History of shoulder surgery Family History Father No problems noted. Mother No problems noted. Social History Household Members: None Housing: House Alcohol intake: former Patient Tobacco Use Status: Never used Tobacco e-Cigarette/Vaping Use: Never Used service: No Current occupational status: employed Cognitive needs: No Hearing needs: No Vision needs: No Questionnaire PHQ-9 Over the last 2 weeks, how often have you been bothered by any of the following problems? 1. Little interest or pleasure in doing things: not at all 2. Feeling down, depressed, or hopeless: not at all 3. Trouble falling or staying asleep, or sleeping too much: several days 4. Feeling tired or having little energy: not at all 5. Poor appetite or overeating: not at all 6. Feeling bad about yourself - or that you are a failure or have let yourself or your family down: not at all 7. Trouble concentrating on things, such as reading the newspaper or watching television: not at all 8. Moving or speaking so slowly that other people could have noticed. Or the opposite - being so fidgety or restless that you have been moving around a lot more than usual: not at all 9. Thoughts that you would be better off or of hurting yourself in some way: not at all Total score: 1 Depression Screening Interpretation: Negative Depression Screening Done: Yes 38635 - PHQ-9 Billing: Yes Source: Developed by Drs. Yayo Garner, Parmjit Michaels and colleagues, with an educational halley from [employer]. Thrive Questionnaire Date Thrive assessed: 12/06/24 I am a: Patient What is your living situation today?: I have a steady place to live Within the past 12 months, did the food you bought not last and you didn't have the money to get more?: Never true Within the past 12 months, did you worry whether your food would run out before you got money to buy more?: Never true Do you have trouble paying for medicines?: No Do you have trouble getting transportation to medical appointments?: No Do you have trouble paying your heating and electricity bill?: No Do you have trouble taking care of your child, family member or friend?: No Do you have trouble with day-to-day activities such as bathing, preparing meals, shopping, managing finances, etc.?: No Are you currently unemployed and looking for a job?: No Are you interested in more education?: No Please select the resources that you would like help with: None Currently or been in a relationship where the following occur: No concerns reported THRIVE Score: 0 YANDEL-7 AMB Questionnaire YANDEL-7 Date YANDEL - 7 assessed: 12/06/24 Source: Developed by Drs. Yayo Garner, Parmjit Michaels and colleagues, with an educational halley from [employer]. Physical exam (Primary Care) Vital Signs: Last Vital Signs Temp 97.4 F 05/21/25 08:48 Pulse 80 05/21/25 08:48 BP 122/80 05/21/25 08:48 Pulse Ox 97 05/21/25 08:48 BMI result Body Mass Index 18.5 Tobacco/Smoking Status: Tobacco use Status Tobacco use date assessed 05/21/25 05/21/25 08:54 Patient Tobacco Use Status Never used Tobacco 05/21/25 08:54 e-Cigarette/Vaping Use Never Used 05/21/25 08:54 PHQ-9: PHQ-9 Score PHQ-9: Total score 1 05/21/25 09:00 Depression Screening Interpretation: Negative Thrive Assessment: Date of Thrive Assessment Date Thrive assessed 12/06/24 05/21/25 08:54 Currently or been in a relationship where the following occur: No concerns reported Coding Level of Care Code Est Pt Level 3 (72678) Diagnoses Lipid disorder E78.9 Difficulty sleeping G47.9 Anxiety, generalized F41.1 PTSD (post-traumatic stress disorder) F43.10 Irritable bowel syndrome with alternating bowel habits K58.2 Additional Codes PHQ-9 - 89853 - PHQ-9 Billing: Yes ([id number]) Assessment & Plan Assessment & Plan (1) Lipid disorder: Code(s): E78.9 - Disorder of lipoprotein metabolism, unspecified Category: Medical (2) Difficulty sleeping: Code(s): G47.9 - Sleep disorder, unspecified Category: Medical (3) Anxiety, generalized: Code(s): F41.1 - Generalized anxiety disorder Category: Medical (4) PTSD (post-traumatic stress disorder): Code(s): F43.10 - Post-traumatic stress disorder, unspecified Category: Medical (5) Irritable bowel syndrome with alternating bowel habits: Code(s): K58.2 - Mixed irritable bowel syndrome Category: Medical Plan History - The patient is a 35-year-old male with a history of PTSD, anxiety, difficulty sleeping, fatty liver, IBS, presenting for a medication refill of Zolpidem and Fluvastatin. - The last comprehensive blood work, including CBC, was performed in June of the previous year. - A metabolic profile was conducted in November, which reportedly yielded favorable results. - patient was supposed to have labs done before this visit but he forgot, he promised me that he will have it done this week. - he offers no new complaints today Medications: - Zolpidem, requested for refill (indication not specified in conversation). - Fluvastatin, requested for refill (indication not specified in conversation). 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 - The patient's older children are attending a camp, while the youngest is not, necessitating alternate childcare arrangements with the patient's spouse. - The patient's spouse and he manage work schedules and childcare by alternating responsibilities and adjusting work meetings. Patient Instructions - continue medications as prescribed - Book a follow-up appointment for three months. - complete blood test fasting Medications: Refilled fluvastatin 40 mg PO BEDTIME 90 caps 1RF 90 days zolpidem (Ambien) 5 mg PO BEDTIME PRN 45 tabs 0RF insomnia 90 days G47.9 - Sleep disorder, unspecified
--- OUTSIDE RECORDS SUMMARY | 2025-05-21 08:56 | XMS_ITS | Continuity of Care Document ---
Author Name [facility] Organization [facility] Care Team Providers Care Substitute School Nurse Name Role Phone [facility] Unavailable Unavailable Problems Combined list of problems from Department of Defense and Veterans Affairs facilities. It does not include entries that were removed or entered in error. 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 Inactive 017 Condition [facility] UNSPECIFIED MUSCLE STRAIN Inactive 016 Condition [facility] ankle joint pain Inactive 016 Condition [facility] joint pain, localized in the knee Active Condition [facility] Alcohol Abuse ([facility] [id number]) Active Condition Oct 06, 2021 Entered By: TREVOR TOMPKINS Comment: In [facility] [place] [facility] GERD - Gastro-esophageal reflux disease Active Condition [facility] D Hypercholesterolemia Active Condition V A [facility] Pain of joint of knee Active Condition [facility] PTSD - Post-traumatic stress disorder Active Condition [facility] LD Medications Combined list of outpatient [...] ORAL, AUROBINDO PHARM, 30 ea. BOTTLE Active [id number] 4 2023 5 Pharmac y Data Transac tion Service Facilit y CEFUROXIME (CEFUROXIME AXETIL), 500 MG, TABLET, ORAL, AUROBINDO PHARM, 20 ea. BOTTLE Active [id number] 4 2023 10 Pharmac y Data Transac tion Service Facilit y COENZYME Q10 CAP/TAB TAKE BY MOUTH ONCE DAILY ORAL ACTIVE CAMILA HAMMOND 2021 [place] FLUVASTATIN NA 20MG CAP TAKE 1 CAPSULE BY MOUTH ONCE DAILY ORAL ACTIVE CAMILA HAMMOND [place] FLUVASTATIN NA 20MG CAP TAKE 1 CAPSULE BY MOUTH ONCE DAILY ORAL ACTIVE CAMILA HAMMOND 2021 [place] ZOLPIDEM TARTRATE (ZOLPIDEM TARTRATE), 5MG, TABLET, ORAL, AUROBINDO PHARM, 100 ea. BOTTLE Active [id number] 4 2023 45 Pharmac y Data Transac tion Service Facilit y ZOLPIDEM TARTRATE (ZOLPIDEM TARTRATE), 5MG, TABLET, ORAL, AUROBINDO PHARM, 100 ea. BOTTLE Active [id number] 4 2023 45 Pharmac y Data Transac tion Service Facilit y Allergies, Adverse Reactions, Alerts Combined list of allergies from Department of Defense and Veterans Affairs facilities. It does not include entries that were removed or entered in error. Substance Category Reaction Severity Reaction type Status Date Reported Comments Source BUSPIRONE Drug allergy (disorder) active 1 [facility] Immunizations Combined list of available immunizations from the Department of Defense and Veterans Affairs facilities. Immunization Series Date Given Administered By Site Reaction Lot Number CVX Code Drug Oral And Maxillofacial Pathologist Status Comments Source INFLUENZA, UNSPECIFIED FORMULATION 2020 88 complet ed [place] [facility] [place] [facility] COVID-19 (PFIZER), MRNA, LNP-S, PF, 30 MCG/0.3 ML DOSE 2 2020 208 complet ed [place] [facility] [place] [facility] COVID-19 (PFIZER), MRNA, LNP-S, PF, 30 MCG/0.3 ML DOSE 1 2020 [facility] influenza, injectable, quadrivalent, preservative free 2018 DOMINIQUE, () Not Given influenza , injectabl e, quadrival ent, preservat shanna free [facility] Encounters Combined list of: 1) Encounters from Department of Veterans Affairs facilities going backup to the last 18 months, not all VA inpatient encounters are included; 2) Encounters from the Department of Defense facilities going backup to 280 months. Location Location Details Encounter Type Encounter Number Reason For Visit Attending Provider ADM Date DC Date Status Disposition Source Theater Facility OUTPATIENT [id number] Theater Provider 07/23 Released with Work/Duty Limitations Theater Facilit y Theater Facility OUTPATIENT [id number] Theater Provider 10/13 Released w/o Limitations Theater Facilit y Theater Facility OUTPATIENT [id number] Theater Provider 11/28 Released w/o Limitations Theater Facilit y Theater Facility OUTPATIENT [id number] Theater Provider 12/10 Released w/o Limitations Theater Facilit y [facility] Outpatient Encounter [id number] 03/09 [facility] [place] Outpatient Encounter [id number] 03/12 [facility] [place] [facility] [facility] Outpatient Encounter [id number] 03/12 [facility] [place] [facility] [facility] Social History Combined list of available smoking, tobacco, and other social history from Department of Defense and Veterans Affairs facilities. Social History Type Response Date Comment Sourc e Tobacco smoking status [facility] VA-TOBACCO FORMER USER 021 [place] History of tobacco use VA-TOBACCO QUIT < 1 YEAR 07/15/2021 [place] This section is an empty social history section. DoD
--- OUTSIDE RECORDS SUMMARY | 2025-05-21 08:57 | XMS_ITS | Clinical Summary ---
Author Organization [facility] Address [address] [place] [address] Phone Care Team Providers Care Visual Educator Name Role Phone Kristy Lilly MD Primary Care Provider Immunizations Immunization Administration Dates Next Due DTaP [...] 01/23/2018 01/24/2008, 04/26/2001, 04/20/1995, Additional history exists COVID-19 Vaccine ( - season) 2024 Influenza Vaccines (#1) 2025 HIB Vaccines Completed 08/13/1991, 04/14, 02/21/1991, Additional [...] age to complete this topic Care Teams Visual Educator Relationship Specialty Start Date End Date Kristy Lilly MD [address] [facility] [place] [address] PCP - General 06/23/17
== END 2025-05-21 09:03 | disposition home or self-care (01) ==
LOC: HO.HMCC 08:45
PROVIDERS: PCP Internal Medicine; Visit Provider Internal Medicine
DX: E78.9 Disorder of lipoprotein metabolism, unspecified (principal); G47.9 Sleep disorder, unspecified; F41.1 Generalized anxiety disorder; F43.10 Post-traumatic stress disorder, unspecified; K58.2 Mixed irritable bowel syndrome

== ENCOUNTER → 2025-05-21 08:44 | Outpatient (BNVA) | payer OTHER, SELFPAY | PROVIDERS: PCP Internal Medicine; Visit Provider Internal Medicine | DX: E78.9 Disorder of lipoprotein metabolism, unspecified (principal); G47.9 Sleep disorder, unspecified; F41.1 Generalized anxiety disorder; F43.10 Post-traumatic stress disorder, unspecified; K58.2 Mixed irritable bowel syndrome | CPT/HCPCS: 96127; 99212 ==

== ENCOUNTER 2025-08-20 07:51 | Outpatient (REF) | payer OTHER, SELFPAY ==
--- NOTE | ~2025-08-20 | XR_ITS ---
EXAMINATION: XR SHOULDER, LEFT CLINICAL INFORMATION: M25.512 - Pain in left shoulder COMPARISON: None available. TECHNIQUE: 5 views of the left shoulder. FINDINGS: Mild acromioclavicular arthritis. Glenohumeral joint space is maintained. No visible acute fracture or dislocation. No worrisome lytic or blastic lesion. No abnormal soft tissue calcification. XR/XR shoulder LT min 2V IMPRESSION: Mild acromioclavicular arthritis. Electronically signed by: Tulio Wong MD 08/20/2025 09:16 AM EDT
--- NOTE | ~2025-08-20 | XR_ITS ---
EXAMINATION: XR CLAVICLE, LEFT CLINICAL INFORMATION: M25.512 - Pain in left shoulder COMPARISON: None available. TECHNIQUE: Two views of the left clavicle. FINDINGS: Mild acromioclavicular arthritis. Acromioclavicular joint space/alignment is maintained. Sternoclavicular articulation appears maintained. No visible acute fracture. No worrisome lytic or blastic lesions. No abnormal soft tissue calcification.. XR/XR clavicle LT IMPRESSION: Mild acromioclavicular arthritis. No radiographic evidence of acute osseous findings. Electronically signed by: Tulio Wong MD 08/20/2025 09:16 AM EDT
--- OUTSIDE RECORDS SUMMARY | 2025-08-20 07:55 | XMS_ITS | Encounter Summary ---
Author Organization [facility] Address [address] [place] [address] Phone Care Team Providers Care Thread Spooler Name Role Phone Kristy Lilly MD Primary Care Provider [phone] Encounter Details Date Type Department Care Team (Late st Contact Info) Description 06/29/2017 Conversion Encounter [facility] [place] [address] [place] [address] Social History Tobacco Use Types Packs/Day Years [...] on filedocumented in this encounter Care Teams Thread Spooler Relationship Specialty Start Date End Date Kristy Lilly MD [address] [place] [address] PCP - General 06/23/17 documented as of this encounter
--- OUTSIDE RECORDS SUMMARY | 2025-08-20 07:55 | XMS_ITS | Clinical Summary ---
Author Organization [facility] Address [address] [place] [address] Phone Care Team Providers Care Stockroom Attendant Name Role Phone Kristy Lilly MD Primary Care Provider [phone] Immunizations Immunization Administration Dates Next Due DTaP [...] 2 - 2-dose childhood series) 05/05/1996 02/11/1996 HPV Vaccines (1 - 3-dose SCDM series) 2017 DTaP,Tdap,and Td Vaccines (7 - Td or Tdap) 01/23/2018 01/24/2008, 04/26/2001, 04/20/1995, Additional history exists Influenza Vaccines (#1) 2025 COVID-19 Vaccine (2024- season) 2025 HIB Vaccines Completed 08/13/1991, 04/14, 02/21/1991, Additional history exists IPV Vaccines Completed 05/10/1995, 06/1992, 1990, Additional history exists MMR Vaccines Completed 05/10/1995, 08/13/1991 Hepatitis B Vaccines Completed 10/26/2001, 06/22/2001, 04/26/2001 Meningococcal Vaccine Completed 05/26/2006 Hepatitis A Vaccines Aged Out No long er eligible based on patient's age to complete this topic Men B Vaccine Aged Out No longer elig ible based on patient's age to complete this topic Pneumococcal Vaccine Aged Out No long er eligible based on patient's age to complete this topic Care Teams Stockroom Attendant Relationship Specialty Start Date End Date Kristy Lilly MD [address] [place] [address] [place] [id number] PCP - General 06/23/17
[2025-08-20 10:38] LABS: MANUAL DIFF FLAG NO
[2025-08-20 10:43] LABS: Hematocrit 39.7 % (42.0-52.0); Hemoglobin 13.8 g/dl (14.0-18.0); Imm Gran Abs Auto 0.03 X10*3/uL (0.00-0.03); Imm Gran Pct Auto 0.4 % (0.0-0.4); Lymphocytes Absolute Auto 2.0 X10*3/uL (1.2-4.9); Mean Corpuscular HGB Conc 34.8 g/dl (31.0-36.0); Mean Corpuscular Hemoglobin 28.5 pg (27.0-33.0); Mean Corpuscular Volume 82.0 fL (80.0-98.0); NRBC Abs Auto 0.000 X10*3/uL (0.0-0.012); NRBC Pct Auto 0.0 /100WBC (0.0-0.2); Platelet Count 256 X10*3/uL (160-400); Red Blood Count 4.84 X10*6/uL (4.60-5.80); White Blood Count 7.5 X10*3/uL (4.8-10.8)
[2025-08-20 11:03] LABS: Alanine Aminotransferase 41 U/L (0-40); Albumin Level 4.8 g/dL (3.5-5.0); Alkaline Phosphatase 48 U/L (39-117); Anion Gap 11 (12-20); Aspartate Amino Transferase 51 U/L (5-37); Blood Urea Nitrogen 18 mg/dL (9-16); Calcium 9.6 mg/dL (8.4-10.2); Carbon Dioxide 27 mmol/L (22-29); Chloride 104 mmol/L (96-108); Cholesterol 261 mg/dL (<200); Estimated Glomerular Filt Rate > 60; HDL Cholesterol 43 mg/dL (>40); Potassium 3.9 mmol/L (3.3-5.1); Sodium 138 mmol/L (135-145); Total Protein 7.8 g/dL (6.5-8.0); Triglycerides 183 mg/dL (<150)
== END 2025-08-20 07:52 | disposition home or self-care (01) ==
LOC: HO.HMGCX 07:51
PROVIDERS: PCP Internal Medicine; Visit Provider Internal Medicine
DX: Z23 Encounter for immunization (principal); M25.512 Pain in left shoulder; E78.9 Disorder of lipoprotein metabolism, unspecified; G47.9 Sleep disorder, unspecified; F41.1 Generalized anxiety disorder; F43.10 Post-traumatic stress disorder, unspecified; K58.2 Mixed irritable bowel syndrome; K64.4 Residual hemorrhoidal skin tags; K76.0 Fatty (change of) liver, not elsewhere classified; M95.8 Other specified acquired deformities of musculoskeletal system
CPT/HCPCS: 36415; 73000; 73030; 80053; 80061; 85025; 90471; 90656; 96127; 99212

== ENCOUNTER 2025-08-20 08:09 | Outpatient (AMB) | payer OTHER, SELFPAY ==
[2025-08-20 08:19] VITALS: BP 122/80; PULSE 80; O2SAT 99; BMI 32.5
--- NOTE | 2025-08-20 08:19 | MHC.PC.OV ---
Vital Signs 08/20/25 08:19 Height 5 ft 10 in Weight 226 lb 6 oz BMI 32.5 BP 122/80 Blood Pressure Location Lt brachial Position Sitting Pulse 80 Pulse Source Pulse Oximeter Pulse Oximetry (%) 99 Intake Visit Reasons: 3m follow up Allergies acetaminophen (From Vicodin) Allergy (Unknown, Verified 08/20/25 08:19) nausea hydrocodone (From Vicodin) Allergy (Unknown, Verified 08/20/25 08:19) nausea Medication List - Last Reconciled 08/20/25 by Zander Hugo MD fluvastatin 40 mg PO BEDTIME 90 days zolpidem (Ambien) 5 mg PO BEDTIME PRN 90 days Tobacco use date assessed: 05/21/25 Dental Screening Dental Screen Date: 05/21/25 HPI 3m follow up HPI Details History of Present Illness The patient is a 35-year-old male presenting with a protruding deformity over the left clavicle. 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: recent history of a stomach virus affecting household - Missed flu vaccine during the last drill weekend Diagnostic Results: - Recent blood labs completed, but reports not yet available at the time of visit Problem List - Protruding clavicular deformity - Hyperlipidemia - insomnia - need flu vaccine Plan - Ordered an X-ray of the left clavicle and shoulder to investigate the protruding deformity further - Administered flu vaccine due to active duty requirement - Refill of fluvastatin and zolpidem prescribed Review of Systems - General: No fever no chills - Neurological: No headaches no dizziness - Ear nose throat: No sore throat no hearing difficulty no ear pain - Cardiovascular: No syncope, no chest pain, no palpitations - Gastrointestinal: No nausea vomiting or diarrhea - Endocrine: No polyuria polydipsia no heat intolerance - Genitourinary: No dysuria , no blood in urine Physical Exam General: No acute distress HEENT: No acute findings Neck: Supple Respiratory system: Able to talk in full sentences, no audible wheeze Cardiovascular: S1-S2 regular in rate and rhythm Gastrointestinal: No pain Extremities: Protruding deformity over lateral end of left clavicle, full range of motion in both shoulders, but painful to lift above the head on the left side 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 Mother No problems noted. Social History Household Members: None Housing: House Alcohol intake: former Patient Tobacco Use Status: Never used Tobacco e-Cigarette/Vaping Use: Never Used service: No Current occupational status: employed Cognitive needs: No Hearing needs: No Vision needs: No Questionnaire PHQ-9 Over the last 2 weeks, how often have you been bothered by any of the following problems? 1. Little interest or pleasure in doing things: not at all 2. Feeling down, depressed, or hopeless: not at all 3. Trouble falling or staying asleep, or sleeping too much: several days 4. Feeling tired or having little energy: not at all 5. Poor appetite or overeating: not at all 6. Feeling bad about yourself - or that you are a failure or have let yourself or your family down: not at all 7. Trouble concentrating on things, such as reading the newspaper or watching television: not at all 8. Moving or speaking so slowly that other people could have noticed. Or the opposite - being so fidgety or restless that you have been moving around a lot more than usual: not at all 9. Thoughts that you would be better off or of hurting yourself in some way: not at all Total score: 1 Depression Screening Interpretation: Negative Depression Screening Done: Yes 51231 - PHQ-9 Billing: Yes Source: Developed by Drs. Yayo Garner, Jo B.Parmjit Suazo and colleagues, with an educational halley from [employer]. Thrive Questionnaire Date Thrive assessed: 12/06/24 I am a: Patient What is your living situation today?: I have a steady place to live Within the past 12 months, did the food you bought not last and you didn't have the money to get more?: Never true Within the past 12 months, did you worry whether your food would run out before you got money to buy more?: Never true Do you have trouble paying for medicines?: No Do you have trouble getting transportation to medical appointments?: No Do you have trouble paying your heating and electricity bill?: No Do you have trouble taking care of your child, family member or friend?: No Do you have trouble with day-to-day activities such as bathing, preparing meals, shopping, managing finances, etc.?: No Are you currently unemployed and looking for a job?: No Are you interested in more education?: No Please select the resources that you would like help with: None Currently or been in a relationship where the following occur: No concerns reported THRIVE Score: 0 AUDIT C Alcohol Use Questionnaire (AUDIT-C) 1. How often do you have a drink containing alcohol?: Monthly or less 2. How many drinks containing alcohol do you have on a typical day when you are drinking?: 1 or 2 3. How often do you have six or more drinks on one occasion?: Never Total Score: 1 YANDEL-7 AMB Questionnaire YANDEL-7 Date YANDEL - 7 assessed: 12/06/24 Feeling nervous, anxious, or on edge: 0 = Not at all Not being able to stop or control worryin = Not at all Worrying too much about different things: 0 = Not at all Trouble relaxin = Not at all Being so restless that it is hard to sit still: 0 = Not at all Becoming easily annoyed or irritable: 0 = Not at all Feeling afraid as if something awful might happen: 0 = Not at all Total YANDEL-7 score (0-4 normal; 5-9 mild; 10-14 moderate; 15-21 severe): 0 Source: Developed by Drs. Yayo Garner, Parmjit Michaels and colleagues, with an educational halley from [employer] YANDEL-7 Assessment Billing YANDEL-7 Assessment Tool: YANDEL-7 Assessment 64002 Physical exam (Primary Care) Vital Signs: Last Vital Signs Pulse 80 08/20/25 08:19 BP 122/80 08/20/25 08:19 Pulse Ox 99 08/20/25 08:19 BMI result Body Mass Index 32.5 Tobacco/Smoking Status: Tobacco use Status Tobacco use date assessed 05/21/25 08/20/25 08:22 Patient Tobacco Use Status Never used Tobacco 08/20/25 08:22 e-Cigarette/Vaping Use Never Used 08/20/25 08:22 PHQ-9: PHQ-9 Score PHQ-9: Total score 1 08/20/25 08:35 Depression Screening Interpretation: Negative Thrive Assessment: Date of Thrive Assessment Date Thrive assessed 12/06/24 08/20/25 08:22 Currently or been in a relationship where the following occur: No concerns reported Office Procedures Flu Questionnaire Does the patient have a severe egg allergy?: No Does the patient have severe life threatening allergies?: No Does the patient have a fever or illness today?: No Has the patient ever had Guillain-[place] Syndrome?: No Has the patient ever had any past reaction to a flu shot?: No Immunizations Fluarix [id number] (PF) 45 mcg (15 mcg x 3)/0.5 mL IM syringe Performing Provider: Zander Hugo MD [place] [facility] [place] [facility] Administered by: Julio Cesar Barbosa CMA on 08/20/25 08:34 Dose Route Admin Location Dispensed Lot Number Expiration Date [facility] [employer] 0.5 mL IM Right Deltoid 0.5 mL [id number] 05/12/26 16072-031-78 [employer] VIS Given Date VIS Provided VIS Publication Date 08/20/25 Single Vaccine 24 Eligibility Eligibility Date Funding Source Not [facility] Eligible 08/20/25 Private Coding Level of Care Code Est Pt Level 4 (73900) Diagnoses Deformity of clavicle M95.8 Acute pain of left shoulder M25.512 Chronicity: acute Lipid disorder E78.9 Difficulty sleeping G47.9 Anxiety, generalized F41.1 PTSD (post-traumatic stress disorder) F43.10 Additional Codes PHQ-9 - 99575 - PHQ-9 Billing: Yes ([id number]) YANDEL-7 Assessment Billing - YANDEL-7 Assessment Tool: YANDEL-7 Assessment 20663 ([id number]) Assessment & Plan Assessment & Plan (1) Deformity of clavicle: Code(s): M95.8 - Other specified acquired deformities of musculoskeletal system Category: Medical (2) Shoulder pain, left: Code(s): M25.512 - Pain in left shoulder Category: Medical Qualifiers: Chronicity: acute Qualified Code(s): M25.512 - Pain in left shoulder (3) Lipid disorder: Code(s): E78.9 - Disorder of lipoprotein metabolism, unspecified Category: Medical (4) Difficulty sleeping: Code(s): G47.9 - Sleep disorder, unspecified Category: Medical (5) Anxiety, generalized: Code(s): F41.1 - Generalized anxiety disorder Category: Medical (6) PTSD (post-traumatic stress disorder): Code(s): F43.10 - Post-traumatic stress disorder, unspecified Category: Medical Plan History of Present Illness The patient is a 35-year-old male presenting with a protruding deformity over the left clavicle. 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: recent history of a stomach virus affecting household - Missed flu vaccine during the last drill weekend Diagnostic Results: - Recent blood labs completed, but reports not yet available at the time of visit Problem List - Protruding clavicular deformity - Hyperlipidemia - insomnia - need flu vaccine Plan - Ordered an X-ray of the left clavicle and shoulder to investigate the protruding deformity further - Administered flu vaccine due to active duty requirement - Refill of fluvastatin and zolpidem prescribed Orders: Orders XR clavicle LT Today M25.512 - Pain in left shoulder, M95.8 - Other specified acquired deformities of musculoskeletal system Influenza [id number] Immunization Today Z23 - Encounter for immunization XR shoulder LT min 2V Today M25.512 - Pain in left shoulder, M95.8 - Other specified acquired deformities of musculoskeletal system Medications: Refilled zolpidem (Ambien) 5 mg PO BEDTIME PRN 45 tabs 0RF insomnia 90 days G47.9 - Sleep disorder, unspecified
== END 2025-08-20 08:36 | disposition home or self-care (01) ==
LOC: HO.HMCC 08:09
PROVIDERS: PCP Internal Medicine; Visit Provider Internal Medicine
DX: M95.8 Other specified acquired deformities of musculoskeletal system (principal); M25.512 Pain in left shoulder; E78.9 Disorder of lipoprotein metabolism, unspecified; G47.9 Sleep disorder, unspecified; F41.1 Generalized anxiety disorder; F43.10 Post-traumatic stress disorder, unspecified; Z23 Encounter for immunization

== ENCOUNTER → 2025-08-20 08:55 | Outpatient (BNV) | payer OTHER, SELFPAY | PROVIDERS: PCP Internal Medicine; Visit Provider Radiology Diagnostic Ultrasound | DX: M19.012 Primary osteoarthritis, left shoulder (principal); M25.512 Pain in left shoulder | CPT/HCPCS: 73000; 73030 ==